=== PATIENT | male | born 1965 | race Caucasian/White ===

== ENCOUNTER 2020-06-25 09:39 | Outpatient (REF) | payer OTHER, SELFPAY | END 2020-06-25 09:40 | disposition home or self-care (01) | LOC: HO.HMGCLDS 09:39 | PROVIDERS: PCP Internal Medicine; Visit Provider Internal Medicine | DX: Z20.828 Contact with and (suspected) exposure to other viral communicable diseases (principal) | CPT/HCPCS: 36415; 87635 ==

== ENCOUNTER → 2020-08-25 09:30 | Outpatient (BNVA) | payer OTHER, SELFPAY | PROVIDERS: PCP Internal Medicine; Referring Provider Internal Medicine; Visit Provider Internal Medicine Gastroenterology | DX: Z76.89 Persons encountering health services in other specified circumstances (principal) ==

== ENCOUNTER 2020-08-31 10:31 | Outpatient (REF) | payer OTHER, SELFPAY ==
[2020-08-31 13:52] LABS: MANUAL DIFF FLAG NO
[2020-08-31 13:56] LABS: Basophils Percent Auto 0.5 % (0-2); Eosinophils Absolute Auto 0.1 X10*3/uL (0.0-0.4); Eosinophils Percent Auto 1.3 % (0-4); Hematocrit 43.2 % (42-52); Hemoglobin 14.6 g/dl (14.0-18.0); Imm Gran Abs Auto 0.02 X10*3/uL (0.00-0.03); Imm Gran Pct Auto 0.5 % (0.0-0.4); Lymphocytes Absolute Auto 1.1 X10*3/uL (1.2-4.9); Lymphocytes Percent Auto 29.8 % (20-40); Mean Corpuscular HGB Conc 33.8 g/dl (31.0-36.0); Mean Corpuscular Hemoglobin 33.7 pg (27.0-33.0); Mean Corpuscular Volume 99.8 fL (80-98); Mean Platelet Volume 10.1 fL (9.4-12.4); Monocytes Absolute Auto 0.5 X10*3/uL (0.1-1.2); Monocytes Percent Auto 13.9 % (2-11); Neutrophils Absolute Auto 2.1 X10*3/uL (2.0-8.3); Platelet Count 133 X10*3/uL (160-400); Red Blood Count 4.33 X10*6/uL (4.60-5.80); Red Cell Distribution Width 13.4 % (11.0-16.0); White Blood Count 3.8 X10*3/uL (4.8-10.8)
[2020-08-31 14:43] LABS: Alanine Aminotransferase 21 U/L (0-40); Albumin Level 3.7 g/dL (3.5-5.0); Alkaline Phosphatase 73 U/L (39-117); Anion Gap 12 (12-20); Aspartate Amino Transferase 25 U/L (5-37); Bilirubin Total 0.6 mg/dL (0.0-1.0); Blood Urea Nitrogen 12 mg/dL (9-16); Calcium 9.1 mg/dL (8.4-10.2); Carbon Dioxide 28 mmol/L (22-29); Chloride 101 mmol/L (96-108); Estimated Glomerular Filt Rate > 60; Glucose Random 55 mg/dL (60-115); Potassium 3.7 mmol/l (3.3-5.1); Sodium 137 mmol/L (135-145); Total Protein 6.4 g/dL (6.5-8.0)
[2020-08-31 14:50] LABS: Prostate Specific Antigen Scr 1.55 ng/mL (<0.05-4.0); Thyroid Stimulating Hormone 1.32 uIU/mL (0.32-4.0)
== END 2020-08-31 10:32 | disposition home or self-care (01) ==
LOC: HO.HMGCLDS 10:31
PROVIDERS: PCP Internal Medicine; Visit Provider Internal Medicine
DX: D69.6 Thrombocytopenia, unspecified (principal); B19.10 Unspecified viral hepatitis B without hepatic coma
CPT/HCPCS: 36415; 80053; 84153; 84443; 85025

== ENCOUNTER 2020-09-29 | Outpatient (REF) | payer OTHER, SELFPAY ==
[2020-09-29 11:38] LABS: Glucose Urine UA NEG (NEG); Leukocyte Esterase Urine NEG (NEG); Nitrite Urine NEG (NEG); PH 6.5 (5.0-8.0); Urine Blood 2+ (NEG); Urine Ketones NEG (NEG); Urine Protein NEG (NEG-TRACE)
[2020-09-29 11:47] LABS: Appearance Urine CLEAR; Color Urine YELLOW
[2020-09-29 11:56] LABS: Squamous Epithelial Cell Urine TRACE /LPF
== END 2020-09-29 00:01 | disposition home or self-care (01) ==
LOC: HO.HMGCLNP
PROVIDERS: Visit Provider Internal Medicine
DX: N39.0 Urinary tract infection, site not specified (principal)
CPT/HCPCS: 81001

== ENCOUNTER 2020-11-09 09:56 | Outpatient (REF) | payer OTHER, SELFPAY ==
--- NOTE | ~2020-11-09 | US_ITS ---
EXAMINATION: US ABDOMEN COMPLETE CLINICAL INFORMATION: Thrombocytopenia. COMPARISON: 07/05/2019 TECHNIQUE: Real-time imaging of the abdominal viscera. FINDINGS: PANCREAS: Pancreas is obscured by bowel gas. ABDOMINAL AORTA: Largely obscured by bowel gas. INFERIOR VENA CAVA: Visualized portions are normal. LIVER: Evaluation of the liver is obscured by bowel gas and difficulty with breath holding. The liver is normal in size. The liver contour is normal. Parenchymal echogenicity is normal. No focal hepatic lesion. There is no intrahepatic biliary duct dilatation seen. GALLBLADDER: The patient reported tenderness upon imaging of the gallbladder. The gallbladder is physiologically distended without evidence of stones, sludge, polyps, wall thickening or pericholecystic fluid. COMMON BILE DUCT: Normal in caliber measuring 0.4 cm in diameter. RIGHT KIDNEY: Normal. No hydronephrosis. No renal calculi or focal parenchymal lesions. The kidney measures 10.5 cm in maximum dimension. LEFT KIDNEY: Normal. No hydronephrosis. No renal calculi or focal parenchymal lesions. The kidney measures 10.4 cm in maximum dimension. SPLEEN: Normal. The spleen measures 8.7 cm in maximum dimension. FREE FLUID: None. US/US abdomen complete IMPRESSION: The study is limited by bowel gas and difficulty breath-holding to cooperate with the exam. The spleen is normal in size.
== END 2020-11-09 09:57 | disposition home or self-care (01) ==
LOC: HO.US 09:56
PROVIDERS: PCP Internal Medicine; Visit Provider Physician Assistant Surgical
DX: D69.6 Thrombocytopenia, unspecified (principal)
CPT/HCPCS: 76700

== ENCOUNTER → 2020-11-12 13:25 | Outpatient (BNVA) | payer OTHER, SELFPAY | PROVIDERS: PCP Internal Medicine; Visit Provider Urology ==

== ENCOUNTER → 2020-12-01 13:19 | Outpatient (BNV) | payer OTHER, SELFPAY | PROVIDERS: PCP Internal Medicine; Referring Provider Internal Medicine; Visit Provider Internal Medicine | DX: D69.6 Thrombocytopenia, unspecified (principal) | CPT/HCPCS: 99203; 99213 ==

== ENCOUNTER → 2020-12-24 12:54 | Outpatient (BNVA) | payer OTHER, SELFPAY | PROVIDERS: PCP Internal Medicine; Visit Provider Urology ==

== ENCOUNTER → 2020-12-29 11:37 | Outpatient (BNVA) | payer OTHER, SELFPAY | PROVIDERS: Visit Provider Internal Medicine Gastroenterology ==

== ENCOUNTER 2021-02-16 14:34 | Outpatient (REF) | payer OTHER, SELFPAY ==
[2021-02-18 14:59] LABS: FIT Int Ctl YES; FIT1 NEGATIVE (NEGATIVE); FIT2 NEGATIVE (NEGATIVE)
== END 2021-02-18 14:35 | disposition home or self-care (01) ==
LOC: HO.LNP 14:34
PROVIDERS: Visit Provider Internal Medicine Gastroenterology
DX: K59.04 Chronic idiopathic constipation (principal)
CPT/HCPCS: 82274

== ENCOUNTER 2021-05-11 09:04 | Outpatient (REF) | payer OTHER, SELFPAY ==
[2021-05-11 11:02] LABS: MANUAL DIFF FLAG NO
[2021-05-11 11:22] LABS: Basophils Percent Auto 0.6 % (0-2); Eosinophils Percent Auto 1.3 % (0-4); Hematocrit 40.4 % (42-52); Hemoglobin 14.2 g/dl (14.0-18.0); Imm Gran Abs Auto 0.01 X10*3/uL (0.00-0.03); Imm Gran Pct Auto 0.3 % (0.0-0.4); Lymphocytes Absolute Auto 1.3 X10*3/uL (1.2-4.9); Lymphocytes Percent Auto 42.4 % (20-40); Mean Corpuscular HGB Conc 35.1 g/dl (31.0-36.0); Mean Corpuscular Hemoglobin 33.6 pg (27.0-33.0); Mean Corpuscular Volume 95.7 fL (80-98); Mean Platelet Volume 10.1 fL (9.4-12.4); Monocytes Absolute Auto 0.4 X10*3/uL (0.1-1.2); Monocytes Percent Auto 13.2 % (2-11); Neutrophils Absolute Auto 1.3 X10*3/uL (2.0-8.3); Neutrophils Percent Auto 42.2 % (45-73); Platelet Count 147 X10*3/uL (160-400); Red Blood Count 4.22 X10*6/uL (4.60-5.80); Red Cell Distribution Width 12.9 % (11.0-16.0); White Blood Count 3.1 X10*3/uL (4.8-10.8)
[2021-05-11 11:42] LABS: Valproate 78.6 mcg/mL (50.0-100.0)
[2021-05-11 12:09] LABS: HBc Num1 10.47 S/CO (0.00-0.79); HBsAGNum1 15.94 S/CO (0.00-0.99); ~Hepatitis B Surface Antibody NONREACTIVE (Nonreactive)
[2021-05-11 12:22] LABS: Folate > 20.0 ng/mL (> or = 4.0); Vitamin B12 1167 pg/mL (200-900)
[2021-05-11 12:28] LABS: Alanine Aminotransferase 23 U/L (0-40); Albumin Level 3.8 g/dL (3.5-5.0); Alkaline Phosphatase 84 U/L (39-117); Anion Gap 12 (12-20); Aspartate Amino Transferase 23 U/L (5-37); Bilirubin Total 0.5 mg/dL (0.0-1.0); Blood Urea Nitrogen 11 mg/dL (9-16); Calcium 9.4 mg/dL (8.4-10.2); Carbon Dioxide 27 mmol/L (22-29); Chloride 99 mmol/L (96-108); Cholesterol 144 mg/dL; Estimated Glomerular Filt Rate > 60; Glucose Random 72 mg/dL (60-115); HDL Cholesterol 53 mg/dL; LDL Cholesterol Calculated 79 mg/dl; Potassium 4.4 mmol/L (3.3-5.1); Sodium 134 mmol/L (135-145); Total Protein 6.3 g/dL (6.5-8.0); Triglycerides 64 mg/dL
[2021-05-11 12:32] LABS: Free T4 (Free Thyroxine) 0.71 ng/dL (0.71-1.85); Thyroid Stimulating Hormone 1.81 uIU/mL (0.32-4.0)
[2021-05-12 07:15] LABS: HBc Num2 10.98 S/CO; HBc Num3 10.97 S/CO; HBsAGNum2 Reactive; Hepatitis B Core Antibody Reactive (Nonreactive)
[2021-05-12 07:16] LABS: HBsAGNum3 Reactive; Hepatitis B Surface Antigen Retest CNFM (Negative)
[2021-05-12 07:20] LABS: Hepatitis B Surface Antigen Rep Reactive (Negative)
[2021-05-13 17:36] LABS: Hepatitis B Viral DNA Qn - cp <1.00 DETECTED Log IU/mL (NOT DETECTED); Hepatitis B Viral DNA Qn-IU/mL <10 DETECTED IU/mL (NOT DETECTED)
[2021-05-14 19:40] LABS: TS Negative Control Passed; TS Panel A 0; TS Panel B 0; TS Positive Control Passed; TSpotTB Negative (SeeBelow)
[2021-05-17 12:31] LABS: Hepatitis BE Antibody REACTIVE (NON-REACTIVE); Hepatitis BE Antigen NON-REACTIVE (NON-REACTIVE)
== END 2021-05-11 09:05 | disposition home or self-care (01) ==
LOC: HO.HMGCLDS 09:04
PROVIDERS: Absent Provider Internal Medicine Gastroenterology; PCP Internal Medicine; Visit Provider Internal Medicine
DX: B18.1 Chronic viral hepatitis B without delta-agent (principal); F48.9 Nonpsychotic mental disorder, unspecified; F69 Unspecified disorder of adult personality and behavior; E78.00 Pure hypercholesterolemia, unspecified; Z86.69 Personal history of other diseases of the nervous system and sense organs
CPT/HCPCS: 36415; 80053; 80061; 80164; 82607; 82746; 84439; 84443; 85025; 86481; 86704; 86706; 86707; 87340; 87350; 87517

== ENCOUNTER 2021-05-18 14:25 | Outpatient (REF) | payer OTHER, SELFPAY ==
[2021-05-18 16:50] LABS: Glucose Urine UA NEG (NEG); Leukocyte Esterase Urine TRACE (NEG); Nitrite Urine NEG (NEG); Specific Gravity - Urine 1.015 (1.005-1.025); Urine Blood NEG (NEG); Urine Ketones NEG (NEG); Urine Protein NEG (NEG-TRACE)
[2021-05-18 16:52] LABS: Appearance Urine CLEAR; Color Urine YELLOW
[2021-05-18 17:06] LABS: RBC Urine 0 /HPF (0)
== END 2021-05-18 14:26 | disposition home or self-care (01) ==
LOC: HO.HMGCLNP 14:25
PROVIDERS: Visit Provider Internal Medicine
DX: N20.0 Calculus of kidney (principal); N39.0 Urinary tract infection, site not specified
CPT/HCPCS: 81001

== ENCOUNTER 2021-07-15 09:05 | Outpatient (REF) | payer OTHER, SELFPAY ==
[2021-07-15 11:38] LABS: Appearance Urine CLEAR; Color Urine YELLOW; Glucose Urine UA NEG (NEG); Leukocyte Esterase Urine NEG (NEG); Nitrite Urine NEG (NEG); PH 7.5 (5.0-8.0); Specific Gravity - Urine 1.015 (1.005-1.025); Urine Blood NEG (NEG); Urine Ketones NEG (NEG); Urine Protein NEG (NEG-TRACE)
[2021-07-15 12:03] LABS: Amorphous Sediment Urine 2+ /LPF; Calcium Oxalate Crystals Urine TRACE /LPF; RBC Urine 0 /HPF (0)
== END 2021-07-15 09:06 | disposition home or self-care (01) ==
LOC: HO.HMGCLNP 09:05
PROVIDERS: Visit Provider Internal Medicine
DX: N20.0 Calculus of kidney (principal); N39.0 Urinary tract infection, site not specified; R30.0 Dysuria
CPT/HCPCS: 81001

== ENCOUNTER 2021-11-22 12:49 | Outpatient (REF) | payer OTHER, SELFPAY ==
--- NOTE | ~2021-11-22 | MM_ITS ---
EXAMINATION: BONE DENSITOMETRY CLINICAL INDICATION: Other specified disorders of bone density and structure. COMPARISON: Baseline BD dated 03/05/2018. TECHNIQUE: Using a IQMax DXA System (software version: 13.1) manufactured by [employer], dual-energy x-ray absorptiometry was performed of the lumbar spine and left hip. The images are of good technical quality. Summary results are attached. FINDINGS: AP SPINE L1-L4: Current: BMD 1.067 g/cm2, Z-score -0.5, T-score -1.3, osteopenia, 4.5% decrease from baseline (<5% change is not significant). Baseline: BMD 1.117 g/cm2. LEFT FEMUR, NECK: Current: BMD 0.732 g/cm2, Z-score -1.5, T-score -2.6, osteoporosis. Baseline: BMD 0.905 g/cm2. LEFT FEMUR, TOTAL: Current: BMD 0.807 g/cm2, Z-score -1.3, T-score -2.0, osteopenia, 14.8% decrease from baseline (<5% change is not significant). Baseline: BMD 0.947 g/cm2. IDENTIFIED RISK FACTORS: Secondary osteoporosis, history of fracture (adult), anticonvulsants. HISTORY OF FRACTURE: Rib. MEDICATIONS: Calcium supplements or multivitamin, vitamin D. MM/XR DEXA axial skeleton IMPRESSION: 1. DIAGNOSIS: Osteoporosis based on the lowest T-score value of -2.6 in the femoral neck applying World Health Organization criteria. 2. 10-YEAR FRACTURE RISK PREDICTION, FRAX: According to the guidelines, FRAX calculation should only be performed on patients in the osteopenia bone density category. Therefore, FRAX was not performed on this patient. 3. Treatment Recommendations: NOF guidelines recommend consideration for treatment in postmenopausal women and men age 50 and older presenting with the following: -A hip or vertebral (clinical or morphometric) fracture. -T-score less than or equal to -2.5 at the femoral neck or spine after appropriate evaluation to exclude secondary causes. -Low bone mass at the hip or spine and a 10-year fracture probability by FRAX of greater than or equal to 3% for hip fracture or greater than or equal to 20% for major osteoporotic fracture based on the [place] adapted WHO algorithm. 4. Other Recommendations: All treatment decisions require clinical judgment and consideration of individual patient factors, including patient preferences, comorbidities, previous drug use, risk factors not captured in the FRAX model (e.g. frailty, falls, vitamin D deficiency, increased bone turnover, interval significant decline in bone density) and possible under or overestimation of fracture risk by FRAX. Additional medical evaluation for secondary cause of low bone mineral density may be appropriate. FUTURE SCAN RECOMMENDATION: People with diagnosed cases of osteoporosis or at high risk for fracture should have regular bone mineral density tests. For patients eligible for Medicare, routine testing is allowed once every 2 years. The testing frequency can be increased to one year for patients who have rapidly progressing disease, those who are receiving or discontinuing medical therapy to restore bone mass, or have additional risk factors.
== END 2021-11-22 12:50 | disposition home or self-care (01) ==
LOC: HO.MAMMO 12:49
PROVIDERS: PCP Internal Medicine; Visit Provider Internal Medicine
DX: Z13.820 Encounter for screening for osteoporosis (principal); M85.80 Other specified disorders of bone density and structure, unspecified site; Z79.899 Other long term (current) drug therapy
CPT/HCPCS: 77080

== ENCOUNTER → 2021-12-07 11:22 | Outpatient (BNVA) | payer OTHER, SELFPAY | PROVIDERS: PCP Internal Medicine; Referring Provider Internal Medicine; Visit Provider Physician Assistant | DX: K59.09 Other constipation (principal); B18.1 Chronic viral hepatitis B without delta-agent | CPT/HCPCS: 99212 ==

== ENCOUNTER 2022-02-08 08:28 | Outpatient (REF) | payer OTHER, SELFPAY ==
--- NOTE | ~2022-02-08 | US_ITS ---
EXAMINATION: US ABDOMEN COMPLETE CLINICAL INFORMATION: Chronic viral hepatitis B without delta agent. COMPARISON: Ultrasound abdomen complete 11/09/2020. Renal ultrasound 06/08/2020. CT abdomen and pelvis 07/05/2019. X-ray KUB 04/04/2019. Exam is limited due to patient body habitus. TECHNIQUE: Real-time imaging of the abdominal viscera. FINDINGS: PANCREAS: Not well visualized due to bowel gas ABDOMINAL AORTA: The proximal, mid, and distal segments are normal in caliber. INFERIOR VENA CAVA: Visualized portions are normal. LIVER: Normal. The liver is normal in size. The liver contour is normal. Parenchymal echogenicity is normal. No focal hepatic lesion. There is no intrahepatic biliary duct dilatation seen. GALLBLADDER: The gallbladder is contracted. No gallstones are seen. COMMON BILE DUCT: Normal in caliber measuring 0.2 cm in diameter. RIGHT KIDNEY: There is a 4 mm stone in the lower pole. No hydronephrosis or focal parenchymal lesions. The kidney measures 11.1 cm in maximum dimension. LEFT KIDNEY: There is a 3 mm stone in the midpole. No hydronephrosis or focal parenchymal lesions. The kidney measures 11.4 cm in maximum dimension. SPLEEN: Normal. The spleen measures 7.1 cm in maximum dimension. FREE FLUID: None. US/US abdomen complete IMPRESSION: Limited exam. The liver appears normal without evidence of cirrhosis. Small bilateral renal stones. Contracted gallbladder. Nonvisualization of the pancreas.
== END 2022-02-08 08:29 | disposition home or self-care (01) ==
LOC: HO.US 08:28
PROVIDERS: Visit Provider Physician Assistant
DX: B18.1 Chronic viral hepatitis B without delta-agent (principal)
CPT/HCPCS: 76700

== ENCOUNTER 2022-03-20 14:49 | Outpatient (REF) | payer OTHER, SELFPAY ==
--- NOTE | ~2022-03-20 | XR_ITS ---
EXAMINATION: XR SHOULDER, RIGHT CLINICAL INFORMATION: Right shoulder pain. COMPARISON: 07/11/2010 and chest x-ray of 12/10/2017. TECHNIQUE: Three views of the right shoulder. FINDINGS: No dislocation is evident. There is some mild spurring of the glenohumeral joint inferiorly. Patient is status post previous right clavicle fracture. There is calcific tendinitis noted. On the provided films, there is a curvilinear density about the lateral aspect of the humeral head, however, this is likely related to overlying bed sheets rather than acute fracture. XR/XR shoulder RT min 2V IMPRESSION: Calcific tendinitis of the right shoulder. Probable artifact, as described above.
== END 2022-03-20 14:50 | disposition home or self-care (01) ==
LOC: HO.XRAY 14:49
PROVIDERS: PCP Internal Medicine; Visit Provider Emergency Medicine
DX: M25.511 Pain in right shoulder (principal)
CPT/HCPCS: 73030

== ENCOUNTER 2022-03-24 10:10 | Emergency (ER) | payer OTHER, SELFPAY ==
--- NOTE | ~2022-03-24 | CT_ITS ---
EXAMINATION: CT FACIAL BONES WITHOUT CONTRAST CLINICAL INFORMATION: Fall. Trauma. COMPARISON: Previous CT March 2020 TECHNIQUE: Axial images through the facial bones without contrast. Sagittal and coronal reconstructions on the technologist workstation were performed. This CT examination was performed using dose optimization techniques as appropriate, variously including the following: *Automated exposure control *Adjustment of mA and/or kV according to patient size (this includes techniques or standardized protocols for targeted exams where dose is matched to indication/reason for exam; i.e. extremities or head) *Use of iterative reconstruction technique DLP: 343 mGy-cm FINDINGS: There is no acute fracture or dislocation. There is evidence of old trauma to the bridge of the nose and deviation of the nasal septum to the left that appears unchanged. There is mild membranous soft tissue thickening in the sphenoid sinus. Paranasal sinuses are otherwise well aerated and clear. Temporomandibular joints are normal. Middle ears and mastoid air cells are normal. Orbits are normal. CT/CT facial bones wo con IMPRESSION: No acute fracture is seen. Evidence of old trauma to the nose similar to previous exam.
--- NOTE | ~2022-03-24 | CT_ITS ---
EXAMINATION: CT CERVICAL SPINE WITHOUT CONTRAST CLINICAL INFORMATION: Trauma. Fall. COMPARISON: Previous cervical spine CT March 2020 TECHNIQUE: Axial images through the cervical spine without contrast. Sagittal and coronal reconstructions on the technologist workstation were performed. This CT examination was performed using dose optimization techniques as appropriate, variously including the following: *Automated exposure control *Adjustment of mA and/or kV according to patient size (this includes techniques or standardized protocols for targeted exams where dose is matched to indication/reason for exam; i.e. extremities or head) *Use of iterative reconstruction technique DLP: 313 mGy-cm FINDINGS: Bone alignment is normal. No fracture or dislocation is seen. There is multilevel degenerative spondylosis with bridging vertebral body bony osteophytes from C2-C3 to C7-T1. There is disc space narrowing at C3-C4. Prevertebral soft tissues are normal. Visualized lung apices are clear. There is old trauma to the bilateral clavicles. CT/CT cervical spine wo con IMPRESSION: No fracture or dislocation. Degenerative changes. Fleischner guidelines were followed.
--- NOTE | ~2022-03-24 | CT_ITS ---
EXAMINATION: CT HEAD WITHOUT CONTRAST CLINICAL INFORMATION: Fall. Hit face. Vomiting. COMPARISON: Previous head CT most recent March 2020. TECHNIQUE: Contiguous axial imaging was performed from the skull base to vertex without intravenous administration of contrast. This CT examination was performed using dose optimization techniques as appropriate, variously including the following: *Automated exposure control *Adjustment of mA and/or kV according to patient size (this includes techniques or standardized protocols for targeted exams where dose is matched to indication/reason for exam; i.e. extremities or head) *Use of iterative reconstruction technique DLP: 701 mGy-cm FINDINGS: There is no evidence of an extra-axial collection. There is no evidence of intra-axial or extra-axial hemorrhage. The ventricles and extra-axial CSF spaces are prominent suggestive of generalized atrophy. Ng-white matter differentiation is normal. No mass, mass effect or infarct is seen. No skull fracture is seen. Visualized paranasal sinuses, mastoid air cells and middle ears are clear. CT/CT head/brain wo con IMPRESSION: Table exam. No acute findings.
[2022-03-24 10:42] VITALS: BP 92/73; PULSE 55; RESP 16; TEMP 36.3; O2SAT 97; BMI 21.4
--- NOTE | 2022-03-24 12:29 | ED.FALL ---
HPI - Fall General Chief Complaint: Fall Stated Complaint: fell today and hit face abt 930am Time Seen by Provider: 03/24/22 11:05 Source: patient and other Mode of arrival: wheelchair History of Present Illness HPI Narrative: 56-year-old male with past medical history of cerebral palsy, GERD, cognitive developmental delay, thrombocytopenia, vitamin-D deficiency, presenting to the ED complaining of nasal laceration and head injury s/p mechanical trip and fall at day program [employer]. Patient's medical worker reports while at program patient was having behavioral disturbance, stood up from wheelchair and foot got caught on table and fell knee 1st then face on the ground. Denies LOC or taking anticoagulation. Patient did have 1 episode of emesis after incident. Admit patient is at baseline mental status. Patient denies neck/back pain, abdominal pain. Tetanus up-to-date Related Data Home Medications Medication Instructions Recorded Confirmed fluoride (sodium) 1.1 % dental 1 appl PO DAILY 08/25/20 12/07/21 cream clonidine HCl 0.1 mg tablet 0.1 mg PO BID 11/09/20 12/07/21 clonidine HCl 0.2 mg tablet 0.2 mg PO DAILY 11/09/20 12/07/21 divalproex 250 mg tablet,extended 750 mg PO DAILY 11/09/20 12/07/21 release 24 hr divalproex 500 mg tablet,extended 1,000 mg PO DAILY 11/09/20 12/07/21 release 24 hr gabapentin 300 mg capsule 600 mg PO BID 11/09/20 12/07/21 levetiracetam 500 mg tablet 1,000 mg PO BID 11/09/20 12/07/21 therapeutic multivitamin 1 tab PO DAILY 12/01/20 12/07/21 oxcarbazepine 300 mg tablet 600 mg PO BID 12/24/20 12/07/21 bismuth subsalicylate 262 mg/15 mL 524 mg PO Q6H PRN Diarrhea 05/09/21 12/07/21 oral suspension (Bismatrol) olanzapine 15 mg tablet 15 mg PO DAILY 05/09/21 12/07/21 Previous Rx's Medication Instructions Recorded miscellaneous medical supply 1 ea miscellaneous DAILY #1 ea 04/22/21 psyllium 1 tsp PO DAILY #300 grams 08/17/21 docusate sodium 100 mg capsule 100 mg PO BID for constipation #60 09/14/21 caps loratadine 10 mg tablet (Claritin) 10 mg PO DAILY allergy symptoms 90 09/28/21 days #90 tabs multivitamin with folic acid 400 1 tab PO QAM #30 tabs 10/05/21 mcg tablet (Thera) omeprazole 20 mg capsule,delayed 20 mg PO QAM #30 caps 10/27/21 release fluticasone propionate 50 2 spray intranasal DAILY #16 grams 11/07/21 mcg/actuation nasal spray,suspension (Flonase Allergy Relief) magnesium hydroxide 400 mg/5 mL 400 mg (5 mL) PO BEDTIME PRN 12/29/21 oral suspension (Milk of Magnesia) Diarrhea #3,000 mL acetaminophen 325 mg capsule 325 mg PO QID PRN fever or pain 01/19/22 #60 caps cholecalciferol (vitamin D3) 25 50 mcg PO DAILY #180 tabs 01/19/22 mcg (1,000 unit) tablet finasteride 5 mg tablet 5 mg PO DAILY 90 days #90 tabs 02/08/22 tamsulosin 0.4 mg capsule 0.4 mg PO BEDTIME 90 days #90 caps 02/08/22 naproxen sodium 220 mg tablet 220 mg PO BID PRN pain #30 tabs 03/21/22 Allergies Allergy/AdvReac Type Severity Reaction Status Date / Time topiramate [From TOPAMAX] Allergy Intermediate UNKNOWN Verified 03/24/22 10:47 Review of Systems Review of Systems: Constitutional: No Fever, No Chills ENT/Mouth: + nose Pain, No Nasal Congestion, No Sinus Pain, No Hoarseness, No sore throat, No Rhinorrhea, No Swallowing Difficulty Eyes: No Eye Pain, No Swelling Cardiovascular: No Chest Pain, No SOB Respiratory: No Cough, No Dyspnea Gastrointestinal: No Nausea, + Vomiting, No Abdominal pain Genitourinary: No Urinary Incontinence/retention Musculoskeletal: + joint pain, No Myalgias, No Joint Swelling Skin: + Skin Lesions, No rash Neuro: No Weakness, No Loss of Consciousness, + Headache Yes all other systems are reviewed and are negative [facility] Past Medical History Attestation statement: The following information was validated with the patient. Medical History Cerebral palsy Cholelithiasis Chronic idiopathic constipation Cognitive developmental delay GERD (gastroesophageal reflux disease) H/O nephrolithotomy with removal of calculi Hepatitis B virus infection Hx of seizure disorder Leukopenia Osteopenia Renal calculus, bilateral Ribs, multiple fractures Thrombocytopenia Vitamin D deficiency Surgical History History of cystoscopy History of extraction of renal calculus History of gastric surgery S/P cataract surgery Family History Family History Father No problems noted. Mother No problems noted. Family/Other Family history unknown Social History Social History Household Members: Other Household Members Other:: [facility] Housing: Other Housing Other:: [facility] Are you a primary critical care physician to a significant other at home: No Do you presently have visiting nurse or other home services: Yes Alcohol intake: never Patient Tobacco Use Status: Never used Tobacco e-Cigarette/Vaping Use: Never Used Second Hand Smoke Exposure: No Advance Directives: Yes Advance Directives Information Provided: Yes Advance Directives on File: No service: No Current occupational status: disabled Physical Exam Vital Signs: Vital Signs: Last Vital Signs Temp 97.3 F 03/24/22 10:42 Pulse 55 03/24/22 10:42 Resp 16 03/24/22 10:42 BP 92/73 03/24/22 10:42 Pulse Ox 97 03/24/22 10:42 O2 Del Method 03/24/22 10:42 BMI result Body Mass Index 21.4 Const: General: cooperative, no acute distress, alert and awake Limitations: no limitations, wheelchair and other limitations HEENT: Other: + superficial 1 cm laceration noted to nasal bridge with surrounding swelling. No septal hematoma. No appreciable orbital fracture/step-off. EOMs intact Head: Yes normal to inspection, Yes atraumatic and No palpable skull fracture Ears: hearing grossly normal bilaterally Face and sinus: Yes normal facial exam Mouth: Normal oral and palatal mucosa present Throat: Yes posterior oropharynx normal Eyes: General: appearance normal, both eyes and all related structures Pupils: Pupil size comments on the right 4 and on the left 2 EOM: EOMs intact bilaterally Neck: Other: No midline cervical spinous tenderness Neck: Yes normal visual inspection and Yes no meningeal signs Chest: Chest palpation & inspection: normal inspection of the chest, no crepitus and no tenderness Resp: Effort & Inspection: normal respiratory effort and no respiratory distress Auscultation: clear to auscultation bilaterally Cardio: Rate: regular rate Heart sounds: S1 normal heart sound present and S2 normal heart sound present GI: Inspection: Yes normal to inspection Palpation (GI): Soft to palpation, nontender, no guarding and not rigid Skin: Rashes: no rashes Neuro: Other: Mentation at baseline General: tone normal, moves all extremities and no meningeal signs Extrem: Other: Right knee with mild ecchymosis. ROM intact. Mildly tender. Course Course Course Narrative: CT head/brain wo con IMPRESSION: Unremarkable exam. No acute findings. CT cervical spine wo con IMPRESSION: No fracture or dislocation. Degenerative changes. ? Fleischner guidelines were followed. CT facial bones wo con IMPRESSION: No acute fracture is seen. Evidence of old trauma to the nose similar to previous exam. > results discussed with patient and staff that accompanied patient including worrisome signs and symptoms and strict return precautions Procedures Laceration Laceration 1: Site: face Size (cm): 1 Description: linear Depth: simple, single layer Pre-repair: wound explored Skin layer closed with: other (Dermabond) MDM - Fall MDM Narrative Medical decision making narrative: 56-year-old male with past medical history of cerebral palsy, GERD, cognitive developmental delay, thrombocytopenia, vitamin-D deficiency, presenting to the ED complaining of nasal laceration and head injury s/p mechanical trip and fall at day program [employer]. On exam vital signs stable, NAD/nontoxic appearing physical exam as above. Concern for ICH vs concussion vs fracture. Low suspicion for intra-abdominal hematoma/bleeding. Plan: Head/C-spine/facial bone CT, repair laceration with Dermabond Differential Diagnosis Differential diagnosis: Likely fracture and concussion without loss of consciousness Medical Records Attestation: I reviewed the patient's medical records. Lab Data Attestation: I reviewed the patient's lab results. Discharge Plan Discharge Clinical Impression: Laceration of nose, Fall, Head injury Patient Disposition: Home, Self-Care Instructions: Head Injury (ED), Facial Laceration (ED) Additional Instructions: The CT scans of your head, face, and neck were unremarkable. Suture was closed with skin glue, do not take at the area it will follow up on its own. Take Tylenol and Motrin at home for pain/headache. Patient could have mild concussion, if he has any change in mental status, increasing lethargy, persistent nausea or vomiting return to the ED immediately. If cut begins to look infected return to the ED Please follow-up with . Prescriptions: No Action miscellaneous medical supply Misc 1 ea miscellaneous DAILY Qty: 1 0RF Rx Instructions: soft foam helmet psyllium Powder 1 tsp PO DAILY Qty: 300 12RF Rx Instructions: mix into at least 4 oz water or juice before administering docusate sodium 100 mg capsule 100 mg PO BID Qty: 60 6RF loratadine [Claritin] 10 mg tablet 10 mg PO DAILY 90 Days Qty: 90 3RF multivitamin with folic acid [Thera] 400 mcg tablet 1 tab PO QAM Qty: 30 11RF omeprazole 20 mg capsule,delayed release(DR/EC) 20 mg PO QAM Qty: 30 11RF magnesium hydroxide [Milk of Magnesia] 400 mg/5 mL suspension 400 mg PO BEDTIME PRN (Reason: Diarrhea) Qty: 3000 3RF cholecalciferol (vitamin D3) 25 mcg (1,000 unit) tablet 50 mcg PO DAILY Qty: 180 3RF acetaminophen 325 mg capsule 325 mg PO QID PRN (Reason: fever or pain) Qty: 60 3RF finasteride 5 mg tablet 5 mg PO DAILY 90 Days Qty: 90 1RF tamsulosin 0.4 mg capsule 0.4 mg PO BEDTIME 90 Days Qty: 90 1RF naproxen sodium 220 mg tablet 220 mg PO BID PRN (Reason: pain) Qty: 30 0RF Rx Instructions: take with food all the time Thera Tablet 1 tab PO DAILY bismuth subsalicylate [Bismatrol] 262 mg/15 mL suspension 524 mg PO Q6H PRN (Reason: Diarrhea) fluticasone propionate [Flonase Allergy Relief] 50 mcg/actuation spray,suspension 2 spray intranasal DAILY Qty: 16 5RF Rx Instructions: administer into each nostril fluoride (sodium) 1.1 % cream 1 appl PO DAILY clonidine HCl 0.2 mg tablet 0.2 mg PO DAILY clonidine HCl 0.1 mg tablet 0.1 mg PO BID divalproex 250 mg tablet extended release 24 hr 750 mg PO DAILY divalproex 500 mg tablet extended release 24 hr 1,000 mg PO DAILY gabapentin 300 mg capsule 600 mg PO BID levetiracetam 500 mg tablet 1,000 mg PO BID oxcarbazepine 300 mg tablet 600 mg PO BID olanzapine 15 mg tablet 15 mg PO DAILY Referrals: Po,Aliza Shannon MD [Primary Care Provider] - 3 days
== END 2022-03-24 14:18 | disposition home or self-care (01) ==
PROVIDERS: Emergency Provider Emergency Medicine Emergency Medical Services; PCP Internal Medicine
DX: S01.21XA Laceration without foreign body of nose, initial encounter (principal); M54.2 Cervicalgia; R51.9 Headache, unspecified; W01.0XXA Fall on same level from slipping, tripping and stumbling without subsequent striking against object, initial encounter; Y93.9 Activity, unspecified; Y92.9 Unspecified place or not applicable; Y99.9 Unspecified external cause status; Z79.899 Other long term (current) drug therapy
CPT/HCPCS: 12011; 70450; 70486; 72125; 99283; 99284

== ENCOUNTER 2022-04-20 17:50 | Outpatient (REF) | payer OTHER, SELFPAY ==
[2022-04-20 18:05] LABS: Appearance Urine CLEAR; Color Urine YELLOW; Glucose Urine UA NEG (NEG); Leukocyte Esterase Urine TRACE (NEG); Nitrite Urine NEG (NEG); PH 6.5 (5.0-8.0); Urine Blood NEG (NEG); Urine Ketones NEG (NEG); Urine Protein NEG (NEG-TRACE)
[2022-04-20 18:20] LABS: RBC Urine 0-2 /HPF (0); Squamous Epithelial Cell Urine TRACE /LPF; WBC Urine 0-2 /HPF (0-4)
== END 2022-04-20 17:51 | disposition home or self-care (01) ==
LOC: HO.LNP 17:50
PROVIDERS: Visit Provider Urology
DX: N39.0 Urinary tract infection, site not specified (principal)
CPT/HCPCS: 81001

== ENCOUNTER 2022-05-24 08:12 | Outpatient (REF) | payer OTHER, SELFPAY ==
[2022-05-24 09:01] LABS: Basophils Percent Auto 0.6 % (0-2); Eosinophils Absolute Auto 0.1 X10*3/uL (0.0-0.4); Eosinophils Percent Auto 1.4 % (0-4); Hematocrit 45.9 % (42.0-52.0); Hemoglobin 15.9 g/dl (14.0-18.0); Imm Gran Abs Auto 0.01 X10*3/uL (0.00-0.03); Imm Gran Pct Auto 0.2 % (0.0-0.4); Lymphocytes Absolute Auto 1.3 X10*3/uL (1.2-4.9); Lymphocytes Percent Auto 27.3 % (20-40); MANUAL DIFF FLAG SCAN; Mean Corpuscular HGB Conc 34.6 g/dl (31.0-36.0); Mean Corpuscular Hemoglobin 33.1 pg (27.0-33.0); Mean Corpuscular Volume 95.6 fL (80.0-98.0); Mean Platelet Volume 11.1 fL (9.4-12.4); Monocytes Absolute Auto 0.7 X10*3/uL (0.1-1.2); Monocytes Percent Auto 13.3 % (2-11); Neutrophils Absolute Auto 2.8 x10*3/uL (2.0-8.3); Neutrophils Percent Auto 57.2 % (45-73); PLT CLUMP 1; Red Cell Distribution Width 13.2 % (11.0-16.0); Retic HGB Equivalent 39.6 pg (30.0-35.0); Reticulocyte Percent 2.2 % (0.5-1.8); Reticulocytes Absolute 0.104 X10*6/uL (0.026-0.095); SCAN SMEAR FLAG 1
[2022-05-24 09:17] LABS: Estimated Average Glucose 91 mg/dL; Hemoglobin A1c % 4.8 %
[2022-05-24 09:21] LABS: Alanine Aminotransferase 28 U/L (0-40); Albumin Level 4.1 g/dL (3.5-5.0); Alkaline Phosphatase 81 U/L (39-117); Anion Gap 16 (12-20); Aspartate Amino Transferase 36 U/L (5-37); Bilirubin Direct 0.2 mg/dL (0.0-0.5); Bilirubin Total 0.4 mg/dL (0.0-1.0); Blood Urea Nitrogen 16 mg/dL (9-16); Calcium 9.7 mg/dL (8.4-10.2); Carbon Dioxide 25 mmol/L (22-29); Chloride 105 mmol/L (96-108); Estimated Glomerular Filt Rate > 60; Glucose Random 73 mg/dL (60-115); Iron 198 mcg/dL (45-160); Percent Iron Saturation 61 % (15-50); Potassium 3.9 mmol/L (3.3-5.1); Sodium 142 mmol/L (135-145); Total Iron Binding Capacity 326 mcg/dL (228-428); Unsaturated Iron Binding 128 ug/dL
[2022-05-24 09:39] LABS: HBS Num1 0.52 mIU/mL (0-7.99); HBsAGNum1 12.72 S/CO (0.00-0.99); Valproate 79.9 mcg/mL (50.0-100.0); ~Hepatitis B Surface Antibody NONREACTIVE (Nonreactive)
[2022-05-24 09:41] LABS: Ferritin 80 ng/mL (20-250); Free T4 (Free Thyroxine) 0.78 ng/dL (0.71-1.85); Thyroid Stimulating Hormone 3.41 uIU/mL (0.32-4.0)
[2022-05-24 09:53] LABS: Platelet Count 115 X10*3/uL (160-400); White Blood Count 4.9 X10*3/uL (4.8-10.8)
[2022-05-24 09:54] LABS: SLIDE REVIEW VERIFIED
[2022-05-24 10:04] LABS: Folate > 20.0 ng/mL (> or = 4.0); Vitamin B12 1001 pg/mL (200-900)
[2022-05-24 13:06] LABS: HBsAGNum2 12.09; HBsAGNum3 12.16; Hepatitis B Surface Antigen Reactive (Negative)
[2022-05-25 17:36] LABS: Hepatitis B Viral DNA Qn - cp <1.00 NOT DETECTED Log IU/mL (NOT DETECTED); Hepatitis B Viral DNA Qn-IU/mL <10 NOT DETECTED IU/mL (NOT DETECTED)
[2022-05-26 16:07] LABS: Hepatitis BE Antibody REACTIVE (NON-REACTIVE); Hepatitis BE Antigen NON-REACTIVE (NON-REACTIVE)
[2022-05-26 23:47] LABS: TS Negative Control Passed; TS Panel A 2; TS Panel B 1; TS Positive Control Passed; TSpotTB Negative (Negative)
== END 2022-05-24 08:13 | disposition home or self-care (01) ==
LOC: HO.LAB 08:12
PROVIDERS: PCP Internal Medicine; Visit Provider Physician Assistant
DX: R10.11 Right upper quadrant pain (principal); B18.1 Chronic viral hepatitis B without delta-agent; D64.9 Anemia, unspecified; Z86.69 Personal history of other diseases of the nervous system and sense organs
CPT/HCPCS: 36415; 80053; 80076; 80164; 82248; 82607; 82728; 82746; 83036; 83540; 84439; 84443; 85025; 85045; 86481; 86706; 86707; 87340; 87350; 87517

== ENCOUNTER → 2022-06-01 10:53 | Outpatient (BNVA) | payer OTHER, SELFPAY | PROVIDERS: PCP Internal Medicine; Referring Provider Internal Medicine; Visit Provider Physician Assistant | DX: B18.1 Chronic viral hepatitis B without delta-agent (principal) | CPT/HCPCS: 99212 ==

== ENCOUNTER → 2022-06-23 10:33 | Outpatient (BNVA) | payer OTHER, SELFPAY | PROVIDERS: PCP Internal Medicine; Visit Provider Urology | DX: N20.0 Calculus of kidney (principal); N32.0 Bladder-neck obstruction | CPT/HCPCS: 51798; 99212 ==

== ENCOUNTER 2022-09-28 13:49 | Inpatient (IN) | payer OTHER, SELFPAY ==
[2022-09-28] VITALS (10 sets, daily range): BP systolic 86–123; BP diastolic 40–88; PULSE 54–100; RESP 15–20; TEMP 36.4–36.9; O2SAT 94–100; BMI 24.1
--- NOTE | ~2022-09-28 | XR_ITS ---
EXAMINATION: XR CHEST CLINICAL INFORMATION: Influenza COMPARISON: 12/10/2017 TECHNIQUE: Frontal view of the chest was obtained. FINDINGS: Mild diffuse peribronchial vascular opacities may reflect edema or atypical infection. No effusion or pneumothorax. Unchanged cardiomediastinal silhouette. XR/XR chest 1V IMPRESSION: Mild diffuse peribronchial vascular opacities may reflect edema or atypical infection.
--- NOTE | 2022-09-28 15:04 | ECG_ITS ---
Test Reason : ALTERED MENTAL Blood Pressure : / mmHG Vent. Rate : 067 BPM Atrial Rate : 067 BPM P-R Int : 170 ms QRS Dur : 086 ms QT Int : 480 ms P-R-T Axes : 064 056 063 degrees QTc Int : 507 ms Normal sinus rhythm Prolonged QT Abnormal ECG When compared with ECG of 28-DEC-2010 18:29, QT has lengthened Referred By: Frank Jackson Electronically Signed By:KHAI CRISOSTOMO
--- NOTE | 2022-09-28 15:32 | ED_ITS ---
HPI - General Adult General Chief complaint: General Medical Stated complaint: unresponsive at fdc now at [facility] Time Seen by Provider: 09/28/22 15:01 Source: RN notes reviewed and old records reviewed Mode of arrival: EMS Limitations: physical limitation History of Present Illness HPI narrative: 57-year-old with cerebral palsy and developmental delay he resides at a fdc was at daycare today and was noted to be much less alert. Patient is very somnolent and weak could not take his medications they sent here. Per the staff he did have a brief area episode where he was unresponsive he does have a history of seizures. 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 Patient is nonverbal at baseline. Related Data Home Medications Medication Instructions Recorded Confirmed fluoride (sodium) 1.1 % dental 1 appl PO DAILY 08/25/20 06/13/22 cream clonidine HCl 0.1 mg tablet 0.1 mg PO BID 11/09/20 06/13/22 clonidine HCl 0.2 mg tablet 0.2 mg PO DAILY 11/09/20 06/13/22 divalproex 250 mg tablet,extended 750 mg PO DAILY 11/09/20 06/13/22 release 24 hr divalproex 500 mg tablet,extended 1,000 mg PO DAILY 11/09/20 06/13/22 release 24 hr gabapentin 300 mg capsule 600 mg PO BID 11/09/20 06/13/22 levetiracetam 500 mg tablet 1,000 mg PO BID 11/09/20 06/13/22 therapeutic multivitamin 1 tab PO DAILY 12/01/20 06/13/22 oxcarbazepine 300 mg tablet 600 mg PO BID 12/24/20 06/13/22 olanzapine 15 mg tablet 15 mg PO DAILY 03/29/22 06/13/22 psyllium husk (with sugar) 3 PO 06/19/22 gram/7 gram oral powder (Reguloid (psyllium husk-sucrose)) Previous Rx's Medication Instructions Recorded miscellaneous medical supply 1 ea miscellaneous DAILY #1 ea 04/22/21 omeprazole 20 mg capsule,delayed 20 mg PO QAM #30 caps 10/27/21 release magnesium hydroxide 400 mg/5 mL 400 mg (5 mL) PO BEDTIME PRN 12/29/21 oral suspension (Milk of Magnesia) Diarrhea #3,000 mL acetaminophen 325 mg capsule 325 mg PO QID PRN fever or pain 01/19/22 #60 caps cholecalciferol (vitamin D3) 25 50 mcg PO DAILY #180 tabs 01/19/22 mcg (1,000 unit) tablet docusate sodium 100 mg capsule 100 mg PO BID for constipation #60 04/06/22 caps fluticasone propionate 50 2 spray intranasal DAILY #16 grams 04/28/22 mcg/actuation nasal spray,suspension (Flonase Allergy Relief) bismuth subsalicylate 262 mg/15 mL 524 mg (30 mL) PO Q6H PRN Diarrhea 07/20/22 oral suspension #1,200 mL finasteride 5 mg tablet 5 mg PO DAILY 90 days #90 tabs 07/20/22 tamsulosin 0.4 mg capsule 0.4 mg PO BEDTIME 90 days #90 caps 07/20/22 loratadine 10 mg tablet (Claritin) 10 mg PO DAILY allergy symptoms 90 09/15/22 days #90 tabs multivitamin with folic acid 400 1 tab PO QAM #30 tabs 09/15/22 mcg tablet (Thera) Allergies Allergy/AdvReac Type Severity Reaction Status Date / Time topiramate [From TOPAMAX] Allergy Intermediate UNKNOWN Verified 07/13/22 08:12 Review of Systems Review of Systems: Review of systems: General: Patient denies any fever chills recent illness or falls Musculoskeletal: Denies back pain or body aches or other injuries HEENT: denies headache, runny nose, ear pain Respiratory: denies shortness of breath, cough Cardiovascular: no chest pain or palpitations : denies dysuria, frequency Abdomen: no nausea vomiting denies abdominal pain Extremities: no swelling, no pain Skin: no diaphoresis Yes all other systems are reviewed and are negative PMFSH Past Medical History Medical History Cerebral palsy Cholelithiasis Chronic idiopathic constipation Cognitive developmental delay GERD (gastroesophageal reflux disease) H/O nephrolithotomy with removal of calculi Hepatitis B virus infection Hx of seizure disorder Leukopenia Osteopenia Renal calculus, bilateral Ribs, multiple fractures Thrombocytopenia Vitamin D deficiency Surgical History History of cystoscopy History of extraction of renal calculus History of gastric surgery S/P cataract surgery Family History Family History (Updated 07/13/22 @ 08:21 by CHAYO Nagy) Father No problems noted. Mother No problems noted. Family/Other Family history unknown Social History Social History Household Members: Other Household Members Other:: [facility] Housing: Other Housing Other:: [facility] Are you a primary care worker to a significant other at home: No Do you presently have visiting nurse or other home services: Yes Alcohol intake: never Patient Tobacco Use Status: Never used Tobacco e-Cigarette/Vaping Use: Never Used Second Hand Smoke Exposure: No Advance Directives: No Advance Directives Information Provided: No service: No Current occupational status: disabled Cognitive needs: Yes (wheelchair) Hearing needs: Yes Vision needs: Yes Physical Exam ED Vital Signs: Vital Signs - 24 hr 09/28/22 14:07 09/28/22 16:00 Temperature 98.4 F 97.5 F Pulse Rate 59 54 Respiratory Rate 16 15 Blood Pressure 107/65 92/46 L Pulse Oximetry 96 94 Oxygen Delivery Method Room Air Room Air BMI result Body Mass Index 24.1 General: Somnolent mildly arousable in mild signs of distress HEENT: Normocephalic atraumatic Neck: No signs of JVD, no masses no tenderness or lymphadenopathy Cardiovascular: Regular rate and rhythm Respiratory: Clear to auscultation bilaterally Abdomen: Soft nontender no masses Extremities: Normal pedal pulses no signs of edema Skin: Dry warm no rashes Back: No tenderness full ROM Medications Administered Generic Name Dose Route Start Last Admin Trade Name Freq PRN Reason Stop Dose Admin Sodium Chloride 1,000 mls @ 999 mls/hr 09/28/22 16:30 09/28/22 17:18 Ns IV 09/28/22 17:30 999 mls/hr .Q1H1M TAE Administration Discontinued Medications Generic Name Dose Route Start Last Admin Trade Name Freq PRN Reason Stop Dose Admin Sodium Chloride 1,000 mls @ 999 mls/hr 09/28/22 15:15 09/28/22 17:25 Ns IV 09/28/22 16:15 Infused .Q1H1M TAE Infusion Sodium Chloride 1,000 mls @ 999 mls/hr 09/28/22 15:45 09/28/22 17:25 Ns IV 09/28/22 16:45 Infused .Q1H1M TAE Infusion Piperacillin Sod/Tazobactam 100 mls @ 200 mls/hr 09/28/22 16:23 09/28/22 17:17 Sod 4.5 gm/ Sodium Chloride IV 09/28/22 16:52 200 mls/hr ONCE ONE Administration Lorazepam 1 mg 09/28/22 15:04 09/28/22 15:41 Lorazepam 2 Mg/Ml Vial IVPUSH 09/28/22 15:05 1 mg ONCE ONE Administration Medical Decision Making Medical Decision Making [facility] Narrative: Patient has low blood pressure on arrival a give patient 2 L of fluid 2 IVs I will send patient for complete septic workup the workup. Think the patient likely had a seizure as well make him altered. 1624 Patient has signs of infection with known flu exposure. I will give him vancomycin and zosyn his WBC count is very elevated. 1632 Ammonia level is also elevated I will hold the depakote and treat with some lactulose [address] Costa who saw the patient at bedside did bedside echo showing a IVC that spontaneously flattened even after 3 liters of fluid. XR is being done at this time as well XR looks like pneumonia already given vancomycin and zosyn. I will admit to [facility]. Differential Diagnosis Differential Diagnoses: The differential diagnosis associated with the presentation includes Sepsis altered mental status seizure influenza electrolyte abnormality dehydration on depakote so could have a elevated ammonia level as depakote can affect the celina cycle I will send a depakote level and ammonia level Admission/Observation Consideration of admission/observation: Escalation of care including admission/observation considered Lab Data [facility] Lab Attestation statement: I reviewed the patient's lab results. Result Diagrams: 09/28/22 15:37 09/28/22 15:37 Labs: Lab Results 09/28/22 09/28/22 09/28/22 Range/Units 15:37 15:37 15:37 WBC 4.3 L (4.8-10.8) X10*3/uL RBC 4.33 L (4.60-5.80) X10*6/uL Hgb 14.0 (14.0-18.0) g/dl Hct 39.4 L (42.0-52.0) % MCV 91.0 (80.0-98.0) fL MCH 32.3 (27.0-33.0) pg MCHC 35.5 (31.0-36.0) g/dl RDW 12.4 (11.0-16.0) % Plt Count 133 L (160-400) X10*3/uL MPV 10.1 (9.4-12.4) fL Immature Gran % (Auto) 0.7 H (0.0-0.4) % Neut % (Auto) 53.0 (45-73) % Lymph % (Auto) 27.2 (20-40) % Surry % (Auto) 17.7 H (2-11) % Eos % (Auto) 1.2 (0-4) % Baso % (Auto) 0.2 (0-2) % Lymph # (Auto) 1.2 (1.2-4.9) X10*3/uL Surry # (Auto) 0.8 (0.1-1.2) X10*3/uL Eos # (Auto) 0.1 (0.0-0.4) X10*3/uL Baso # (Auto) 0.0 (0.0-0.2) X10*3/uL Abs Immat Gran (auto) 0.03 (0.00-0.03) X10*3/uL Absolute Neuts (auto) 2.3 (2.0-8.3) x10*3/uL Absolute Nucleated RBC 0.000 (0.0-0.012) X10*3/uL Nucleated RBC % (auto) 0.0 (0.0-0.2) /100WBC Sodium 129 L (135-145) mmol/L Potassium 4.6 (3.3-5.1) mmol/L Chloride 98 (96-108) mmol/L Carbon Dioxide 24 (22-29) mmol/L Anion Gap 12 (12-20) BUN 16 (9-16) mg/dL Creatinine 0.74 (0.5-1.4) mg/dL Estim Creat Clear Calc 87.1 Estimated GFR > 60 Random Glucose 93 (60-115) mg/dL Lactic Acid (0.5-2.0) mmol/L Calcium 9.2 (8.4-10.2) mg/dL Total Bilirubin 0.3 (0.0-1.0) mg/dL Direct Bilirubin 0.2 (0.0-0.5) mg/dL AST 22 (5-37) U/L ALT 18 (0-40) U/L Alkaline Phosphatase 116 D (39-117) U/L Ammonia (13-55) umol/L Total Protein 6.0 L (6.5-8.0) g/dL Albumin 3.5 (3.5-5.0) g/dL Lipase 33 (8-78) U/L Valproic Acid 93.8 (50.0-100.0) mcg/mL 09/28/22 09/28/22 Range/Units 15:37 15:37 WBC (4.8-10.8) X10*3/uL RBC (4.60-5.80) X10*6/uL Hgb (14.0-18.0) g/dl Hct (42.0-52.0) % MCV (80.0-98.0) fL MCH (27.0-33.0) pg MCHC (31.0-36.0) g/dl RDW (11.0-16.0) % Plt Count (160-400) X10*3/uL MPV (9.4-12.4) fL Immature Gran % (Auto) (0.0-0.4) % Neut % (Auto) (45-73) % Lymph % (Auto) (20-40) % Surry % (Auto) (2-11) % Eos % (Auto) (0-4) % Baso % (Auto) (0-2) % Lymph # (Auto) (1.2-4.9) X10*3/uL Surry # (Auto) (0.1-1.2) X10*3/uL Eos # (Auto) (0.0-0.4) X10*3/uL Baso # (Auto) (0.0-0.2) X10*3/uL Abs Immat Gran (auto) (0.00-0.03) X10*3/uL Absolute Neuts (auto) (2.0-8.3) x10*3/uL Absolute Nucleated RBC (0.0-0.012) X10*3/uL Nucleated RBC % (auto) (0.0-0.2) /100WBC Sodium (135-145) mmol/L Potassium (3.3-5.1) mmol/L Chloride (96-108) mmol/L Carbon Dioxide (22-29) mmol/L Anion Gap (12-20) BUN (9-16) mg/dL Creatinine (0.5-1.4) mg/dL Estim Creat Clear Calc Estimated GFR Random Glucose (60-115) mg/dL Lactic Acid 1.3 (0.5-2.0) mmol/L Calcium (8.4-10.2) mg/dL Total Bilirubin (0.0-1.0) mg/dL Direct Bilirubin (0.0-0.5) mg/dL AST (5-37) U/L ALT (0-40) U/L Alkaline Phosphatase (39-117) U/L Ammonia 86 H (13-55) umol/L Total Protein (6.5-8.0) g/dL Albumin (3.5-5.0) g/dL Lipase (8-78) U/L Valproic Acid (50.0-100.0) mcg/mL Independent Interpretation I performed an independent interpretation of an: EKG and Plain X-Ray Interpretation: Rate 67 normal sinus rhythm normal intervals no signs of ischemia XR shows pneumonia. I did give vancomcycin and zosyn Critical Care Time Critical Care Time Critical Care Time: Yes Total Critical Care Time: 60 Attestation: Patient seen immmediately was hypotensive on arrival requiring resucitation with fluids found to septic and altered likely due to depakote leading to hyperammonemia requiring urgent treatment. Discharge Plan Discharge Clinical Impression: Acute alteration in mental status, Hyperammonemia, Pneumonia, Influenza A Patient Disposition: Admitted As Inpatient Prescriptions: No Action miscellaneous medical supply Misc 1 ea miscellaneous DAILY Qty: 1 0RF Rx Instructions: soft foam helmet omeprazole 20 mg capsule,delayed release(DR/EC) 20 mg PO QAM Qty: 30 11RF magnesium hydroxide [Milk of Magnesia] 400 mg/5 mL suspension 400 mg PO BEDTIME PRN (Reason: Diarrhea) Qty: 3000 3RF cholecalciferol (vitamin D3) 25 mcg (1,000 unit) tablet 50 mcg PO DAILY Qty: 180 3RF acetaminophen 325 mg capsule 325 mg PO QID PRN (Reason: fever or pain) Qty: 60 3RF docusate sodium 100 mg capsule 100 mg PO BID Qty: 60 6RF fluticasone propionate [Flonase Allergy Relief] 50 mcg/actuation spray,suspension 2 spray intranasal DAILY Qty: 16 12RF Rx Instructions: administer into each nostril tamsulosin 0.4 mg capsule 0.4 mg PO BEDTIME 90 Days Qty: 90 1RF finasteride 5 mg tablet 5 mg PO DAILY 90 Days Qty: 90 1RF bismuth subsalicylate 262 mg/15 mL suspension 524 mg PO Q6H PRN (Reason: Diarrhea) Qty: 1200 11RF loratadine [Claritin] 10 mg tablet 10 mg PO DAILY 90 Days Qty: 90 3RF multivitamin with folic acid [Thera] 400 mcg tablet 1 tab PO QAM Qty: 30 11RF Thera Tablet 1 tab PO DAILY fluoride (sodium) 1.1 % cream 1 appl PO DAILY clonidine HCl 0.2 mg tablet 0.2 mg PO DAILY clonidine HCl 0.1 mg tablet 0.1 mg PO BID divalproex 250 mg tablet extended release 24 hr 750 mg PO DAILY divalproex 500 mg tablet extended release 24 hr 1,000 mg PO DAILY gabapentin 300 mg capsule 600 mg PO BID levetiracetam 500 mg tablet 1,000 mg PO BID oxcarbazepine 300 mg tablet 600 mg PO BID olanzapine 15 mg tablet 15 mg PO DAILY Rx Instructions: 17.5 mg daily Reguloid (psyllium husk-sucro) 3 gram/7 gram powder PO
[2022-09-28] MEDS: 0.9 % Sodium Chloride 1,000 ML 999 ML IV ×4 (15:41→17:47)
[2022-09-28] MEDS: LORazepam 2 MG/ML VIAL 1 MG IVPUSH (15:41)
[2022-09-28 16:12] LABS: Basophils Percent Auto 0.2 % (0-2); Imm Gran Abs Auto 0.03 X10*3/uL (0.00-0.03); Imm Gran Pct Auto 0.7 % (0.0-0.4); PLT CLUMP 1; SCAN SMEAR FLAG 1
[2022-09-28 16:14] LABS: Eosinophils Absolute Auto 0.1 X10*3/uL (0.0-0.4); Eosinophils Percent Auto 1.2 % (0-4); Hematocrit 39.4 % (42.0-52.0); Lymphocytes Absolute Auto 1.2 X10*3/uL (1.2-4.9); Lymphocytes Percent Auto 27.2 % (20-40); Mean Corpuscular HGB Conc 35.5 g/dl (31.0-36.0); Mean Corpuscular Hemoglobin 32.3 pg (27.0-33.0); Mean Platelet Volume 10.1 fL (9.4-12.4); Monocytes Absolute Auto 0.8 X10*3/uL (0.1-1.2); Monocytes Percent Auto 17.7 % (2-11); Neutrophils Absolute Auto 2.3 x10*3/uL (2.0-8.3); Red Blood Count 4.33 X10*6/uL (4.60-5.80); Red Cell Distribution Width 12.4 % (11.0-16.0)
[2022-09-28 16:24] LABS: Ammonia 86 umol/L (13-55)
[2022-09-28 16:26] LABS: Lactic Acid 1.3 mmol/L (0.5-2.0)
[2022-09-28 16:29] LABS: Valproate 93.8 mcg/mL (50.0-100.0)
[2022-09-28 16:43] LABS: MANUAL DIFF FLAG NO; Platelet Count 133 X10*3/uL (160-400); White Blood Count 4.3 X10*3/uL (4.8-10.8)
[2022-09-28 16:46] LABS: Alanine Aminotransferase 18 U/L (0-40); Albumin Level 3.5 g/dL (3.5-5.0); Alkaline Phosphatase 116 U/L (39-117); Anion Gap 12 (12-20); Aspartate Amino Transferase 22 U/L (5-37); Bilirubin Direct 0.2 mg/dL (0.0-0.5); Bilirubin Total 0.3 mg/dL (0.0-1.0); Blood Urea Nitrogen 16 mg/dL (9-16); Calcium 9.2 mg/dL (8.4-10.2); Carbon Dioxide 24 mmol/L (22-29); Chloride 98 mmol/L (96-108); Creatinine Clr Calc Pharmacy 87.1; Estimated Glomerular Filt Rate > 60; Glucose Random 93 mg/dL (60-115); Lipase 33 U/L (8-78); Potassium 4.6 mmol/L (3.3-5.1); Sodium 129 mmol/L (135-145)
[2022-09-28] MEDS: Piperacillin Sodium/Tazobactam 4.5 GM in 0.9 % Sodium Chloride 100 ML IV (17:17)
--- NOTE | 2022-09-28 17:42 | PM.IMHP ---
History of Present Illness Date of Service: 09/28/22 <COLE Posey - Last Filed: 09/28/22 19:50> Attending physician on admission: Michelle Jalloh <COLE Posey - Last Filed: 09/28/22 19:50> Chief Complaint: Altered mental status <COLE Posey - Last Filed: 09/28/22 19:50> Pt is a 57-year-old male with a PMH significant for?cerebral palsy, developmental delay, history of seizures, GERD, thrombocytopenia, and vitamin-D deficiency who presents to the ED from a intermediate for altered mental status. Patient is nonverbal at baseline so HPI taken from records and caregivers. The patient was apparently noted by staff to be much less alert than normal and unable to take his medications this morning. Patient normally ?a bundle of energy but today is unable to be fully woken from sleep. Patient has a history of seizures as noted by his previous intermediate but has not had an episode of seizures in many years. Patient has been at his current intermediate for 6 months without any seizure episodes. But given his history intermediate staff were worried he might have had a seizure in his sleep which accounted for his lethargy. Of note, apparently the flu has been going around in the intermediate. Patient has been afebrile and normotensive according to the caregiver. Patient has not been noted to have any other symptoms or complaints. In the ED labs were significant for slightly low WBC of 4.3, platelets of 133 (near his baseline), hyponatremia of 129, elevated ammonia of 86, valproic acid of 93.8. CXR showed mild diffuse peribronchial vascular opacities which may reflect edema or atypical infection. Patient tested positive for EKG showed normal sinus rhythm with a prolonged QTc of 507. Tested negative for influenza A & B, RSV, COVID. Pt was treated with vanco and Zosyn, IVF, lorazepam, and lactulose. Pt will be admitted to the hospital <COLE Posey - Last Filed: 09/28/22 19:50> Review of Systems Review of Systems: Unable to obtain due to patient's mentation <COLE Posey - Last Filed: 09/28/22 19:50> [facility] Medical History: Medical History Cerebral palsy Cholelithiasis Chronic idiopathic constipation Cognitive developmental delay GERD (gastroesophageal reflux disease) H/O nephrolithotomy with removal of calculi Hepatitis B virus infection Hx of seizure disorder Leukopenia Osteopenia Renal calculus, bilateral Ribs, multiple fractures Thrombocytopenia Vitamin D deficiency <COLE Posey Last Filed: 09/28/22 19:50> Family History: Family History (Updated 07/13/22 @ 08:21 by CHAYO Nagy) Father No problems noted. Mother No problems noted. Family/Other Family history unknown <COLE Posey Last Filed: 09/28/22 19:50> Surgical History: Surgical History History of cystoscopy History of extraction of renal calculus History of gastric surgery S/P cataract surgery <COLE Posey Last Filed: 09/28/22 19:50> Social History: Social History Household Members: Other Household Members Other:: HALF-WAY Housing: Other Housing Other:: HALF-WAY Are you a primary dog day care attendant to a significant other at home: No Do you presently have visiting nurse or other home services: Yes Alcohol intake: never Patient Tobacco Use Status: Never used Tobacco e-Cigarette/Vaping Use: Never Used Second Hand Smoke Exposure: No Advance Directives: No Advance Directives Information Provided: No service: No Current occupational status: disabled Cognitive needs: Yes (wheelchair) Hearing needs: Yes Vision needs: Yes <COLE Posey Last Filed: 09/28/22 19:50> Meds Allergies/Adverse reactions: Allergies Allergy/AdvReac Type Severity Reaction Status Date / Time topiramate [From TOPAMAX] Allergy Intermediate UNKNOWN Verified 07/13/22 08:12 <COLE Posey Last Filed: 09/28/22 19:50> Active Medications: Current Medications Vancomycin HCl 1,500 mg/ (Sodium Chloride) 500 mls @ 333.333 mls/hr IV ONCE ONE Stop: 09/28/22 17:52 Sodium Chloride (Ns) 1,000 mls @ 999 mls/hr IV .Q1H1M TAE Stop: 09/28/22 17:45 Pharmacy Consult (Consult Rx Perform Med Rec) 1 each MISCELLANE ONCE PRN PRN Reason: Consult order <COLE Posey - Last Filed: 09/28/22 19:50> Home medications: Home Medications Medication Instructions Recorded Confirmed Last Taken Type fluoride (sodium) 1.1 % dental 1 appl PO BID 08/25/20 09/28/22 Unknown History cream clonidine HCl 0.1 mg tablet 0.1 mg PO BID@1200,2000 11/09/20 09/28/22 Unknown History clonidine HCl 0.2 mg tablet 0.2 mg PO DAILY@0500 11/09/20 09/28/22 Unknown History divalproex 250 mg tablet,extended 750 mg PO DAILY 11/09/20 09/28/22 Unknown History release 24 hr divalproex 500 mg tablet,extended 1,000 mg PO BEDTIME 11/09/20 09/28/22 Unknown History release 24 hr gabapentin 300 mg capsule 600 mg PO BID 11/09/20 09/28/22 Unknown History levetiracetam 500 mg tablet 1,000 mg PO BID 11/09/20 09/28/22 Unknown History therapeutic multivitamin 1 tab PO DAILY 12/01/20 09/28/22 Unknown History oxcarbazepine 300 mg tablet 600 mg PO BID 12/24/20 09/28/22 Unknown History olanzapine 15 mg tablet 15 mg PO DAILY@0500 03/29/22 09/28/22 Unknown History acetaminophen 325 mg capsule 650 mg PO Q6H PRN fever 09/28/22 09/28/22 Unknown History /pain/headache clonidine HCl 0.2 mg tablet 1 tab PO DAILY PRN agitation >10 09/28/22 09/28/22 Unknown History min docusate sodium 100 mg capsule 100 mg PO BEDTIME for constipation 09/28/22 09/28/22 Unknown History finasteride 5 mg tablet 5 mg PO BEDTIME 09/28/22 09/28/22 Unknown History loratadine 10 mg tablet (Claritin) 10 mg PO BEDTIME allergy symptoms 09/28/22 09/28/22 Unknown History magnesium hydroxide 400 mg/5 mL 30 ml PO Q48H PRN Constipation 09/28/22 09/28/22 Unknown History oral suspension (Milk of Magnesia) neomycin-bacitracn Zn-polymyxn 3.5 1 appl topical TID PRN 09/28/22 09/28/22 Unknown History mg-400 unit-5,000 unit top oint wound/cut/abrasion pkt (Triple Antibiotic) omeprazole 20 mg capsule,delayed 20 mg PO DAILY@0630 09/28/22 09/28/22 Unknown History release psyllium 1 tbsp PO DAILY 09/28/22 09/28/22 Unknown History <COLE Posey - Last Filed: 09/28/22 19:50> Physical Exam Vital Signs and Narrative: Vital Signs: Last Vital Signs Temp 97.5 F 09/28/22 16:00 Pulse 54 09/28/22 16:00 Resp 15 09/28/22 16:00 BP 92/46 L 09/28/22 16:00 Pulse Ox 94 09/28/22 16:00 O2 Del Method 09/28/22 16:00 BMI result Body Mass Index 24.1 <COLE Posey - Last Filed: 09/28/22 19:50> Constitutional: Sleeping, unarousable. In no acute distress. Mental Status: Pt unarousable. Ear, Nose, and Throat: Oropharynx clear, mucous membranes moist. Ears and nose without deformities. Trachea midline. Respiratory: Diffuse rhonchi throughout bilaterally. Cardiovascular: S1, S2 regular. No murmurs, rubs, or gallops. Gastrointestinal: Abdomen soft, non-tender, non-distended. Normal bowel sounds. Neurologic: Moves all extremities spontaneously. Skin: No rashes or lesions noted. Musculoskeletal: No cyanosis or clubbing. Extremities: No edema. <CLOE Posey - Last Filed: 09/28/22 19:50> Results Labs CBC and Chem 7: 09/29/22 06:25 09/29/22 06:25 <COLE Posey - Last Filed: 09/28/22 19:50> Labs: Laboratory Results - last 24 hr 09/28/22 09/28/22 09/28/22 15:37 15:37 15:37 MCV 91.0 MCH 32.3 MCHC 35.5 RDW 12.4 Plt Count 133 L MPV 10.1 Immature Gran % (Auto) 0.7 H Neut % (Auto) 53.0 Lymph % (Auto) 27.2 Hartley % (Auto) 17.7 H Eos % (Auto) 1.2 Baso % (Auto) 0.2 Lymph # (Auto) 1.2 Hartley # (Auto) 0.8 Eos # (Auto) 0.1 Baso # (Auto) 0.0 Abs Immat Gran (auto) 0.03 Absolute Neuts (auto) 2.3 Absolute Nucleated RBC 0.000 Nucleated RBC % (auto) 0.0 Anion Gap 12 Estim Creat Clear Calc 87.1 Estimated GFR > 60 Random Glucose 93 Lactic Acid Calcium 9.2 Total Bilirubin 0.3 Direct Bilirubin 0.2 AST 22 ALT 18 Alkaline Phosphatase 116 D Ammonia Total Protein 6.0 L Albumin 3.5 Lipase 33 Valproic Acid 93.8 09/28/22 09/28/22 15:37 15:37 MCV MCH MCHC RDW Plt Count MPV Immature Gran % (Auto) Neut % (Auto) Lymph % (Auto) Hartley % (Auto) Eos % (Auto) Baso % (Auto) Lymph # (Auto) Hartley # (Auto) Eos # (Auto) Baso # (Auto) Abs Immat Gran (auto) Absolute Neuts (auto) Absolute Nucleated RBC Nucleated RBC % (auto) Anion Gap Estim Creat Clear Calc Estimated GFR Random Glucose Lactic Acid 1.3 Calcium Total Bilirubin Direct Bilirubin AST ALT Alkaline Phosphatase Ammonia 86 H Total Protein Albumin Lipase Valproic Acid <COLE Posey - Last Filed: 09/28/22 19:50> Assessment and Plan (1) Acute alteration in mental status: Status: Acute <COLE Posey - Last Filed: 09/28/22 19:50> (2) Hyperammonemia: Status: Acute <COLE Posey - Last Filed: 09/28/22 19:50> (3) Pneumonia: Status: Acute <COLE Posey - Last Filed: 09/28/22 19:50> Pt is a 57-year-old male with a PMH significant for?cerebral palsy, developmental delay, history of seizures, GERD, thrombocytopenia, and vitamin-D deficiency who presents to the ED from a intermediate for altered mental status. Acute toxic metabolic encephalopathy Likely multifactorial: Dehydration, hyperammonemia, underlying respiratory infection IVF, lactulose, abx Monitor mentation Question of pneumonia Patient afebrile, no leukocytosis, but chest x-ray with opacities and diffuse rhonchi on physical exam Doxy 100 b.i.d. day 1/7 for possible atypical pneumonia Hyperammonemia Ammonia 86 at presentation Lactulose t.i.d. po goal of 3-4 BMs daily Check ammonia levels in the a.m. Hyponatremia Sodium of 129 Pt given 4L of NS in the ED, should improve Monitor labs History of seizure Patient not seen exhibiting seizure symptoms either at intermediate or in the hospital Continue home meds Seizure protocols Follow-up with Neurology outpatient GERD Continue home meds Chronic constipation On lactulose t.i.d. Full Code Attending:?Dr. Jalloh DVT Prophylaxis: Lovenox Pt will require a hospitalization of at least two nights for treatment of?acute toxic metabolic encephalopathy and pneumonia. <COLE Posey - Last Filed: 09/28/22 19:50> Pt is a 57-year-old male with a PMH significant for?cerebral palsy, developmental delay, history of seizures, GERD, thrombocytopenia, and vitamin-D deficiency who presents to the ED from a intermediate for altered mental status. Acute toxic metabolic encephalopathy Likely multifactorial: Dehydration, hyperammonemia, underlying respiratory infection IVF, lactulose, abx Monitor mentation Question of pneumonia Patient afebrile, no leukocytosis, but chest x-ray with opacities and diffuse rhonchi on physical exam Doxy 100 b.i.d. day 17 for possible atypical pneumonia Hyperammonemia Ammonia 86 at presentation Lactulose t.i.d. po goal of 3-4 BMs daily Check ammonia levels in the a.m. Hyponatremia Sodium of 129 Pt given 4L of NS in the ED, should improve Monitor labs History of seizure Patient not seen exhibiting seizure symptoms either at intermediate or in the hospital Continue home meds Seizure protocols Follow-up with Neurology outpatient GERD Continue home meds Chronic constipation On lactulose t.i.d. Full Code Attending:?Dr. Jalloh DVT Prophylaxis: Lovenox Pt will require a hospitalization of at least two nights for treatment of?acute toxic metabolic encephalopathy and pneumonia. Patient seen examined in the emergency room patient was brought in to [facility] from intermediate due to change in mental status patient was noted to be lethargic and not his normal self, no witnessed seizures no, no fever chills were noted On examination Patient is somnolent , minimally responsive Lungs bilateral coarse rhonchorous Extremities no edema Neuro unable to assess 57-year-old gentleman with underlying history of cerebral al see resident of intermediate was brought in due to change in mental status patient noted to be more lethargic not taking his medications intermediate concern about having a seizure worse is having infection and the ER patient noted to have elevated ammonia level, high normal Depakote level chest x-ray suggestive of atypical pneumonitis influenza a, COVID negative Will admit patient to medical floor with a diagnosis of acute toxic metabolic encephalopathy likely due to hyperammonemia due to Depakote patient will be treated with lactulose per rectum will adjust dose of Depakote, patient is on multiple anti seizure medications Hypotension improved with 2 L of IV fluids patient on clonidine follow BP closely Agree with above treatment plan as per APC. <Michelle Jalloh MD - Last Filed: 09/29/22 13:33> Time Spent With Patient Time: Total time managing care of this patient today ____ minutes. <COLE Posey - Last Filed: 09/28/22 19:50> Quality Stroke Does the patient have a stroke diagnosis?: No <COLE Posey - Last Filed: 09/28/22 19:50> VTE Prior VTE?: No <COLE Posey - Last Filed: 09/28/22 19:50> VTE Risk Level:: Medical - moderate - high <COLE Posey Last Filed: 09/28/22 19:50> VTE Device Contraindication: Treatment Not Indicated <COLE Posey - Last Filed: 09/28/22 19:50> VTE Drug Contraindication: N/A - Med Ordered <COLE Posey - Last Filed: 09/28/22 19:50>
[2022-09-28] MEDS: vancomycin HCL 1,500 MG in 0.9 % Sodium Chloride 500 ML 333.33 MG IV (17:48)
[2022-09-28 18:49] LABS: Influenza A PCR NEGATIVE (Negative); Influenza B PCR NEGATIVE (Negative); Resp Syncy Virus RNA Qual PCR NEGATIVE (Negative); SARS COV2 PCR INHOUSE NEGATIVE (Negative)
--- NOTE | 2022-09-28 18:52 | MHC.EDTECH ---
PT WAS INCONTINENT OF URINE ,CARE GIVEN LINEN CHANGE ,WARM BLANKET GIVEN ,PT ALF STAFF AT BED SIDE .
--- NOTE | 2022-09-28 18:59 | PC.NURSE ---
Pt awoke, is at baseline speaking few words, smiling, giggling. Bedside swallow passed. MD made awake to be able to switch lactulose back to PO.
[2022-09-28 19:00] LABS: Vitamin B12 1228 pg/mL (200-900)
--- NOTE | 2022-09-28 19:02 | PHA.MEDREC ---
Pharmacy Consult ? Medication Reconciliation Pharmacy has completed the medication reconciliation. pt from [facility] with med list.
[2022-09-28] MEDS: Lactulose 20 GM/30 ML SOLUTION 30 GM PO (19:10)
--- NOTE | 2022-09-28 19:20 | PC.NURSE ---
Pt alert and awake and non verbal at baseline. Tolerated pudding and lactulose and apple juice. NSR on tele. Mentation at baseline per staff at bedside from halfway. Sat 89-90% on room air, placed on 2lpm via nc sat 95% on 2lpm, breathing unlabored
[2022-09-28] MEDS: Enoxaparin Sodium 40 MG/0.4 ML SYRINGE SUBCUT (20:01)
[2022-09-28] MEDS: Doxycycline Hyclate 100 MG in 0.9 % Sodium Chloride 250 ML 166.67 MG IV (20:02)
--- NOTE | 2022-09-28 20:26 | MHC.EDTECH ---
PT WAS INCONTINENT OF URINE ,CARE GIVEN ,BEDDING CHANGE ,WARM BLANKET GIVEN .
--- NOTE | 2022-09-28 20:32 | PC.NURSE ---
Pt with increased agitation. IV's wrapped for safety. Pt noted to be incontinent of urine, cleaned and repositioned with good effect, improvement in behaviors
[2022-09-28] MEDS: LORazepam 2 MG/ML VIAL 1 MG IM (21:08)
[2022-09-28] MEDS: OXcarbazepine 300 MG TABLET 600 MG PO (21:09)
[2022-09-28] MEDS: Gabapentin 300 MG CAPSULE 600 MG PO (21:09)
[2022-09-28] MEDS: Divalproex Sodium ER 500 MG TAB.ER.24H 1000 MG PO (21:10)
[2022-09-28] MEDS: levETIRAcetam 1,000 MG TABLET 1000 MG PO (21:10)
[2022-09-28] MEDS: Finasteride 5 MG TABLET PO (21:10)
[2022-09-28] MEDS: Tamsulosin HCL 0.4 MG CAPSULE PO (21:11)
[2022-09-28] MEDS: Loratadine 10 MG TABLET PO (21:11)
--- NOTE | 2022-09-28 21:15 | PC.NURSE ---
PRN ativan given for persistent agitation. Accepted meds in pudding, no swallowing difficulty noted. Staff remains at bedside.
--- NOTE | 2022-09-28 22:08 | PC.NURSE ---
S/P Ativan pt asleep. BP soft PA Vikas aware and will monitor.
--- NOTE | 2022-09-28 22:53 | PC.NURSE ---
BP has trended back down 86/45, PA aware, Albumin to be ordered
--- NOTE | 2022-09-29 00:31 | PC.NURSE ---
Assumed care for pt. Pt is sleeping at the bedside. Breaths are even and unlabored with equal chest rises. o2 sat 100 on 2L nc. NSR on monitor with HR 73. Paul, who reports working with pt at the [facility], is at the bedside. Will continue to monitor pt.
[2022-09-29] MEDS: 0.9 % Sodium Chloride Flush 3 ML SYRINGE IVFLUSH (00:36)
--- NOTE | 2022-09-29 02:08 | MHC.EDTECH ---
0200 ROUNDING DONE ,PT ASLEEP AND ID DRY ,[employer]IPMENT FIELD MECHANIC AT BEDSIDE .
[2022-09-29 04:27] VITALS: BP 158/90; PULSE 89; RESP 12; TEMP 36.6
[2022-09-29] MEDS: OLANZapine 7.5 MG TABLET 15 MG PO (04:31)
[2022-09-29] MEDS: cloNIDine HCL 0.2 MG TABLET PO ×2 (04:31→18:00)
--- NOTE | 2022-09-29 05:04 | MHC.EDTECH ---
pt was incontinent of urine ,care given ,pt drank 120 ml apple juice .
[2022-09-29 06:31] LABS: Hematocrit 35.2 % (42.0-52.0); Hemoglobin 12.5 g/dl (14.0-18.0); Mean Corpuscular HGB Conc 35.5 g/dl (31.0-36.0); Mean Corpuscular Hemoglobin 32.7 pg (27.0-33.0); Mean Corpuscular Volume 92.1 fL (80.0-98.0); Mean Platelet Volume 9.2 fL (9.4-12.4); Platelet Count 114 X10*3/uL (160-400); Red Blood Count 3.82 X10*6/uL (4.60-5.80); White Blood Count 5.8 X10*3/uL (4.8-10.8)
[2022-09-29 06:41] LABS: Ammonia 38 umol/L (13-55)
[2022-09-29 06:51] LABS: Anion Gap 10 (12-20); Blood Urea Nitrogen 7 mg/dL (9-16); Calcium 8.1 mg/dL (8.4-10.2); Carbon Dioxide 21 mmol/L (22-29); Chloride 113 mmol/L (96-108); Creatinine Clr Calc Pharmacy 103.9; Estimated Glomerular Filt Rate > 60; Glucose Random 97 mg/dL (60-115); Potassium 4.1 mmol/L (3.3-5.1); Sodium 140 mmol/L (135-145)
[2022-09-29] MEDS: Omeprazole 20 MG CAPSULE.DR PO (07:36)
[2022-09-29] MEDS: levETIRAcetam 1,000 MG TABLET 1000 MG PO ×2 (08:37→20:48)
[2022-09-29] MEDS: Cholecalciferol (Vitamin D3) 25 MCG TABLET 50 MCG PO (08:37)
[2022-09-29] MEDS: OXcarbazepine 300 MG TABLET 600 MG PO ×2 (08:37→20:48)
[2022-09-29] MEDS: Gabapentin 300 MG CAPSULE 600 MG PO ×2 (08:38→20:48)
[2022-09-29] MEDS: Multivitamin TABLET 1 TAB PO (08:38)
[2022-09-29] MEDS: Lactulose 20 GM/30 ML SOLUTION 30 GM PO (08:41)
[2022-09-29] MEDS: Divalproex Sodium ER 250 MG TAB.ER.24H 750 MG PO ×2 (09:17→20:47)
[2022-09-29] MEDS: Doxycycline Monohydrate 100 MG CAPSULE PO ×2 (09:56→20:48)
[2022-09-29] MEDS: LORazepam 0.5 MG TABLET PO (09:56)
--- NOTE | 2022-09-29 11:22 | MHC.CM.PN ---
pt from [facility] spoke with donny [facility] machine [phone] at home pt has 1:1 for all his needs pt will be dcd today donny notifed and will let cm know if we need to set up ambn or they will transport pt has a guardian trevor [place] [phone] pt is covid vax x 4
[2022-09-29 11:30] VITALS: BP 109/63; PULSE 83; RESP 18; TEMP 36.7; O2SAT 95
--- NOTE | 2022-09-29 11:41 | PC.NURSE ---
patient awake/alert, caregivers at baseline. RN from [facility] treva sunshine at bedside, pt turned/positioned to comfort, seizure precautions/fall precautions intact, call diallo within reach, will continue to monitor.
--- NOTE | 2022-09-29 12:11 | MHC.EDTECH ---
Assisted in cleaning and changing patients gown due to patient urinating. Mitra Shannon
[2022-09-29] MEDS: cloNIDine HCL 0.1 MG TABLET PO ×2 (12:42→20:48)
--- NOTE | 2022-09-29 12:43 | PC.NURSE ---
treva the patients RN at the long-term and the aid from the long-term attempted to ambulate the patient, pt was unable to ambulate which is not his baseline, they stated that there will be an aid from the long-term at night as well.
--- NOTE | 2022-09-29 13:34 | P.PNIM_ITS ---
Subjective Subjective Date of Service: 09/29/22 Interval History: Patient awake alert care provided at bedside feels patient is at his baseline level of alertness, patient unable to express himself, does not appear to be in distress. Review of Systems Review of Systems: Yes Unobtainable due to mental status Physical Exam Vital Signs: Vital Signs: Last Vital Signs Temp 97.9 F 09/29/22 04:27 Pulse 89 09/29/22 04:27 Resp 12 09/29/22 04:27 BP 158/90 H 09/29/22 04:27 Pulse Ox 100 09/28/22 23:50 O2 Del Method 09/28/22 23:50 O2 Flow Rate 2 09/28/22 23:50 BMI result Body Mass Index 24.1 Const: Other: General awake alert, resting comfortably in no acute distress. Neck supple no JVD. CVS regular rate rhythm, Respiratory lungs clear to auscultation, no respiratory distress, no wheeze, no rhonchi. Gastrointestinal abdomen soft, bowel sounds audible, no guarding , no rigidity. Extremities no edema. Neuro moving all 4 extremity Skin no rash Objective Data Active Medications Acetaminophen (Acetaminophen 325 Mg Tablet) 650 mg PO Q6H PRN PRN Reason: Pain, Mild (Pain Scale 1-3) Bismuth Subsalicylate (Bismuth Subsalicylate Liquid 524 Mg/30 Ml Oral.Susp) 524 mg PO Q6H PRN PRN Reason: Diarrhea Clonidine HCl (Clonidine Hcl 0.1 Mg Tablet) 0.1 mg PO BID@1200,2000 [facility]; Protocol Last Admin: 09/29/22 12:42 Dose: 0.1 mg Documented By: LEE Clonidine HCl (Clonidine Hcl 0.2 Mg Tablet) 0.2 mg PO DAILY@0500 [facility]; Protocol Last Admin: 09/29/22 04:31 Dose: 0.2 mg Documented By: CHELSEA Clonidine HCl (Clonidine Hcl 0.2 Mg Tablet) 0.2 mg PO DAILY PRN; Protocol PRN Reason: agitation >10 min Albuterol Sulfate 2.5 mg/ (Ipratropium [place] 0.5 mg) 0 mg INHALE RQ4H WHILE AWAKE [facility] Last Admin: 09/29/22 12:20 Dose: Not Given Documented By: KIM Non-Admin Reason: pt unavail Divalproex Sodium (Divalproex Sodium Er 500 Mg Tab.Er.24h) 500 mg PO DAILY [facility] Divalproex Sodium (Divalproex Sodium Er 250 Mg Tab.Er.24h) 750 mg PO BEDTIME [facility] Doxycycline Monohydrate (Doxycycline Monohydrate 100 Mg Capsule) 100 mg PO Q12H [facility] Last Admin: 09/29/22 09:56 Dose: 100 mg Documented By: AKIRA Enoxaparin Sodium (Enoxaparin Sodium 40 Mg/0.4 Ml Syringe) 40 mg SUBCUT Q24H [facility] Last Admin: 09/28/22 20:01 Dose: 40 mg Documented By: AB Finasteride (Finasteride 5 Mg Tablet) 5 mg PO BEDTIME [facility] Last Admin: 09/28/22 21:10 Dose: 5 mg Documented By: AB Fluticasone Propionate (Fluticasone Propionate Nasal 16 Gm [place]) 2 spray NOSTRIL-B DAILY [facility] Last Admin: 09/29/22 10:54 Dose: Not Given Documented By: LEE Non-Admin Reason: Med Not Available Gabapentin (Gabapentin 300 Mg Capsule) 600 mg PO BID [facility] Last Admin: 09/29/22 08:38 Dose: 600 mg Documented By: AKIRA Levetiracetam (Levetiracetam 1,000 Mg Tablet) 1,000 mg PO BID [facility] Last Admin: 09/29/22 08:37 Dose: 1,000 mg Documented By: AKIRA Loratadine (Loratadine 10 Mg Tablet) 10 mg PO BEDTIME [facility] Last Admin: 09/28/22 21:11 Dose: 10 mg Documented By: AB Lorazepam (Lorazepam 0.5 Mg Tablet) 0.5 mg PO Q8H PRN PRN Reason: anxiety/restlessness Last Admin: 09/29/22 09:56 Dose: 0.5 mg Documented By: AKIRA Multivitamins/Vitamin C (Multivitamin Tablet) 1 tab PO DAILY [facility] Last Admin: 09/29/22 08:38 Dose: 1 tab Documented By: AKIRA Olanzapine (Olanzapine 7.5 Mg Tablet) 15 mg PO DAILY@0500 [facility] Last Admin: 09/29/22 04:31 Dose: 15 mg Documented By: CHELSEA Omeprazole (Omeprazole 20 Mg Capsule.) 20 mg PO DAILY@0630 [facility] Last Admin: 09/29/22 07:36 Dose: 20 mg Documented By: AKIRA Ondansetron HCl (Ondansetron Hcl 4 Mg/2 Ml Vial) 4 mg IVPUSH Q8H PRN PRN Reason: Nausea and Vomiting Oxcarbazepine (Oxcarbazepine 300 Mg Tablet) 600 mg PO BID [facility] Last Admin: 09/29/22 08:37 Dose: 600 mg Documented By: AKIRA Pharmacy Consult (Consult Rx Perform Med Rec) 1 each MISCELLANE ONCE PRN PRN Reason: Consult order Psyllium Hydrophilic Mucilloid (Psyllium Seed 3.4 Gm Powd.Pack) 3.4 gm PO DAILY [facility] Last Admin: 09/29/22 09:17 Dose: 3.4 gm Documented By: AKIRA Sodium Chloride (0.9 % Sodium Chloride Flush 3 Ml Syringe) 3 ml IVFLUSH QSHIFT [facility] Last Admin: 09/29/22 09:57 Dose: Not Given Documented By: AKIRA Non-Admin Reason: No Access Tamsulosin HCl (Tamsulosin Hcl 0.4 Mg Capsule) 0.4 mg PO BEDTIME [facility] Last Admin: 09/28/22 21:11 Dose: 0.4 mg Documented By: AB Vitamin D (Cholecalciferol (Vitamin D3) 25 Mcg Tablet) 50 mcg PO DAILY [facility] Last Admin: 09/29/22 08:37 Dose: 50 mcg Documented By: AKIRA Labs 09/29/22 06:25 09/29/22 06:25 Labs: Laboratory Results - last 24 hr 09/28/22 09/28/22 09/28/22 15:37 15:37 15:37 MCV 91.0 MCH 32.3 MCHC 35.5 RDW 12.4 Plt Count 133 L MPV 10.1 Immature Gran % (Auto) 0.7 H Neut % (Auto) 53.0 Lymph % (Auto) 27.2 Rhea % (Auto) 17.7 H Eos % (Auto) 1.2 Baso % (Auto) 0.2 Lymph # (Auto) 1.2 Rhea # (Auto) 0.8 Eos # (Auto) 0.1 Baso # (Auto) 0.0 Abs Immat Gran (auto) 0.03 Absolute Neuts (auto) 2.3 Absolute Nucleated RBC 0.000 Nucleated RBC % (auto) 0.0 Anion Gap 12 Estim Creat Clear Calc 87.1 Estimated GFR > 60 Random Glucose 93 Lactic Acid Calcium 9.2 Total Bilirubin 0.3 Direct Bilirubin 0.2 AST 22 ALT 18 Alkaline Phosphatase 116 D Ammonia Total Protein 6.0 L Albumin 3.5 Lipase 33 Vitamin B12 Valproic Acid 93.8 Influenza Type A (PCR) Influenza Type B (PCR) RSV RNA Qual (PCR) SARS-CoV-2 RNA (RT-PCR) 09/28/22 09/28/22 09/28/22 15:37 15:37 15:37 MCV MCH MCHC RDW Plt Count MPV Immature Gran % (Auto) Neut % (Auto) Lymph % (Auto) Rhea % (Auto) Eos % (Auto) Baso % (Auto) Lymph # (Auto) Rhea # (Auto) Eos # (Auto) Baso # (Auto) Abs Immat Gran (auto) Absolute Neuts (auto) Absolute Nucleated RBC Nucleated RBC % (auto) Anion Gap Estim Creat Clear Calc Estimated GFR Random Glucose Lactic Acid 1.3 Calcium Total Bilirubin Direct Bilirubin AST ALT Alkaline Phosphatase Ammonia 86 H Total Protein Albumin Lipase Vitamin B12 1228 H Valproic Acid Influenza Type A (PCR) Influenza Type B (PCR) RSV RNA Qual (PCR) SARS-CoV-2 RNA (RT-PCR) 09/28/22 09/29/22 09/29/22 17:53 06:25 06:25 MCV 92.1 MCH 32.7 MCHC 35.5 RDW 13.0 Plt Count 114 L MPV 9.2 L Immature Gran % (Auto) Neut % (Auto) Lymph % (Auto) Rhea % (Auto) Eos % (Auto) Baso % (Auto) Lymph # (Auto) Rhea # (Auto) Eos # (Auto) Baso # (Auto) Abs Immat Gran (auto) Absolute Neuts (auto) Absolute Nucleated RBC 0.000 Nucleated RBC % (auto) 0.0 Anion Gap 10 L Estim Creat Clear Calc 103.9 Estimated GFR > 60 Random Glucose 97 Lactic Acid Calcium 8.1 L D Total Bilirubin Direct Bilirubin AST ALT Alkaline Phosphatase Ammonia Total Protein Albumin Lipase Vitamin B12 Valproic Acid Influenza Type A (PCR) NEGATIVE Influenza Type B (PCR) NEGATIVE RSV RNA Qual (PCR) NEGATIVE SARS-CoV-2 RNA (RT-PCR) NEGATIVE 09/29/22 06:25 MCV MCH MCHC RDW Plt Count MPV Immature Gran % (Auto) Neut % (Auto) Lymph % (Auto) Rhea % (Auto) Eos % (Auto) Baso % (Auto) Lymph # (Auto) Rhea # (Auto) Eos # (Auto) Baso # (Auto) Abs Immat Gran (auto) Absolute Neuts (auto) Absolute Nucleated RBC Nucleated RBC % (auto) Anion Gap Estim Creat Clear Calc Estimated GFR Random Glucose Lactic Acid Calcium Total Bilirubin Direct Bilirubin AST ALT Alkaline Phosphatase Ammonia 38 Total Protein Albumin Lipase Vitamin B12 Valproic Acid Influenza Type A (PCR) Influenza Type B (PCR) RSV RNA Qual (PCR) SARS-CoV-2 RNA (RT-PCR) Assessment and Plan (1) Acute alteration in mental status: Status: Acute (2) Hyperammonemia: Status: Acute (3) Pneumonia: Status: Acute Plan 57-year-old male with a PMH significant for?cerebral palsy, developmental delay, history of seizures, GERD, thrombocytopenia, and vitamin-D deficiency who presents [facility] the ED from a [facility] for altered mental status.? Acute toxic metabolic encephalopathy Patient awake alert as per care provider at his baseline Confusion was likely related to Dehydration,and hyperammonemia,and respiratory infection Ammonia improved continue antibiotic for infection DC IV fluids Atypical pneumonia Patient afebrile, no leukocytosis, chest x-ray with opacities lungs clear today will change to by mouth doxy 100 b.i.d. since patient pulled two IV lines and able to tolerate by mouth COVID/influenza test negative Hyperammonemia Ammonia 86 at presentation, improved to normal range with lactulose, will decrease dose of Depakote, since contributing to elevated ammonia, recommend outpatient follow-up with primary care physician. Hyponatremia Sodium of 129 on admission treated with IV fluids sodium improved to 140, will DC IV fluids, elevated chloride due to IV fluids History of seizure No seizure-like activity noted patient on multiple anti seizure medications will reduce dose of Depakote ,continue Keppra, and gabapentin GERD Continue home meds Chronic constipation continue home regimen Full Code DVT Prophylaxis: Lovenox Pt will require continued hospitalization since [facility] nurse feels patient is unable to ambulate and at baseline walks without assistive device , will a mbulate patient if unable to walk will obtain a PT consult. Time Spent With Patient Time: Total time managing care of this patient today ____ minutes. Quality Stroke Does the patient have a stroke diagnosis?: No VTE Prior VTE?: No VTE Risk Level:: Medical - moderate - high VTE Device Contraindication: Treatment Not Indicated VTE Drug Contraindication: N/A - Med Ordered
--- NOTE | 2022-09-29 14:02 | PC.NURSE ---
pt is incontinent of large amounts of urine, assisted staff for the patient are requesting to use the patients own briefs, this nurse told the staff that the hospital prefers that they dont use them, staff would prefer to use them and they remove them as needed vs getting the patient upset doing full bed changes. pt does become agitated when we have to remove him from the bed to change.
--- NOTE | 2022-09-29 14:29 | PC.NURSE ---
patient currently sleeping, senior care staff at bedside, will continue to monitor
--- NOTE | 2022-09-29 15:27 | PC.NURSE ---
patient incontinent of very large amount of loose stool and urine
[2022-09-29 15:30] VITALS: BP 171/99; PULSE 90; RESP 17; TEMP 37.1; O2SAT 97
[2022-09-29 17:33] VITALS: BP 171/98; PULSE 108; RESP 16; TEMP 36.8; O2SAT 98
--- NOTE | 2022-09-29 17:56 | MHC.EDTECH ---
Full bed change at 1530, due to bowel movement, vital signs then acquired, two additional bowel movements that required bed change, around time of transport to inpatient unit. Was not capable of putting vital signs before he was brought up, due to other patients.
[2022-09-29] MEDS: LORazepam 1 MG TABLET PO (18:07)
[2022-09-29 19:28] VITALS: PULSE 98; RESP 16; O2SAT 98
[2022-09-29 19:30] VITALS: BP 171/83; PULSE 88; RESP 17; TEMP 36.7; O2SAT 100
[2022-09-29] MEDS: Finasteride 5 MG TABLET PO (20:47)
[2022-09-29] MEDS: Tamsulosin HCL 0.4 MG CAPSULE PO (20:48)
[2022-09-29] MEDS: Loratadine 10 MG TABLET PO (20:48)
[2022-09-29] MEDS: Enoxaparin Sodium 40 MG/0.4 ML SYRINGE SUBCUT (20:49)
[2022-09-30 04:00] VITALS: BP 150/99; PULSE 80; RESP 18; TEMP 36.6; O2SAT 97
[2022-09-30] MEDS: cloNIDine HCL 0.2 MG TABLET PO (05:37)
[2022-09-30] MEDS: Omeprazole 20 MG CAPSULE.DR PO (05:37)
[2022-09-30] MEDS: OLANZapine 7.5 MG TABLET 15 MG PO (05:37)
[2022-09-30 08:00] VITALS: BP 139/73; PULSE 84; RESP 18; TEMP 36.4; O2SAT 98
[2022-09-30 08:25] VITALS: PULSE 73; RESP 16; O2SAT 98
[2022-09-30] MEDS: Multivitamin TABLET 1 TAB PO (09:08)
[2022-09-30] MEDS: levETIRAcetam 1,000 MG TABLET 1000 MG PO ×2 (09:08→19:59)
[2022-09-30] MEDS: Divalproex Sodium ER 500 MG TAB.ER.24H PO ×2 (09:08→20:00)
[2022-09-30] MEDS: Cholecalciferol (Vitamin D3) 25 MCG TABLET 50 MCG PO (09:08)
[2022-09-30] MEDS: Doxycycline Monohydrate 100 MG CAPSULE PO (09:09)
[2022-09-30] MEDS: OXcarbazepine 300 MG TABLET 600 MG PO ×2 (09:09→19:59)
[2022-09-30] MEDS: Gabapentin 300 MG CAPSULE 600 MG PO ×2 (09:09→19:59)
--- NOTE | 2022-09-30 09:59 | PM.DS ---
DS: Providers Provider Date of Service: 10/03/22 <Gabo Marquez MD - Last Filed: 10/03/22 11:16> Date of admission: 09/28/22 19:05 <Michelle Jalloh MD - Last Filed: 10/11/22 17:40> Primary care physician: Aliza Childress MD <Michelle Jalloh MD - Last Filed: 10/11/22 17:40> DS: Diagnosis Discharge Diagnosis (1) Acute alteration in mental status: Status: Resolved <Michelle Jalloh MD - Last Filed: 10/11/22 17:40> (2) Hyperammonemia: Status: Resolved <Michelle Jalloh MD - Last Filed: 10/11/22 17:40> (3) Pneumonia: Status: Acute <Michelle Jalloh MD - Last Filed: 10/11/22 17:40> DS: Summary Hospital Course Hospital Course: Chief Complaint: Altered mental status? ?Pt is a 57-year-old male with a PMH significant for?cerebral palsy, developmental delay, history of seizures, GERD, thrombocytopenia, and vitamin-D deficiency who presents [facility] the ED from a [facility] for altered mental status.? Patient is nonverbal at baseline so HPI taken from records and caregivers.? The patient was apparently noted by staff to be much less alert than normal and unable to take his medications this morning.? Patient normally ?a bundle of energy but today is unable to be fully woken from sleep.? Patient has a history of seizures as noted by his previous [facility] but has not had an episode of seizures in many years.? Patient has been at his current [facility] for 6 months without any seizure episodes.? But given his history [facility] staff were worried he might have had a seizure in his sleep which accounted for his lethargy.? Of note, apparently the flu has been going around in the [facility].? Patient has been afebrile and normotensive according to the caregiver.? Patient has not been noted to have any other symptoms or complaints. In the ED labs were significant for slightly low WBC of 4.3, platelets of 133 (near his baseline), hyponatremia of 129, elevated ammonia of 86, valproic acid of 93.8. CXR showed mild diffuse peribronchial vascular opacities which may reflect edema or atypical infection.? Patient tested positive for EKG showed normal sinus rhythm with a prolonged QTc of 507.? Tested negative for influenza A & B, RSV, COVID.? Pt was treated with vanco and Zosyn, IVF, lorazepam, and lactulose. Pt will be admitted to the hospital. Hospital course 57-year-old male with a PMH significant for?cerebral palsy, developmental delay, history of seizures, GERD, thrombocytopenia, and vitamin-D deficiency who presents to the ED from a [facility] for altered mental status.? Acute toxic metabolic encephalopathy multifactorial likely due to dehydration, respiratory infection elevated ammonia level patient treated with lactulose , IV fluids, ammonia level normalized, lethargy and confusion resolved Patient awake alert as per care provider at his baseline Atypical pneumonia Patient afebrile, no leukocytosis, chest x-ray with opacities, patient initially treated with IV antibiotic since patient remained hemodynamically stable with no hypoxia therefore switched to by mouth doxycycline 100 mg twice daily patient finished 5 day course of antibiotics, COVID/influenza test negative. Hyperammonemia Ammonia 86 at presentation, likely due to Depakote, Depakote has been discontinued patient treated with lactulose Recommend to follow ammonia level in 1 week, continue lactulose ( given 1 week supply). Hyponatremia Sodium of 129 on admission treated with IV fluids sodium improved to 134. History of seizure No seizure-like activity noted patient on multiple anti seizure medications continue Keppra, and gabapentin, Depakote discontinued as above. keppra levels still panding upon discharge -follow up outpatient with pcp with keppra levels.follow up with his neurologist outpatient. GERD Continue home meds Chronic constipation continue home regimen <Michelle Jalloh MD - Last Filed: 10/11/22 17:40> Time Spent with Patient Time attestation: Total time managing care of this patient today ____ minutes. <Michelle Jalloh MD - Last Filed: 10/11/22 17:40> Discharge coordination time: Greater than 30 minutes <Gabo Marquez MD - Last Filed: 10/03/22 11:16> Quality: Safe Use of Opioids Does Pt have an Active Cancer Diagnosis on the Problem List?: No <Gabo Marquez MD - Last Filed: 10/03/22 11:16> Quality: Stroke Does the patient have a stroke diagnosis?: No <Gabo Marquez MD - Last Filed: 10/03/22 11:16> Physical Exam Vital Signs: Vital Signs: Last Vital Signs Temp 97.6 F 09/30/22 08:00 Pulse 73 09/30/22 08:25 Resp 16 09/30/22 08:25 BP 139/73 09/30/22 08:00 Pulse Ox 98 09/30/22 08:00 O2 Del Method 09/30/22 08:00 O2 Flow Rate 7 09/29/22 19:30 BMI result Body Mass Index 24.1 <Michelle Jalloh MD - Last Filed: 10/11/22 17:40> Const: Other: General awake alert, resting comfortably in no acute distress.? Neck? supple no JVD. CVS? regular rate rhythm, Respiratory lungs clear to auscultation, no respiratory distress, no wheeze, no rhonchi. Gastrointestinal abdomen soft, bowel sounds audible, no guarding , no rigidity. Extremities no? edema. Neuro moving all 4 extremity, making sounds Skin no rash <Michelle Jalloh MD - Last Filed: 10/11/22 17:40> DS: Data Data Completed and Pending Labs on day of discharge: Preliminary micro results at discharge 09/28/22 15:40 Blood Culture - Preliminary Blood - Venous No growth after 24 hours. 09/28/22 15:37 Blood Culture - Preliminary Blood - Venous No growth after 24 hours. <Michelle Jalloh MD - Last Filed: 10/11/22 17:40> Discharge Plan Discharge Anticipated Discharge Date/Time: 09/29/22 13:11 <Michelle Jalloh MD - Last Filed: 10/11/22 17:40> Patient Disposition: Home, Self-Care <Michelle Jalloh MD - Last Filed: 10/11/22 17:40> Discharge Diagnosis: Acute toxic metabolic encephalopathy Atypical pneumonia Hyperammonemia <Michelle Jalloh MD - Last Filed: 10/11/22 17:40> Acute toxic metabolic encephalopathy Atypical pneumonia Hyperammonemia <Gabo Marquez MD - Last Filed: 10/03/22 11:16> Referrals: Po,Aliza Shannon MD [Primary Care Provider] - 1 Week <Michelle Jalloh MD - Last Filed: 10/11/22 17:40> Discharge Medications: New lactulose 20 gram/30 mL solution 20 g PO DAILY MDD 20 gm Qty: 210 0RF doxycycline monohydrate 100 mg Capsule 100 mg PO Q12H Qty: 1 0RF Continued miscellaneous medical supply Misc 1 ea miscellaneous DAILY Qty: 1 0RF Rx Instructions: soft foam helmet cholecalciferol (vitamin D3) 25 mcg (1,000 unit) tablet 50 mcg PO DAILY Qty: 180 3RF fluticasone propionate [Flonase Allergy Relief] 50 mcg/actuation spray,suspension 2 spray intranasal DAILY Qty: 16 12RF Rx Instructions: administer into each nostril tamsulosin 0.4 mg capsule 0.4 mg PO BEDTIME 90 Days Qty: 90 1RF bismuth subsalicylate 262 mg/15 mL suspension 524 mg PO Q6H PRN (Reason: Diarrhea) Qty: 1200 11RF therapeutic multivitamin Tablet 1 tab PO DAILY clonidine HCl 0.2 mg tablet 1 tab PO DAILY PRN (Reason: agitation >10 min) psyllium Powder 1 tbsp PO DAILY Rx Instructions: mix into at least 8 oz of water or juice before administering Triple Antibiotic 3.5-400-5,000 [id number] Ointment In Packet 1 appl TOPICAL TID PRN (Reason: wound/cut/abrasion) magnesium hydroxide [Milk of Magnesia] 400 mg/5 mL suspension 30 ml PO Q48H PRN (Reason: Constipation) docusate sodium 100 mg capsule 100 mg PO BEDTIME omeprazole 20 mg capsule,delayed release(DR/EC) 20 mg PO DAILY@0630 finasteride 5 mg tablet 5 mg PO BEDTIME loratadine [Claritin] 10 mg tablet 10 mg PO BEDTIME acetaminophen 325 mg capsule 650 mg PO Q6H PRN (Reason: fever /pain/headache) fluoride (sodium) 1.1 % cream 1 appl PO BID clonidine HCl 0.2 mg tablet 0.2 mg PO DAILY@0500 clonidine HCl 0.1 mg tablet 0.1 mg PO BID@1200,2000 gabapentin 300 mg capsule 600 mg PO BID levetiracetam 500 mg tablet 1,000 mg PO BID oxcarbazepine 300 mg tablet 600 mg PO BID olanzapine 15 mg tablet 15 mg PO DAILY@0500 Discontinued divalproex 250 mg tablet extended release 24 hr 750 mg PO DAILY divalproex 500 mg tablet extended release 24 hr 1,000 mg PO BEDTIME <Michelle Jalloh MD - Last Filed: 10/11/22 17:40> Discharge Orders: Discharge Order (Routine); Ordered 10/03/22 Ordered By: Gabo Marquez <Michelle Jalloh MD - Last Filed: 10/11/22 17:40> Diet: Advance to usual diet <Michelle Jalloh MD - Last Filed: 10/11/22 17:40> Advance to usual diet <Gabo Marquez MD - Last Filed: 10/03/22 11:16> Activity on Discharge: As tolerated <Michelle Jalloh MD - Last Filed: 10/11/22 17:40> As tolerated <Gabo Marquez MD - Last Filed: 10/03/22 11:16> Stand Alone Forms: Patient Portal Discharge page <Michelle Jalloh MD - Last Filed: 10/11/22 17:40> Care Plan Goals: Lethargy resolved post likely due to elevated ammonia level patient treated with lactulose, ammonia level normalized, off depakote , follow up with neurology outpatient. Mild atypical pneumonia finished course of doxycycline,repeat chest imaging in 3-4 weeks outpatient to see resolution of pneumonia. <Michelle Jalloh MD - Last Filed: 10/11/22 17:40> Health Concerns: Continue all other medications as before. <Michelle Jalloh MD - Last Filed: 10/11/22 17:40> Plan of Treatment: Outpatient follow-up with primary care physician and primary neurologist <Michelle Jalloh MD - Last Filed: 10/11/22 17:40> Assessment: As above <Michelle Jalloh MD - Last Filed: 10/11/22 17:40> Discharge Date/Time: 10/03/22 14:32 <Michelle Jalloh MD - Last Filed: 10/11/22 17:40>
--- NOTE | 2022-09-30 11:40 | P.PNIM_ITS ---
Subjective Subjective Date of Service: 10/01/22 Interval History: Patient unable to provide meaningful history due to underlying cerebral palsy, care provider at bedside feels patient not at his baseline is more sleepy , and is dizzy, does not have his regular gait patient walks very fast but today's very slow in walking on requiring assistance in standing, no seizure-like activity noted Review of Systems Review of Systems: Yes Unobtainable due to mental status Physical Exam Vital Signs: Vital Signs: Last Vital Signs Temp 97.6 F 09/30/22 08:00 Pulse 73 09/30/22 08:25 Resp 16 09/30/22 08:25 BP 139/73 09/30/22 08:00 Pulse Ox 98 09/30/22 08:00 O2 Del Method 09/30/22 08:00 O2 Flow Rate 7 09/29/22 19:30 BMI result Body Mass Index 24.1 Const: Other: General awake aler t, resting comfort ably in no acute d istress.? Neck? graves pple no JVD. CVS? regular rate rhyth m, Respiratory jose juan gs clear to auscul tation, no respira tory distress, no wheeze, no rhonchi . Gastrointestinal abdomen soft, bow el sounds audible, no guarding , no rigidity. Extremit ies no? edema. Elinor ro moving all 4 ex tremity, not makin g any sounds Skin no rash Objective Data Active Medications Acetaminophen (Acetaminophen 325 Mg Tablet) 650 mg PO Q6H PRN PRN Reason: Pain, Mild (Pain Scale 1-3) Bismuth Subsalicylate (Bismuth Subsalicylate Liquid 524 Mg/30 Ml Oral.Susp) 524 mg PO Q6H PRN PRN Reason: Diarrhea Clonidine HCl (Clonidine Hcl 0.1 Mg Tablet) 0.1 mg PO BID@1200,2000 [facility]; Protocol Last Admin: 09/29/22 20:48 Dose: 0.1 mg Documented By: NURY Clonidine HCl (Clonidine Hcl 0.2 Mg Tablet) 0.2 mg PO DAILY@0500 [facility]; Protocol Last Admin: 09/30/22 05:37 Dose: 0.2 mg Documented By: NURY Clonidine HCl (Clonidine Hcl 0.2 Mg Tablet) 0.2 mg PO DAILY PRN; Protocol PRN Reason: agitation >10 min Last Admin: 09/29/22 18:00 Dose: 0.2 mg Documented By: KAVITHA Albuterol Sulfate 2.5 mg/ (Ipratropium Joanna 0.5 mg) 0 mg INHALE RQ4H WHILE AWAKE [facility] Last Admin: 09/30/22 08:25 Dose: 1 each Documented By: ASHLEY Divalproex Sodium (Divalproex Sodium Er 500 Mg Tab.Er.24h) 500 mg PO DAILY [facility] Last Admin: 09/30/22 09:08 Dose: 500 mg Documented By: KAVITHA Divalproex Sodium (Divalproex Sodium Er 250 Mg Tab.Er.24h) 750 mg PO BEDTIME [facility] Last Admin: 09/29/22 20:47 Dose: 750 mg Documented By: NURY Doxycycline Monohydrate (Doxycycline Monohydrate 100 Mg Capsule) 100 mg PO Q12H [facility] Last Admin: 09/30/22 09:09 Dose: 100 mg Documented By: KAVITHA Enoxaparin Sodium (Enoxaparin Sodium 40 Mg/0.4 Ml Syringe) 40 mg SUBCUT Q24H [facility] Last Admin: 09/29/22 20:49 Dose: 40 mg Documented By: NURY Finasteride (Finasteride 5 Mg Tablet) 5 mg PO BEDTIME [facility] Last Admin: 09/29/22 20:47 Dose: 5 mg Documented By: NURY Fluticasone Propionate (Fluticasone Propionate Nasal 16 Gm [place]) 2 spray NOSTRIL-B DAILY [facility] Last Admin: 09/30/22 09:09 Dose: Not Given Documented By: KAVITHA Non-Admin Reason: Med Not Available Gabapentin (Gabapentin 300 Mg Capsule) 600 mg PO BID [facility] Last Admin: 09/30/22 09:09 Dose: 600 mg Documented By: KAVITHA Levetiracetam (Levetiracetam 1,000 Mg Tablet) 1,000 mg PO BID [facility] Last Admin: 09/30/22 09:08 Dose: 1,000 mg Documented By: KAVITHA Loratadine (Loratadine 10 Mg Tablet) 10 mg PO BEDTIME [facility] Last Admin: 09/29/22 20:48 Dose: 10 mg Documented By: NURY Lorazepam (Lorazepam 1 Mg Tablet) 1 mg PO Q6H PRN PRN Reason: Anxiety Last Admin: 09/29/22 18:07 Dose: 1 mg Documented By: KAVITHA Multivitamins/Vitamin C (Multivitamin Tablet) 1 tab PO DAILY [facility] Last Admin: 09/30/22 09:08 Dose: 1 tab Documented By: KAVITHA Olanzapine (Olanzapine 7.5 Mg Tablet) 15 mg PO DAILY@0500 [facility] Last Admin: 09/30/22 05:37 Dose: 15 mg Documented By: NURY Omeprazole (Omeprazole 20 Mg Capsule.) 20 mg PO DAILY@0630 [facility] Last Admin: 09/30/22 05:37 Dose: 20 mg Documented By: NURY Ondansetron HCl (Ondansetron Hcl 4 Mg/2 Ml Vial) 4 mg IVPUSH Q8H PRN PRN Reason: Nausea and Vomiting Oxcarbazepine (Oxcarbazepine 300 Mg Tablet) 600 mg PO BID [facility] Last Admin: 09/30/22 09:09 Dose: 600 mg Documented By: KAVITHA Pharmacy Consult (Consult Rx Perform Med Rec) 1 each MISCELLANE ONCE PRN PRN Reason: Consult order Psyllium Hydrophilic Mucilloid (Psyllium Seed 3.4 Gm Powd.Pack) 3.4 gm PO DAILY [facility] Last Admin: 09/30/22 09:09 Dose: 3.4 gm Documented By: KAVITHA Tamsulosin HCl (Tamsulosin Hcl 0.4 Mg Capsule) 0.4 mg PO BEDTIME [facility] Last Admin: 09/29/22 20:48 Dose: 0.4 mg Documented By: NURY Vitamin D (Cholecalciferol (Vitamin D3) 25 Mcg Tablet) 50 mcg PO DAILY [facility] Last Admin: 09/30/22 09:08 Dose: 50 mcg Documented By: KAVITHA Labs 09/29/22 06:25 09/29/22 06:25 Microbiology Microbiology Results: Microbiology 09/28/22 15:40 Blood Culture - Preliminary Blood - Venous No growth after 24 hours. 09/28/22 15:37 Blood Culture - Preliminary Blood - Venous No growth after 24 hours. Assessment and Plan (1) Acute alteration in mental status: Status: Acute (2) Hyperammonemia: Status: Acute (3) Pneumonia: Status: Acute Plan 57-year-old male with a PMH significant for?cerebral palsy, developmental delay, history of seizures, GERD, thrombocytopenia, and vitamin-D deficiency who [facility] ED from a [facility] for altered mental status.? Acute toxic metabolic encephalopathy Patient awake alert as per Case provider not at his baseline since noted to be more tired sleepy with unsteady gait and dizziness Initially noted to have elevated ammonia level treated with lactulose ammonia level normalized and dose of Depakote reduced Since patient appears lethargic will repeat ammonia level, check Keppra level, check urinalysis patient is on multiple psychiatric medication that can contribute to somnolence will discuss home medications with nursing supervisor advice at [facility] question on any new medications Atypical pneumonia Patient afebrile, no leukocytosis, chest x-ray with opacities lungs clear today on by mouth doxy 100 b.i.d. since patient pulled two IV lines and able to tolerate by mouth COVID/influenza test negative Hyperammonemia Ammonia 86 at presentation, improved to normal range with lactulose, decreased dose of Depakote after discussing with Neurology, since contributing to elevated ammonia, recommend outpatient follow-up with primary care physician and Neurology. Repeat ammonia level today Hyponatremia Sodium of 129 on admission treated with IV fluids sodium improved to 140, will DC IV fluids, elevated chloride due to IV fluids History of seizure No seizure-like activity noted patient on multiple anti seizure medications will reduce dose of Depakote ,continue Keppra, and gabapentin GERD Continue home meds Chronic constipation continue home regimen Full Code DVT Prophylaxis: Lovenox Pt will require continued hospitalization since patient not at his baseline with increased lethargy and unable to ambulate requiring assistance with standing require further workup. Time Spent With Patient Time: Total time managing care of this patient today ____ minutes. Quality Stroke Does the patient have a stroke diagnosis?: No VTE Prior VTE?: No VTE Risk Level:: Medical - moderate - high VTE Device Contraindication: Treatment Not Indicated VTE Drug Contraindication: N/A - Med Ordered
[2022-09-30] MEDS: cloNIDine HCL 0.1 MG TABLET PO ×2 (12:03→19:59)
[2022-09-30 12:32] LABS: Ammonia 75 umol/L (13-55)
[2022-09-30 12:39] LABS: Anion Gap 10 (12-20); Blood Urea Nitrogen 16 mg/dL (9-16); Calcium 9.2 mg/dL (8.4-10.2); Carbon Dioxide 29 mmol/L (22-29); Chloride 105 mmol/L (96-108); Creatinine Clr Calc Pharmacy 97.6; Estimated Glomerular Filt Rate > 60; Glucose Random 81 mg/dL (60-115); Potassium 4.7 mmol/L (3.3-5.1); Sodium 139 mmol/L (135-145)
[2022-09-30 13:06] LABS: Appearance Urine Clear; Color Urine Dark Yellow; Glucose Urine UA Negative (Negative); Leukocyte Esterase Urine Small (1+) (Negative); Nitrite Urine Negative (Negative); PH 7.5 (5.0-9.0); UMIC TRIGGER UACC YES; Urine Blood Negative (Negative); Urine Ketones Negative (Negative); Urine Protein Negative (Neg-Trace)
[2022-09-30 13:08] LABS: Bacteria Urine None Seen (None Seen); Hyaline Casts Urine 0-2 /LPF (0-2); RBC Urine 0-2 /HPF (0-2); Squamous Epithelial Cell Urine 0-2 /HPF (0-2); UACC Culture Trigger YES
[2022-09-30 15:09] VITALS: BP 133/70; PULSE 62; RESP 15; TEMP 36.3; O2SAT 97
[2022-09-30] MEDS: Lactulose 20 GM/30 ML SOLUTION 30 GM PO (17:32)
[2022-09-30] MEDS: LORazepam 1 MG TABLET PO (18:29)
[2022-09-30] MEDS: OLANZapine 10 MG VIAL 5 MG IM (19:20)
[2022-09-30] MEDS: Tamsulosin HCL 0.4 MG CAPSULE PO (19:59)
[2022-09-30] MEDS: Loratadine 10 MG TABLET PO (19:59)
[2022-09-30 20:00] VITALS: BP 150/89; PULSE 68; RESP 18; TEMP 37.1; O2SAT 97
[2022-09-30] MEDS: Finasteride 5 MG TABLET PO (20:00)
[2022-09-30] MEDS: Enoxaparin Sodium 40 MG/0.4 ML SYRINGE SUBCUT (20:00)
[2022-10-01 04:00] VITALS: BP 167/85; PULSE 93; RESP 17; TEMP 36.7; O2SAT 97
--- NOTE | 2022-10-01 04:57 | PC.NURSE ---
On 09/30/22 during change of shift at 18:45, pt started to have increased agitation,impulsiveness, resistive to care, and hitting/yelling at caregiver & sitter. The AM RN notified MD about the situation. MD ordered one time dose of olanzapine 5mg IM. At 19:20, this RN administered the ordered med to pt. Afterwards, the pt's behavior improved with less agitation and impulsiveness. Pt took his bedtime meds with no problem and was able to get some rest. Will continue to monitor pt's behavior.
[2022-10-01] MEDS: OLANZapine 7.5 MG TABLET 15 MG PO (05:53)
[2022-10-01] MEDS: cloNIDine HCL 0.2 MG TABLET PO (05:53)
[2022-10-01] MEDS: Omeprazole 20 MG CAPSULE.DR PO (05:54)
[2022-10-01 07:54] LABS: Ammonia 64 umol/L (13-55)
[2022-10-01 08:00] VITALS: BP 131/80; PULSE 69; RESP 16; TEMP 36.3; O2SAT 96
[2022-10-01 08:25] VITALS: PULSE 56; RESP 16; O2SAT 95
[2022-10-01] MEDS: Cholecalciferol (Vitamin D3) 25 MCG TABLET 50 MCG PO (08:44)
[2022-10-01] MEDS: OXcarbazepine 300 MG TABLET 600 MG PO ×2 (08:45→20:05)
[2022-10-01] MEDS: Lactulose 20 GM/30 ML SOLUTION PO ×2 (08:45→20:04)
[2022-10-01] MEDS: levETIRAcetam 1,000 MG TABLET 1000 MG PO ×2 (08:45→20:04)
[2022-10-01] MEDS: Doxycycline Monohydrate 100 MG CAPSULE PO ×2 (08:45→20:06)
[2022-10-01] MEDS: Divalproex Sodium ER 500 MG TAB.ER.24H PO (08:45)
[2022-10-01] MEDS: Gabapentin 300 MG CAPSULE 600 MG PO ×2 (08:45→20:05)
[2022-10-01] MEDS: Multivitamin TABLET 1 TAB PO (08:45)
[2022-10-01] MEDS: Fluticasone Propionate Nasal 16 GM SPRAY 2 SPRAY NOSTRIL-B (12:10)
[2022-10-01] MEDS: cloNIDine HCL 0.1 MG TABLET PO ×2 (12:10→20:04)
--- NOTE | 2022-10-01 12:39 | HO.PM.IMPN ---
Subjective Subjective Date of Service: 10/01/22 Interval History: Patient awake alert ambulated with belt, very close to baseline nurse from [facility] feels he is still not is steady, tolerated diet no nausea no vomiting no seizure-like activity noted ammonia level noted to be elevated receiving lactulose Review of Systems Review of Systems: Yes Unobtainable due to mental status Physical Exam Vital Signs: Vital Signs: Last Vital Signs Temp 97.4 F 10/01/22 08:00 Pulse 56 10/01/22 08:25 Resp 16 10/01/22 08:25 BP 131/80 10/01/22 08:00 Pulse Ox 96 10/01/22 08:00 O2 Del Method 10/01/22 08:00 O2 Flow Rate 7 09/29/22 19:30 BMI result Body Mass Index 24.1 Const: Other: General awake aler t, resting comfort ably in no acute d istress.? Neck? graves pple no JVD. CVS? regular rate rhyth m, Respiratory jose juan gs clear to auscul tation, no respira tory distress, no wheeze, no rhonchi . Gastrointestinal abdomen soft, bow el sounds audible, no guarding , no rigidity. Extremit ies no? edema. Elinor ro moving all 4 ex tremity Skin no ra sh Objective Data Active Medications Acetaminophen (Acetaminophen 325 Mg Tablet) 650 mg PO Q6H PRN PRN Reason: Pain, Mild (Pain Scale 1-3) Bismuth Subsalicylate (Bismuth Subsalicylate Liquid 524 Mg/30 Ml Oral.Susp) 524 mg PO Q6H PRN PRN Reason: Diarrhea Clonidine HCl (Clonidine Hcl 0.1 Mg Tablet) 0.1 mg PO BID@1200,2000 [facility]; Protocol Last Admin: 10/01/22 12:10 Dose: 0.1 mg Documented By: KAVITHA Clonidine HCl (Clonidine Hcl 0.2 Mg Tablet) 0.2 mg PO DAILY@0500 [facility]; Protocol Last Admin: 10/01/22 05:53 Dose: 0.2 mg Documented By: CAR Clonidine HCl (Clonidine Hcl 0.2 Mg Tablet) 0.2 mg PO DAILY PRN; Protocol PRN Reason: agitation >10 min Last Admin: 09/29/22 18:00 Dose: 0.2 mg Documented By: KAVITHA Albuterol Sulfate 2.5 mg/ (Ipratropium [place] 0.5 mg) 0 mg INHALE RQ4H WHILE AWAKE [facility] Last Admin: 10/01/22 12:18 Dose: Not Given Documented By: ASHLEY Non-Admin Reason: Patient Refused Doxycycline Monohydrate (Doxycycline Monohydrate 100 Mg Capsule) 100 mg PO Q12H [facility] Last Admin: 10/01/22 08:45 Dose: 100 mg Documented By: KAVITHA Enoxaparin Sodium (Enoxaparin Sodium 40 Mg/0.4 Ml Syringe) 40 mg SUBCUT Q24H [facility] Last Admin: 09/30/22 20:00 Dose: 40 mg Documented By: CAR Finasteride (Finasteride 5 Mg Tablet) 5 mg PO BEDTIME [facility] Last Admin: 09/30/22 20:00 Dose: 5 mg Documented By: CAR Fluticasone Propionate (Fluticasone Propionate Nasal 16 Gm [place]) 2 spray NOSTRIL-B DAILY [facility] Last Admin: 10/01/22 12:10 Dose: 2 spray Documented By: KAVITHA Gabapentin (Gabapentin 300 Mg Capsule) 600 mg PO BID [facility] Last Admin: 10/01/22 08:45 Dose: 600 mg Documented By: KAVITHA Lactulose (Lactulose 20 Gm/30 Ml Solution) 20 gm PO BID [facility] Last Admin: 10/01/22 08:45 Dose: 20 gm Documented By: KAVITHA Levetiracetam (Levetiracetam 1,000 Mg Tablet) 1,000 mg PO BID [facility] Last Admin: 10/01/22 08:45 Dose: 1,000 mg Documented By: KAVITHA Loratadine (Loratadine 10 Mg Tablet) 10 mg PO BEDTIME [facility] Last Admin: 09/30/22 19:59 Dose: 10 mg Documented By: CAR Lorazepam (Lorazepam 1 Mg Tablet) 1 mg PO Q6H PRN PRN Reason: Anxiety Last Admin: 09/30/22 18:29 Dose: 1 mg Documented By: KAVITHA Multivitamins/Vitamin C (Multivitamin Tablet) 1 tab PO DAILY [facility] Last Admin: 10/01/22 08:45 Dose: 1 tab Documented By: KAVITHA Olanzapine (Olanzapine 7.5 Mg Tablet) 15 mg PO DAILY@0500 [facility] Last Admin: 10/01/22 05:53 Dose: 15 mg Documented By: CAR Omeprazole (Omeprazole 20 Mg Capsule.) 20 mg PO DAILY@0630 [facility] Last Admin: 10/01/22 05:54 Dose: 20 mg Documented By: CAR Ondansetron HCl (Ondansetron Hcl 4 Mg/2 Ml Vial) 4 mg IVPUSH Q8H PRN PRN Reason: Nausea and Vomiting Oxcarbazepine (Oxcarbazepine 300 Mg Tablet) 600 mg PO BID [facility] Last Admin: 10/01/22 08:45 Dose: 600 mg Documented By: KAVITHA Pharmacy Consult (Consult Rx Perform Med Rec) 1 each MISCELLANE ONCE PRN PRN Reason: Consult order Psyllium Hydrophilic Mucilloid (Psyllium Seed 3.4 Gm Powd.Pack) 3.4 gm PO DAILY [facility] Last Admin: 10/01/22 08:44 Dose: 3.4 gm Documented By: KAVITHA Tamsulosin HCl (Tamsulosin Hcl 0.4 Mg Capsule) 0.4 mg PO BEDTIME [facility] Last Admin: 09/30/22 19:59 Dose: 0.4 mg Documented By: CAR Vitamin D (Cholecalciferol (Vitamin D3) 25 Mcg Tablet) 50 mcg PO DAILY [facility] Last Admin: 10/01/22 08:44 Dose: 50 mcg Documented By: KAVITHA Labs 09/29/22 06:25 09/30/22 12:16 Labs: Laboratory Results - last 24 hr 09/30/22 09/30/22 10/01/22 12:16 12:54 07:31 Anion Gap 10 L Estim Creat Clear Calc 97.6 Estimated GFR > 60 Random Glucose 81 Calcium 9.2 D Ammonia 64 H Urine Color Dark Yellow Urine Appearance Clear Urine pH 7.5 Ur Specific [place] 1.020 Urine Protein Negative Urine Glucose (UA) Negative Urine Ketones Negative Urine Blood Negative Urine Nitrite Negative Ur Leukocyte Esterase Small (1+) H Urine RBC 0-2 Urine WBC 6-10 H Ur Squamous Epith Cells 0-2 Urine Bacteria None Seen Hyaline Casts 0-2 Microbiology Microbiology Results: Microbiology 09/30/22 13:09 Urine Culture - Final Urine Catheterized - Straight Catheter No growth. 09/28/22 15:40 Blood Culture - Preliminary Blood - Venous No growth after 48 hours. 09/28/22 15:37 Blood Culture - Preliminary Blood - Venous No growth after 48 hours. Assessment and Plan (1) Acute alteration in mental status: Status: Acute (2) Hyperammonemia: Status: Acute (3) Pneumonia: Status: Acute Plan 57-year-old male with a PMH significant for?cerebral palsy, developmental delay, history of seizures, GERD, thrombocytopenia, and vitamin-D deficiency who [facility] a [facility] for altered mental status.? Acute toxic metabolic encephalopathy Patient awake alert as per Case provider not at his baseline since noted to be unsteady gait noted to have elevated ammonia level, placed on lactulose 20 g twice daily , will DC Depakote Keppra level pending, urinalysis none unremarkable Spoke with [facility] nursing it service continuity supervisor and recommended to discuss polypharmacy with primary care physician and Psychiatry Atypical pneumonia Patient afebrile, no leukocytosis, chest x-ray with opacities lungs clear today on by mouth doxy 100 b.i.d.day 3, since patient pulled two IV lines and able to tolerate by mouth COVID/influenza test negative Hyperammonemia Ammonia 86 at presentation, improved to normal range with lactulose, dose of Depakote was decreased, repeat ammonia level was elevated therefore patient started on lactulose, Depakote discontinued Follow ammonia level Hyponatremia Sodium of 129 on admission treated with IV fluids sodium improved to 140 History of seizure No seizure-like activity noted patient on multiple anti seizure medications Keppra, and gabapentin GERD Continue home meds Chronic constipation continue home regimen Full Code DVT Prophylaxis: Lovenox Pt will require continued hospitalization since patient not at his baseline with unsteady gait and have elevated ammonia level requiring medication adjustment and close monitoring for seizures Time Spent With Patient Time: Total time managing care of this patient today ____ minutes. Quality Stroke Does the patient have a stroke diagnosis?: No VTE Prior VTE?: No VTE Risk Level:: Medical - moderate - high VTE Device Contraindication: Treatment Not Indicated VTE Drug Contraindication: N/A - Med Ordered
[2022-10-01 16:00] VITALS: BP 142/84; PULSE 80; RESP 18; TEMP 36.3; O2SAT 98
[2022-10-01 19:25] VITALS: BP 134/62; PULSE 90; RESP 18; TEMP 36.5; O2SAT 96
[2022-10-01] MEDS: Enoxaparin Sodium 40 MG/0.4 ML SYRINGE SUBCUT (20:04)
[2022-10-01] MEDS: Loratadine 10 MG TABLET PO (20:04)
[2022-10-01] MEDS: LORazepam 1 MG TABLET PO (20:04)
[2022-10-01] MEDS: Tamsulosin HCL 0.4 MG CAPSULE PO (20:05)
[2022-10-01] MEDS: Finasteride 5 MG TABLET PO (20:05)
[2022-10-02 03:09] VITALS: BP 122/62; PULSE 71; RESP 18; TEMP 36.4; O2SAT 97
[2022-10-02] MEDS: cloNIDine HCL 0.2 MG TABLET PO (04:28)
[2022-10-02] MEDS: Omeprazole 20 MG CAPSULE.DR PO (04:28)
[2022-10-02] MEDS: OLANZapine 7.5 MG TABLET 15 MG PO (04:28)
[2022-10-02 05:41] LABS: Ammonia 74 umol/L (13-55)
[2022-10-02 08:00] VITALS: BP 155/81; PULSE 80; RESP 18; TEMP 36; O2SAT 99
[2022-10-02] MEDS: Gabapentin 300 MG CAPSULE 600 MG PO ×2 (09:04→20:23)
[2022-10-02] MEDS: Doxycycline Monohydrate 100 MG CAPSULE PO ×2 (09:04→20:23)
[2022-10-02] MEDS: Multivitamin TABLET 1 TAB PO (09:04)
[2022-10-02] MEDS: Cholecalciferol (Vitamin D3) 25 MCG TABLET 50 MCG PO (09:04)
[2022-10-02] MEDS: OXcarbazepine 300 MG TABLET 600 MG PO ×2 (09:04→20:23)
[2022-10-02] MEDS: levETIRAcetam 1,000 MG TABLET 1000 MG PO ×2 (09:04→20:22)
[2022-10-02] MEDS: Lactulose 20 GM/30 ML SOLUTION 30 GM PO ×3 (09:05→20:24)
[2022-10-02] MEDS: cloNIDine HCL 0.1 MG TABLET PO ×2 (12:22→20:22)
--- NOTE | 2022-10-02 13:24 | MHC.CM.PN ---
EMR REVIEWED, PER HOSPITALIST IF PT'S AMMONIA LEVEL IS COMES DOWN TO ACCEPTABLE LIMIT PT WILL BE CLEARED FOR D/C. CM CONTACTED [facility] [employer] CURER EBONY AT 1:20PM AT [phone] AND HE REQUESTED CM CONTACT PT'S DDS NURSE ISIDRO AT [phone]. CM ATTEMPTED TO CONTACT ISIDRO AT 1:25PM, NO ANSWER AND MESSAGE LEFT W/CM CONTACT INFO.
[2022-10-02 13:33] LABS: Ammonia 61 umol/L (13-55)
--- NOTE | 2022-10-02 14:19 | HO.PM.IMPN ---
Subjective Subjective Date of Service: 10/02/22 Interval History: Patient awake alert at his baseline tolerated breakfast participated in his games with the care provider noted to have ammonia of 75 this morning, patient unable to provide meaningful history due to cerebral palsy, no acute issues overnight no seizure-like activity noted. Review of Systems Review of Systems: Yes Unobtainable due to mental status Physical Exam Vital Signs: Vital Signs: Last Vital Signs Temp 96.8 F 10/02/22 08:00 Pulse 80 10/02/22 08:00 Resp 18 10/02/22 08:00 BP 155/81 H 10/02/22 08:00 Pulse Ox 99 10/02/22 08:00 O2 Del Method 10/02/22 08:00 O2 Flow Rate 7 09/29/22 19:30 BMI result Body Mass Index 24.1 Const: Other: General awake aler t, resting comfort ably in no acute d istress.? Neck? graves pple no JVD. CVS? regular rate rhyth m, Respiratory jose juan gs clear to auscul tation, no respira tory distress, no wheeze, no rhonchi . Gastrointestinal abdomen soft, bow el sounds audible, no guarding , no rigidity. Extremit ies no? edema. Elinor ro moving all 4 ex tremity Skin no ra sh Objective Data Active Medications Acetaminophen (Acetaminophen 325 Mg Tablet) 650 mg PO Q6H PRN PRN Reason: Pain, Mild (Pain Scale 1-3) Bismuth Subsalicylate (Bismuth Subsalicylate Liquid 524 Mg/30 Ml Oral.Susp) 524 mg PO Q6H PRN PRN Reason: Diarrhea Clonidine HCl (Clonidine Hcl 0.1 Mg Tablet) 0.1 mg PO BID@1200,2000 TAE; Protocol Last Admin: 10/02/22 12:22 Dose: 0.1 mg Documented By: NAVIN Clonidine HCl (Clonidine Hcl 0.2 Mg Tablet) 0.2 mg PO DAILY@0500 TAE; Protocol Last Admin: 10/02/22 04:28 Dose: 0.2 mg Documented By: VONNIE Clonidine HCl (Clonidine Hcl 0.2 Mg Tablet) 0.2 mg PO DAILY PRN; Protocol PRN Reason: agitation >10 min Last Admin: 09/29/22 18:00 Dose: 0.2 mg Documented By: KAVITHA Albuterol Sulfate 2.5 mg/ (Ipratropium [place] 0.5 mg) 0 mg INHALE RQ4H WHILE AWAKE [facility] Last Admin: 10/02/22 11:23 Dose: Not Given Documented By: KIM Non-Admin Reason: Patient Refused Doxycycline Monohydrate (Doxycycline Monohydrate 100 Mg Capsule) 100 mg PO Q12H [facility] Last Admin: 10/02/22 09:04 Dose: 100 mg Documented By: DYLAN Enoxaparin Sodium (Enoxaparin Sodium 40 Mg/0.4 Ml Syringe) 40 mg SUBCUT Q24H [facility] Last Admin: 10/01/22 20:04 Dose: 40 mg Documented By: ASHLEY Finasteride (Finasteride 5 Mg Tablet) 5 mg PO BEDTIME [facility] Last Admin: 10/01/22 20:05 Dose: 5 mg Documented By: ASHLEY Fluticasone Propionate (Fluticasone Propionate Nasal 16 Gm [place]) 2 spray NOSTRIL-B DAILY [facility] Last Admin: 10/01/22 12:10 Dose: 2 spray Documented By: KAVITHA Gabapentin (Gabapentin 300 Mg Capsule) 600 mg PO BID [facility] Last Admin: 10/02/22 09:04 Dose: 600 mg Documented By: DYLAN Lactulose (Lactulose 20 Gm/30 Ml Solution) 30 gm PO TID [facility] Last Admin: 10/02/22 09:05 Dose: 30 gm Documented By: DYLAN Levetiracetam (Levetiracetam 1,000 Mg Tablet) 1,000 mg PO BID [facility] Last Admin: 10/02/22 09:04 Dose: 1,000 mg Documented By: DYLAN Loratadine (Loratadine 10 Mg Tablet) 10 mg PO BEDTIME [facility] Last Admin: 10/01/22 20:04 Dose: 10 mg Documented By: ASHLEY Lorazepam (Lorazepam 1 Mg Tablet) 1 mg PO Q6H PRN PRN Reason: Anxiety Last Admin: 10/01/22 20:04 Dose: 1 mg Documented By: ASHLEY Multivitamins/Vitamin C (Multivitamin Tablet) 1 tab PO DAILY [facility] Last Admin: 10/02/22 09:04 Dose: 1 tab Documented By: DYLAN Olanzapine (Olanzapine 7.5 Mg Tablet) 15 mg PO DAILY@0500 [facility] Last Admin: 10/02/22 04:28 Dose: 15 mg Documented By: VONNIE Omeprazole (Omeprazole 20 Mg Capsule.) 20 mg PO DAILY@0630 [facility] Last Admin: 10/02/22 04:28 Dose: 20 mg Documented By: VONNIE Ondansetron HCl (Ondansetron Hcl 4 Mg/2 Ml Vial) 4 mg IVPUSH Q8H PRN PRN Reason: Nausea and Vomiting Oxcarbazepine (Oxcarbazepine 300 Mg Tablet) 600 mg PO BID [facility] Last Admin: 10/02/22 09:04 Dose: 600 mg Documented By: DYLAN Pharmacy Consult (Consult Rx Perform Med Rec) 1 each MISCELLANE ONCE PRN PRN Reason: Consult order Psyllium Hydrophilic Mucilloid (Psyllium Seed 3.4 Gm Powd.Pack) 3.4 gm PO DAILY [facility] Last Admin: 10/02/22 09:05 Dose: 3.4 gm Documented By: DYLAN Tamsulosin HCl (Tamsulosin Hcl 0.4 Mg Capsule) 0.4 mg PO BEDTIME [facility] Last Admin: 10/01/22 20:05 Dose: 0.4 mg Documented By: ASHLEY Vitamin D (Cholecalciferol (Vitamin D3) 25 Mcg Tablet) 50 mcg PO DAILY [facility] Last Admin: 10/02/22 09:04 Dose: 50 mcg Documented By: DYLAN Labs 09/29/22 06:25 09/30/22 12:16 Labs: Laboratory Results - last 24 hr 10/02/22 10/02/22 05:28 13:13 Ammonia 74 H 61 H Assessment and Plan (1) Acute alteration in mental status: Status: Acute (2) Hyperammonemia: Status: Acute (3) Pneumonia: Status: Acute Plan 57-year-old male with a PMH significant for?cerebral palsy, developmental delay, history of seizures, GERD, thrombocytopenia, and vitamin-D deficiency who presents to the ED from a skilled nursing for altered mental status.? Acute toxic metabolic encephalopathy Resolved Was likely due to elevated ammonia level related to Depakote, Depakote discontinued. Patient awake alert seemed to be at his baseline, walking with gait belt but noted to have persistent elevated ammonia of 75 today, had no bowel movement in last 24 hours therefore will increase dose of lactulose to 30 g b.i.d. Obtained repeat ammonia level 61 at 13:00, ammonia will likely clear with stopping Depakote will not continue lactulose upon discharge. Prior abdominal ultrasound last year showed normal liver, LFTs within normal range patient does have history of hepatitis B Will continue lactulose 30 g b.i.d. repeat ammonia level at a.m. if normal will discharge patient home and recommend to check ammonia level in 1 week Keppra level pending, UA unremarkable Spoke with skilled nursing nursing supervisor heading and recommended to discuss polypharmacy with primary care physician and Psychiatry Atypical pneumonia Patient afebrile, no leukocytosis, chest x-ray with opacities lungs clear , on by mouth doxy 100 b.i.d.day / COVID/influenza test negative Hyperammonemia Ammonia 86 at presentation, improved to normal range with lactulose, dose of Depakote was decreased, repeat ammonia level was elevated therefore patient started on lactulose, Depakote discontinued Follow ammonia level in 1 week after discharge hopefully ammonia will normalize with stopping of Depakote Hyponatremia Sodium of 129 on admission treated with IV fluids sodium improved to 140 History of seizure No seizure-like activity noted patient on multiple anti seizure medications Keppra, and gabapentin , Depakote discontinued recommend outpatient follow-up with primary neurologist GERD Continue home meds Chronic constipation continue home regimen Full Code DVT Prophylaxis: Lovenox Pt will require continued hospitalization due to elevated ammonia level. Time Spent With Patient Time: Total time managing care of this patient today ____ minutes. Quality Stroke Does the patient have a stroke diagnosis?: No VTE Prior VTE?: No VTE Risk Level:: Medical - moderate - high VTE Device Contraindication: Treatment Not Indicated VTE Drug Contraindication: N/A - Med Ordered
[2022-10-02 15:38] VITALS: BP 133/73; PULSE 87; RESP 18; TEMP 36.1; O2SAT 98
[2022-10-02 19:39] VITALS: BP 143/95; PULSE 87; RESP 16; TEMP 36.4; O2SAT 95
[2022-10-02] MEDS: Loratadine 10 MG TABLET PO (20:23)
[2022-10-02] MEDS: Tamsulosin HCL 0.4 MG CAPSULE PO (20:23)
[2022-10-02] MEDS: Finasteride 5 MG TABLET PO (20:24)
[2022-10-02] MEDS: Enoxaparin Sodium 40 MG/0.4 ML SYRINGE SUBCUT (20:26)
[2022-10-02] MEDS: LORazepam 1 MG TABLET PO (21:25)
[2022-10-03 03:59] VITALS: BP 109/59; PULSE 63; RESP 17; TEMP 36.4; O2SAT 98
[2022-10-03] MEDS: Omeprazole 20 MG CAPSULE.DR PO (05:39)
[2022-10-03] MEDS: OLANZapine 7.5 MG TABLET 15 MG PO (05:39)
[2022-10-03] MEDS: cloNIDine HCL 0.2 MG TABLET PO (05:39)
[2022-10-03 06:34] LABS: Ammonia 47 umol/L (13-55)
--- NOTE | 2022-10-03 06:36 | PC.NURSE ---
PATIENT AWAKENED FOR AM CARE AND MORNING MEDICATIONS APPROX., 0520, SKIN CARE AND BRIEF CHANGED. PT VERY COOPERATIVE TO SIT UP AND TAKE MEDICATIONS IN PUDDING WITHOUT ANY DIFFICULTY. SHORTLY AFTERWARDS OF BEING ASSISTED BACK TO BED, PT BECAME RESTLESS, UNCOOPERATIVE, AND DETERMINED TO WALK. ALLOWED TO AMBULATED IN ROOM, HOWEVER, PT WANTED TO COME OUT IN HALLWAY AND NOT EASILY REDIRECTED FOR A SHORT TIME. HALF-WAYPROJECT DEVELOPMENT ENGINEER VERY NICELY HELPED US HANDLE HIM SAFELY BTB AND PT WAS TALKED WITH AND REASSURED DURING LAB DRAWS. ADDITIONAL SNACK PROVIDED AND PT FINALLY DID RELAX IN BED. NONDESTRUCTIVE TESTER WAS THANKED AND INSTRUCTED TO PRESS CALL JAMES IF STAFF NEEDED. MONITORED CLOSELY, BED ALARM AND CAMERA IN USE FOR SAFETY.
[2022-10-03 06:52] LABS: Anion Gap 14 (12-20); Blood Urea Nitrogen 10 mg/dL (9-16); Calcium 9.2 mg/dL (8.4-10.2); Carbon Dioxide 24 mmol/L (22-29); Chloride 101 mmol/L (96-108); Creatinine Clr Calc Pharmacy 96.2; Estimated Glomerular Filt Rate > 60; Glucose Random 120 mg/dL (60-115); Potassium 4.6 mmol/L (3.3-5.1); Sodium 134 mmol/L (135-145)
[2022-10-03 07:33] VITALS: PULSE 98; RESP 16; O2SAT 97
[2022-10-03 08:00] VITALS: BP 107/55; PULSE 73; RESP 12; TEMP 36.1; O2SAT 95
[2022-10-03] MEDS: levETIRAcetam 1,000 MG TABLET 1000 MG PO (08:56)
[2022-10-03] MEDS: Gabapentin 300 MG CAPSULE 600 MG PO (08:57)
[2022-10-03] MEDS: Lactulose 20 GM/30 ML SOLUTION 30 GM PO (08:57)
[2022-10-03] MEDS: OXcarbazepine 300 MG TABLET 600 MG PO (08:57)
[2022-10-03] MEDS: Doxycycline Monohydrate 100 MG CAPSULE PO (08:57)
[2022-10-03] MEDS: Cholecalciferol (Vitamin D3) 25 MCG TABLET 50 MCG PO (08:57)
[2022-10-03] MEDS: Multivitamin TABLET 1 TAB PO (08:57)
[2022-10-03] MEDS: Fluticasone Propionate Nasal 16 GM SPRAY 2 SPRAY NOSTRIL-B (08:58)
[2022-10-03 11:35] VITALS: PULSE 87; RESP 18; O2SAT 100
[2022-10-03] MEDS: cloNIDine HCL 0.1 MG TABLET PO (12:17)
--- NOTE | 2022-10-03 12:35 | MHC.CM.PN ---
Addendum entered by Nazanin Dinh RN 10/03/22 14:36: ORDERS SIGNED AND DDS RN AND 2 ADDITIONAL STAFF AT BEDSIDE AND WILL TRANSPORT PT. Original Note: PT MEDICALLY CLEARED FOR D/C BACK TO , CM SPOKE W/DDS NURSE ISIDRO WHO REPORTS SHE WILL BRING IN ORDERS TO SIGN AND WILL TRANSPORT PT.
[2022-10-03 17:03] LABS: Levetiracetam Keppra 36.4 mcg/mL (6.0-46.0)
== END 2022-10-03 14:32 | disposition home or self-care (01) | DRG 139 ==
LOC: HO.ED 17:32 → HO.EDOVER 19:20 → HO.S3 09-29 16:18
PROVIDERS: Hospitalist; Admitting Provider Student in an Organized Health Care Education/Training Program; Emergency Provider Student in an Organized Health Care Education/Training Program; PCP Internal Medicine; Visit Provider Internal Medicine
DX: J18.9 Pneumonia, unspecified organism (principal); G92.8 Other toxic encephalopathy; E72.20 Disorder of urea cycle metabolism, unspecified; G80.9 Cerebral palsy, unspecified; I95.9 Hypotension, unspecified; E87.1 Hypo-osmolality and hyponatremia; E86.0 Dehydration; T42.6X5A Adverse effect of other antiepileptic and sedative-hypnotic drugs, initial encounter; Z86.19 Personal history of other infectious and parasitic diseases; K59.09 Other constipation; Z79.51 Long term (current) use of inhaled steroids; Z79.899 Other long term (current) drug therapy
CPT/HCPCS: 0241U; 36415; 71045; 80048; 80076; 80164; 80177; 81001; 82140; 82607; 83605; 83690; 85025; 85027; 87040; 87086; 93005; 94640; 99285; J1650; J2060; J2543; J3371

== ENCOUNTER 2022-10-06 08:50 | Outpatient (REF) | payer OTHER, SELFPAY ==
[2022-10-06 09:12] LABS: MANUAL DIFF FLAG NO
[2022-10-06 09:22] LABS: Ammonia 46 umol/L (13-55)
[2022-10-06 10:22] LABS: Basophils Percent Auto 0.5 % (0-2); Eosinophils Absolute Auto 0.1 X10*3/uL (0.0-0.4); Eosinophils Percent Auto 1.4 % (0-4); Hematocrit 35.2 % (42.0-52.0); Hemoglobin 12.2 g/dl (14.0-18.0); Imm Gran Abs Auto 0.02 X10*3/uL (0.00-0.03); Imm Gran Pct Auto 0.3 % (0.0-0.4); Lymphocytes Absolute Auto 1.7 X10*3/uL (1.2-4.9); Lymphocytes Percent Auto 28.9 % (20-40); Mean Corpuscular HGB Conc 34.7 g/dl (31.0-36.0); Mean Corpuscular Hemoglobin 32.4 pg (27.0-33.0); Mean Corpuscular Volume 93.4 fL (80.0-98.0); Mean Platelet Volume 9.2 fL (9.4-12.4); Monocytes Absolute Auto 0.9 X10*3/uL (0.1-1.2); Monocytes Percent Auto 15.3 % (2-11); Neutrophils Absolute Auto 3.1 x10*3/uL (2.0-8.3); Neutrophils Percent Auto 53.6 % (45-73); Platelet Count 228 X10*3/uL (160-400); Red Blood Count 3.77 X10*6/uL (4.60-5.80); Red Cell Distribution Width 13.2 % (11.0-16.0); White Blood Count 5.7 X10*3/uL (4.8-10.8)
[2022-10-06 11:18] LABS: Alanine Aminotransferase 46 U/L (0-40); Albumin Level 3.3 g/dL (3.5-5.0); Alkaline Phosphatase 119 U/L (39-117); Aspartate Amino Transferase 40 U/L (5-37); Bilirubin Direct < 0.2 mg/dL (0.0-0.5); Bilirubin Total 0.4 mg/dL (0.0-1.0); Total Protein 5.8 g/dL (6.5-8.0)
[2022-10-06 11:41] LABS: HBS Num1 0.43 mIU/mL (0-7.99); HBsAGNum1 8.68 S/CO (0.00-0.99)
[2022-10-06 14:01] LABS: HBsAGNum2 8.14; HBsAGNum3 8.49
[2022-10-06 14:13] LABS: Hepatitis B Surface Antigen Rep Reactive (Negative)
[2022-10-06 14:27] LABS: Hepatitis B Surface Antigen Reactive (Negative); ~Hepatitis B Surface Antibody NONREACTIVE (Nonreactive)
[2022-10-10 14:18] LABS: Hepatitis B Viral DNA Qn - cp <1.00 NOT DETECTED Log IU/mL (NOT DETECTED); Hepatitis B Viral DNA Qn-IU/mL <10 NOT DETECTED IU/mL (NOT DETECTED)
== END 2022-10-06 08:51 | disposition home or self-care (01) ==
LOC: HO.LAB 08:50
PROVIDERS: Physician Assistant; PCP Internal Medicine; Referring Provider Internal Medicine; Visit Provider Internal Medicine
DX: B18.1 Chronic viral hepatitis B without delta-agent (principal); B19.10 Unspecified viral hepatitis B without hepatic coma; E72.20 Disorder of urea cycle metabolism, unspecified
CPT/HCPCS: 36415; 80076; 82140; 85025; 86706; 87340; 87517

== ENCOUNTER 2022-10-16 12:04 | Outpatient (REF) | payer OTHER, SELFPAY ==
[2022-10-16 13:37] LABS: Alanine Aminotransferase 20 U/L (0-40); Albumin Level 3.9 g/dL (3.5-5.0); Alkaline Phosphatase 114 U/L (39-117); Aspartate Amino Transferase 25 U/L (5-37); Bilirubin Direct 0.2 mg/dL (0.0-0.5); Bilirubin Total 0.5 mg/dL (0.0-1.0); Total Protein 6.4 g/dL (6.5-8.0)
[2022-10-16 13:42] LABS: Valproate < 12.5 mcg/mL (50.0-100.0)
[2022-10-18 17:44] LABS: Levetiracetam Keppra 37.1 mcg/mL (6.0-46.0)
== END 2022-10-16 12:05 | disposition home or self-care (01) ==
LOC: HO.LAB 12:04
PROVIDERS: PCP Internal Medicine; Visit Provider Nurse Practitioner Family
DX: R79.89 Other specified abnormal findings of blood chemistry (principal); Z79.899 Other long term (current) drug therapy; Z86.69 Personal history of other diseases of the nervous system and sense organs
CPT/HCPCS: 36415; 80076; 80164; 80177

== ENCOUNTER 2022-10-25 08:16 | Outpatient (REF) | payer OTHER, SELFPAY ==
--- NOTE | ~2022-10-25 | XR_ITS ---
EXAMINATION: XR CHEST CLINICAL INFORMATION: None psychotic mental disorder COMPARISON: None TECHNIQUE: 2 views of the chest were obtained. FINDINGS: No significant abnormality is noted involving the heart, lungs, mediastinum, bony thorax or soft tissues. XR/XR chest 2V IMPRESSION: Unremarkable chest examination.
[2022-10-25 08:44] LABS: Ammonia 47 umol/L (13-55)
== END 2022-10-25 08:17 | disposition home or self-care (01) ==
LOC: HO.LAB 08:16
PROVIDERS: Visit Provider Internal Medicine
DX: F48.9 Nonpsychotic mental disorder, unspecified (principal); F69 Unspecified disorder of adult personality and behavior
CPT/HCPCS: 36415; 71046; 82140

== ENCOUNTER → 2022-11-30 10:57 | Outpatient (BNVA) | payer OTHER, SELFPAY | PROVIDERS: PCP Internal Medicine; Visit Provider Physician Assistant | DX: B18.1 Chronic viral hepatitis B without delta-agent (principal); Z99.3 Dependence on wheelchair | CPT/HCPCS: 99212 ==

== ENCOUNTER 2022-12-12 10:16 | Outpatient (REF) | payer OTHER, SELFPAY | END 2022-12-12 10:17 | disposition home or self-care (01) | LOC: HO.LAB 10:16 | PROVIDERS: PCP Internal Medicine; Visit Provider Physician Assistant | DX: M13.89 Other specified arthritis, multiple sites (principal) ==

== ENCOUNTER 2022-12-20 13:00 | Outpatient (REF) | payer OTHER, SELFPAY ==
--- NOTE | 2022-12-20 13:03 | EEG_ITS ---
This is a 16-channel EEG with an EKG lead. The patient is reported awake during the tracing. Background EEG rhythm at times is low amplitude fast and at times low to medium amplitude, mixed theta, beta. Occasional right occipital sharp waves were noted. Photic stimulation did not produce any significant driving. Hyperventilation was not performed. Cardiac lead did not reveal any significant abnormality. IMPRESSION: Mildly abnormal EEG suggestive of right hemispheric irritability. MD DIANA Van/VERONICA / [phone]
== END 2022-12-20 13:01 | disposition home or self-care (01) ==
LOC: HO.NEURO 13:00
PROVIDERS: PCP Internal Medicine; Visit Provider Internal Medicine
DX: Z86.69 Personal history of other diseases of the nervous system and sense organs (principal)
CPT/HCPCS: 95816

== ENCOUNTER 2023-04-04 08:04 | Outpatient (REF) | payer OTHER, SELFPAY ==
[2023-04-04 08:23] LABS: MANUAL DIFF FLAG NO
[2023-04-04 08:50] LABS: Basophils Percent Auto 0.5 % (0-2); Eosinophils Absolute Auto 0.1 X10*3/uL (0.0-0.4); Eosinophils Percent Auto 1.1 % (0-4); Hematocrit 40.2 % (42.0-52.0); Hemoglobin 13.9 g/dl (14.0-18.0); Imm Gran Abs Auto 0.01 X10*3/uL (0.00-0.03); Imm Gran Pct Auto 0.2 % (0.0-0.4); Lymphocytes Absolute Auto 1.1 X10*3/uL (1.2-4.9); Mean Corpuscular HGB Conc 34.6 g/dl (31.0-36.0); Mean Corpuscular Hemoglobin 29.9 pg (27.0-33.0); Mean Corpuscular Volume 86.5 fL (80.0-98.0); Mean Platelet Volume 8.5 fL (9.4-12.4); Monocytes Absolute Auto 0.6 X10*3/uL (0.1-1.2); Monocytes Percent Auto 9.8 % (2-11); Neutrophils Absolute Auto 4.5 x10*3/uL (2.0-8.3); Neutrophils Percent Auto 70.4 % (45-73); Platelet Count 201 X10*3/uL (160-400); Red Blood Count 4.65 X10*6/uL (4.60-5.80); Red Cell Distribution Width 13.6 % (11.0-16.0); Retic HGB Equivalent 35.8 pg (30.0-35.0); Reticulocyte Percent 1.7 % (0.5-1.8); Reticulocytes Absolute 0.077 X10*6/uL (0.026-0.095); White Blood Count 6.3 X10*3/uL (4.8-10.8)
[2023-04-04 09:30] LABS: Alanine Aminotransferase 17 U/L (0-40); Alkaline Phosphatase 131 U/L (39-117); Anion Gap 12 (12-20); Aspartate Amino Transferase 21 U/L (5-37); Bilirubin Total 0.6 mg/dL (0.0-1.0); Blood Urea Nitrogen 13 mg/dL (9-16); Calcium 9.7 mg/dL (8.4-10.2); Carbon Dioxide 24 mmol/L (22-29); Chloride 101 mmol/L (96-108); Cholesterol 160 mg/dL; Estimated Glomerular Filt Rate > 60; Glucose Random 93 mg/dL (60-115); HDL Cholesterol 56 mg/dL; Iron 128 mcg/dL (45-160); LDL Cholesterol Calculated 95 mg/dl; Percent Iron Saturation 41 % (15-50); Potassium 4.1 mmol/L (3.3-5.1); Sodium 133 mmol/L (135-145); Total Iron Binding Capacity 314 mcg/dL (228-428); Total Protein 6.6 g/dL (6.5-8.0); Triglycerides 47 mg/dL; Unsaturated Iron Binding 186 ug/dL
[2023-04-04 09:49] LABS: Ferritin 14 ng/mL (20-250)
[2023-04-04 10:27] LABS: Folate 15.3 ng/mL (> or = 4.0); Prostate Specific Antigen Scr 0.75 ng/mL (<0.05-4.0); Vitamin B12 672 pg/mL (200-900)
== END 2023-04-04 08:05 | disposition home or self-care (01) ==
LOC: HO.LAB 08:04
PROVIDERS: PCP Internal Medicine; Visit Provider Internal Medicine
DX: Z12.5 Encounter for screening for malignant neoplasm of prostate (principal); K21.9 Gastro-esophageal reflux disease without esophagitis; E78.00 Pure hypercholesterolemia, unspecified
CPT/HCPCS: 36415; 80053; 80061; 82607; 82728; 82746; 83540; 84153; 84439; 84443; 85025; 85045

== ENCOUNTER 2023-04-12 15:00 | Outpatient (AMB) | payer OTHER, SELFPAY ==
[2023-04-12 15:01] VITALS: BP 124/72; PULSE 80; O2SAT 98; BMI 24.5
--- NOTE | 2023-04-12 15:01 | MHC.PC.OV ---
Vital Signs 04/12/23 15:01 Height 5 ft 2 in Weight 134 lb BMI 24.5 BP 124/72 Blood Pressure Location Lt brachial Position Sitting Pulse 80 Pulse Source Pulse Oximeter Pulse Oximetry (%) 98 Oxygen Delivery Method Room Air Intake Visit Reasons: seizure disorder Allergies topiramate [From TOPAMAX] Allergy (Intermediate, Verified 04/12/23 15:02) UNKNOWN Medication List - Last Reconciled 04/12/23 by Aliza Childress, acetaminophen 650 mg (2 x 325 mg) PO Q6H PRN ascorbate calcium (vitamin C) 500 mg PO DAILY bismuth subsalicylate 524 mg (30 mL) PO Q6H PRN cholecalciferol (vitamin D3) 50 mcg (2 x 25 mcg (1,000 unit)) PO DAILY clonidine HCl 1 tab PO DAILY PRN clonidine HCl 0.1 mg PO BID@1200,2000 docusate sodium 100 mg PO QAM 30 days ferrous sulfate (Feosol) 325 mg PO DAILY finasteride 5 mg PO DAILY fluoride (sodium) 1.1% 1 appl PO BID fluticasone propionate 50 mcg/actuation (Flonase Allergy Relief) 2 sprays intranasal DAILY gabapentin 600 mg PO BID levetiracetam 1,000 mg PO BID loratadine (Claritin) 10 mg PO BEDTIME magnesium hydroxide (Milk of Magnesia) 30 mL PO Q OTHER DAY PRN miscellaneous medical supply 1 ea miscellaneous DAILY [id number] 3.5-400-5,000 [id number] (Triple Antibiotic) 1 appl topical TID PRN olanzapine 15 mg PO DAILY@0500 omeprazole 20 mg PO QAM oxcarbazepine 600 mg PO BID psyllium 1 tbsp PO DAILY sennosides-docusate sodium 8.6-50 mg (Senna with Docusate Sodium) 1 tab-cap PO BEDTIME tamsulosin 0.4 mg PO BEDTIME 30 days therapeutic multivitamin 1 tab PO DAILY Tobacco use date assessed: 11/15/22 Dental Screening Dental Screen Date: 04/12/23 Did you have a dental visit in the last 12 months?: Yes Did you have a dental problem in the last 6 months where you did not have access to dental care?: No Was dental information given to patient?: Patient has dentist HPI seizure disorder HPI Details 57-year-old male with a history of seizure disorder renal calculi bilateral GERD hepatitis B infection and chronic idiopathic constipation last seen in December 2022 patient is here for follow-up. Bone density 54 osteoporosis up-to-date Cologuard test up-to-date. Patient has been going to the day program but bowel movements have not been recorded and has not been checked. Will need short note on the patient's chart that they program should be monitoring his bathroom activities to find out about bowel movements and urination. Patient does have some constipation and concerned that may need additional help to get the bowel movement and so senna was recommended. Also noted some blood work done and will put in iron and vitamin-C. [facility] Medical History (Updated 04/12/23 @ 15:16 by Aliza Childress MD) Cerebral palsy Cholelithiasis Chronic idiopathic constipation Cognitive developmental delay Colon cancer screening GERD (gastroesophageal reflux disease) H/O nephrolithotomy with removal of calculi Hepatitis B virus infection Hx of seizure disorder Leukopenia Nasal congestion Osteopenia Osteopenia Renal calculus, bilateral Ribs, multiple fractures Thrombocytopenia Vitamin D deficiency Surgical History History of cystoscopy History of extraction of renal calculus History of gastric surgery S/P cataract surgery Family History Father No problems noted. Mother No problems noted. Family/Other Family history unknown Social History Household Members: Other Household Members Other:: halfway residents/staff Housing: Other Housing Other:: [facility] halfway Are you a primary family member caretaker to a significant other at home: No Do you presently have visiting nurse or other home services: Yes Alcohol intake: never Patient Tobacco Use Status: Never used Tobacco e-Cigarette/Vaping Use: Never Used Second Hand Smoke Exposure: No service: No Current occupational status: disabled Cognitive needs: Yes (wheelchair) Hearing needs: Yes Vision needs: Yes Questionnaire PHQ-9 Over the last 2 weeks, how often have you been bothered by any of the following problems? 1. Little interest or pleasure in doing things: not at all 2. Feeling down, depressed, or hopeless: not at all 3. Trouble falling or staying asleep, or sleeping too much: not at all 4. Feeling tired or having little energy: not at all 5. Poor appetite or overeating: not at all 6. Feeling bad about yourself - or that you are a failure or have let yourself or your family down: not at all 7. Trouble concentrating on things, such as reading the newspaper or watching television: not at all 8. Moving or speaking so slowly that other people could have noticed. Or the opposite - being so fidgety or restless that you have been moving around a lot more than usual: not at all 9. Thoughts that you would be better off or of hurting yourself in some way: not at all Total score: 0 Depression Screening Interpretation: Negative Source: Developed by Drs. Lyndon James, Mahsa Sawyer, Wilfrido Osorio and colleagues, with an educational justo from [employer]. Thrive Questionnaire Date Thrive assessed: 10/16/22 AUDIT C Alcohol Use Questionnaire (AUDIT-C) 1. How often do you have a drink containing alcohol?: Never 3. How often do you have six or more drinks on one occasion?: Never Total Score: 0 Score Reviewed/Action Taken: No CLYDE-7 AMB Questionnaire CLYDE-7 Date CLYDE - 7 assessed: 10/16/22 Source: Developed by Drs. Lyndon James, Mahsa Sawyer, Wilfrido Osorio and colleagues, with an educational justo from [employer]. Physical exam (Primary Care) Vital Signs: Last Vital Signs Pulse 80 04/12/23 15:01 BP 124/72 04/12/23 15:01 Pulse Ox 98 04/12/23 15:01 Oxygen Delivery Method Room Air 04/12/23 15:01 BMI result Body Mass Index 24.5 Tobacco/Smoking Status: Tobacco use Status Tobacco use date assessed 11/15/22 04/12/23 15:08 Patient Tobacco Use Status Never used Tobacco 04/12/23 15:08 e-Cigarette/Vaping Use Never Used 04/12/23 15:08 PHQ-9: PHQ-9 Score PHQ-9: Total score 0 04/12/23 15:08 Depression Screening Interpretation: Negative Thrive Assessment: Date of Thrive Assessment Date Thrive assessed 10/16/22 04/12/23 15:08 Const General: alert; No acute distress Eyes Conjunctivae: conjunctivae normal Resp Auscultation: clear to auscultation bilaterally Cardio Rate: regular rate Rhythm: regular rhythm GI Inspection: Yes normal to inspection Extrem General: Yes normal to inspection and No edema Assessment and Plan Assessment & Plan (1) Seizure disorder: Code(s): G40.909 - Epilepsy, unspecified, not intractable, without status epilepticus Plan: Continue with seizure medication Keppra 1000 mg twice a day oxcarbazepine 600 mg twice a day (2) Osteoporosis: Comment: November 2021 Code(s): M81.0 - Age-related osteoporosis without current pathological fracture Plan: Patient is up-to-date with bone density (3) Chronic constipation: Comment: Continue bowel regimen maintain high-fiber diet-doing very well no need to change Code(s): K59.09 - Other constipation Plan: Three rules for constipation 1. Diet need to have a high fiber diet less of meat 2. Increase oral fluids 3. Exercise (4) Iron deficiency anemia: Code(s): D50.9 - Iron deficiency anemia, unspecified Plan: Was start on iron and vitamin-C Medications: New sennosides-docusate sodium 8.6-50 mg (Senna with Docusate Sodium) hold for loose stools and call if on hold > 4 days 1 tab-cap PO BEDTIME 30 tabs 5RF ferrous sulfate (Feosol) 325 mg PO DAILY 30 tabs 3RF D50.9 - Iron deficiency anemia, unspecified ascorbate calcium (vitamin C) 500 mg PO DAILY 30 tabs 4RF D50.9 - Iron deficiency anemia, unspecified Changed From docusate sodium 100 mg PO BID 60 caps 6RF for constipation 30 days To docusate sodium 100 mg PO QAM 30 caps 6RF for constipation 30 days Coding Level of Care Code Est Pt Level 4 (32368) Diagnoses Seizure disorder G40.909 Osteoporosis M81.0 Chronic constipation K59.09 Iron deficiency anemia D50.9 Additional Codes PHQ-9 - 76681 - PHQ-9 Billing: Y ([id number])
== END 2023-04-12 15:34 | disposition home or self-care (01) ==
PROVIDERS: PCP Internal Medicine; Visit Provider Internal Medicine
DX: G40.909 Epilepsy, unspecified, not intractable, without status epilepticus (principal); M81.0 Age-related osteoporosis without current pathological fracture; K59.09 Other constipation; D50.9 Iron deficiency anemia, unspecified
CPT/HCPCS: 99214

== ENCOUNTER 2023-05-17 08:56 | Outpatient (REF) | payer OTHER, SELFPAY ==
--- NOTE | ~2023-05-17 | US_ITS ---
EXAMINATION: US ABDOMEN COMPLETE CLINICAL INFORMATION: Chronic viral hepatitis B, HCC protocol. COMPARISON: Ultrasound abdomen complete 02/08/2022 and 11/09/2020. CT abdomen and pelvis 07/05/2019. X-ray abdomen KUB 04/04/2019. TECHNIQUE: Real-time imaging of the abdominal viscera. Technically difficult study secondary to body habitus. FINDINGS: PANCREAS: Largely obscured by overlapping bowel gas. ABDOMINAL AORTA: The proximal and mid segments are obscured by overlapping bowel gas. The distal segment is normal caliber. INFERIOR VENA CAVA: Visualized portions are normal. LIVER: Normal. The liver is normal in size. The liver contour is normal. Parenchymal echogenicity is normal. No focal hepatic lesion. There is no intrahepatic biliary duct dilatation seen. GALLBLADDER: Normal. The gallbladder is physiologically distended without evidence of stones, sludge, polyps, wall thickening or pericholecystic fluid. COMMON BILE DUCT: Normal in caliber measuring 0.2 cm in diameter. RIGHT KIDNEY: No hydronephrosis or focal parenchymal lesions. The kidney measures 10.7 cm in maximum dimension. At the lower pole, 3 mm and 4 mm nonobstructing calculi are seen. LEFT KIDNEY: No hydronephrosis or focal parenchymal lesions. The kidney measures 10.7 cm in maximum dimension. At the interpolar aspect, a 3 mm nonobstructing calculus is seen. SPLEEN: Normal. The spleen measures 7.8 cm in maximum dimension. FREE FLUID: None. US/US abdomen complete IMPRESSION: 1. There are nonobstructing bilateral renal calculi, as detailed. 2. Technically limited ultrasound examination pancreas and abdominal great vessels.
== END 2023-05-17 08:57 | disposition home or self-care (01) ==
LOC: HO.US 08:56
PROVIDERS: Absent Provider Urology; PCP Internal Medicine; Visit Provider Physician Assistant
DX: B18.1 Chronic viral hepatitis B without delta-agent (principal)
CPT/HCPCS: 76700

== ENCOUNTER 2023-06-04 10:40 | Outpatient (AMB) | payer OTHER, SELFPAY ==
[2023-06-04 10:41] VITALS: BP 145/82; PULSE 59; BMI 24.8
--- NOTE | 2023-06-04 10:41 | A.OFFVIS_ITS ---
Intake Vital Signs 06/04/23 10:41 Height 5 ft 2 in Weight 135 lb 12.876 oz BMI 24.8 BP 145/82 H Blood Pressure Location Lt brachial Position Sitting Pulse 59 Pulse Source Pulse Oximeter Intake Visit Reasons: 6 MONTH FOLLOW UP Intake Note: Pt presents to the office today for a 6 month follow up with his program aide group work present. Pts machine group leader states he is doing well. Worker denies any N/V/D. Allergies topiramate [From TOPAMAX] Allergy (Intermediate, Verified 06/04/23 10:48) UNKNOWN HPI HPI Comments History of Present Illness Details A 58 y/o male severly developmentally delayed- with pt advocate-for follow-up on hepatitis-B No GI or general complaints offered today Advocate very supportive-good report Eats well-just started taking iron supplements Reviewed abdominal ultrasound normal liver no lesions Reviewed blood work- No complaints of nausea, vomiting, abdominal pain fever chills PFSH Medical History Nasal congestion Osteopenia Colon cancer screening Osteopenia Ribs, multiple fractures Cholelithiasis Renal calculus, bilateral Leukopenia GERD (gastroesophageal reflux disease) Vitamin D deficiency Cerebral palsy H/O nephrolithotomy with removal of calculi Hx of seizure disorder Thrombocytopenia Cognitive developmental delay Hepatitis B virus infection Chronic idiopathic constipation Surgical History History of cystoscopy History of extraction of renal calculus S/P cataract surgery History of gastric surgery Family History Father No problems noted. Mother No problems noted. Family/Other Family history unknown Social History Household Members: Other Household Members Other:: [facility] residents/staff Housing: Other Housing Other:: [facility] Are you a primary childcare attendant to a significant other at home: No Do you presently have visiting nurse or other home services: Yes Alcohol intake: never Patient Tobacco Use Status: Never used Tobacco e-Cigarette/Vaping Use: Never Used Second Hand Smoke Exposure: No service: No Current occupational status: disabled Cognitive needs: Yes (wheelchair) Hearing needs: Yes Vision needs: Yes Physical Exam Vital Signs: Last Vital Signs Pulse 59 06/04/23 10:41 BP 145/82 H 06/04/23 10:41 BMI result Body Mass Index 24.8 Const General: healthy appearing and no acute distress Limitations: other limitations Eyes Sclerae: sclerae normal Resp Effort & Inspection: normal respiratory effort Psych Appearance: well kempt Results Reviewed Results Reviewed: US/US abdomen complete IMPRESSION: 1. There are nonobstructing bilateral renal calculi, as detailed. 2. Technically limited ultrasound examination pancreas and abdominal great vessels. Reviewed labs-iron deficiency, discussed with Dr. Murphy- Assessment & Plan Assessment & Plan (1) Hepatitis B surface antigen positive: Comment: Pleasant 58-year-old Fannie mentally delayed Gent accompanied by patient had Hepatitis B inactive carrier Sab-neg Eag-neg Eab-pos Hold off on HCC surveillance at this point given his level of developmentally delayed, however can be re evaluated at a later date Code(s): R76.8 - Other specified abnormal immunological findings in serum Plan Follow-up labs annually Patient Instructions: Follow-up labs annual labs Any other GI concerns to be reported Encourage call with questions or concerns Reviewed patient with MD Coding Level of Care Code Est Pt Level 3 (94261) Diagnoses Hepatitis B surface antigen positive R76.8 Time Spent (min) 35 Comment pt advocate present
== END 2023-06-04 12:01 | disposition home or self-care (01) ==
PROVIDERS: PCP Internal Medicine; Visit Provider Physician Assistant
DX: R76.8 Other specified abnormal immunological findings in serum (principal)
CPT/HCPCS: 99213

== ENCOUNTER → 2023-06-04 10:40 | Outpatient (BNVA) | payer OTHER, SELFPAY | PROVIDERS: PCP Internal Medicine; Visit Provider Physician Assistant | DX: R76.8 Other specified abnormal immunological findings in serum (principal) | CPT/HCPCS: 99212 ==

== ENCOUNTER 2023-06-26 10:34 | Outpatient (AMB) | payer OTHER, SELFPAY ==
--- NOTE | 2023-06-26 10:37 | MHC.OFFVIS ---
Intake Intake Visit Reasons: 1Y US(set) Intake Note: Patient is Present for Follow Up Ultrasound Urology Medication:Finasteride, Tamsulosin Antibiotic Allergies:None Blood Thinners: None [facility]acy[facility] Allergies topiramate [From TOPAMAX] Allergy (Intermediate, Verified 06/26/23 10:41) UNKNOWN Medication List - Last Reconciled 06/26/23 by Jeremias Garcia MD acetaminophen 650 mg (2 x 325 mg) PO Q6H PRN ascorbate calcium (vitamin C) 500 mg PO DAILY ascorbic acid (vitamin C) (Vitamin C) 500 mg PO DAILY bismuth subsalicylate 524 mg (30 mL) PO Q6H PRN cholecalciferol (vitamin D3) 50 mcg (2 x 25 mcg (1,000 unit)) PO DAILY clonidine HCl 1 tab PO DAILY PRN clonidine HCl 0.1 mg PO BID@1200,2000 docusate sodium 100 mg PO QAM 30 days ferrous sulfate (Feosol) 325 mg PO DAILY finasteride 5 mg PO DAILY fluoride (sodium) 1.1% 1 appl PO BID fluticasone propionate 50 mcg/actuation (Flonase Allergy Relief) 2 sprays intranasal DAILY gabapentin 600 mg PO BID levetiracetam 1,000 mg PO BID loratadine (Claritin) 10 mg PO BEDTIME magnesium hydroxide (Milk of Magnesia) 30 mL PO Q OTHER DAY PRN miscellaneous medical supply 1 ea miscellaneous DAILY multivitamin with folic acid 400 mcg (Thera) 1 tab PO DAILY aeycjsnc-fovvxyqcrYq-sbjzrjbmJ 3.5-400-5,000 sl-kqnz-ymyj (Triple Antibiotic) 1 appl topical TID PRN olanzapine 15 mg PO DAILY@0500 omeprazole 20 mg PO QAM oxcarbazepine 600 mg PO BID psyllium 1 tbsp PO DAILY sennosides-docusate sodium 8.6-50 mg (Senna with Docusate Sodium) 1 tab-cap PO BEDTIME tamsulosin 0.4 mg PO BEDTIME 30 days therapeutic multivitamin 1 tab PO DAILY HPI HPI Comments History of Present Illness Details Brooks is a pleasant male. Developmental delay. Lives in long term. He seen for the following urologic conditions - lower urinary tract symptoms - nephrolithiasis Accompanied by caregivers Has been doing well with tamsulosin and finasteride Discussed ultrasound which shows small stones bilateral Good urinary performance Twelve month follow-up Lower urinary tract symptoms Current medications include tamsulosin and finasteride Difficult to determine symptomatology but does occasionally complain of pain with burning Prior cystoscopy with cystitis on biopsy Kidney stones Have been observed Imaging - 02/12 renal ultrasound bilateral 3 mm stones - 06/16 renal ultrasound bilateral 3 mm stones This was all discussed with patient's nurse. Will review in 12 months [facility] Medical History Nasal congestion Osteopenia Colon cancer screening Osteopenia Ribs, multiple fractures Cholelithiasis Renal calculus, bilateral Leukopenia GERD (gastroesophageal reflux disease) Vitamin D deficiency Cerebral palsy H/O nephrolithotomy with removal of calculi Hx of seizure disorder Thrombocytopenia Cognitive developmental delay Hepatitis B virus infection Chronic idiopathic constipation Surgical History History of cystoscopy History of extraction of renal calculus S/P cataract surgery History of gastric surgery Family History Father No problems noted. Mother No problems noted. Family/Other Family history unknown Social History Household Members: Other Household Members Other:: long term residents/staff Housing: Other Housing Other:: [facility] long term Are you a primary pharmacy customer care specialist to a significant other at home: No Do you presently have visiting nurse or other home services: Yes Alcohol intake: never Patient Tobacco Use Status: Never used Tobacco e-Cigarette/Vaping Use: Never Used Second Hand Smoke Exposure: No service: No Current occupational status: disabled Cognitive needs: Yes (wheelchair) Hearing needs: Yes Vision needs: Yes Review of Systems Const Denies chills and Denies fever(s) Card Reports no additional complaints and Denies syncope Resp Denies cough GI Denies abdominal pain and Denies heartburn Reports as per HPI and Denies change in libido Neuro Denies syncope Psych Denies change in libido Endo Denies change in libido Physical Exam Const General: cooperative, healthy appearing, comfortable and no acute distress Orientation/consciousness: patient oriented x3 HEENT Face and sinus: Yes normal facial exam Mouth: moist mucous membranes Neck Neck: Yes normal visual inspection, Yes full ROM and Yes trachea midline Chest Chest palpation & inspection: normal inspection of the chest Resp Effort & Inspection: normal respiratory effort, able to speak in complete sentences and no respiratory distress GI Inspection: Yes normal to inspection Back/Spine/Pelvis Cervical Spine: normal cervical lordosis Thoracic/Lumbar Spine: thoracic and lumbar spine normal to inspection Skin General skin exam: no rashes or lesions noted Neuro General: patient oriented x3, gait normal, tone normal and moves all extremities Extrem General: Yes normal to inspection and Yes capillary refill normal Assessment & Plan Assessment & Plan (1) Nephrolithiasis: Code(s): N20.0 - Calculus of kidney Orders: Orders US renal BI 364 Days N20.0 - Calculus of kidney Patient Instructions: Imaging studies, laboratory and physical exam results were discussed and reviewed in detail. No major barriers to patient understanding were identified. An opportunity to ask questions regarding the treatment plan was provided. All questions were answered. The patient expressed understanding and agreement with the above treatment plan. The patient is aware they should contact our office by phone for worsening of their current condition or the appearance of new urologic symptoms. Compliance is encouraged with any medications and followup testing that is ordered. It is a privilege to participate in the urologic care of your patient. If you have any questions or concerns regarding treatment for the above conditions, or other urologic issues, please do not hesitate to contact me. The office telephone contact is [phone]. This note is constructed using voice recognition software. While every effort has been made to ensure accuracy crm consultant errors may have been included. Yours sincerely, Dr Jeremias Garcia MD, IS[facility] - Urology Providers of Expert, Compassionate Care for the Genitourinary System Coding Level of Care Code Est Pt Level 4 (38440) Diagnoses Nephrolithiasis N20.0
== END 2023-06-26 11:12 | disposition home or self-care (01) ==
PROVIDERS: PCP Internal Medicine; Visit Provider Urology
DX: N20.0 Calculus of kidney (principal)
CPT/HCPCS: 99213

== ENCOUNTER → 2023-06-26 10:34 | Outpatient (BNVA) | payer OTHER, SELFPAY | PROVIDERS: Visit Provider Urology | DX: N20.0 Calculus of kidney (principal) | CPT/HCPCS: 99212 ==

== ENCOUNTER 2023-07-18 11:24 | Outpatient (AMB) | payer OTHER, SELFPAY ==
--- NOTE | 2023-07-18 11:43 | A.OFFPC_ITS ---
Vital Signs 07/18/23 11:45 Height 5 ft 2 in Weight 135 lb BMI 24.7 BP 132/80 Blood Pressure Location Lt brachial Position Sitting Intake Visit Reasons: Physical exam Intake Note: Patient here for a physical exam Leading Firefighter Required: No Accompanied by: Staff/ nurse Allergies topiramate [From TOPAMAX] Allergy (Intermediate, Verified 07/18/23 11:48) UNKNOWN Medication List - Last Reconciled 07/18/23 by Aliza Childress MD acetaminophen 650 mg (2 x 325 mg) PO Q6H PRN ascorbic acid (vitamin C) (Vitamin C) 500 mg PO DAILY bismuth subsalicylate 524 mg (30 mL) PO Q6H PRN cholecalciferol (vitamin D3) 50 mcg (2 x 25 mcg (1,000 unit)) PO DAILY clonidine HCl 1 tab PO DAILY PRN clonidine HCl 0.1 mg PO BID@1200,2000 docusate sodium 100 mg PO QAM ferrous sulfate (Feosol) 325 mg PO DAILY finasteride 5 mg PO DAILY fluoride (sodium) 1.1% 1 appl PO BID fluticasone propionate 50 mcg/actuation (Flonase Allergy Relief) 2 sprays intranasal DAILY gabapentin 600 mg PO BID levetiracetam 1,000 mg PO BID loratadine (Claritin) 10 mg PO BEDTIME magnesium hydroxide (Milk of Magnesia) 30 mL PO Q OTHER DAY PRN miscellaneous medical supply 1 ea miscellaneous DAILY multivitamin with folic acid 400 mcg (Thera) 1 tab PO DAILY bxmzojfk-cysqzbhvmCy-aizurrivL 3.5-400-5,000 rp-xmur-ayrg (Triple Antibiotic) 1 appl topical TID PRN olanzapine 15 mg PO DAILY@0500 omeprazole 20 mg PO QAM oxcarbazepine 600 mg PO BID psyllium 1 tbsp PO DAILY sennosides-docusate sodium 8.6-50 mg (Senna with Docusate Sodium) 1 tab-cap PO BEDTIME tamsulosin 0.4 mg PO BEDTIME 30 days therapeutic multivitamin 1 tab PO DAILY Tobacco use date assessed: 11/15/22 Dental Screening Dental Screen Date: 07/18/23 Did you have a dental visit in the last 12 months?: Yes Did you have a dental problem in the last 6 months where you did not have access to dental care?: No Was dental information given to patient?: Patient has dentist HPI Physical exam HPI Details 58-year-old male with cognitive developm ental delay/mental and behavioral problem GERD, reason seizure disorder, osteoporosis nephrolithiasis coming in for physical exam. Last seen in March 2023 up-to-date with Cologuard and bone density. With the nephrolithiasis patient is seen by the urologist on tamsulosin and finasteride and follow-up being done. With the thrombocytopenia patient is being followed up by hematology oncology most [facility] from [facility] thrombocytopenia has resolved and follows up on leukopenia. As for the hepatiti s B inactive carrier and continue to be followed. telehealth with Neuro 07/24 [facility] Medical History Nasal congestion Osteopenia Colon cancer screening Osteopenia Ribs, multiple fractures Cholelithiasis Renal calculus, bilateral Leukopenia GERD (gastroesophageal reflux disease) Vitamin D deficiency Cerebral palsy H/O nephrolithotomy with removal of calculi Hx of seizure disorder Thrombocytopenia Cognitive developmental delay Hepatitis B virus infection Chronic idiopathic constipation Surgical History History of cystoscopy History of extraction of renal calculus S/P cataract surgery History of gastric surgery Family History Father No problems noted. Mother No problems noted. Family/Other Family history unknown Social History Household Members: Other Household Members Other:: [facility]staff Housing: Other Housing Other:: [facility] Are you a primary primary care coordinator to a significant other at home: No Do you presently have visiting nurse or other home services: Yes Alcohol intake: never Patient Tobacco Use Status: Never used Tobacco e-Cigarette/Vaping Use: Never Used Second Hand Smoke Exposure: No service: No Current occupational status: disabled Cognitive needs: Yes (wheelchair) Hearing needs: Yes Vision needs: Yes Questionnaire Thrive Questionnaire Date Thrive assessed: 10/16/22 CLYDE-7 AMB Questionnaire CLYDE-7 Date CLYDE - 7 assessed: 10/16/22 Source: Developed by Drs. Lyndon James, Mahsa BWilfrido Sorensen and colleagues, with an educational justo from [employer]. Review of Systems Const Denies poor appetite and Denies weakness Eyes Denies no additional complaints ENT Reports Normal hearing present, Denies dizziness, Denies nasal congestion, Denies tinnitus and Denies sore throat Card Denies chest pain, Denies syncope, Denies rapid heart rate and Denies dyspnea Resp Denies cough and Denies dyspnea GI Denies change in stool character, Reports constipation, Denies diarrhea, Denies nausea and Denies vomiting Denies dysuria and Denies urinary frequency Neuro Reports Normal hearing present, Denies confusion, Denies dizziness, Denies syncope and Denies weakness Psych Denies confusion Physical exam (Primary Care) Vital Signs: Last Vital Signs BP 132/80 07/18/23 11:45 Next steps: wears cap BMI result Body Mass Index 24.7 Tobacco/Smoking Status: Tobacco use Status Tobacco use date assessed 11/15/22 07/18/23 11:45 Patient Tobacco Use Status Never used Tobacco 07/18/23 11:45 e-Cigarette/Vaping Use Never Used 07/18/23 11:45 Thrive Assessment: Date of Thrive Assessment Date Thrive assessed 10/16/22 07/18/23 11:45 Const General: No confusion Orientation/consciousness: No confusion HENMT Head: Yes normocephalic Ears: external ears normal and TM's normal bilaterally Face and sinus: Yes normal facial exam Mouth: moist mucous membranes Throat: Yes tonsils normal Eyes Conjunctivae: conjunctivae normal Pupils: Equal, round and reactive pupils present and Pupil accommodation reflex normal Direct Ophthalmoscopy: normal light reflex Neck Neck: No lymphadenopathy Thyroid: Thyroid normal Chest Chest palpation & inspection: normal inspection of the chest Resp Effort & Inspection: normal respiratory effort and no audible wheezes Auscultation: clear to auscultation bilaterally, no crackles, no wheezes and lung sounds not diminished Cardio Rate: regular rate Rhythm: regular rhythm Peripheral pulses: radial pulses present and dorsalis pedis present GI Other: visual negative up todate with cologuard Palpation (GI): no masses Auscultation: normal bowel sounds and normoactive bowel sounds Rectal Exam - Male: Yes deferred Male General Exam: Yes normal external exam Skin General skin exam: no rashes or lesions noted Rashes: no rashes Neuro General: No confusion Cranial nerves: Yes Equal, round and reactive pupils present and Yes Normal hearing present Cognition (Neuro): normal cognition Gait exam (Neuro): Normal gait present Motor exam (neuro): 5/5 motor strength present throughout Deep tendon reflexes (DTR's): Right brachioradialis reflex intensity grade: 2+, Left brachioradialis reflex intensity grade: 2+, Right patellar reflex intensity grade: 2+ and Left patellar reflex intensity grade: 2+ Extrem General: No edema Assessment and Plan Assessment & Plan (1) Annual physical exam: Code(s): Z00.00 - Encounter for general adult medical examination without abnormal findings (2) Nephrolithiasis: Code(s): N20.0 - Calculus of kidney Plan: Patient is being followed up by Urology increase oral fluids. (3) Hepatitis B surface antigen positive: Comment: Pleasant 58-year-old Fannie mentally delayed Gent accompanied by patient had Hepatitis B inactive carrier [place] Eag-neg Eab-pos Hold off on HCC surveillance at this point given his level of developmentally delayed, however can be re evaluated at a later date Code(s): R76.8 - Other specified abnormal immunological findings in serum Plan: Patient is under surveillance from the Gastroenterology (4) Iron deficiency anemia: Code(s): D50.9 - Iron deficiency anemia, unspecified Plan: Continue with iron and vitamin-C (5) Seizure disorder: Code(s): G40.909 - Epilepsy, unspecified, not intractable, without status epilepticus Plan: Continue with neurology follow-up as well as Heriberto (6) Leukopenia: Code(s): D72.819 - Decreased white blood cell count, unspecified Plan: Patient follows up with hematology oncology (7) GERD (gastroesophageal reflux disease): Code(s): K21.9 - Gastro-esophageal reflux disease without esophagitis Qualifiers: Esophagitis presence: without esophagitis Qualified Code(s): K21.9 - Gastro-esophageal reflux disease without esophagitis Plan: Avoid the foods that causes that usually spicy foods, tomato products, juices, coffee, soda and foods that your sensitive to. After eating do not lie down, allow 3-4 hours before in lie down. And keep the head of bed above 30 degrees to avoid the acid from going up. (8) Mental and behavioral problem: Comment: Dr. Darren HANSEN Code(s): F48.9 - Nonpsychotic mental disorder, unspecified; F69 - Unspecified disorder of adult personality and behavior Plan: Continue to follow-up with psychiatric evaluation and management Orders: Orders Complete Blood Count Auto Diff 6 Months Z86.69 - Personal history of other diseases of the nervous system and sense organs Free T4 (Free Thyroxine) 6 Months Z. - Personal history of other diseases of the nervous system and sense organs Thyroid Stimulating Hormone 6 Months Z. - Personal history of other diseases of the nervous system and sense organs Vitamin B12 and Folate 6 Months Z. - Personal history of other diseases of the nervous system and sense organs Lipid Panel 6 Months E78.00 - Pure hypercholesterolemia, unspecified, Z. - Personal history of other diseases of the nervous system and sense organs Magnesium 6 Months Z. - Personal history of other diseases of the nervous system and sense organs Comprehensive Met. Panel 6 Months Z - Personal history of other diseases of the nervous system and sense organs Prostate Specific Antigen Scr 6 Months Z. - Personal history of other diseases of the nervous system and sense organs Medications: Changed From ferrous sulfate (Feosol) 325 mg PO DAILY 30 tabs 3RF D50.9 - Iron deficiency anemia, unspecified To ferrous sulfate (Feosol) In the Am for low iron 325 mg PO DAILY D50.9 - Iron deficiency anemia, unspecified From sennosides-docusate sodium 8.6-50 mg (Senna with Docusate Sodium) hold for loose stools and call if on hold > 4 days 1 tab-cap PO BEDTIME 30 tabs 5RF To sennosides-docusate sodium 8.6-50 mg (Senna with Docusate Sodium) For constipation, hold for loose stools and call if on hold > 4 days 1 tab- cap PO BEDTIME From docusate sodium 100 mg PO QAM 30 days 30 caps 6RF for constipation To docusate sodium call pcp if held for more than 4 days, for loos stools. 100 mg PO QAM for constipation Coding Level of Care Code Est Pt Prev Care 40-64y(47246) Diagnoses Annual physical exam Z00.00 Nephrolithiasis N20.0 Hepatitis B surface antigen positive R76.8 Iron deficiency anemia D50.9 Seizure disorder G40.909 Leukopenia D72.819 Gastroesophageal reflux disease without esophagitis K21.9 Esophagitis presence: without esophagitis Mental and behavioral problem F48.9; F69
[2023-07-18 11:45] VITALS: BP 132/80; BMI 24.7
== END 2023-07-18 12:51 | disposition home or self-care (01) ==
PROVIDERS: Visit Provider Internal Medicine
DX: Z00.00 Encounter for general adult medical examination without abnormal findings (principal); N20.0 Calculus of kidney; R76.8 Other specified abnormal immunological findings in serum; G40.909 Epilepsy, unspecified, not intractable, without status epilepticus; D50.9 Iron deficiency anemia, unspecified; D72.819 Decreased white blood cell count, unspecified; K21.9 Gastro-esophageal reflux disease without esophagitis; F48.9 Nonpsychotic mental disorder, unspecified; F69 Unspecified disorder of adult personality and behavior
CPT/HCPCS: 99396

== ENCOUNTER 2023-09-16 07:22 | Emergency (ER) | payer OTHER, SELFPAY ==
[2023-09-16 07:50] VITALS: BP 95/70; PULSE 67; RESP 16; O2SAT 98; BMI 24.7
[2023-09-16 07:56] VITALS: TEMP 36.5
--- NOTE | 2023-09-16 07:58 | ED.GENADULT ---
HPI - General Adult General Chief complaint: General Medical Stated complaint: Took double dose of meds Time Seen by Provider: 09/16/23 07:49 Source: patient and other ([facility] staff) Mode of arrival: wheelchair Limitations: altered mental status History of Present Illness HPI narrative: 58-year-old male history of developmental delay, seizure disorder, cerebral palsy, GERD, here after receiving a double doses of clonidine and Zyprexa. Patient was medicated twice by nursing staff at the [facility] this morning his 1st dose of 0.2 mg of clonidine and 50 mg of Zyprexa was at 05:45. His 2nd dose of clonidine 0.2 mg and Zyprexa 15 mg was at 0630. Related Data Home Medications Medication Instructions Recorded Confirmed fluoride (sodium) 1.1 % dental 1 appl PO BID 08/25/20 07/18/23 cream clonidine HCl 0.1 mg tablet 0.1 mg PO BID@1200,2000 11/09/20 07/18/23 gabapentin 300 mg capsule 600 mg PO BID 11/09/20 07/18/23 levetiracetam 500 mg tablet 1,000 mg PO BID 11/09/20 07/18/23 therapeutic multivitamin 1 tab PO DAILY 12/01/20 07/18/23 oxcarbazepine 300 mg tablet 600 mg PO BID 12/24/20 07/18/23 olanzapine 15 mg tablet 15 mg PO DAILY@0500 03/29/22 07/18/23 clonidine HCl 0.2 mg tablet 1 tab PO DAILY PRN agitation >10 09/28/22 07/18/23 min loratadine 10 mg tablet (Claritin) 10 mg PO BEDTIME allergy symptoms 09/28/22 07/18/23 multivitamin with folic acid 400 1 tab PO DAILY 06/26/23 07/18/23 mcg tablet (Thera) docusate sodium 100 mg capsule 100 mg PO QAM for constipation 07/18/23 07/18/23 sennosides 8.6 mg-docusate sodium 1 tab-cap PO BEDTIME 07/18/23 07/18/23 50 mg tablet (Senna with Docusate Sodium) Previous Rx's Medication Instructions Recorded miscellaneous medical supply 1 ea miscellaneous DAILY #1 ea 04/22/21 bismuth subsalicylate 262 mg/15 mL 524 mg (30 mL) PO Q6H PRN Diarrhea 07/20/22 oral suspension #1,200 mL neomycin-bacitracn Zn-polymyxn 3.5 1 appl topical TID PRN 10/31/22 mg-400 unit-5,000 unit top oint wound/cut/abrasion #10 ea pkt (Triple Antibiotic) cholecalciferol (vitamin D3) 25 50 mcg (2 x 25 mcg (1,000 unit)) 12/15/22 mcg (1,000 unit) tablet PO DAILY #180 tabs acetaminophen 325 mg capsule 650 mg (2 x 325 mg) PO Q6H PRN 01/11/23 fever /pain/headache #30 caps omeprazole 20 mg capsule,delayed 20 mg PO QAM #90 caps 02/16/23 release magnesium hydroxide 400 mg/5 mL 30 ml PO Q OTHER DAY PRN 03/30/23 oral suspension (Milk of Magnesia) constipation #360 mL fluticasone propionate 50 2 spray intranasal DAILY #16 grams 06/26/23 mcg/actuation nasal spray,suspension (Flonase Allergy Relief) psyllium 1 tbsp PO DAILY #300 grams 06/29/23 finasteride 5 mg tablet 5 mg PO DAILY for prostatic pain 07/25/23 #30 tabs tamsulosin 0.4 mg capsule 0.4 mg PO BEDTIME for prostatic 07/25/23 pain 30 days #30 caps ascorbic acid (vitamin C) 500 mg 500 mg PO DAILY #90 tabs 08/14/23 tablet (Vitamin C) ferrous sulfate 325 mg (65 mg 325 mg PO DAILY #90 tabs 08/14/23 iron) tablet (Feosol) Allergies Allergy/AdvReac Type Severity Reaction Status Date / Time topiramate [From TOPAMAX] Allergy Intermediate UNKNOWN Verified 07/18/23 11:48 Review of Systems Review of Systems: Yes Unobtainable due to mental status PMFSH Past Medical History Attestation statement: The following information was validated with the patient. Source: old records reviewed and nursing notes reviewed Medical History Nasal congestion Osteopenia Colon cancer screening Osteopenia Ribs, multiple fractures Cholelithiasis Renal calculus, bilateral Leukopenia GERD (gastroesophageal reflux disease) Vitamin D deficiency Cerebral palsy H/O nephrolithotomy with removal of calculi Hx of seizure disorder Thrombocytopenia Cognitive developmental delay Hepatitis B virus infection Chronic idiopathic constipation Surgical History History of cystoscopy History of extraction of renal calculus S/P cataract surgery History of gastric surgery Family History Family History Father No problems noted. Mother No problems noted. Family/Other Family history unknown Social History Social History Household Members: Other Household Members Other:: [facility] residents/staff Housing: Other Housing Other:: [facility] Are you a primary animal care technician to a significant other at home: No Do you presently have visiting nurse or other home services: Yes Unable to assess alcohol history related to: Unable to respond Alcohol intake: never Comment: 1:1 sitter Patient Tobacco Use Status: Never used Tobacco Smoked in Last 30 Days: No e-Cigarette/Vaping Use: Never Used Second Hand Smoke Exposure: No Use of substances other than those prescribed or required for medical reasons: No Advance Directives: No Advance Directives Information Provided: No service: No Current occupational status: disabled Cognitive needs: Yes (wheelchair) Hearing needs: Yes Vision needs: Yes Physical Exam ED Vital Signs: Vital Signs - 24 hr 09/16/23 07:50 09/16/23 07:56 09/16/23 08:44 Temperature 97.7 F Pulse Rate 67 53 Respiratory Rate 16 Blood Pressure 95/70 108/64 Pulse Oximetry 98 96 Oxygen Delivery Method Room Air Room Air 09/16/23 10:04 Temperature Pulse Rate 57 Respiratory Rate 18 Blood Pressure 137/79 Pulse Oximetry 98 Oxygen Delivery Method Room Air BMI result Body Mass Index 24.7 Const Other: Sleeping but arouses to verbal Limitations: altered mental status HENMT Head: Yes normal to inspection Eyes General: appearance normal, both eyes and all related structures Pupils: Equal, round and reactive pupils present Neck Neck: Yes normal visual inspection Resp Effort & Inspection: normal respiratory effort Auscultation: clear to auscultation bilaterally Cardio Rate: regular rate Rhythm: regular rhythm Peripheral pulses: Peripheral pulses 2+ throughout GI Inspection: Yes normal to inspection Palpation (GI): Soft to palpation and nontender Auscultation: normal bowel sounds Neuro Other: hypertonia at baseline Cranial nerves: Yes Equal, round and reactive pupils present Sensory Exam: Normal double simultaneous stimulation for sensation Extrem General: Yes normal to inspection Course Course Course Narrative: Patient was monitored for 3 hours with stable vital signs including blood pressure. He is alert on discharge. Plan for discharge back to [facility] with strict return precautions. Medical Decision Making Medical Decision Making [facility] Narrative: 58-year-old male history of developmental delay, seizure disorder, cerebral palsy, GERD, here after receiving a double doses of clonidine and Zyprexa.? Patient was medicated twice by nursing staff at the [facility] this morning his 1st dose of 0.2 mg of clonidine and 50 mg of Zyprexa was at 05:45.? His 2nd dose of clonidine 0.2 mg and Zyprexa 15 mg was at 0630. Sleeping in room but rouses to verbal. Initial bp 95/70. Will monitor, hourly bp checks, then anticipate discharge Differential Diagnosis Differential Diagnoses: The differential diagnosis associated with the presentation includes drug overdose Admission/Observation Consideration of admission/observation: Escalation of care including admission/observation considered Patient alert, stable blood pressure, no need for continued observation or admission Independent Historian Clinical information obtained from an independent historian. History obtained from or confirmed by: Other ([facility] staff) Discharge Plan Discharge Clinical Impression: Overdose Patient Disposition: Home, Self-Care Instructions: Adult Overdose (ED) Additional Instructions: Return for any worsening symptoms Do not give him the evening dose of clonidine. Resume this tomorrow as scheduled He may receive all his other medication Prescriptions: No Action miscellaneous medical supply Misc 1 ea miscellaneous DAILY Qty: 1 0RF Rx Instructions: soft foam helmet bismuth subsalicylate 262 mg/15 mL suspension 524 mg PO Q6H PRN (Reason: Diarrhea) Qty: 1200 11RF Triple Antibiotic 3.5-400-5,000 [id number] ointment in packet 1 appl TOPICAL TID PRN (Reason: wound/cut/abrasion) Qty: 10 0RF cholecalciferol (vitamin D3) 25 mcg (1,000 unit) tablet 50 mcg PO DAILY Qty: 180 3RF omeprazole 20 mg capsule,delayed release(DR/EC) 20 mg PO QAM Qty: 90 3RF magnesium hydroxide [Milk of Magnesia] 400 mg/5 mL suspension 30 ml PO Q OTHER DAY PRN (Reason: constipation) Qty: 360 3RF fluticasone propionate [Flonase Allergy Relief] 50 mcg/actuation spray,suspension 2 spray intranasal DAILY Qty: 16 12RF Rx Instructions: administer into each nostril psyllium Powder 1 tbsp PO DAILY Qty: 300 2RF Rx Instructions: mix into at least 8 oz of water or juice before administering tamsulosin 0.4 mg capsule 0.4 mg PO BEDTIME 30 Days Qty: 30 5RF finasteride 5 mg tablet 5 mg PO DAILY Qty: 30 5RF ascorbic acid (vitamin C) [Vitamin C] 500 mg tablet 500 mg PO DAILY Qty: 90 0RF Rx Instructions: In AM for vitamin absorbtion ferrous sulfate [Feosol] 325 mg (65 mg iron) tablet 325 mg PO DAILY Qty: 90 0RF Rx Instructions: In the Am for low iron therapeutic multivitamin Tablet 1 tab PO DAILY clonidine HCl 0.2 mg tablet 1 tab PO DAILY PRN (Reason: agitation >10 min) loratadine [Claritin] 10 mg tablet 10 mg PO BEDTIME sennosides-docusate sodium [Senna with Docusate Sodium] 8.6-50 mg tablet 1 tab-cap PO BEDTIME Rx Instructions: For constipation, hold for loose stools and call if on hold > 4 days docusate sodium 100 mg capsule 100 mg PO QAM Rx Instructions: call pcp if held for more than 4 days, for loos stools. acetaminophen 325 mg capsule 650 mg PO Q6H PRN (Reason: fever /pain/headache) Qty: 30 12RF Rx Instructions: call MD if using longer than 48 hours not ot exceed 8 tabs/24 hours fluoride (sodium) 1.1 % cream 1 appl PO BID clonidine HCl 0.1 mg tablet 0.1 mg PO BID@1200,2000 gabapentin 300 mg capsule 600 mg PO BID levetiracetam 500 mg tablet 1,000 mg PO BID oxcarbazepine 300 mg tablet 600 mg PO BID olanzapine 15 mg tablet 15 mg PO DAILY@0500 multivitamin with folic acid [Thera] 400 mcg tablet 1 tab PO DAILY Referrals: Po,Aliza Shannon MD [Primary Care Provider] - 5 days Interventions: ED Discharge Assessment Last Done: 09/16/23 10:24 Discharge Date/Time: 09/16/23 10:24
[2023-09-16 08:44] VITALS: BP 108/64; PULSE 53; O2SAT 96
[2023-09-16 10:04] VITALS: BP 137/79; PULSE 57; RESP 18; O2SAT 98
== END 2023-09-16 10:24 | disposition home or self-care (01) ==
PROVIDERS: Emergency Provider Student in an Organized Health Care Education/Training Program; PCP Internal Medicine
DX: T46.5X1A Poisoning by other antihypertensive drugs, accidental (unintentional), initial encounter (principal); T43.591A Poisoning by other antipsychotics and neuroleptics, accidental (unintentional), initial encounter; G40.909 Epilepsy, unspecified, not intractable, without status epilepticus; G80.9 Cerebral palsy, unspecified; R62.50 Unspecified lack of expected normal physiological development in childhood; Y92.199 Unspecified place in other specified residential institution as the place of occurrence of the external cause; Z79.899 Other long term (current) drug therapy
CPT/HCPCS: 99282; 99284

== ENCOUNTER 2023-09-25 08:04 | Outpatient (REF) | payer OTHER, SELFPAY ==
--- NOTE | 2023-09-25 08:07 | EEG_ITS ---
FINDINGS: Waking background activity consists of a moderate voltage 8 hertz posterior alpha frequency intermixed with some slower theta of 4 to 5 hertz with moderate voltage, most recently from the posterior quadrants. Photic stimulation is without activation. Hyperventilation was omitted. The background slowing is accentuated during periods of drowsiness. No sleep stages are identified. IMPRESSION: This EEG is considered mildly abnormal due to mild scattered background slowing seen predominantly from the posterior quadrants. This suggests either residual drowsiness or mild cerebral dysfunction. No epileptiform discharges were seen. MD HELGA Escobar/VERONICA / [phone]
== END 2023-09-25 08:05 | disposition home or self-care (01) ==
LOC: HO.NEURO 08:04
PROVIDERS: PCP Internal Medicine; Visit Provider Internal Medicine
DX: Z86.69 Personal history of other diseases of the nervous system and sense organs (principal)
CPT/HCPCS: 95816

== ENCOUNTER 2023-09-27 14:58 | Outpatient (AMB) | payer OTHER, SELFPAY ==
[2023-09-27 15:05] VITALS: BP 116/68; PULSE 57; O2SAT 100
--- NOTE | 2023-09-27 15:05 | MHC.PC.OV ---
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 Last seen in June 2023. Patient is up-to-date with Cologuard test. Review of the notes had a EEG n test September 2023 showing mildly abnormal due to mild scattered background slowing in the posterior quadrants suggesting residual drowsiness or mild cerebral dysfunction. ER visit in 09/16/2023 was given double dose of clonidine and Zyprexa given by mistake patient was monitored vital signs doing good and so was discharged. [facility] Medical History Nasal congestion Osteopenia Colon cancer screening Osteopenia Ribs, multiple fractures Cholelithiasis Renal calculus, bilateral Leukopenia GERD (gastroesophageal reflux disease) Vitamin D deficiency Cerebral palsy H/O nephrolithotomy with removal of calculi Hx of seizure disorder Thrombocytopenia Cognitive developmental delay Hepatitis B virus infection Chronic idiopathic constipation Surgical History History of cystoscopy History of extraction of renal calculus S/P cataract surgery History of gastric surgery Family History Father No problems noted. Mother No problems noted. Family/Other Family history unknown Social History Household Members: Other Household Members Other:: half-way residents/staff Housing: Other Housing Other:: [facility] half-way Are you a primary laboratory animal caretaker to a significant other at home: No Do you presently have visiting nurse or other home services: Yes Unable to assess alcohol history related to: Unable to respond Alcohol intake: never Comment: 1:1 sitter Patient Tobacco Use Status: Never used Tobacco e-Cigarette/Vaping Use: Never Used Second Hand Smoke Exposure: No service: No Current occupational status: disabled Cognitive needs: Yes (wheelchair) Hearing needs: Yes Vision needs: Yes Questionnaire Thrive Questionnaire Date Thrive assessed: 10/16/22 AUDIT C Alcohol Use Questionnaire (AUDIT-C) 1. How often do you have a drink containing alcohol?: Never 3. How often do you have six or more drinks on one occasion?: Never Total Score: 0 Score Reviewed/Action Taken: No CLYDE-7 AMB Questionnaire CLYDE-7 Date CLYDE - 7 assessed: 10/16/22 Source: Developed by Drs. Lyndon James, Mahsa Sawyer, Wilfrido Osorio and colleagues, with an educational justo from [employer]. Physical exam (Primary Care) Vital Signs: Last Vital Signs BP 116/68 09/27/23 15:05 Oxygen Delivery Method Room Air 09/27/23 15:05 Tobacco/Smoking Status: Tobacco use Status Tobacco use date assessed 11/15/22 07/18/23 11:45 Patient Tobacco Use Status Never used Tobacco 07/18/23 11:45 e-Cigarette/Vaping Use Never Used 07/18/23 11:45 Thrive Assessment: Date of Thrive Assessment Date Thrive assessed 10/16/22 07/18/23 11:45 Const General: alert; No acute distress Eyes Conjunctivae: conjunctivae normal Resp Auscultation: clear to auscultation bilaterally Cardio Rate: regular rate Rhythm: regular rhythm GI Inspection: Yes normal to inspection Extrem General: Yes normal to inspection and No edema Assessment and Plan Assessment & Plan (1) Mental and behavioral problem: Comment: Dr. Darren HANSEN Code(s): F48.9 - Nonpsychotic mental disorder, unspecified; F69 - Unspecified disorder of adult personality and behavior (2) Hx of seizure disorder: Comment: documented in my 2010 consultative visit. Code(s): Z86.69 - Personal history of other diseases of the nervous system and sense organs (3) Overdose: Comment: Clonidine and Zyprexa 09/16/2023 Code(s): T50.901A - Poisoning by unspecified drugs, medicaments and biological substances, accidental (unintentional), initial encounter Plan: Stable Coding Level of Care Code Est Pt Level 4 (42111) Diagnoses Mental and behavioral problem F48.9; F69 Hx of seizure disorder Z86.69 Overdose T50.908Z
== END 2023-09-27 15:26 | disposition home or self-care (01) ==
PROVIDERS: PCP Internal Medicine; Visit Provider Internal Medicine
DX: F48.9 Nonpsychotic mental disorder, unspecified (principal); F69 Unspecified disorder of adult personality and behavior; Z86.69 Personal history of other diseases of the nervous system and sense organs; T50.901A Poisoning by unspecified drugs, medicaments and biological substances, accidental (unintentional), initial encounter; K21.9 Gastro-esophageal reflux disease without esophagitis
CPT/HCPCS: 99214

== ENCOUNTER 2024-01-17 09:43 | Outpatient (AMB) | payer OTHER, SELFPAY ==
--- NOTE | 2024-01-17 09:50 | MHC.PC.OV ---
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 Last seen in September 2023. Cologuard tests up-to-date October 2021. Last complete blood work was in March 2023 [facility] Medical History Nasal congestion Osteopenia Colon cancer screening Osteopenia Ribs, multiple fractures Cholelithiasis Renal calculus, bilateral Leukopenia GERD (gastroesophageal reflux disease) Vitamin D deficiency Cerebral palsy H/O nephrolithotomy with removal of calculi Hx of seizure disorder Thrombocytopenia Cognitive developmental delay Hepatitis B virus infection Chronic idiopathic constipation Surgical History History of cystoscopy History of extraction of renal calculus S/P cataract surgery History of gastric surgery Family History Father No problems noted. Mother No problems noted. Family/Other Family history unknown Social History Household Members: Other Household Members Other:: halfway residents/staff Housing: Other Housing Other:: [facility] Are you a primary wild animal caretaker to a significant other at home: No Do you presently have visiting nurse or other home services: Yes Unable to assess alcohol history related to: Unable to respond Alcohol intake: never Comment: 1:1 sitter Patient Tobacco Use Status: Never used Tobacco e-Cigarette/Vaping Use: Never Used Second Hand Smoke Exposure: No service: No Current occupational status: disabled Cognitive needs: Yes (wheelchair) Hearing needs: Yes Vision needs: Yes Questionnaire Thrive Questionnaire Date Thrive assessed: 10/16/22 AUDIT C Alcohol Use Questionnaire (AUDIT-C) 1. How often do you have a drink containing alcohol?: Never 3. How often do you have six or more drinks on one occasion?: Never Total Score: 0 Score Reviewed/Action Taken: No CLYDE-7 AMB Questionnaire CLYDE-7 Date CLYDE - 7 assessed: 10/16/22 Source: Developed by Drs. Lyndon James, Mahsa Sawyer, Wilfrido Osorio and colleagues, with an educational justo from [employer]. Physical exam (Primary Care) Vital Signs: Last Vital Signs Pulse 70 01/17/24 09:56 BP 102/68 01/17/24 09:56 Pulse Ox 97 01/17/24 09:56 Oxygen Delivery Method Room Air 01/17/24 09:56 BMI result Body Mass Index 24.0 Tobacco/Smoking Status: Tobacco use Status Tobacco use date assessed 01/17/24 01/17/24 09:59 Patient Tobacco Use Status Never used Tobacco 01/17/24 09:50 e-Cigarette/Vaping Use Never Used 01/17/24 09:50 Thrive Assessment: Date of Thrive Assessment Date Thrive assessed 10/16/22 01/17/24 09:50 Const General: alert; No acute distress Eyes Conjunctivae: conjunctivae normal Resp Auscultation: clear to auscultation bilaterally Cardio Rate: regular rate Rhythm: regular rhythm GI Inspection: Yes normal to inspection Extrem General: Yes normal to inspection and No edema Assessment and Plan Assessment & Plan (1) Mental and behavioral problem: Comment: Dr. 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 After eating do not lie down, allow 3-4 hours before in lie down. And keep the head of bed above 30 degrees to avoid the acid from going up. (3) Seizure disorder: Code(s): G40.909 - Epilepsy, unspecified, not intractable, without status epilepticus Plan: Patient on gabapentin and Keppra (4) Osteoporosis: Comment: November 2021 Code(s): M81.0 - Age-related osteoporosis without current pathological fracture Plan: Calcium vitamin-D for osteoporosis and will need follow-up bone density (5) Iron deficiency anemia: Code(s): D50.9 - Iron deficiency anemia, unspecified Plan: Will request for follow-up blood work. Orders: Orders Ferritin 2 Months D50.9 - Iron deficiency anemia, unspecified IRON PROFILE 2 Months D50.9 - Iron deficiency anemia, unspecified Free T4 (Free Thyroxine) 2 Months K21.9 - Gastro-esophageal reflux disease without esophagitis Comprehensive Met. Panel 2 Months K21.9 - Gastro-esophageal reflux disease without esophagitis XR DEXA axial skeleton Today M81.0 - Age-related osteoporosis without current pathological fracture Complete Blood Count Auto Diff 2 Months D50.9 - Iron deficiency anemia, unspecified Reticulocyte Count 2 Months D50.9 - Iron deficiency anemia, unspecified Thyroid Stimulating Hormone 2 Months D50.9 - Iron deficiency anemia, unspecified Vitamin B12 and Folate 2 Months K21.9 - Gastro-esophageal reflux disease without esophagitis Prostate Specific Antigen Scr 2 Months K21.9 - Gastro-esophageal reflux disease without esophagitis Coding Level of Care Code Est Pt Level 4 (38490) Diagnoses Mental and behavioral problem F48.9; F69 Gastroesophageal reflux disease without esophagitis K21.9 Esophagitis presence: without esophagitis Seizure disorder G40.909 Osteoporosis M81.0 Iron deficiency anemia D50.9
[2024-01-17 09:56] VITALS: BP 102/68; PULSE 70; O2SAT 97; BMI 24.0
== END 2024-01-17 10:22 | disposition home or self-care (01) ==
PROVIDERS: PCP Internal Medicine; Visit Provider Internal Medicine
DX: G40.909 Epilepsy, unspecified, not intractable, without status epilepticus (principal); F48.9 Nonpsychotic mental disorder, unspecified; F69 Unspecified disorder of adult personality and behavior; K21.9 Gastro-esophageal reflux disease without esophagitis; M81.0 Age-related osteoporosis without current pathological fracture; D50.9 Iron deficiency anemia, unspecified
CPT/HCPCS: 99214

== ENCOUNTER 2024-02-04 10:30 | Outpatient (AMB) | payer OTHER, SELFPAY ==
[2024-02-04 10:45] VITALS: BP 110/72; PULSE 76; O2SAT 97
--- NOTE | 2024-02-04 10:45 | AM.OFFWIN_ITS ---
Intake Vital Signs 02/04/24 10:45 Height 5 ft 2 in BP 110/72 Blood Pressure Location Rt brachial Position Sitting Pulse 76 Pulse Source Pulse Oximeter Pulse Oximetry (%) 97 Oxygen Delivery Method Room Air Intake Visit Reasons: EP bruise on big toe right foot Intake Note: pt is here for bruise on right foot big toe Patient Tobacco Use Status: Never used Tobacco Allergies topiramate [From TOPAMAX] Allergy (Intermediate, Verified 02/04/24 11:07) UNKNOWN Medication List - Last Reconciled 02/04/24 by Stewart Miller MD acetaminophen 650 mg (2 x 325 mg) PO Q6H PRN ascorbic acid (vitamin C) (Vitamin C) 500 mg PO DAILY bismuth subsalicylate 524 mg (30 mL) PO Q6H PRN cholecalciferol (vitamin D3) 50 mcg (2 x 25 mcg (1,000 unit)) PO DAILY clonidine HCl 1 tab PO DAILY PRN clonidine HCl 0.1 mg PO BID@1200,2000 diaper,brief,adult,disposable ([employer] Plus Adult Briefs) size Medium docusate sodium 100 mg PO QAM ferrous sulfate (Feosol) 325 mg PO DAILY finasteride 5 mg PO DAILY 30 days fluoride (sodium) 1.1% 1 appl PO BID fluticasone propionate 50 mcg/actuation (Flonase Allergy Relief) 2 sprays intranasal DAILY gabapentin 600 mg PO BID levetiracetam 1,000 mg PO BID loratadine 10 mg PO DAILY magnesium hydroxide (Milk of Magnesia) 30 mL PO Q OTHER DAY PRN miscellaneous medical supply 1 ea miscellaneous DAILY multivitamin with folic acid 400 mcg (Thera) 1 tab PO DAILY [id number]-[id number] 3.5-400-5,000 rx-mkxd-risa (Triple Antibiotic) 1 appl topical TID PRN olanzapine 15 mg PO DAILY@0500 omeprazole 20 mg PO QAM oxcarbazepine 600 mg PO BID psyllium 1 tbsp PO DAILY psyllium husk (with sugar) 3 gram/7 gram (Reguloid (psyllium husk-sucrose)) 1 tsp PO DAILY 30 days sennosides-docusate sodium 8.6-50 mg (Senna with Docusate Sodium) 1 tab-cap PO BEDTIME tamsulosin 0.4 mg PO BEDTIME 30 days therapeutic multivitamin 1 tab PO DAILY Do you need a note to return to daycare/school/sports/work: Yes HPI EP bruise on big toe right foot HPI Details 58-year-old male presents to the office for a sick visit. Patient has learning and behavioral disability and is from a care home. A member from the care home is accompanying the patient. Patient's right foot, great toe is swollen and bruised. Patient can not give any history and is nonverbal. The attendant does not have much to offer in terms of history. [facility] Medical History Nasal congestion Osteopenia Colon cancer screening Osteopenia Ribs, multiple fractures Cholelithiasis Renal calculus, bilateral Leukopenia GERD (gastroesophageal reflux disease) Vitamin D deficiency Cerebral palsy H/O nephrolithotomy with removal of calculi Hx of seizure disorder Thrombocytopenia Cognitive developmental delay Hepatitis B virus infection Chronic idiopathic constipation Surgical History History of cystoscopy History of extraction of renal calculus S/P cataract surgery History of gastric surgery Family History Father No problems noted. Mother No problems noted. Family/Other Family history unknown Social History Household Members: Other Household Members Other:: care home residents/staff Housing: Other Housing Other:: [facility] Are you a primary primary care nurse practitioner to a significant other at home: No Do you presently have visiting nurse or other home services: Yes Unable to assess alcohol history related to: Unable to respond Alcohol intake: never Comment: 1:1 sitter Patient Tobacco Use Status: Never used Tobacco e-Cigarette/Vaping Use: Never Used Second Hand Smoke Exposure: No service: No Current occupational status: disabled Cognitive needs: Yes (wheelchair) Hearing needs: Yes Vision needs: Yes Physical Exam Vital Signs: Last Vital Signs Pulse 76 02/04/24 10:45 BP 110/72 02/04/24 10:45 Pulse Ox 97 02/04/24 10:45 Oxygen Delivery Method Room Air 02/04/24 10:45 Extrem Other: Right foot: Great toe: Bruising and swelling over the great toe. The nail bed appears normal. Full range of motion at the base of the MTP joint Assessment & Plan Assessment & Plan (1) Contusion of foot, right: Code(s): S90.31XA - Contusion of right foot, initial encounter Qualifiers: Encounter type: initial encounter Qualified Code(s): S90.31XA - Contusion of right foot, initial encounter Plan: X-ray images were personally reviewed by me. no fracture seen. Reassurance Orders: Orders XR foot RT min 3V Today S90.31XA - Contusion of right foot, initial encounter Coding Level of Care Code Est Pt Level 4 (78325) Diagnoses Contusion of right foot, initial encounter S90.31XA Encounter type: initial encounter
== END 2024-02-04 12:02 | disposition home or self-care (01) ==
PROVIDERS: PCP Internal Medicine; Visit Provider Internal Medicine
DX: S90.31XA Contusion of right foot, initial encounter (principal)
CPT/HCPCS: 99214

== ENCOUNTER 2024-02-04 11:05 | Outpatient (REF) | payer OTHER, SELFPAY ==
--- NOTE | ~2024-02-04 | XR_ITS ---
EXAMINATION: XR FOOT, RIGHT CLINICAL INFORMATION: Right foot contusion. Redness and swelling of the great toe. COMPARISON: None available. TECHNIQUE: AP, lateral, and oblique views of the right foot. FINDINGS: Great toe soft tissue swelling. No abnormal soft tissue calcification or radiopaque foreign body. Minimally displaced, oblique fracture through the dorsal aspect of the 1st distal phalangeal base. This appears to contact the articular surface with the dorsal surface cortical step-off measuring up to 0.1 cm. No dislocation. Joint space narrowing with marginal osteophytes at the 1st metatarsophalangeal joint and hallux sesamoids as well as at the 1st and 2nd distal interphalangeal joints. No osseous erosion. Plantar and dorsal calcaneal spurs. XR/XR foot RT min 3V IMPRESSION: 1. Minimally displaced, oblique fracture through the dorsal aspect of the 1st distal phalangeal base which contacts the articular surface. 2. Great toe soft tissue swelling. No radiopaque foreign body. 3. 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
== END 2024-02-04 11:06 | disposition home or self-care (01) ==
LOC: HO.HMGCX 11:05
PROVIDERS: PCP Internal Medicine; Visit Provider Internal Medicine
DX: S90.31XA Contusion of right foot, initial encounter (principal)
CPT/HCPCS: 73630

== ENCOUNTER 2024-02-08 09:05 | Outpatient (REF) | payer OTHER, SELFPAY ==
--- NOTE | ~2024-02-08 | MM_ITS ---
EXAMINATION: BONE DENSITOMETRY CLINICAL INDICATION: Age-related osteoporosis without current pathological fracture. COMPARISON: Previous BD dated 11/22/2021 and baseline BD dated 03/05/2018. TECHNIQUE: Using a [employer] DXA System (software version: 13.1) manufactured by [employer], dual-energy x-ray absorptiometry was performed of the lumbar spine and left hip. The images are of good technical quality. Summary results are attached. FINDINGS: LEFT FEMUR, NECK: Current: BMD 0.740 g/cm2, Z-score -1.3, T-score -2.5, osteoporosis. Prior: BMD 0.732 g/cm2. Baseline: BMD 0.905 g/cm2. LEFT FEMUR, TOTAL: Current: BMD 0.812 g/cm2, Z-score -1.2, T-score -2.0, osteopenia, 0.6% increase from previous, 14.3% decrease from baseline (<5% change is not significant). Prior: BMD 0.807 g/cm2. Baseline: BMD 0.947 g/cm2. AP SPINE L1-L4: Current: BMD 1.157 g/cm2, Z-score 0.3, T-score -0.5, normal, 8.4% increase from previous, 3.6% increase from baseline (<5% change is not significant). Prior: BMD 1.067 g/cm2. Baseline: BMD 1.117 g/cm2. IDENTIFIED RISK FACTORS: Recurrent falls, history of fracture (adult), secondary osteoporosis (chronic liver disease), anticonvulsants. HISTORY OF FRACTURE: Other. MEDICATIONS: Calcium supplements or multivitamin, vitamin D. MM/XR DEXA axial skeleton IMPRESSION: 1. DIAGNOSIS: Osteoporosis based on the lowest T-score value of -2.5 in the femoral neck applying World Health Organization criteria. 2. 10-YEAR FRACTURE RISK PREDICTION, FRAX: According to the guidelines, FRAX calculation should only be performed on patients in the osteopenia bone density category. Therefore, FRAX was not performed on this patient. 3. Treatment Recommendations: NOF guidelines recommend consideration for treatment in postmenopausal women and men age 50 and older presenting with the following: -A hip or vertebral (clinical or morphometric) fracture. -T-score less than or equal to -2.5 at the femoral neck or spine after appropriate evaluation to exclude secondary causes. -Low bone mass at the hip or spine and a 10-year fracture probability by FRAX of greater than or equal to 3% for hip fracture or greater than or equal to 20% for major osteoporotic fracture based on the [place] adapted WHO algorithm. 4. Other Recommendations: All treatment decisions require clinical judgment and consideration of individual patient factors, including patient preferences, comorbidities, previous drug use, risk factors not captured in the FRAX model (e.g. frailty, falls, vitamin D deficiency, increased bone turnover, interval significant decline in bone density) and possible under or overestimation of fracture risk by FRAX. Additional medical evaluation for secondary cause of low bone mineral density may be appropriate. FUTURE SCAN RECOMMENDATION: People with diagnosed cases of osteoporosis or at high risk for fracture should have regular bone mineral density tests. For patients eligible for Medicare, routine testing is allowed once every 2 years. The testing frequency can be increased to one year for patients who have rapidly progressing disease, those who are receiving or discontinuing medical therapy to restore bone mass, or have additional risk factors.
== END 2024-02-08 09:06 | disposition home or self-care (01) ==
LOC: HO.MAMMO 09:05
PROVIDERS: PCP Internal Medicine; Visit Provider Internal Medicine
DX: M81.0 Age-related osteoporosis without current pathological fracture (principal)
CPT/HCPCS: 77080

== ENCOUNTER 2024-03-14 11:39 | Outpatient (AMB) | payer OTHER, SELFPAY ==
[2024-03-14 11:51] VITALS: BP 110/70; PULSE 63; TEMP 36.2; O2SAT 98; BMI 24.1
--- NOTE | 2024-03-14 11:51 | AM.OFFWIN_ITS ---
Intake Vital Signs 03/14/24 11:51 Height 5 ft 2 in Weight 132 lb BMI 24.1 BP 110/70 Blood Pressure Location Lt brachial Position Sitting Pulse 63 Pulse Source Pulse Oximeter Temp 97.2 F Temp Source Temporal Artery Scan Pulse Oximetry (%) 98 Oxygen Delivery Method Room Air Intake Visit Reasons: EP-Red spot on scalp Intake Note: pt is here today for red spots on scalp started today Patient Tobacco Use Status: Never used Tobacco Allergies topiramate [From TOPAMAX] Allergy (Intermediate, Verified 03/14/24 11:54) UNKNOWN Do you need a note to return to daycare/school/sports/work: Yes HPI HPI Comments History of Present Illness Details This is a 58-year-old male with a past medical history of cerebral palsy with developmental delay, gastroesophageal reflux disease and thrombocytopenia presenting with staff from his nursing home for evaluation of lesion on the top of his head that was first noted this morning in the shower. The patient has no complaints and the nursing home staff has no concerns about his behavior or mentation. Patient is a 1:1 with staff in the nursing home and wears a soft helmet secondary to his history of seizures. His last reported seizure was approximately a year and a half ago. senior living staff does not report any injuries or trauma preceding the discovery of this lesion. [facility] Medical History Nasal congestion Osteopenia Colon cancer screening Osteopenia Ribs, multiple fractures Cholelithiasis Renal calculus, bilateral Leukopenia GERD (gastroesophageal reflux disease) Vitamin D deficiency Cerebral palsy H/O nephrolithotomy with removal of calculi Hx of seizure disorder Thrombocytopenia Cognitive developmental delay Hepatitis B virus infection Chronic idiopathic constipation Surgical History History of cystoscopy History of extraction of renal calculus S/P cataract surgery History of gastric surgery Family History Father No problems noted. Mother No problems noted. Family/Other Family history unknown Social History Household Members: Other Household Members Other:: nursing home residents/staff Housing: Other Housing Other:: [facility] Are you a primary family day care provider to a significant other at home: No Do you presently have visiting nurse or other home services: Yes Unable to assess alcohol history related to: Unable to respond Alcohol intake: never Comment: 1:1 sitter Patient Tobacco Use Status: Never used Tobacco e-Cigarette/Vaping Use: Never Used Second Hand Smoke Exposure: No service: No Current occupational status: disabled Cognitive needs: Yes (wheelchair) Hearing needs: Yes Vision needs: Yes Review of Systems Const Details: Given this patient's developmental delays it is not possible to obtain an accurate or reliable ROS. Physical Exam Vital Signs: Last Vital Signs Temp 97.2 F 03/14/24 11:51 Pulse 63 03/14/24 11:51 BP 110/70 03/14/24 11:51 Pulse Ox 98 03/14/24 11:51 Oxygen Delivery Method Room Air 03/14/24 11:51 BMI result Body Mass Index 24.1 Vital signs all within normal limits for age. Const General: cooperative, healthy appearing, comfortable and no acute distress Nutritional Appearance: average body habitus Orientation/consciousness: oriented to person Limitations: other limitations (developmental delay; unable to provide HPI.) HEENT Other: 2cm round, mildly erythematous macule with irregular borders that is not tender to examination overlying the anterior aspect of the parietal bone Head: Yes normal to inspection, Yes normocephalic, Yes atraumatic and Yes abrasion Ears: hearing grossly normal bilaterally Neuro General: oriented to person Assessment & Plan Assessment & Plan (1) Abrasion, scalp w/o infection: Comment: This lesion appears to be an abrasion that may have occurred secondary to a soft helmet coupled with diaphoresis related to the extremely hot and humid weather yesterday. There is no clinical evidence of a cellulitis or herpes zoster. Code(s): S00.01XA - Abrasion of scalp, initial encounter Plan: No further treatment is warranted at this time. Follow up with primary care provider if lesion does not resolve in the next 10-14 days. Coding Level of Care Code Est Pt Level 3 (50505) Diagnoses Abrasion, scalp w/o infection S00.01XA Time Spent (min) 20
== END 2024-03-14 12:51 | disposition home or self-care (01) ==
PROVIDERS: PCP Internal Medicine; Visit Provider Physician Assistant
DX: S00.01XA Abrasion of scalp, initial encounter (principal)
CPT/HCPCS: 99213

== ENCOUNTER 2024-04-08 08:11 | Outpatient (AMB) | payer OTHER, SELFPAY ==
--- NOTE | 2024-04-08 08:24 | AM.OFFWIN_ITS ---
Intake Vital Signs 04/08/24 08:28 Height 5 ft 2 in Weight 132 lb BMI 24.1 BP 112/74 Blood Pressure Location Lt brachial Position Sitting Pulse 64 Pulse Source Pulse Oximeter Pulse Oximetry (%) 97 Oxygen Delivery Method Room Air Intake Visit Reasons: EP [place] eye Intake Note: Pt is here today just to cleared, caregiver states theres no pink eye. Patient Tobacco Use Status: Never used Tobacco Allergies topiramate [From TOPAMAX] Allergy (Intermediate, Verified 04/08/24 08:29) UNKNOWN Do you need a note to return to daycare/school/sports/work: Yes HPI HPI Comments History of Present Illness Details Patient is a 58-year-old male who is here with his combination worker. His combination worker states that his right eye is red and a little bit swollen, he says it is not painful and he has no changes in his vision. He says the patient is able to communicate pain. He says he has not noticed anything weeping out of it or it being watery, he does not believe it was crusted shut this morning. He knows he does have a history pink eye several times. [facility] Medical History Nasal congestion Osteopenia Colon cancer screening Osteopenia Ribs, multiple fractures Cholelithiasis Renal calculus, bilateral Leukopenia GERD (gastroesophageal reflux disease) Vitamin D deficiency Cerebral palsy H/O nephrolithotomy with removal of calculi Hx of seizure disorder Thrombocytopenia Cognitive developmental delay Hepatitis B virus infection Chronic idiopathic constipation Surgical History History of cystoscopy History of extraction of renal calculus S/P cataract surgery History of gastric surgery Family History Father No problems noted. Mother No problems noted. Family/Other Family history unknown Social History Household Members: Other Household Members Other:: jail residents/staff Housing: Other [facility] Are you a primary child care education coordinator to a significant other at home: No Do you presently have visiting nurse or other home services: Yes Unable to assess alcohol history related to: Unable to respond Alcohol intake: never Comment: 1:1 sitter Patient Tobacco Use Status: Never used Tobacco e-Cigarette/Vaping Use: Never Used Second Hand Smoke Exposure: No service: No Current occupational status: disabled Cognitive needs: Yes (wheelchair) Hearing needs: Yes Vision needs: Yes Review of Systems Const All systems reviewed & are unremarkable except as noted in HPI and below Physical Exam Vital Signs: Last Vital Signs Pulse 64 04/08/24 08:28 BP 112/74 04/08/24 08:28 Pulse Ox 97 04/08/24 08:28 Oxygen Delivery Method Room Air 04/08/24 08:28 BMI result Body Mass Index 24.1 Const General: cooperative, healthy appearing, comfortable, no acute distress and well developed Orientation/consciousness: patient oriented x3 Limitations: no limitations HEENT Head: Yes normal to inspection Eyes Alignment and Position: alignment normal Periorbital: periorbital findings normal Eyelids: Yes eyelid abnormality (Right eyelids slightly swollen) Conjunctivae: conjunctival abnormal right conjunctival injection diffuse Sclerae: sclerae normal Pupils: Equal, round and reactive pupils present EOM: EOMs intact bilaterally Neck Neck: Yes normal visual inspection and Yes full ROM Resp Effort & Inspection: normal respiratory effort and able to speak in complete sentences Skin General skin exam: no rashes or lesions noted Neuro General: patient oriented x3 Cranial nerves: Yes Equal, round and reactive pupils present Extrem General: Yes normal to inspection Assessment & Plan Assessment & Plan (1) Conjunctivitis: Code(s): H10.9 - Unspecified conjunctivitis Qualifiers: Conjunctivitis type: acute Acute conjunctivitis type: bacterial Laterality: right Qualified Code(s): H10.31 - Unspecified acute conjunctivitis, right eye Plan: Filled out paperwork for patient's jail, sent prescription for erythromycin ointment Plan See above Medications: New 2 erythromycin 0.5 inches ophthalmic (eye) QID 3.5 grams 0RF Coding Level of Care Code Est Pt Level 3 (59271) Diagnoses Acute bacterial conjunctivitis of right eye H10.31 Conjunctivitis type: acute Acute conjunctivitis type: bacterial Laterality: right
[2024-04-08 08:28] VITALS: BP 112/74; PULSE 64; O2SAT 97; BMI 24.1
== END 2024-04-08 08:52 | disposition home or self-care (01) ==
PROVIDERS: PCP Internal Medicine; Visit Provider Physician Assistant
DX: H10.31 Unspecified acute conjunctivitis, right eye (principal)
CPT/HCPCS: 99213

== ENCOUNTER 2024-04-17 09:54 | Outpatient (AMB) | payer OTHER, SELFPAY ==
[2024-04-17 09:58] VITALS: BP 124/80; PULSE 83; O2SAT 95; BMI 23.8
--- NOTE | 2024-04-17 09:58 | MHC.PC.OV ---
Vital Signs 04/17/24 09:58 Height 5 ft 2 in Weight 130 lb BMI 23.8 BP 124/80 Blood Pressure Location Lt brachial Position Sitting Pulse 83 Pulse Source Pulse Oximeter Pulse Oximetry (%) 95 Oxygen Delivery Method Room Air Intake Visit Reasons: Follow up [place] eye Intake Note: Patient is here to follow up on pink eye Software Administrator Required: No Allergies topiramate [From TOPAMAX] Allergy (Intermediate, Verified 04/17/24 10:03) UNKNOWN Medication List - Last Reconciled 04/17/24 by Shahrzad Harrell PA-C acetaminophen 650 mg (2 x 325 mg) PO Q6H PRN ascorbic acid (vitamin C) (Vitamin C) 500 mg PO DAILY bismuth subsalicylate 524 mg (30 mL) PO Q6H PRN cholecalciferol (vitamin D3) 50 mcg (2 x 25 mcg (1,000 unit)) PO DAILY clonidine HCl 1 tab PO DAILY PRN clonidine HCl 0.1 mg PO BID@1200,2000 diaper,brief,adult,disposable (Wings Choice Plus Adult Briefs) size Medium docusate sodium 100 mg PO QAM erythromycin 0.5 inches ophthalmic (eye) QID ferrous sulfate (Feosol) 325 mg PO DAILY finasteride 5 mg PO DAILY 30 days fluoride (sodium) 1.1% 1 appl PO BID fluticasone propionate 50 mcg/actuation (Flonase Allergy Relief) 2 sprays intranasal DAILY gabapentin 600 mg PO BID levetiracetam 1,000 mg PO BID loratadine 10 mg PO DAILY magnesium hydroxide (Milk of Magnesia) 30 mL PO Q OTHER DAY PRN miscellaneous medical supply 1 ea miscellaneous DAILY multivitamin with folic acid 400 mcg (Thera) 1 tab PO DAILY olanzapine 15 mg PO DAILY@0500 omeprazole 20 mg PO QAM oxcarbazepine 600 mg PO BID psyllium 1 tbsp PO DAILY psyllium husk (with sugar) 3 gram/7 gram (Reguloid (psyllium husk-sucrose)) 1 tsp PO DAILY 30 days sennosides-docusate sodium 8.6-50 mg (Senna with Docusate Sodium) 1 tab-cap PO BEDTIME tamsulosin 0.4 mg PO BEDTIME 30 days therapeutic multivitamin 1 tab PO DAILY Tobacco use date assessed: 01/17/24 Dental Screening Dental Screen Date: 04/17/24 HPI Follow up [place] eye HPI Details 58-year-old male with a history of mental and behavioral problem, seizure disorder, nephrolithiasis, hepatitis-B surface antigen positive, iron deficiency anemia, and GERD last seen by Dr. Childress 12/2023 coming in for follow-up on acute problem.? In review of the notes, patient was seen in walk-in clinic 04/08/2024 for right eye redness and swelling.? Patient was treated for conjunctivitis with erythromycin ointment.? Patient was also seen in the walk-in clinic 03/14/2024 for a lesion on his head, treatment was not indicated at that time.? Bone density completed 02/08/2024 and diagnosed with osteoporosis. Caregiver reports that the patient has been doing much better and is not complaining of any further eye discharge or discomfort. He has not seen any discharge on exam in the highest no longer red or leaking. He has completed the full dose of the erythromycin ointment this time. [facility] [place] Medical History Nasal congestion Osteopenia Colon cancer screening Osteopenia Ribs, multiple fractures Cholelithiasis Renal calculus, bilateral Leukopenia GERD (gastroesophageal reflux disease) Vitamin D deficiency Cerebral palsy H/O nephrolithotomy with removal of calculi Hx of seizure disorder Thrombocytopenia Cognitive developmental delay Hepatitis B virus infection Chronic idiopathic constipation Surgical History History of cystoscopy History of extraction of renal calculus S/P cataract surgery History of gastric surgery Family History Father No problems noted. Mother No problems noted. Family/Other Family history unknown Social History Household Members: Other Household Members Other:: [facility] residents/staff Housing: Other Housing Other:: [facility] Are you a primary healthcare market consultant to a significant other at home: No Do you presently have visiting nurse or other home services: Yes Unable to assess alcohol history related to: Unable to respond Alcohol intake: never Comment: 1:1 sitter Patient Tobacco Use Status: Never used Tobacco e-Cigarette/Vaping Use: Never Used Second Hand Smoke Exposure: No service: No Current occupational status: disabled Cognitive needs: Yes (wheelchair) Hearing needs: Yes Vision needs: Yes Questionnaire Thrive Questionnaire Date Thrive assessed: 10/16/22 AUDIT C Alcohol Use Questionnaire (AUDIT-C) 1. How often do you have a drink containing alcohol?: Never 3. How often do you have six or more drinks on one occasion?: Never Total Score: 0 Score Reviewed/Action Taken: No CLYDE-7 AMB Questionnaire CLYDE-7 Date CLYDE - 7 assessed: 10/16/22 Source: Developed by Drs. Lyndon James, Mahsa Sawyer, Wilfrido Osorio and colleagues, with an educational justo from [employer]. Review of Systems Const Denies fever(s) and Denies poor appetite Eyes Denies eye discharge, Denies irritation, Denies itchy eyes and Denies eye pain ENT Reports no additional complaints Card Denies chest pain and Denies dyspnea Resp Denies cough and Denies dyspnea GI Denies abdominal pain Reports no additional complaints Musc Reports no additional complaints Skin/Breast Details: Lesion on the scalp has improved. Reports system reviewed and no additional complaints, except as documented Psych Reports no additional complaints Aller/Immun Denies itchy eyes Physical exam (Primary Care) Vital Signs: Last Vital Signs Pulse 83 04/17/24 09:58 BP 124/80 04/17/24 09:58 Pulse Ox 95 04/17/24 09:58 Oxygen Delivery Method Room Air 04/17/24 09:58 BMI result Body Mass Index 23.8 Tobacco/Smoking Status: Tobacco use Status Tobacco use date assessed 01/17/24 04/17/24 09:59 Patient Tobacco Use Status Never used Tobacco 04/17/24 09:59 e-Cigarette/Vaping Use Never Used 04/17/24 09:59 Thrive Assessment: Date of Thrive Assessment Date Thrive assessed 10/16/22 04/17/24 09:59 Const General: cooperative, healthy appearing, comfortable and no acute distress HENMT Head: Yes normocephalic (With padded helmet) Ears: hearing grossly normal bilaterally General nose exam: Normal external nose present Eyes Other: No redness, discharge, or crusting around the eyes General: appearance normal, both eyes and all related structures Eyelids: Yes eyelids normal Conjunctivae: conjunctivae normal Neck Neck: Yes full ROM and Yes no lymphadenopathy Resp Effort & Inspection: normal respiratory effort and no cough Cardio Rate: regular rate Skin General skin exam: no rashes or lesions noted Extrem General: Yes normal to inspection, Yes full ROM and No edema Psych Appearance: grossly normal Affect: normal affect Attitude: cooperative Assessment and Plan Assessment & Plan (1) Conjunctivitis: Code(s): H10.9 - Unspecified conjunctivitis Qualifiers: Conjunctivitis type: acute Acute conjunctivitis type: bacterial Laterality: right Qualified Code(s): H10.31 - Unspecified acute conjunctivitis, right eye Plan: Patient was treated at urgent care for acute bacterial conjunctivitis with erythromycin ointment. Patient has history of recurrent conjunctivitis. Infection appears to have cleared at this time and no evidence of discharge, redness, or crusting. Caregiver reports symptoms have resolved. Note for return to day program was provided at this visit. (2) Osteoporosis: Comment: November 2021 Code(s): M81.0 - Age-related osteoporosis without current pathological fracture Qualifiers: Osteoporosis type: unspecified Presence of current pathological fracture: with current pathological fracture Encounter type: subsequent encounter Plan: Patient was found to have osteoporosis on last DEXA scan 02/08/2024 recommended calcium and vitamin D3. Patient is already taking vitamin D3 calcium was sent to pharmacy. Advised caregiver this may cause constipation and to utilize laxatives as needed. Plan This note was constructed using voice recognition software. While every effort has been made to ensure accuracy and label maker, still areas may have been included sometimes these areas may affect the content or meeting of the given symptoms. Total time spent caring for the patient today was 20 minutes. This includes time spent before the visit reviewing the chart, time spent during the visit, and time spent after the visit and documentation. Medications: New calcium carbonate (Oyster Shell Calcium) 1,000 mg (2 x 500 mg calcium (1,250 mg)) PO DAILY 30 tabs 2RF calcium carbonate (Oyster Shell Calcium) 500 mg PO DAILY 30 tabs 2RF Coding Level of Care Code Est Pt Level 3 (20050) Diagnoses Acute bacterial conjunctivitis of right eye H10.31 Conjunctivitis type: acute Acute conjunctivitis type: bacterial Laterality: right Osteoporosis M81.0 Osteoporosis type: unspecified Presence of current pathological fracture: with current pathological fracture Encounter type: subsequent encounter
== END 2024-04-17 10:20 | disposition home or self-care (01) ==
PROVIDERS: PCP Internal Medicine
DX: H10.31 Unspecified acute conjunctivitis, right eye (principal); M81.0 Age-related osteoporosis without current pathological fracture
CPT/HCPCS: 99213

== ENCOUNTER 2024-06-17 08:02 | Outpatient (REF) | payer OTHER, SELFPAY ==
--- NOTE | ~2024-06-17 | US_ITS ---
EXAMINATION: US RETROPERITONEAL LIMITED (RENAL ONLY) CLINICAL INFORMATION: Calculus of kidney. COMPARISON: Ultrasound abdomen complete 05/17/2023 and 02/08/2022. CT abdomen and pelvis 07/05/2019. X-ray abdomen KUB 04/04/2019. TECHNIQUE: Real-time imaging of the kidneys. Technically difficult study secondary to patient's difficulty with breath holding. FINDINGS: RIGHT KIDNEY: 10.7 x 5.7 x 5.1 cm (SAG x AP x TRV). The kidney is normal in size, contour, and echogenicity. Renal cortical thickness is normal. There is a 5 mm echogenic focus at the lower pole, consistent with a nonobstructing calculus. No hydronephrosis. A benign 0.9 cm Bosniak class II renal cyst with some mural calcification is noted which requires no additional imaging or follow up. No solid renal masses are seen. LEFT KIDNEY: 10.8 x 5.0 x 5.4 cm (SAG x AP x TRV). The kidney is normal in size, contour, and echogenicity. Renal cortical thickness is normal. No calculi or focal parenchymal lesions. No hydronephrosis. US/US renal BI IMPRESSION: Nonobstructing 5 mm right lower pole renal calculus. Electronically signed by: Myles Topete MD 07/28/2024 12:32 AM EST
== END 2024-06-17 08:03 | disposition home or self-care (01) ==
LOC: HO.US 08:02
PROVIDERS: PCP Internal Medicine; Visit Provider Urology
DX: N20.0 Calculus of kidney (principal)
CPT/HCPCS: 76775

== ENCOUNTER 2024-06-24 09:21 | Outpatient (AMB) | payer OTHER, SELFPAY ==
--- NOTE | 2024-06-24 09:31 | MHC.OFFVIS ---
Intake Visit Reasons: 1Y Follow up-Ultrasound(set) Intake Note: Patient is Present for Follow Up Ultrasound Urology Medication:Finasteride, Tamsulosin Antibiotic Allergies: None Blood Thinners: None Last PSA: 2022- 0.75 Legal Collector Required: No Outpatient Physical Therapist Assistant: Outpatient Physical Therapist Assistant Present Accompanied by: Vamp Presser Allergies topiramate [From TOPAMAX] Allergy (Intermediate, Verified 06/24/24 09:37) UNKNOWN HPI Comments Details: Brooks is a pleasant male. Developmental delay. [facility] in [facility]. He seen for the following urologic conditions - lower urinary tract symptoms - nephrolithiasis Accompanied by caregivers Has been doing well with tamsulosin and finasteride Discussed ultrasound - plan KUB in 12 months Good urinary performance Twelve month follow-up Lower urinary tract symptoms Current medications include tamsulosin and finasteride Difficult to determine symptomatology but does occasionally complain of pain with burning Prior cystoscopy with cystitis on biopsy Kidney stones Have been observed Imaging - 02/12 renal ultrasound bilateral 3 mm stones - 06/16 renal ultrasound bilateral 3 mm stones - 06/17 renal ultrasound 5 mm right stone This was all discussed with patient's nurse. Will review in 12 months [facility] Medical History Nasal congestion Osteopenia Colon cancer screening Osteopenia Ribs, multiple fractures Cholelithiasis Renal calculus, bilateral Leukopenia GERD (gastroesophageal reflux disease) Vitamin D deficiency Cerebral palsy H/O nephrolithotomy with removal of calculi Hx of seizure disorder Thrombocytopenia Cognitive developmental delay Hepatitis B virus infection Chronic idiopathic constipation Surgical History History of cystoscopy History of extraction of renal calculus S/P cataract surgery History of gastric surgery Family History Father No problems noted. Mother No problems noted. Family/Other Family history unknown Social History Household Members: Other Household Members Other:: [facility] residents[facility]staff Housing: Other Housing Other:: [facility] Are you a primary clinical care coordinator to a significant other at home: No Do you presently have visiting nurse or other home services: Yes Unable to assess alcohol history related to: Unable to respond Alcohol intake: never Comment: 1:1 sitter Patient Tobacco Use Status: Never used Tobacco e-Cigarette/Vaping Use: Never Used Second Hand Smoke Exposure: No service: No Current occupational status: disabled Cognitive needs: Yes (wheelchair) Hearing needs: Yes Vision needs: Yes Review of Systems Const Denies chills and Denies fever(s) Card Reports no additional complaints and Denies syncope Resp Denies cough GI Denies abdominal pain and Denies heartburn Reports as per HPI and Denies change in libido Neuro Denies syncope Psych Denies change in libido Endo Denies change in libido Physical Exam Const General: cooperative, healthy appearing, comfortable and no acute distress Orientation/consciousness: patient oriented x3 HEENT Face and sinus: Yes normal facial exam Mouth: moist mucous membranes Neck Neck: Yes normal visual inspection, Yes full ROM and Yes trachea midline Chest Chest palpation & inspection: normal inspection of the chest Resp Effort & Inspection: normal respiratory effort, able to speak in complete sentences and no respiratory distress GI Inspection: Yes normal to inspection Back/Spine/Pelvis Cervical Spine: normal cervical lordosis Thoracic/Lumbar Spine: thoracic and lumbar spine normal to inspection Skin General skin exam: no rashes or lesions noted Neuro General: patient oriented x3, gait normal, tone normal and moves all extremities Extrem General: Yes normal to inspection and Yes capillary refill normal Assessment & Plan Assessment & Plan (1) Nephrolithiasis: Code(s): N20.0 - Calculus of kidney Category: Medical (2) Bladder outlet obstruction: Code(s): N32.0 - Bladder-neck obstruction Category: Medical Plan Twelve month follow-up KUB Maintain medication Orders: Orders XR KUB 1 Year N20.0 - Calculus of kidney Patient Instructions: Imaging studies, laboratory and physical exam results were discussed and reviewed in detail. No major barriers to patient understanding were identified. An opportunity to ask questions regarding the treatment plan was provided. All questions were answered. The patient expressed understanding and agreement with the above treatment plan. The patient is aware they should contact our office by phone for worsening of their current condition or the appearance of new urologic symptoms. Compliance is encouraged with any medications and followup testing that is ordered. It is a privilege to participate in the urologic care of your patient. If you have any questions or concerns regarding treatment for the above conditions, or other urologic issues, please do not hesitate to contact me. The office telephone contact is [phone]. This note is constructed using voice recognition software. While every effort has been made to ensure accuracy foreign language instructor errors may have been included. Yours sincerely, Dr Jeremias Garcia MD, [facility] Providers of Expert, Compassionate Care for the Genitourinary System Coding Level of Care Code Est Pt Level 4 (54675) Diagnoses Nephrolithiasis N20.0 Bladder outlet obstruction N32.0
== END 2024-06-24 10:00 | disposition home or self-care (01) ==
PROVIDERS: PCP Internal Medicine; Visit Provider Urology
DX: N20.0 Calculus of kidney (principal); N32.0 Bladder-neck obstruction
CPT/HCPCS: 99214

== ENCOUNTER → 2024-06-24 09:21 | Outpatient (BNVA) | payer OTHER, SELFPAY | PROVIDERS: PCP Internal Medicine; Visit Provider Urology | DX: N20.0 Calculus of kidney (principal); N32.0 Bladder-neck obstruction | CPT/HCPCS: 99212 ==

== ENCOUNTER 2024-07-09 08:08 | Outpatient (REF) | payer OTHER, SELFPAY ==
[2024-07-09 08:31] LABS: MANUAL DIFF FLAG NO
[2024-07-09 09:01] LABS: Basophils Absolute Auto 0.1 X10*3/uL (0.0-0.2); Basophils Percent Auto 0.8 % (0-2); Eosinophils Absolute Auto 0.1 X10*3/uL (0.0-0.4); Eosinophils Percent Auto 1.8 % (0-4); Hematocrit 44.2 % (42.0-52.0); Hemoglobin 15.8 g/dl (14.0-18.0); Imm Gran Abs Auto 0.02 X10*3/uL (0.00-0.03); Imm Gran Pct Auto 0.3 % (0.0-0.4); Immature Retic Fraction 10.7 % (2.3-13.4); Lymphocytes Absolute Auto 1.3 X10*3/uL (1.2-4.9); Lymphocytes Percent Auto 22.2 % (20-40); Mean Corpuscular HGB Conc 35.7 g/dl (31.0-36.0); Mean Corpuscular Hemoglobin 32.2 pg (27.0-33.0); Mean Corpuscular Volume 90.2 fL (80.0-98.0); Mean Platelet Volume 8.9 fL (9.4-12.4); Monocytes Absolute Auto 0.6 X10*3/uL (0.1-1.2); Monocytes Percent Auto 10.6 % (2-11); Neutrophils Absolute Auto 3.8 x10*3/uL (2.0-8.3); Neutrophils Percent Auto 64.3 % (45-73); Platelet Count 187 X10*3/uL (160-400); Red Cell Distribution Width 12.3 % (11.0-16.0); Retic HGB Equivalent 36.3 pg (30.0-35.0); Reticulocyte Percent 1.9 % (0.5-1.8); Reticulocytes Absolute 0.094 X10*6/uL (0.026-0.095)
[2024-07-09 09:43] LABS: Alanine Aminotransferase 25 U/L (0-40); Albumin Level 4.1 g/dL (3.5-5.0); Alkaline Phosphatase 104 U/L (39-117); Anion Gap 10 (12-20); Aspartate Amino Transferase 22 U/L (5-37); Bilirubin Total 0.4 mg/dL (0.0-1.0); Blood Urea Nitrogen 11 mg/dL (9-16); Carbon Dioxide 25 mmol/L (22-29); Chloride 109 mmol/L (96-108); Cholesterol 171 mg/dL (<200); Estimated Glomerular Filt Rate > 60; Glucose Random 99 mg/dL (60-115); HDL Cholesterol 46 mg/dL (>40); Iron 123 mcg/dL (45-160); LDL Cholesterol Calculated 112 mg/dL (<100); Magnesium 2.1 mg/dL (1.6-2.6); Percent Iron Saturation 49 % (15-50); Sodium 140 mmol/L (135-145); Total Iron Binding Capacity 251 mcg/dL (228-428); Total Protein 6.6 g/dL (6.5-8.0); Triglycerides 66 mg/dL (<150); Unsaturated Iron Binding 128 ug/dL
[2024-07-09 09:49] LABS: Ferritin 110 ng/mL (20-250); Free T4 (Free Thyroxine) 0.94 ng/dL (0.71-1.85); Thyroid Stimulating Hormone 1.28 uIU/mL (0.32-4.0)
[2024-07-09 09:59] LABS: Prostate Specific Antigen Scr 1.25 ng/mL (<0.05-4.0); Vitamin B12 661 pg/mL (200-900)
== END 2024-07-09 08:09 | disposition home or self-care (01) ==
LOC: HO.LAB 08:08
PROVIDERS: PCP Internal Medicine; Visit Provider Internal Medicine
DX: K21.9 Gastro-esophageal reflux disease without esophagitis (principal); D50.9 Iron deficiency anemia, unspecified; Z86.69 Personal history of other diseases of the nervous system and sense organs; E78.00 Pure hypercholesterolemia, unspecified
CPT/HCPCS: 36415; 80053; 80061; 82607; 82728; 82746; 83540; 83735; 84153; 84439; 84443; 85025; 85045

== ENCOUNTER 2024-07-22 11:01 | Outpatient (AMB) | payer OTHER, SELFPAY ==
--- NOTE | 2024-07-22 11:03 | MHC.PC.OV ---
Vital Signs 07/22/24 11:04 Height 5 ft 2 in Weight 144 lb BMI 26.3 Blood Pressure Location Lt brachial Position Sitting Pulse Source Pulse Oximeter Oxygen Delivery Method Room Air Comment refused Intake Visit Reasons: PE Allergies topiramate [From TOPAMAX] Allergy (Intermediate, Verified 07/22/24 11:07) UNKNOWN depakote Adverse Reaction (Intermediate, Uncoded 07/22/24 11:25) increase ammonia level Medication List - Last Reconciled 07/22/24 by Aliza Childress MD acetaminophen 650 mg (2 x 325 mg) PO Q6H PRN ascorbic acid (vitamin C) (Vitamin C) 500 mg PO DAILY bismuth subsalicylate 524 mg (30 mL) PO Q6H PRN calcium carbonate (Oyster Shell Calcium) 500 mg PO DAILY cholecalciferol (vitamin D3) 50 mcg (2 x 25 mcg (1,000 unit)) PO DAILY clonidine HCl 0.1 mg PO BID@1200,2000 clonidine HCl 0.2 mg PO DAILY PRN diaper,brief,adult,disposable (Wings Choice Plus Adult Briefs) size Medium docusate sodium 100 mg PO QAM ferrous sulfate (Feosol) 325 mg PO DAILY finasteride 5 mg PO DAILY 30 days fluoride (sodium) 1.1% 1 appl PO BID fluticasone propionate 50 mcg/actuation (Flonase Allergy Relief) 2 sprays intranasal DAILY gabapentin 600 mg PO BID levetiracetam 1,000 mg PO BID loratadine 10 mg PO DAILY miscellaneous medical supply 1 ea miscellaneous DAILY multivitamin with folic acid 400 mcg (Thera) 1 tab PO DAILY olanzapine 20 mg PO BEDTIME omeprazole 20 mg PO QAM oxcarbazepine 600 mg PO BID psyllium 1 tbsp PO DAILY psyllium husk (with sugar) 3 gram/7 gram (Reguloid (psyllium husk-sucrose)) 1 tsp PO DAILY 30 days sennosides-docusate sodium 8.6-50 mg (Senna with Docusate Sodium) 1 tab-cap PO BEDTIME tamsulosin 0.4 mg PO BEDTIME 30 days therapeutic multivitamin 1 tab PO DAILY Tobacco use date assessed: 01/17/24 Dental Screening Dental Screen Date: 07/22/24 Did you have a dental visit in the last 12 months?: Yes Did you have a dental problem in the last 6 months where you did not have access to dental care?: No Was dental information given to patient?: Patient has dentist HPI PE HPI Details 59 year old male with cognitive developmental delay with idiopathic constipation GERD nephrolithiasis history of seizures osteoporosis coming in for physical exam last seen in March 2024. Patient is up-to-date with Cologuard testing 11/13/2021. Flu shot record received. Patient follows up with urology on finasteride and tamsulosin advised KUB in 12 months.. Patient also follows up with Hematology-Oncology for chronic thrombocytopenia patient was taken off Depakote due to the increased ammonia level. Anemia and thrombocytopenia resolved after Depakote taken out. Noted 11 lb weight gain. seizure 06/2024- Dr. Yuliana Prescott [facility] Medical History Nasal congestion Osteopenia Colon cancer screening Osteopenia Ribs, multiple fractures Cholelithiasis Renal calculus, bilateral Leukopenia GERD (gastroesophageal reflux disease) Vitamin D deficiency Cerebral palsy H/O nephrolithotomy with removal of calculi Hx of seizure disorder Thrombocytopenia Cognitive developmental delay Hepatitis B virus infection Chronic idiopathic constipation Surgical History History of cystoscopy History of extraction of renal calculus S/P cataract surgery History of gastric surgery Family History Father No problems noted. Mother No problems noted. Family/Other Family history unknown Social History Household Members: Other Household Members Other:: halfway residents/staff Housing: Other Housing Other:: [facility] Are you a primary child adolescent care to a significant other at home: No Do you presently have visiting nurse or other home services: Yes Unable to assess alcohol history related to: Unable to respond Alcohol intake: never Comment: 1:1 sitter Patient Tobacco Use Status: Never used Tobacco e-Cigarette/Vaping Use: Never Used Second Hand Smoke Exposure: No service: No Current occupational status: disabled Cognitive needs: Yes (wheelchair) Hearing needs: Yes Vision needs: Yes Questionnaire PHQ-9 Over the last 2 weeks, how often have you been bothered by any of the following problems? 1. Little interest or pleasure in doing things: not at all 2. Feeling down, depressed, or hopeless: not at all 3. Trouble falling or staying asleep, or sleeping too much: not at all 4. Feeling tired or having little energy: not at all 5. Poor appetite or overeating: not at all 6. Feeling bad about yourself - or that you are a failure or have let yourself or your family down: not at all 7. Trouble concentrating on things, such as reading the newspaper or watching television: not at all 8. Moving or speaking so slowly that other people could have noticed. Or the opposite - being so fidgety or restless that you have been moving around a lot more than usual: not at all 9. Thoughts that you would be better off or of hurting yourself in some way: not at all Total score: 0 Depression Screening Interpretation: Negative Depression Screening Done: Yes 47296 - PHQ-9 Billing: Yes Source: Developed by Drs. Lyndon James, Mahsa Sawyer, Wilfrido Osorio and colleagues, with an educational justo from [employer] Thrive Questionnaire Date Thrive assessed: 10/16/22 I am a: Parent/Caregiver What is your living situation today?: I have a steady place to live Within the past 12 months, did the food you bought not last and you didn't have the money to get more?: Never true Within the past 12 months, did you worry whether your food would run out before you got money to buy more?: Never true Do you have trouble paying for medicines?: No Do you have trouble getting transportation to medical appointments?: No Do you have trouble paying your heating and electricity bill?: No Do you have trouble taking care of your child, family member or friend?: No Do you have trouble with day-to-day activities such as bathing, preparing meals, shopping, managing finances, etc.?: No Are you currently unemployed and looking for a job?: No Are you interested in more education?: No Please select the resources that you would like help with: None Currently or been in a relationship where the following occur: No concerns reported THRIVE Score: 0 AUDIT C Alcohol Use Questionnaire (AUDIT-C) 1. How often do you have a drink containing alcohol?: Never 3. How often do you have six or more drinks on one occasion?: Never Total Score: 0 CLYDE-7 AMB Questionnaire CLYDE-7 Date CLYDE - 7 assessed: 07/22/24 Feeling nervous, anxious, or on edge: 0 = Not at all Not being able to stop or control worryin = Not at all Worrying too much about different things: 0 = Not at all Trouble relaxin = Not at all Being so restless that it is hard to sit still: 0 = Not at all Becoming easily annoyed or irritable: 0 = Not at all Feeling afraid as if something awful might happen: 0 = Not at all Total CLYDE-7 score (0-4 normal; 5-9 mild; 10-14 moderate; 15-21 severe): 0 Source: Developed by Drs. Lyndon James, Mahsa Sawyer, Wilfrido Osorio and colleagues, with an educational justo from [employer] CLYDE-7 Assessment Billing CLYDE-7 Assessment Tool: CLYDE-7 Assessment 41952 Review of Systems Const Denies poor appetite and Denies weakness Eyes Denies no additional complaints ENT Reports Normal hearing present, Denies dizziness, Denies nasal congestion, Denies tinnitus and Denies sore throat Card Denies chest pain, Denies syncope, Denies rapid heart rate and Denies dyspnea Resp Denies cough and Denies dyspnea GI Denies change in stool character, Reports constipation, Denies diarrhea, Denies nausea and Denies vomiting Denies dysuria and Denies urinary frequency Neuro Reports Normal hearing present, Denies confusion, Denies dizziness, Denies syncope and Denies weakness Psych Denies confusion Physical exam (Primary Care) Vital Signs: Oxygen Delivery Method Room Air 07/22/24 11:04 BMI result Body Mass Index 26.3 Tobacco/Smoking Status: Tobacco use Status Tobacco use date assessed 01/17/24 07/22/24 11:03 Patient Tobacco Use Status Never used Tobacco 07/22/24 11:03 e-Cigarette/Vaping Use Never Used 07/22/24 11:03 PHQ-9: PHQ-9 Score PHQ-9: Total score 0 07/22/24 11:10 Depression Screening Interpretation: Negative Thrive Assessment: Date of Thrive Assessment Date Thrive assessed 10/16/22 07/22/24 11:03 Currently or been in a relationship where the following occur: No concerns reported Const General: No confusion Orientation/consciousness: No confusion HENMT Head: Yes normocephalic Ears: external ears normal and TM's normal bilaterally Face and sinus: Yes normal facial exam Mouth: moist mucous membranes Throat: Yes tonsils normal Eyes Conjunctivae: conjunctivae normal Pupils: Equal, round and reactive pupils present and Pupil accommodation reflex normal Direct Ophthalmoscopy: normal light reflex Neck Neck: No lymphadenopathy Thyroid: Thyroid normal Chest Chest palpation & inspection: normal inspection of the chest Resp Effort & Inspection: normal respiratory effort and no audible wheezes Auscultation: clear to auscultation bilaterally, no crackles, no wheezes and lung sounds not diminished Cardio Rate: regular rate Rhythm: regular rhythm Peripheral pulses: radial pulses present and dorsalis pedis present GI Other: guaiac neg, prostate N Palpation (GI): no masses Auscultation: normal bowel sounds and normoactive bowel sounds Male General Exam: Yes normal external exam Skin General skin exam: no rashes or lesions noted Rashes: no rashes Neuro General: No confusion Cranial nerves: Yes Equal, round and reactive pupils present and Yes Normal hearing present Cognition (Neuro): normal cognition Gait exam (Neuro): Normal gait present Motor exam (neuro): 5/5 motor strength present throughout Deep tendon reflexes (DTR's): Right brachioradialis reflex intensity grade: 2+, Left brachioradialis reflex intensity grade: 2+, Right patellar reflex intensity grade: 2+ and Left patellar reflex intensity grade: 2+ Extrem General: No edema Coding Level of Care Code Est Pt Prev Care 40-64y(72609) Diagnoses Annual physical exam Z00.00 Cognitive developmental delay F81.9 Hx of seizure disorder Z86.69 Renal calculus, bilateral N20.0 Gastroesophageal reflux disease without esophagitis K21.9 Esophagitis presence: without esophagitis Osteoporosis M81.0 Osteoporosis type: unspecified Presence of current pathological fracture: with current pathological fracture Encounter type: subsequent encounter Hepatitis B surface antigen positive R76.8 Additional Codes CLYDE-7 Assessment Billing - CLYDE-7 Assessment Tool: CLYDE-7 Assessment 17661 ([id number]) Assessment & Plan Assessment & Plan (1) Annual physical exam: Code(s): Z00.00 - Encounter for general adult medical examination without abnormal findings Category: Medical Plan: Patient is advised to eat healthy, keep well hydrated, keep active and have adequate sleep. (2) Cognitive developmental delay: Code(s): F81.9 - Developmental disorder of scholastic skills, unspecified Category: Medical Plan: Continuing with therapy (3) Hx of seizure disorder: Comment: documented in my 2010 consultative visit. Code(s): Z86.69 - Personal history of other diseases of the nervous system and sense organs Category: Medical Plan: Patient has been taken off Depakote with resolution of thrombocytopenia and leukopenia. Presently on Keppra a 1000 mg twice a day (4) Renal calculus, bilateral: Comment: May 2019 Code(s): N20.0 - Calculus of kidney Category: Medical Plan: Keep well hydrated and continued to be followed up by Urology (5) GERD (gastroesophageal reflux disease): Code(s): K21.9 - Gastro-esophageal reflux disease without esophagitis Category: Medical Qualifiers: Esophagitis presence: without esophagitis Qualified Code(s): K21.9 - Gastro-esophageal reflux disease without esophagitis Plan: Avoid the foods that causes that usually spicy foods, tomato products, juices, coffee, soda and foods that your sensitive to. After eating do not lie down, allow 3-4 hours before in lie down. And keep the head of bed above 30 degrees to avoid the acid from going up. (6) Osteoporosis: Comment: November 2021, 02/11/2024 Code(s): M81.0 - Age-related osteoporosis without current pathological fracture Category: Medical Qualifiers: Osteoporosis type: unspecified Presence of current pathological fracture: with current pathological fracture Encounter type: subsequent encounter Plan: Advised to get testosterone test if low will get Urology to help. If negative will refer to endocrinology (7) Hepatitis B surface antigen positive: Comment: Pleasant 58-year-old Fannie mentally delayed Gent accompanied by patient had Hepatitis B inactive carrier Sab-neg Eag-neg Eab-pos Hold off on HCC surveillance at this point given his level of developmentally delayed, however can be re evaluated at a later date Code(s): R76.8 - Other specified abnormal immunological findings in serum Category: Medical Plan: will be seeing GI Dr. Mayo 08/20/2024 Orders: Orders Testosterone, Total Today M81.0 - Age-related osteoporosis without current pathological fracture Medications: Discontinued ascorbic acid (vitamin C) (Vitamin C) In AM for vitamin absorbtion Discontinued Reason: Doctor's Order 500 mg PO DAILY 90 tabs 2RF ferrous sulfate (Feosol) In the Am for low iron Discontinued Reason: Doctor's Order 325 mg PO DAILY 90 tabs 2RF D50.9 - Iron deficiency anemia, unspecified
[2024-07-22 11:04] VITALS: BMI 26.3
== END 2024-07-22 11:56 | disposition home or self-care (01) ==
LOC: HO.HMCH 11:02
PROVIDERS: PCP Internal Medicine; Visit Provider Internal Medicine
DX: Z00.00 Encounter for general adult medical examination without abnormal findings (principal); F81.9 Developmental disorder of scholastic skills, unspecified; Z86.69 Personal history of other diseases of the nervous system and sense organs; N20.0 Calculus of kidney; K21.9 Gastro-esophageal reflux disease without esophagitis; M81.0 Age-related osteoporosis without current pathological fracture; R76.8 Other specified abnormal immunological findings in serum

== ENCOUNTER → 2024-07-22 11:01 | Outpatient (BNVA) | payer OTHER, SELFPAY | PROVIDERS: PCP Internal Medicine; Visit Provider Internal Medicine | DX: Z00.01 Encounter for general adult medical examination with abnormal findings (principal); F81.9 Developmental disorder of scholastic skills, unspecified; N20.0 Calculus of kidney; K21.9 Gastro-esophageal reflux disease without esophagitis; M81.0 Age-related osteoporosis without current pathological fracture; R76.8 Other specified abnormal immunological findings in serum; Z86.69 Personal history of other diseases of the nervous system and sense organs | CPT/HCPCS: 96127; 99396 ==

== ENCOUNTER 2024-09-29 08:47 | Outpatient (AMB) | payer OTHER, SELFPAY ==
[2024-09-29 09:00] VITALS: BP 124/74; PULSE 83; BMI 25.8
--- NOTE | 2024-09-29 09:00 | MHC.OFFVIS ---
Vital Signs 09/29/24 09:00 Height 5 ft 2 in Weight 141 lb 1.533 oz BMI 25.8 BP 124/74 Blood Pressure Location Lt brachial Position Sitting Pulse 83 Intake Visit Reasons: yearly Hep B/SOFI PT Intake Note: Brooks presents in the office as a yearly follow up for Hep C. Seen Sofi in the past. Yearly follow up she states that he has not had any updated labs. No concerns at this time. Cardiovascular Technologist Required: No Allergies topiramate [From TOPAMAX] Allergy (Intermediate, Verified 09/29/24 09:02) UNKNOWN depakote Adverse Reaction (Intermediate, Uncoded 09/29/24 09:02) increase ammonia level HPI Comments Details: 59 y.o M with intellectual disability and cerebral palsy, who is here for yearly follow up for chronic HBV. Accompanied by half-way caretakers Yousif and Sabrina. History primarily obtained from Sabrina, the RN. Pt has not been reporting any abd pain, no reduced appetite or changes in bowel habits noted. Labs and US from 2022 reviewed. [facility] Medical History Nasal congestion Osteopenia Colon cancer screening Osteopenia Ribs, multiple fractures Cholelithiasis Renal calculus, bilateral Leukopenia GERD (gastroesophageal reflux disease) Vitamin D deficiency Cerebral palsy H/O nephrolithotomy with removal of calculi Hx of seizure disorder Thrombocytopenia Cognitive developmental delay Hepatitis B virus infection Chronic idiopathic constipation Surgical History History of cystoscopy History of extraction of renal calculus S/P cataract surgery History of gastric surgery Family History Father No problems noted. Mother No problems noted. Family/Other Family history unknown Social History Household Members: Other Household Members Other:: half-way residents/staff Housing: Other Housing Other:: [facility] half-way Are you a primary intensive care unit nurse to a significant other at home: No Do you presently have visiting nurse or other home services: Yes Unable to assess alcohol history related to: Unable to respond Alcohol intake: never Comment: 1:1 sitter Patient Tobacco Use Status: Never used Tobacco e-Cigarette/Vaping Use: Never Used Second Hand Smoke Exposure: No service: No Current occupational status: disabled Cognitive needs: Yes (wheelchair) Hearing needs: Yes Vision needs: Yes Review of Systems Const All systems reviewed & are unremarkable except as noted in HPI and below Physical Exam Vital Signs: Last Vital Signs Pulse 83 09/29/24 09:00 BP 124/74 09/29/24 09:00 BMI result Body Mass Index 25.8 Appears younger than stated age NAD Nonicteric Abd soft, nondistended Able to walk without assistance Assessment & Plan Assessment & Plan (1) Hepatitis B surface antigen positive: Code(s): R76.8 - Other specified abnormal immunological findings in serum Category: Medical (2) Chronic hepatitis B: Code(s): B18.1 - Chronic viral hepatitis B without delta-agent Category: Medical (3) Encounter for colorectal cancer screening: Code(s): Z12.11 - Encounter for screening for malignant neoplasm of colon; Z12.12 - Encounter for screening for malignant neoplasm of rectum Category: Medical Plan Has inactive chronic HBV based on available serology. Does not appear to have been tested for coinfection with HCV, HIV and HDV. Ordered today. Will also obtain a baseline elastography. Plan: - Labs as below for HBV monitoring - HCV Ab, HDV Ab and HIV Ab ordered - US liver with elastography - If ALT and HBV remain negligible no tx necessary. Will cont to monitor on a yearly basis in that case. - If non-cirrhotic and NEG for HDV, does not need routine HCC screening - Counseling for transmission risk done nalini as pt lives in half-way CRC screening: Cologuard negative 2021. Will be due later this year. Follow up 1 year Orders: Orders Hepatitis B Core Antibody Today R76.8 - Other specified abnormal immunological findings in serum Hepatitis B Viral DNA Qn Today R76.8 - Other specified abnormal immunological findings in serum Hepatitis B Surface Antibody Today R76.8 - Other specified abnormal immunological findings in serum HIV Ab/Ag Today R76.8 - Other specified abnormal immunological findings in serum Hepatitis Delta Antibody Today R76.8 - Other specified abnormal immunological findings in serum US abdomen comp w elastography Today R76.8 - Other specified abnormal immunological findings in serum Hepatitis B Surface Antigen Today R76.8 - Other specified abnormal immunological findings in serum Hepatitis C Antibody Reflex Today K74.60 - Unspecified cirrhosis of liver, R76.8 - Other specified abnormal immunological findings in serum Alpha Fetoprotein Today R76.8 - Other specified abnormal immunological findings in serum Liver Panel Today R76.8 - Other specified abnormal immunological findings in serum Coding Level of Care Code Est Pt Level 4 (09973) Complex EM visit Add On G2211 Diagnoses Hepatitis B surface antigen positive R76.8 Chronic hepatitis B B18.1 Encounter for colorectal cancer screening Z12.11; Z12.12
== END 2024-09-29 09:38 | disposition home or self-care (01) ==
PROVIDERS: PCP Internal Medicine; Visit Provider Internal Medicine
DX: B18.1 Chronic viral hepatitis B without delta-agent (principal); R76.8 Other specified abnormal immunological findings in serum
CPT/HCPCS: 99214; G2211

== ENCOUNTER → 2024-09-29 08:47 | Outpatient (BNVA) | payer OTHER, SELFPAY | PROVIDERS: PCP Internal Medicine; Visit Provider Internal Medicine | DX: Z12.11 Encounter for screening for malignant neoplasm of colon (principal); Z12.12 Encounter for screening for malignant neoplasm of rectum; B18.1 Chronic viral hepatitis B without delta-agent; R76.8 Other specified abnormal immunological findings in serum | CPT/HCPCS: 99212 ==

== ENCOUNTER 2024-10-21 09:03 | Outpatient (REF) | payer OTHER, SELFPAY ==
--- NOTE | ~2024-10-21 | US_ITS ---
EXAMINATION: US ABDOMEN COMPLETE WITH LIVER ELASTOGRAPHY HISTORY: R76.8 - Other specified abnormal immunological findings in serum TECHNIQUE: Real-time grayscale ultrasound imaging of the abdomen was performed and images were reviewed. COMPARISON: Comparison is made with the prior examination dated 05/17/2023. FINDINGS: Liver: The liver is normal in size, but demonstrates increased echotexture, consistent with steatosis. No focal mass or intrahepatic biliary ductal dilatation is identified. There is normal hepatopedal flow in the portal vein. Ultrasound elastography of the liver was performed with 10 separate measurements of the liver parenchyma with the patient in the supine position. Measurements were obtained approximately 2 cm below Carlotta's capsule and perpendicular to the capsule. Images are of satisfactory quality. The median shear wave velocity is 1.18 m/s. The interquartile range/median (IQR/median) is 0.06. Gallbladder and biliary tree: The gallbladder is unremarkable, without evidence of calculi, wall thickening, or pericholecystic fluid. There is no sonographic Angulo sign. The common bile duct is normal in caliber measuring 2 mm. Kidneys: The right kidney measures 10.5 cm in length. The left kidney measures 9.6 cm in length. There are punctate echogenic foci in both kidneys which may represent tiny calculi or calcified vessels. There is no mass or hydronephrosis. Pancreas: The pancreas is of scattered by bowel gas. Spleen: The spleen is normal in size and contour, measuring 8.0 cm in length. Abdominal aorta and inferior vena cava: The visualized portions of the abdominal aorta and inferior vena cava are normal in caliber. There is no free fluid in the abdomen. US/US abdomen comp w elastography IMPRESSION: Hepatic steatosis. The median shear wave velocity is 1.18 m/s, corresponding to a median liver stiffness of 4.30 kPa. The IQR/median value is 0.06. This is indicative of a quality data set. Findings are indicative of a normal elastography value with a low likelihood of severe fibrosis or cirrhosis. REFERENCE: Society of Radiologists in Ultrasound Liver Stiffness Thresholds (2019): LIVER STIFFNESS THRESHOLDS: *Shear wave velocity less than 1.3 m/s (Liver Stiffness equal or less than 5 kPa): High probability of being normal. *Shear wave velocity less than 1.7 m/s (Liver Stiffness less than 9 kPa): In the absence of other known clinical signs, rules out compensated advanced chronic liver disease. *Shear wave velocity between 1.7-2.1 m/s (Liver Stiffness 9-13 kPa): Suggestive of compensated advanced chronic liver disease but need further test for confirmation. *Shear wave velocity between 2.1-2.4 m/s (Liver Stiffness 13-17 kPa): Rules in compensated advanced chronic liver disease. *Shear wave velocity greater than 2.4 m/s (Liver Stiffness over 17 kPa): Suggestive of clinically significant portal hypertension. QUALITY OF DATA SET: *IQR/Median value equal or less than 0.15 implies a quality data set. *IQR/Median value over 0.15 implies a poor quality data set. SIGNIFICANT CHANGE FROM PRIOR EXAM: Significant change if liver stiffness measurement is 10% or greater from prior exam. OTHER CONSIDERATIONS: The stage of liver fibrosis may be overestimated in the setting of acute hepatitis, liver inflammation, elevated liver function tests, hepatic vascular congestion, obstructive cholestasis, non-fasting state, and infiltrative diseases such as amyloidosis and lymphoma. In some patients with NAFLD, the liver stiffness thresholds for compensated advanced chronic liver disease may be lower. In causes other than viral hepatitis and NAFLD, liver stiffness thresholds are not well established. Electronically signed by: Lyndon Metz MD 10/21/2024 11:21 AM [facility]
--- OUTSIDE RECORDS SUMMARY | 2024-10-21 09:27 | XMS_ITS | Encounter Summary ---
Author Organization [facility] Address [address] [place] [address] Care Team Providers Care Extractor Loader And Unloader Name Role Phone Aliza Childress Primary Care Provider [phone] Encounter Details Date Type Department Care Team (Late st Contact Info) Description 11/27/2022 Orders Only [facility] [address] [place] [address] Kendra Choi MD [address] [place] [address] Social History Tobacco Use Types Packs/Day Years Used Date Smoking Tobacco: Never Smokeless Tobacco: Never Comments:: Alcohol Use Standard Drinks/Week Comments No 0 (1 standard drink = 0.6 oz pur e alcohol) Sex and Gender Information Value Date Recorded Sex Assigned at Not on file Legal Sex Male 5:57 AM EDT Gender Identity Not on file Sexual Orientation Not on file documented as of this encounter Plan of Treatment Upcoming Encounters Date Type Department Care Team (Late st Contact Info) Description 12/05/2024 9:00 AM EDT Telehealth [facility] [address] [place] [address] Sergei Webb NP [address] [place], [place] [id number] documented as of this encounter Procedures * Due to [place] state law, this organization might not be sharing negative HIV tests. Procedure Name Priority Date/Time Associated Diagnosis Comments AST, OUTSIDE LAB Routine 11/27/2022 LAB - SCANNED Routine 10/25/2022 documented in this encounter Results * Due to [place] state law, this organization might not be sharing negative HIV tests. * AST, Outside Lab (11/27/2022) Blood us Kendra Choi MD LAB BLOOD ORDERABLES Final Resul t * LAB - SCANNED (10/25/2022) us Unknown Provider LAB HISTORICAL RESULTS Final Result documented in this encounter Visit Diagnoses Not on filedocumented in this encounter Care Teams Extractor Loader And Unloader Relationship Specialty Start Date End Date Aliza Childress [address] [place] [address] [place] [address] PCP - General 04/12/17 documented as of this encounter
--- OUTSIDE RECORDS SUMMARY | 2024-10-21 09:27 | XMS_ITS | Encounter Summary ---
Author Organization [facility] Address [address] [place] [address] Care Team Providers Care Rubber Gasket Inspector Trimmer Name Role Phone Aliza Childress Primary Care Provider [phone] Encounter Details Date Type Department Care Team (Late st Contact Info) Description 09/15/2022 Orders Only [facility] [address] [place] [address] Provider, MD Favio [address] [place] [id number] Social History Tobacco Use Types Packs/Day Years [...] Info) Description 12/05/2024 9:00 AM EDT Telehealth [facility] [address] [place] [address] Sergei Webb NP [address] [place] [address] documented as of this encounter Procedures * Due to [place] state law, this organization might not be sharing negative HIV tests. Procedure Name Priority Date/Time Associated Diagnosis Comments EXTERNAL NUCLEAR MEDICINE - SCANNED Routine 11/23/2021 documented in this encounter Results * Due to [place] state law, this organization might not be sharing negative HIV tests. * Nuclear Medicine - Scanned (11/23/2021) Anatomical Region Laterality Modality Other us Unknown Provider MD THORNE EXTERNAL RESULT PROCEDUR ES Final Result documented in this encounter Visit Diagnoses Not on filedocumented in this encounter Care Teams Rubber Gasket Inspector Trimmer Relationship Specialty Start Date End Date Aliza Childress [address] [place] [address] [place] [address] PCP - General 04/12/17 documented as of this encounter
--- OUTSIDE RECORDS SUMMARY | 2024-10-21 09:27 | XMS_ITS | Encounter Summary ---
Author Organization [facility] Address [address] [place] [address] Care Team Providers Care Reverser Name Role Phone Aliza Childress Primary Care Provider [phone] Reason for Visit * Reason Onset Date Comments signature needed 09/15/2022 Encounter Details Date Type Department Care Team (Late st Contact Info) Description 09/15/2022 Telephone [facility] [address] [place] [address] Ann Chappell [place] signature needed Social History Tobacco Use Types Packs/Day Years [...] on file documented as of this encounter Miscellaneous Notes * Telephone Encounter - Ann Chappell MA - 09/15/2022 1:56 PM EST Rec'd Seizure protocol needing signature, placed in providers folder for signature. documented in this encounter Plan of Treatment Upcoming Encounters Date Type Department Care Team (Late st Contact Info) Description 12/05/2024 9:00 AM EDT Telehealth [facility] [address] [place] [address] Sergei Webb NP [address] [place] [address] documented as of this encounter Visit Diagnoses Not on filedocumented in this encounter Care Teams Reverser Relationship Specialty Start Date End Date Aliza Childress [address] [place] [address] dr [place], [place] [address] PCP - General 04/12/17 documented as of this encounter
--- OUTSIDE RECORDS SUMMARY | 2024-10-21 09:27 | XMS_ITS | Encounter Summary ---
Author Organization [facility] Address [address] [place] [address] Care Team Providers Care Clinical Nursing Professor Name Role Phone Aliza Childress Primary Care Provider [phone] Encounter Details Date Type Department Care Team (Late st Contact Info) Description 12/18/2022 Orders Only [facility] [address] [place] [address] Kendra Choi MD [address] [place] [address] Social History Tobacco Use Types Packs/Day Years [...] Info) Description 12/05/2024 9:00 AM EDT Telehealth [facility] [address] [place] [address] Sergei Webb NP [address] [place], [place] [phone] documented as of this encounter Procedures * Due to [place] [employer] law, this organization might not be sharing negative HIV tests. Procedure Name Priority Date/Time Associated Diagnosis Comments LAB - SCANNED Routine 12/18/2022 documented in this encounter Results * Due to [place] state law, this organization might not be sharing negative HIV tests. * LAB - SCANNED (12/18/2022) us Kendra Choi MD LAB HISTORICAL RESULTS Final Res ult documented in this encounter Visit Diagnoses Not on filedocumented in this encounter Care Teams Clinical Nursing Professor Relationship Specialty Start Date End Date Aliza Childress [address] [facility] [place] [address] PCP - General 04/12/17 documented as of this encounter
--- OUTSIDE RECORDS SUMMARY | 2024-10-21 09:27 | XMS_ITS | Encounter Summary ---
Author Organization [facility] Address [address] [place] [address] Care Team Providers Care Global Sales Executive Name Role Phone Aliza Childress Primary Care Provider [phone] Encounter Details Date Type Department Care Team (Late st Contact Info) Description 07/28/2021 Orders Only [facility] [address] [place] [address] Aliza Childress [address] [place] [address] [place] [address] Social History Tobacco Use Types Packs/Day Years [...] Info) Description 12/05/2024 9:00 AM EDT Telehealth [facility] [address] [place] [address] Sergei Webb NP [address] [place] [address] documented as of this encounter Procedures * Due to [place] [employer] law, this organization might not be sharing negative HIV tests. Procedure Name Priority Date/Time Associated Diagnosis Comments NEURODIAGNOSTIC - SCANNED Routine 06/24/2021 documented in this encounter Results * Due to [place] state law, this organization might not be sharing negative HIV tests. * NEURODIAGNOSTIC - SCANNED (06/24/2021) Aliza Childress SCANNED PROCEDURES Final Result documented in this encounter Visit Diagnoses Not on filedocumented in this encounter Care Teams Global Sales Executive Relationship Specialty Start Date End Date Aliza Childress [address] [place] [address] [place] [address] PCP - General 04/12/17 documented as of this encounter
--- OUTSIDE RECORDS SUMMARY | 2024-10-21 09:27 | XMS_ITS | Encounter Summary ---
Author Organization [facility] Address [address] [place] [address] Care Team Providers Care Conservation Worker Name Role Phone Aliza Childress Primary Care Provider [phone] Encounter Details Date Type Department Care Team (Late st Contact Info) Description 09/06/2022 Telephone [facility] [address] [place] [address] Telephone Intake, Staff Social History Tobacco Use Types Packs/Day Years [...] encounter Miscellaneous Notes * Telephone Encounter - Jimena Peterson - 09/06/2022 12:16 PM EST Sabrina from [facility] calling about PT's appt on 09/13 - telehealth with Dr. Choi. 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 Nurses will be on with him. If he does, they will make arrangements for that, but wanted to be sure before keeping him out of his program that day. Please follow up with staff there [phone]. documented in this encounter Plan of Treatment Upcoming Encounters Date Type Department Care Team (Late st Contact Info) Description 12/05/2024 9:00 AM EDT Telehealth [facility] [address] [place] [address] Sergei Webb NP [address] [place] [address] documented as of this encounter Visit Diagnoses Not on filedocumented in this encounter Care Teams Conservation Worker Relationship Specialty Start Date End Date Aliza Childress [address] [place] [address] [place] [address] PCP - General 04/12/17 documented as of this encounter
--- OUTSIDE RECORDS SUMMARY | 2024-10-21 09:27 | XMS_ITS | Encounter Summary ---
Author Organization [facility] Address [address] [place] [address] Care Team Providers Care Electrician Third Name Role Phone Aliza Childress Primary Care Provider [phone] Encounter Details Date Type Department Care Team (Late st Contact Info) Description 06/03/2021 Orders Only [facility] [address] [place] [address] Provider, MD Favio [address] [place] [address] Social History Tobacco Use Types Packs/Day [...] Info) Description 12/05/2024 9:00 AM EDT Telehealth [facility] [address] [place] [address] Sergei Webb NP [address] [place] [address] documented as of this encounter Procedures * Due to [place] state law, this organization might not be sharing negative HIV tests. Procedure Name Priority Date/Time Associated Diagnosis Comments LAB - SCANNED Routine 04/24/2021 documented in this encounter Results * Due to [place] state law, this organization might not be sharing negative HIV tests. * LAB - SCANNED (04/24/2021) us Unknown Provider MD LAB HISTORICAL RESULTS Final Result documented in this encounter Visit Diagnoses Not on filedocumented in this encounter Care Teams Electrician Third Relationship Specialty Start Date End Date Aliza Childress [address] [place] [address] [place] [address] PCP - General 04/12/17 documented as of this encounter
--- OUTSIDE RECORDS SUMMARY | 2024-10-21 09:27 | XMS_ITS | Encounter Summary ---
Author Organization [facility] Address [address] [place] [address] Care Team Providers Care Glass Sander Belt Name Role Phone Aliza Childress Primary Care Provider [phone] Reason for Visit * Reason Onset Date Comments Appointment 10/20/2024 Encounter Details Date Type Department Care Team (Late st Contact Info) Description 10/20/2024 Telephone [facility] [address] [place] [address] Leticia Mock RN Appointment Social History Tobacco Use Types Packs/Day Years [...] encounter Miscellaneous Notes * Telephone Encounter - Leticia Mock RN - 10/20/2024 3:28 PM EST Bettina from care home calling to confirm next follow up appt, 12/05 at 9 am. She asked if this couldbe telehealth but the next be in person but later in the day. Appt switched. The labs to be done for next appt appear to be . Will request new set of labs to be mailed to care home. CMP,CBC, vit D, OXC level, LEV level, and Gabapentin level, confirmed to be be done trough. Will message message provider. documented in this encounter Plan of Treatment Upcoming Encounters Date Type Department Care Team (Late st Contact Info) Description 12/05/2024 9:00 AM EDT Telehealth [facility] [address] [place] [address] Sergei Webb NP [address] [place], [place] [phone] documented as of this encounter Visit Diagnoses Not on filedocumented in this encounter Care Teams Glass Sander Belt Relationship Specialty Start Date End Date Aliza Childress [address] [place] [address] [place] [address] PCP - General 04/12/17 documented as of this encounter
--- OUTSIDE RECORDS SUMMARY | 2024-10-21 09:27 | XMS_ITS | Clinical Summary ---
Author Organization [facility] Address [address] [place] [address] Care Team Providers Care Crozer Name Role Phone Aliza Childress Primary Care Provider [phone] Allergies Active Allergy Reactions Criticality Noted Date Comments Topiramate Unknown Medications BISMUTH SUBSALICYLATE (BISMATROL ORAL) Take 30 mL by mouth every 6 hours as needed. Active docusate sodium (COLACE) 100 mg capsule Take 100 mg by mouth daily. Active multivitamin (DAILY MULTIPLE) tablet Take 1 tablet by mouth daily. Active cloNIDine (CATAPRES) 0.1 mg tablet Patient taking 1 tablet at 12 PM and at 8 PM 3 8 Active multivitamin with minerals tablet Daily Multiple Vitamins Oral Tablet TAKE 1 TABLET DAILY. Quantity: 30; Refills: 5 JOAN WHYTE MD; Active Active fluoride, sodium, (DENTA 5000 PLUS) 1.1 % cream Denta 5000 Plus 1.1 % Dental Cream Quantity: 51; Refills: 0 Started Active 1 Active famotidine (PEPCID) 20 mg tablet 11 8 Active magnesium hydroxide (magnesium hydroxide) 400 mg/5 mL suspension Milk of Magnesia SUSP 30ML PRN, Quantity: 0; Refills: 0 Started 12-Feb-2008 Active 8 Active TRIPLE ANTIBIOTIC ointment 11 8 Active OLANZapine (ZyPREXA) 20 mg tablet 3 8 Active acetaminophen (TYLENOL) 325 mg tablet Tylenol TABS 650MG PRN, Quantity: 0; Refills: 0 Started 12-Feb-2008 Active 8 Active guaiFENesin (ROBITUSSIN MUCUS-CHEST CONGEST) 100 mg/5 mL syrup Robitussin Chest Congestion SYRP 1TSP PRN, Quantity: 0; Refills: 0 Started 12-Feb-2008 Active 8 Active THERA 400 mcg tablet 11 8 Active famotidine (PEPCID) 20 mg tablet 9 Active cholecalciferol (VITAMIN D3) 2,000 unit tablet Take 1 tablet by mouth once a day. Active finasteride (PROSCAR) 5 mg tablet 4 Active fluticasone propionate (FLONASE) 50 mcg/actuation nasal spray 4 Active loratadine (CLARITIN) 10 mg tablet 4 Active ferrous sulfate 325 mg (65 mg iron) EC tablet Take 65 mg by mouth 3 times a day with meals. Active ascorbic acid 500 mg tablet 4 Active omeprazole (PriLOSEC) 20 mg capsule 4 Active Reguloid, psyllium husk-sucro, 3 gram/7 gram powder 4 Active tamsulosin (FLOMAX) 0.4 mg capsule 4 Active cloNIDine (CATAPRES) 0.2 mg tablet Patient taking 1 tablet at 5 PM and PRN 4 Active levETIRAcetam (KEPPRA) 500 mg tabletIndications :Symptomatic tonic clonic epilepsy (HCC) Take 2 tablets (1,000 mg total) by mouth 2 times a day. TAKE 2 TABLETS BY MOUTH IN THE AM AND TAKE 2 TABLETS BY MOUTH IN THE PM FOR SEIZURE DISORDER DOSE = 1,000 MG 120 tablet 11 4 Active gabapentin (NEURONTIN) 300 mg capsuleIndication s:Symptomatic tonic clonic epilepsy (HCC) TAKE 2 CAPSULES BY MOUTH TWICE DAILY FOR SEIZURE DISORDER DOSE = 600 MG 120 capsule 11 4 Active OXcarbazepine (TRILEPTAL) 300 mg tabletIndications :Symptomatic tonic clonic epilepsy (HCC) Take 2 tablets (600 mg total) by mouth 2 times a day. 120 tablet 11 4 Active Active Problems Problem Noted Date Diagnosed Date Hyperammonemia 11/29/2022 Osteopenia 05/21/2018 Intellectual disability 04/29/2009 Cerebral palsy 04/29/2009 Seizure disorder 04/03/2009 Overview (08/13/2023): History of chronic static encephalopathy and seizures. His last reported seizure was in 09/2022, and prior to that 12/2012, and sometime in 08/2012. His typical seizures are characterized by a blank stare for 20 seconds and immediate recovery. There have been no missed doses or reported side effects of medications. His behavior, which had been assaultive in nature in the past, has been recently treated by a psychiatrist with good effect using clonidine. He is now back in a day program without complication. He is reported to be walking hunched over with slight unsteady gait, which is chronic. STUDIES: In 2010, head CT without contrast read as somewhat degraded by motion artifact; however, no acute abnormalities are detected. EEG 02/2013 read as mildly abnormal due to mild degree of diffuse generalized slowing. February 2018 BMD osteopenic left femoral neck -1.3 Assessment & Plan (12/05/2023 10:30 AM EDT): - continue Keppra 1000mg BID - continue Oxcarbamazepine 600mg BID - continue Gabapentin 600mg BID - will mail lab slip to intermediate for surveillance blood work including checking CMP, CBC, ASM levels and vit D level - recommend discussing with PCP regarding diagnosis of osteoporosis in femoral neck seen on most recent BMD scan Seizure precautions were reviewed as well as side effects of the medication(s). I spent a total of 30 minutes on the date of encounter, which included: ?? Obtaining and/or reviewing separately obtained history ?? Performing a medically appropriate exam and/or evaluation ?? Counseling and educating the patient/family/caregiver ?? Ordering medications, tests, procedures ?? Documenting clinical information in the health record Assessment & Plan (08/13/2023 3:25 PM EST): - continue Keppra 1000mg BID - continue Oxcarbazepine 600mg BID - continue Gabapentin 600mg BID - obtain routine EEG to assess for level of cortical irritability now that he is off Depakote - Seizure/Fall precautions at all times - Follow up in 6 months Assessment & Plan (11/29/2022 9:35 PM EST): - continue Keppra 1000mg BID - continue Carbamazepine 600mg BID - continue Gabapentin 600mg BID - now off Depakote - obtain routine EEG to assess for level of cortical irritability now that he is off Depakote - reviewed recent blood work including November 2022 faxed labs showing normalized ammonia - will fax vitamin D level lab slip to [facility] Seizure precautions were reviewed as well as side effects of the medication(s). I spent a total of 30 minutes on the date of encounter, which included: ?? Obtaining and/or reviewing separately obtained history ?? Performing a medically appropriate exam and/or evaluation ?? Counseling and educating the patient/family/caregiver ?? Ordering medications, tests, procedures ?? Documenting clinical information in the health record Assessment & Plan (09/13/2022 12:02 PM EST): - cont Keppra 1000mg BID, Trileptal 600mg BID, Gabapentin 600mg BID, Depakote ER 750/1000 since he has only just moved to the new residence in Apr 2022 and is still acclimating - next year, will consider decreasing Keppra weaning until off - continue Vitamin d3 2000u daily, fax recent vitamin D level or get one checked nonurgently at next PCP appointment - last bone density 2017 showing osteopenia, would recommend with pcp at next schedule appointment whether a repeat bone density scan may be ordered - obtain AED levels, will fax lab slip to pcp's office, can be piggybacked on annual physical draw Seizure precautions were reviewed as well as side effects of the medication(s). The patient knows to contact me should side effects occur. I spent a total of 30 minutes on the date of encounter, which included: ?? Obtaining and/or reviewing separately obtained history ?? Performing a medically appropriate exam and/or evaluation ?? Counseling and educating the patient/family/caregiver ?? Ordering medications, tests, procedures ?? Documenting clinical information in the health record Assessment & Plan (05/18/2021 9:48 AM EDT): - cont Keppra 1000mg BID, Trileptal 600mg BID, Gabapentin 600mg BID, Depakote ER 750/1000 - continue Vitamin d3 2000u daily - obtain AED level, faxing lab order to intermediate - obtain routine EEG, last assessed in 2012 - discussed potentially consolidating AED regimen if EEG is unremarkable given seizure free since 2012. Would consider decreasing Keppra however due to thrombocytopenia work-up, will wait to make changes in case Depakote or CBZ need to be decreased - discussed adjusting seizure protocol and they will fax a new version for my review Seizure precautions were reviewed as well as side effects of the medication(s). The patient knows to contact me should side effects occur. I spent a total of 30 minutes on the date of encounter, which included: ?? Obtaining and/or reviewing separately obtained history ?? Performing a medically appropriate exam and/or evaluation ?? Counseling and educating the patient/family/caregiver ?? Ordering medications, tests, procedures ?? Documenting clinical information in the health record Assessment & Plan (05/13/2020 8:24 PM EDT): - cont Keppra 1000mg BID, Trileptal 600mg BID, Gabapentin 600mg BID, Depakote ER 750/1000 - ammonia and lipase in Apr 2019 was wnl - continue ca and vit D supplementation - seizure protocol signed Seizure precautions were reviewed as well as side effects of the medication(s). The patient knows to contact me should side effects occur. Total time of visit was 30 minutes, 20 minutes were spent in counseling and coordination of care as described above in detail. Assessment & Plan (05/06/2019 12:07 PM EDT): - cont Keppra 1000mg BID, Trileptal 600mg BID, Gabapentin 600mg BID, Depakote ER 750/1000 - recently split Zyprexa from 20mg nightly to 10mg BID in February 2019, will consider further decreasing Keppra to 750mg BID given duration of seizure freedom and uneventful decrease from 1000/1750 to 1000/1000 in 2014. - Aug 2018 blood work reviewed and will check ammonia and lipase today - continue ca and vit D supplementation - seizure protocol signed Seizure precautions were reviewed as well as side effects of the medication(s). The patient knows to contact me should side effects occur. Total time of visit was 30 minutes, 20 minutes were spent in counseling and coordination of care as described above in detail. Assessment & Plan (05/21/2018 11:58 AM EDT): - cont Keppra 1000mg BID, Trileptal 600mg BID, Gabapentin 600mg BID, Depakote 750/1000 - February 2018 blood work reviewed and sent for scanning - check vitamin D level, continue ca and vit D supplementation - seizure protocol signed Seizure precautions were reviewed as well as side effects of the medication(s). The patient knows to contact me should side effects occur. Total time of visit was 30 minutes, 20 minutes were spent in counseling and coordination of care as described above in detail. Encounters Date Type Department Care Team Description 10/21/2024 Orders Only [facility] [address] [place] [address] Sergei Webb NP Nonintractable epilepsy without status epilepticus, unspecified epilepsy type (HCC); Osteopenia of neck of left femur 10/20/2024 Telephone [facility] [address] [place] [address] Leticia Mock RN Appointment from Last 3 Months Family History Relation Name Status Comments Father Mother Alive Social History Tobacco Use Types Packs/Day Years Used Date Smoking Tobacco: Never Smokeless Tobacco: Never Tobacco Cessation:Counseling Given: Not Answered Comments:: Alcohol Use Standard Drinks/Week Comments No 0 (1 standard drink = 0.6 oz pur e alcohol) Sex and Gender Information Value Date Recorded Sex Assigned at Not on file Legal Sex Male 5:57 AM EDT Gender Identity Not on file Sexual Orientation Not on file Last Filed Vital Signs Vital Sign Reading Time Taken Comments Blood Pressure 121/82 05/11/2020 10:59 AM EDT Pulse 72 05/11/2020 10:59 AM EDT Temperature - - Respiratory Rate 20 05/11/2020 10:59 AM EDT Oxygen Saturation - - Inhaled Oxygen Concentration - - Weight 61.7 kg (136 lb) 12/05/2023 9:27 AM EDT Height 157.5 cm (5' 2 ) 05/18/2021 8:35 AM EDT Body Mass Index 24.87 05/18/2021 8:35 AM EDT Plan of Treatment Upcoming Encounters Date Type Department Care Team (Late st Contact Info) Description 12/05/2024 9:00 AM EDT Telehealth [facility] [address] [place] [address] Sergei Webb NP [address] [place] [address] Health Maintenance Due Date Last Done Comments Colonoscopy 1967 FOBT / Fit Test 1967 HIV Screening 1967 Hepatitis C Screening 1967 Sigmoidoscopy 1967 Hepatitis B Vaccines (1 of 3 - 19+ 3-dose series) 1986 DTaP,Tdap,and Td Vaccines (1 - Tdap) 1989 Zoster Vaccines (1 of 2) 2017 COVID-19 Vaccine ( - 2023-2 5 season) 2024 Influenza Vaccine (#1) 2024 Alcohol/Substance Use Screening 09/24/2024 Depression Screening and Follow-Up 09/24/2024 Social Drivers of Health Annual Screening 09/24/2024 Cologuard 11/17/2024 11/17/2021, 11/17/2021 Colon Cancer Screening 11/17/2024 RSV Vaccine (60+ years old a nd patients) (1 - 1-dose 75+ series) 2042 Pneumococcal Vaccine: Pediatric (0-5 Years) and At-Risk Patients (6-64 Years) Aged Out No longer eligible based on patient's age to complete this topic Insurance [employer] Care Teams Crozer Relationship Specialty Start Date End Date Aliza Childress [address] [place] [address] PCP - General 04/12/17
--- OUTSIDE RECORDS SUMMARY | 2024-10-21 09:27 | XMS_ITS | Encounter Summary ---
Author Organization [facility] Address [address] [place] [address] Care Team Providers Care Public Accountant Name Role Phone Aliza Childress Primary Care Provider Encounter Details Date Type Department Care Team (Late st Contact Info) Description 10/21/2024 Orders Only [facility] [address] [place] [address] Sergei Webb NP [address] [place] [address] Nonintractable epilepsy without status epilepticus, unspecified epilepsy type (HCC); Osteopenia of neck of left femur Social History Tobacco Use Types Packs/Day Years [...] Info) Description 12/05/2024 9:00 AM EDT Telehealth [facility] [address] [place] [address] Sergei Webb NP [address] [place] [address] Scheduled Orders Name Type Priority Associated Diagnoses Orde r Schedule Gabapentin Level Lab Routine Nonintractable epilepsy without status epilepticus, unspecified epilepsy type (HCC) Expected: 10/21/2024, Expires: 04/19/2025 Vitamin D, 25-Hydroxy, Total, Immunoassay Lab Routine Osteopenia of neck of left femur Expected: 10/21/2024, Expires: 04/19/2025 Oxcarbazepine (TRILEPTAL) Level Lab Routine Nonintractable epilepsy without status epilepticus, unspecified epilepsy type (HCC) Expected: 10/21/2024, Expires: 04/19/2025 levETIRAcetam (Keppra) Level Lab Routine Nonintractable epilepsy without status epilepticus, unspecified epilepsy type (HCC) Expected: 10/21/2024, Expires: 04/19/2025 CBC Auto Differential Lab Routine Nonintractable epilepsy without status epilepticus, unspecified epilepsy type (HCC) Expected: 10/21/2024, Expires: 04/19/2025 Comprehensive Metabolic Panel Lab Routine Nonintractable epilepsy without status epilepticus, unspecified epilepsy type (HCC) Expected: 10/21/2024, Expires: 04/19/2025 documented as of this encounter Visit Diagnoses Diagnosis Nonintractable epilepsy without status epilepticus, unspecified epilepsy type (HCC) Osteopenia of neck of left femur documented in this encounter Care Teams Public Accountant Relationship Specialty Start Date End Date Aliza Childress [address] [place] [address] [place] [address] PCP - General 04/12/17 documented as of this encounter
--- OUTSIDE RECORDS SUMMARY | 2024-10-21 09:27 | XMS_ITS | Referral Summary ---
Author Organization [facility] Address [address] [place] [address] Care Team Providers Care Bridge Contractor Name Role Phone Aliza Childress Primary Care Provider [phone] Encounters Date Type Department Care Team Description 10/21/2024 Orders Only [facility] [address] [place], [place] [phone] Sergei Webb NP Nonintractable epilepsy without status epilepticus, unspecified epilepsy type (HCC); Osteopenia of neck of left femur 10/20/2024 Telephone [facility] [address] [place], [place] [phone] Leticia Mock RN Appointment from Last 3 Months Allergies Active Allergy Reactions Criticality Noted Date [...] Dental Cream Quantity: 51; Refills: 0 Started 48-Lrna-2050 Active 1 Active famotidine (PEPCID) 20 mg [...] BID - will mail lab slip to senior living for surveillance blood work including checking CMP, [...] fax vitamin D level lab slip to [facility] Clinical Lab Seizure precautions were reviewed as [...] obtain AED level, faxing lab order to senior living - obtain routine EEG, last assessed in [...] Trileptal 600mg BID, Gabapentin 600mg BID, Depakote DR 750/1000 - February 2018 blood work reviewed [...] of care as described above in detail. Social History Tobacco Use Types Packs/Day Years [...] Info) Description 12/05/2024 9:00 AM EDT Telehealth [facility] [address] [place] [address] Sergei Webb NP [address] [place] [address] Insurance [facility] MEDICAID Care Teams Bridge Contractor Relationship Specialty Start Date End Date Aliza Childress [address] [place] [address] [place] [address] PCP - General 04/12/17
[2024-10-21 09:51] LABS: MANUAL DIFF FLAG NO
[2024-10-21 10:20] LABS: Basophils Absolute Auto 0.1 X10*3/uL (0.0-0.2); Basophils Percent Auto 0.9 % (0-2); Eosinophils Absolute Auto 0.1 X10*3/uL (0.0-0.4); Eosinophils Percent Auto 1.2 % (0-4); Hematocrit 42.6 % (42.0-52.0); Hemoglobin 14.6 g/dl (14.0-18.0); Imm Gran Abs Auto 0.01 X10*3/uL (0.00-0.03); Imm Gran Pct Auto 0.2 % (0.0-0.4); Lymphocytes Absolute Auto 1.2 X10*3/uL (1.2-4.9); Lymphocytes Percent Auto 21.2 % (20-40); Mean Corpuscular HGB Conc 34.3 g/dl (31.0-36.0); Mean Corpuscular Hemoglobin 31.3 pg (27.0-33.0); Mean Corpuscular Volume 91.4 fL (80.0-98.0); Mean Platelet Volume 8.6 fL (9.4-12.4); Monocytes Absolute Auto 0.5 X10*3/uL (0.1-1.2); Monocytes Percent Auto 9.5 % (2-11); Neutrophils Absolute Auto 3.8 x10*3/uL (2.0-8.3); Platelet Count 251 X10*3/uL (160-400); Red Blood Count 4.66 X10*6/uL (4.60-5.80); Red Cell Distribution Width 11.9 % (11.0-16.0); White Blood Count 5.7 X10*3/uL (4.8-10.8)
[2024-10-21 10:44] LABS: Alanine Aminotransferase 31 U/L (0-40); Albumin Level 3.9 g/dL (3.5-5.0); Alkaline Phosphatase 97 U/L (39-117); Anion Gap 7 (12-20); Aspartate Amino Transferase 26 U/L (5-37); Bilirubin Direct 0.1 mg/dL (0.0-0.5); Bilirubin Total 0.4 mg/dL (0.0-1.0); Blood Urea Nitrogen 12 mg/dL (9-16); Carbon Dioxide 30 mmol/L (22-29); Chloride 109 mmol/L (96-108); Estimated Glomerular Filt Rate > 60; Glucose Random 86 mg/dL (60-115); Potassium 4.1 mmol/L (3.3-5.1); Sodium 142 mmol/L (135-145); Total Protein 6.9 g/dL (6.5-8.0)
[2024-10-21 10:54] LABS: HBS Num1 1.06 mIU/mL (0-7.99); HBc Num1 10.92 S/CO (0.00-0.79); HBsAGNum1 0.61 S/CO (0.00-0.99); HIV AB/AG Nonreactive (Nonreactive); HIV Num 1 0.05 S/CO (0.00-0.99); Hepatitis B Surface Antigen Negative (Negative); ~HepC Num1 0.09 S/CO (0.00-0.79); ~Hepatitis B Surface Antibody NONREACTIVE (Nonreactive); ~Hepatitis C Antibody Nonreactive (Nonreactive)
[2024-10-21 11:09] LABS: Free T4 (Free Thyroxine) 0.83 ng/dL (0.71-1.85); Thyroid Stimulating Hormone 1.15 uIU/mL (0.32-4.0)
[2024-10-21 11:14] LABS: Folate > 20.0 ng/mL (> or = 4.0); Prostate Specific Antigen Scr 0.64 ng/mL (<0.05-4.0); Vitamin B12 612 pg/mL (200-900)
[2024-10-21 12:26] LABS: HBc Num2 10.58 S/CO; HBc Num3 10.49 S/CO; Hepatitis B Core Antibody Reactive (Nonreactive)
[2024-10-22 16:08] LABS: Hepatitis B Core Antibody IgM NON-REACTIVE (NON-REACTIVE)
[2024-10-22 17:04] LABS: Hepatitis B Viral DNA Qn - cp NOT DETECTED Log IU/mL (NOT DETECTED); Hepatitis B Viral DNA Qn-IU/mL NOT DETECTED (NOT DETECTED)
[2024-10-23 11:19] LABS: Alpha Fetoprotein 3.1 ng/mL (<6.1)
[2024-10-25 18:29] LABS: Hepatitis Delta Antibody NEGATIVE
[2024-10-26 14:17] LABS: Testosterone, Total 508 ng/dL (250-1100)
== END 2024-10-21 09:04 | disposition home or self-care (01) ==
LOC: HO.US 09:03
PROVIDERS: PCP Internal Medicine; Visit Provider Internal Medicine
DX: R76.8 Other specified abnormal immunological findings in serum (principal); Z86.69 Personal history of other diseases of the nervous system and sense organs; M81.0 Age-related osteoporosis without current pathological fracture; K21.9 Gastro-esophageal reflux disease without esophagitis; D50.9 Iron deficiency anemia, unspecified; K74.60 Unspecified cirrhosis of liver
CPT/HCPCS: 36415; 76700; 76981; 80053; 82105; 82248; 82607; 82746; 84153; 84403; 84439; 84443; 85025; 86692; 86704; 86705; 86706; 86803; 87340; 87389; 87517

== ENCOUNTER → 2024-10-21 09:06 | Outpatient (BNV) | payer OTHER, SELFPAY | PROVIDERS: PCP Internal Medicine; Visit Provider Radiology Diagnostic Radiology | DX: K76.0 Fatty (change of) liver, not elsewhere classified (principal) | CPT/HCPCS: 76700 ==

== ENCOUNTER 2024-11-12 10:58 | Outpatient (REF) | payer OTHER, SELFPAY ==
[2024-11-12 11:24] LABS: MANUAL DIFF FLAG NO
--- OUTSIDE RECORDS SUMMARY | 2024-11-12 11:45 | XMS_ITS | Referral Summary ---
Author Organization [facility] Address [address] [place] [address] Care Team Providers Care Geothermal Electrical Engineer Name Role Phone Aliza Childress Primary Care Provider [phone] Encounters Date Type Department Care Team Description 10/21/2024 Orders Only [facility] [address] [place], [place] [phone] Sergei Webb NP Nonintractable epilepsy without status epilepticus, unspecified epilepsy type (HCC); Osteopenia of neck of left femur 10/20/2024 Telephone [facility] [address] [place], [place] [phone] Leticia Mock RN Appointment from Last 3 [...] Dental Cream Quantity: 51; Refills: 0 Started 81-[id number]-8845 Active 1 Active famotidine (PEPCID) 20 mg [...] - will mail lab slip to senior care for surveillance blood work including checking CMP, [...] fax vitamin D level lab slip to [facility] Clinical Lab Seizure precautions were reviewed as [...] AED level, faxing lab order to senior care - obtain routine EEG, last assessed in [...] Info) Description 12/05/2024 9:00 AM EDT Telehealth [facility] [address] [place] [address] Sergei Webb NP [address] [place] [address] Insurance [facility] MEDICAID Care Teams Geothermal Electrical Engineer Relationship Specialty Start Date End Date Aliza Childress [address] [place] [address] [place] [address] PCP - General 04/12/17
--- OUTSIDE RECORDS SUMMARY | 2024-11-12 11:45 | XMS_ITS | Encounter Summary ---
Author Organization [facility] Address [address] [place] [address] Care Team Providers Care Lang Path Therapist Name Role Phone Aliza Childress Primary Care Provider [phone] Encounter Details Date Type Department Care Team (Late st Contact Info) Description 12/18/2022 Orders Only [facility] [address] [place] [address] Kendra Choi MD [address] [place] [address] Social History Tobacco Use Types Packs/Day Years [...] Info) Description 12/05/2024 9:00 AM EDT Telehealth [facility] [address] [place] [address] Sergei Webb NP [address] [place], [place] [phone] documented as of this encounter Procedures * Due to [place] Dash law, this organization might not be sharing negative HIV tests. Procedure Name Priority Date/Time Associated Diagnosis Comments LAB - SCANNED Routine 12/18/2022 documented in this encounter Results * Due to [place] state law, this organization might not be sharing negative HIV tests. * LAB - SCANNED (12/18/2022) us Kendra Choi MD LAB HISTORICAL RESULTS Final Res ult documented in this encounter Visit Diagnoses Not on filedocumented in this encounter Care Teams Lang Path Therapist Relationship Specialty Start Date End Date Aliza Childress [address] [facility] [place] [address] PCP - General 04/12/17 documented as of this encounter
--- OUTSIDE RECORDS SUMMARY | 2024-11-12 11:46 | XMS_ITS | Encounter Summary ---
Author Organization [facility] Address [address] [place] [address] Care Team Providers Care Mold Runner Name Role Phone Aliza Childress Primary Care Provider Encounter Details Date Type Department Care Team (Late st Contact Info) Description 09/06/2022 Telephone [facility] [address] [place] [address] Telephone Intake, Staff Social History Tobacco Use [...] Dr. Choi. Asking if PT needsto be contracting analyst. Nurses will be on with him. If he does, they will make arrangements for that, but wanted to be sure before keeping him out of his program that day. Please follow up with staff there [phone]. documented in this encounter Plan of Treatment Upcoming Encounters Date Type Department Care Team (Late st Contact Info) Description 12/05/2024 9:00 AM EDT Telehealth [facility] [address] [place] [address] Sergei Webb NP [address] [place] [address] documented as of this encounter Visit Diagnoses Not on filedocumented in this encounter Care Teams Mold Runner Relationship Specialty Start Date End Date Aliza Childress [address] [place] [address] [place] [address] PCP - General 04/12/17 documented as of this encounter
--- OUTSIDE RECORDS SUMMARY | 2024-11-12 11:46 | XMS_ITS | Encounter Summary ---
Author Organization [facility] Address [address] [place] [address] Care Team Providers Care Shuttle Operator Name Role Phone Aliza Childress Primary Care Provider [phone] Reason for Visit * Reason Onset Date Comments signature needed 09/15/2022 Encounter Details Date Type Department Care Team (Late st Contact Info) Description 09/15/2022 Telephone [facility] [address] [place] [address] Ann Chappell [place] signature needed Social History [...] Info) Description 12/05/2024 9:00 AM EDT Telehealth [facility] [address] [place] [address] Sergei Webb NP [address] [place] [address] documented as of this encounter Visit Diagnoses Not on filedocumented in this encounter Care Teams Shuttle Operator Relationship Specialty Start Date End Date Aliza Childress [address] [place] [address] dr Tennille [place], JARED [address] PCP - General 04/12/17 documented as of this encounter
--- OUTSIDE RECORDS SUMMARY | 2024-11-12 11:46 | XMS_ITS | Encounter Summary ---
Author Organization [facility] Address [address] [place] [address] Care Team Providers Care Supervisor Fishing Name Role Phone Aliza Childress Primary Care Provider [phone] Encounter Details Date Type Department Care Team (Late st Contact Info) Description 07/28/2021 Orders Only [facility] [address] [place] [address] Aliza Childress [address] [place] [address] [place] [address] Social History Tobacco Use Types Packs/Day Years [...] Info) Description 12/05/2024 9:00 AM EDT Telehealth [facility] [address] [place] [address] Sergei Webb NP [address] [place] [address] documented as of this encounter Procedures * Due to [place] [employer] law, this organization might not be sharing negative HIV tests. Procedure Name Priority Date/Time Associated Diagnosis Comments NEURODIAGNOSTIC - SCANNED Routine 06/24/2021 documented in this encounter Results * Due to [place] state law, this organization might not be sharing negative HIV tests. * NEURODIAGNOSTIC - SCANNED (06/24/2021) Aliza Childress SCANNED PROCEDURES Final Result documented in this encounter Visit Diagnoses Not on filedocumented in this encounter Care Teams Supervisor Fishing Relationship Specialty Start Date End Date Aliza Childress [address] [place] [address] [place] [address] PCP - General 04/12/17 documented as of this encounter
--- OUTSIDE RECORDS SUMMARY | 2024-11-12 11:46 | XMS_ITS | Clinical Summary ---
Author Organization [facility] Address [address] [place] [address] Care Team Providers Care District Sales Manager Name Role Phone Aliza Childress Primary Care Provider [phone] Allergies Active Allergy Reactions Criticality Noted Date [...] BID - will mail lab slip to care home for surveillance blood work including checking CMP, [...] fax vitamin D level lab slip to [facility] Clinical Lab Seizure precautions were reviewed [...] obtain AED level, faxing lab order to care home - obtain routine EEG, last assessed in [...] Department Care Team Description 10/21/2024 Orders Only [facility] [address] [place] [address] Sergei Webb NP Nonintractable epilepsy without status epilepticus, unspecified epilepsy type (HCC); Osteopenia of neck of left femur 10/20/2024 Telephone [facility] [address] [place] [address] Leticia Mock RN Appointment from Last 3 [...] Info) Description 12/05/2024 9:00 AM EDT Telehealth [facility] [address] [place] [address] Sergei Webb NP [address] [place] [address] Health Maintenance Due Date Last Done Comments Colonoscopy 1967 FOBT / Fit Test 1967 HIV Screening 1967 Hepatitis C Screening 1967 Sigmoidoscopy 1967 Hepatitis B Vaccines (1 of 3 - 19+ 3-dose series) 1986 DTaP,Tdap,and Td Vaccines (1 - Tdap) 1989 Pneumococcal Vaccine: 50+ Years (1 of 1 - PCV) 2017 Zoster Vaccines (1 of 2) 2017 COVID-19 Vaccine (1 - 2023-2 5 season) 2024 Influenza Vaccine (#1) 2024 Alcohol/Substance Use Screening 09/24/2024 Depression Screening and Follow-Up 09/24/2024 Social Drivers of Health Annual Screening 09/24/2024 Cologuard 11/17/2024 11/17/2021, 11/17/2021 Colon Cancer Screening 11/17/2024 RSV Vaccine (60+ years old a nd patients) (1 - 1-dose 75+ series) 2042 Pneumococcal Vaccine: Pediatric (0-5 Years) and At-Risk Patients (6-50 Years) Aged Out No longer eligible based on patient's age to complete this topic Insurance MEDICAID Care Teams District Sales Manager Relationship Specialty Start Date End Date Aliza Childress [address] [place] [address] dr Tennille Null, JARED [address] PCP - General 04/12/17
--- OUTSIDE RECORDS SUMMARY | 2024-11-12 11:46 | XMS_ITS | Encounter Summary ---
Author Organization [facility] Address [address] [place] [address] Care Team Providers Care Rn Provider Relations Name Role Phone Aliza Childress Primary Care Provider [phone] Encounter Details Date Type Department Care Team (Late st Contact Info) Description 09/15/2022 Orders Only [facility] [address] [place] [address] Provider, MD Favio [address] [place] [address] Social History Tobacco Use Types Packs/Day [...] Info) Description 12/05/2024 9:00 AM EDT Telehealth [facility] [address] [place] [address] Sergei Webb NP [address] [place] [address] documented as of this encounter Procedures * Due to [place] state law, this organization might not be sharing negative HIV tests. Procedure Name Priority Date/Time Associated Diagnosis Comments EXTERNAL NUCLEAR MEDICINE - SCANNED Routine 11/23/2021 documented in this encounter Results * Due to [place] state law, this organization might not be sharing negative HIV tests. * Nuclear Medicine - Scanned (11/23/2021) Anatomical Region Laterality Modality Other us Unknown Provider MD THORNE EXTERNAL RESULT PROCEDUR ES Final Result documented in this encounter Visit Diagnoses Not on filedocumented in this encounter Care Teams Rn Provider Relations Relationship Specialty Start Date End Date Aliza Childress [address] [place] [address] [place] [address] PCP - General 04/12/17 documented as of this encounter
--- OUTSIDE RECORDS SUMMARY | 2024-11-12 11:46 | XMS_ITS | Encounter Summary ---
Author Organization [facility] Address [address] [place] [address] Care Team Providers Care Tourist Cabin Keeper Name Role Phone Aliza Childress Primary Care Provider [phone] Encounter Details Date Type Department Care Team (Late st Contact Info) Description 06/03/2021 Orders Only [facility] [address] [place] [address] Provider, MD Favio [address] [place] [address] Social History Tobacco Use Types Packs/Day [...] Description 12/05/2024 9:00 AM EDT Telehealth [facility] [address] [place] [address] Sergei Webb NP [address] [place] [address] documented as of this encounter Procedures * Due to [place] state law, this organization might not be sharing negative HIV tests. Procedure Name Priority Date/Time Associated Diagnosis Comments LAB - SCANNED Routine 04/24/2021 documented in this encounter Results * Due to [place] state law, this organization might not be sharing negative HIV tests. * LAB - SCANNED (04/24/2021) us Unknown Provider MD LAB HISTORICAL RESULTS Final Result documented in this encounter Visit Diagnoses Not on filedocumented in this encounter Care Teams Tourist Cabin Keeper Relationship Specialty Start Date End Date Aliza Childress [address] [place] [address] [place] [address] PCP - General 04/12/17 documented as of this encounter
--- OUTSIDE RECORDS SUMMARY | 2024-11-12 11:46 | XMS_ITS | Encounter Summary ---
Author Organization [facility] Address [address] [place] [address] Care Team Providers Care Fish Icer Name Role Phone Aliza Childress Primary Care Provider [phone] Encounter Details Date Type Department Care Team (Late st Contact Info) Description 11/27/2022 Orders Only [facility] [address] [place] [address] Kendra Choi MD [address] [place] [address] Social History Tobacco Use Types Packs/Day Years [...] Info) Description 12/05/2024 9:00 AM EDT Telehealth [facility] [address] [place] [address] Sergei Webb NP [address] [place], [place] [phone] documented as of this encounter Procedures * Due to [place] state law, this organization might not be sharing negative HIV tests. Procedure Name Priority Date/Time Associated Diagnosis Comments AST, OUTSIDE LAB Routine 11/27/2022 LAB - SCANNED Routine 10/25/2022 documented in this encounter Results * Due to [place] state law, this organization might not be sharing negative HIV tests. * AST, Outside Lab (11/27/2022) Blood us Kendra Choi MD LAB BLOOD ORDERABLES Final Resul t * LAB - SCANNED (10/25/2022) us Unknown Provider LAB HISTORICAL RESULTS Final Result documented in this encounter Visit Diagnoses Not on filedocumented in this encounter Care Teams Fish Icer Relationship Specialty Start Date End Date Aliza Childress [address] [place] [address] [place] [address] PCP - General 04/12/17 documented as of this encounter
--- OUTSIDE RECORDS SUMMARY | 2024-11-12 11:46 | XMS_ITS | Encounter Summary ---
Author Organization [facility] Address [address] [place] [address] Care Team Providers Care Student Counselor Name Role Phone Aliza Childress Primary Care Provider [phone] Encounter Details Date Type Department Care Team (Late st Contact Info) Description 10/21/2024 Orders Only [facility] [address] [place] [address] Sergei Webb NP [address] [place] [address] Nonintractable epilepsy without status epilepticus, unspecified epilepsy [...] Info) Description 12/05/2024 9:00 AM EDT Telehealth [facility] [address] [place] [address] Sergei Webb NP [address] [place] [address] Scheduled Orders Name Type Priority Associated Diagnoses [...] femur documented in this encounter Care Teams Student Counselor Relationship Specialty Start Date End Date Aliza Childress [address] [place] [address] [place] [address] PCP - General 04/12/17 documented as of this encounter
--- OUTSIDE RECORDS SUMMARY | 2024-11-12 11:46 | XMS_ITS | Encounter Summary ---
Author Organization [facility] Address [address] [place] [address] Care Team Providers Care Hydrogen Power Plant Manager Name Role Phone Aliza Childress Primary Care Provider [phone] Reason for Visit * Reason Onset Date Comments Appointment 10/20/2024 Encounter Details Date Type Department Care Team (Late st Contact Info) Description 10/20/2024 Telephone [facility] [address] [place] [address] Leticia Mock RN Appointment Social History Tobacco [...] - 10/20/2024 3:28 PM EST Bettina from [facility] calling to confirm next follow up appt, 12/05 at 9 am. She asked if this couldbe telehealth but the next be in person but later in the day. Appt switched. The labs to be done for next appt appear to be . Will request new set of labs to be mailed to [facility]. CMP,CBC, vit D, OXC level, LEV level, and Gabapentin level, confirmed to be be done trough. Will message message provider. documented in this encounter Plan of Treatment Upcoming Encounters Date Type Department Care Team (Late st Contact Info) Description 12/05/2024 9:00 AM EDT Telehealth [facility] [address] [place] [address] Sergei Webb NP [address] [place], [place] [phone] documented as of this encounter Visit Diagnoses Not on filedocumented in this encounter Care Teams Hydrogen Power Plant Manager Relationship Specialty Start Date End Date Aliza Childress [address] [place] [address] [place] [address] PCP - General 04/12/17 documented as of this encounter
[2024-11-12 12:08] LABS: Basophils Percent Auto 0.7 % (0-2); Eosinophils Absolute Auto 0.2 X10*3/uL (0.0-0.4); Eosinophils Percent Auto 2.7 % (0-4); Hematocrit 45.9 % (42.0-52.0); Hemoglobin 15.7 g/dl (14.0-18.0); Imm Gran Abs Auto 0.01 X10*3/uL (0.00-0.03); Imm Gran Pct Auto 0.2 % (0.0-0.4); Lymphocytes Absolute Auto 1.4 X10*3/uL (1.2-4.9); Mean Corpuscular HGB Conc 34.2 g/dl (31.0-36.0); Mean Corpuscular Hemoglobin 31.5 pg (27.0-33.0); Mean Platelet Volume 9.2 fL (9.4-12.4); Monocytes Absolute Auto 0.7 X10*3/uL (0.1-1.2); Monocytes Percent Auto 12.1 % (2-11); Neutrophils Absolute Auto 3.4 x10*3/uL (2.0-8.3); Neutrophils Percent Auto 60.3 % (45-73); Platelet Count 196 X10*3/uL (160-400); Red Blood Count 4.99 X10*6/uL (4.60-5.80); Red Cell Distribution Width 12.6 % (11.0-16.0); White Blood Count 5.6 X10*3/uL (4.8-10.8)
[2024-11-12 12:51] LABS: Alanine Aminotransferase 35 U/L (0-40); Albumin Level 4.1 g/dL (3.5-5.0); Alkaline Phosphatase 107 U/L (39-117); Anion Gap 10 (12-20); Aspartate Amino Transferase 30 U/L (5-37); Bilirubin Total 0.5 mg/dL (0.0-1.0); Blood Urea Nitrogen 15 mg/dL (9-16); Calcium 9.4 mg/dL (8.4-10.2); Carbon Dioxide 24 mmol/L (22-29); Chloride 112 mmol/L (96-108); Estimated Glomerular Filt Rate > 60; Glucose Random 77 mg/dL (60-115); Sodium 142 mmol/L (135-145); Total Protein 7.3 g/dL (6.5-8.0)
[2024-11-12 12:57] LABS: Vitamin D 25-OH Total 69.9 ng/mL (>30)
== END 2024-11-12 10:59 | disposition home or self-care (01) ==
LOC: HO.LAB 10:58
PROVIDERS: PCP Internal Medicine; Visit Provider Nurse Practitioner
DX: G40.909 Epilepsy, unspecified, not intractable, without status epilepticus (principal)
CPT/HCPCS: 36415; 80053; 80171; 80177; 80339; 82306; 85025

== ENCOUNTER 2025-01-01 13:54 | Outpatient (REF) | payer OTHER, SELFPAY ==
--- NOTE | ~2025-01-01 | XR_ITS ---
EXAMINATION: XR HAND 3 OR MORE VIEWS RIGHT HISTORY: S60.221A - Contusion of right hand, initial encounter COMPARISON: There are no prior studies available for comparison. FINDINGS: Three views of the right hand are submitted. The examination is somewhat limited by difficulty in patient positioning. Osseous mineralization is normal. There is no fracture or dislocation. The joint spaces are preserved. The soft tissues are unremarkable. XR/XR hand RT min 3V IMPRESSION: No evidence of fracture of the right hand. Electronically signed by: Lyndon Metz MD 01/01/2025 03:18 PM EDT
--- OUTSIDE RECORDS SUMMARY | 2025-01-01 17:31 | XMS_ITS | Encounter Summary ---
Author Organization [facility] Address [address] [place] [address] Care Team Providers Care Stockkeeper Name Role Phone Aliza Childress Primary Care Provider [phone] Reason for Visit * Reason Onset Date Comments signature needed 09/15/2022 Encounter Details Date Type Department Care Team (Late st Contact Info) Description 09/15/2022 Telephone [facility] [address] [place] [address] Ann Chappell [place] signature needed Social History [...] Description 12/08/2025 11:00 AM EDT Office Visit [facility] [address] [place] [address] Kendra Choi MD [address] [place] [address] documented as of this encounter Visit Diagnoses Not on filedocumented in this encounter Care Teams Stockkeeper Relationship Specialty Start Date End Date Aliza Childress [address] [facility] [place] [address] PCP - General 04/12/17 documented as of this encounter
--- OUTSIDE RECORDS SUMMARY | 2025-01-01 17:31 | XMS_ITS | Encounter Summary ---
Author Organization [facility] Address [address] [place] [address] Care Team Providers Care Operations Agent Name Role Phone Aliza Childress Primary Care Provider [phone] Encounter Details Date Type Department Care Team (Late st Contact Info) Description 07/28/2021 Orders Only [facility] [address] [place] [address] Aliza Childress [address] [place] [address] [place] [address] Social History Tobacco Use Types Packs/Day Years [...] Description 12/08/2025 11:00 AM EDT Office Visit [facility] [address] [place], [place] [phone] Kendra Choi MD [address] [place], [place] [phone] documented as of this encounter Procedures * [...] on filedocumented in this encounter Care Teams Operations Agent Relationship Specialty Start Date End Date Aliza Childress [address] [place] [address] dr Tennille Null, JARED [address] PCP - General 04/12/17 documented as of this encounter
--- OUTSIDE RECORDS SUMMARY | 2025-01-01 17:31 | XMS_ITS | Encounter Summary ---
Author Organization [facility] Address [address] [place] [address] Care Team Providers Care Gamma Facilities Operator Name Role Phone Aliza Childress Primary Care Provider [phone] Encounter Details Date Type Department Care Team (Late st Contact Info) Description 12/18/2022 Orders Only [facility] [address] [place] [address] Kendra Choi MD [address] [place] [address] Social History Tobacco Use Types Packs/Day Years [...] Description 12/08/2025 11:00 AM EDT Office Visit [facility] [address] [place] [address] Kendra Choi MD [address] [place] [address] documented as of this encounter Procedures * Due to [place] state law, this organization might not be sharing negative HIV tests. Procedure Name Priority Date/Time Associated Diagnosis Comments LAB - SCANNED Routine 12/18/2022 documented in this encounter Results * Due to [place] state law, this organization might not be sharing negative HIV tests. * LAB - SCANNED (12/18/2022) us Kendra Choi MD LAB HISTORICAL RESULTS Final Res ult documented in this encounter Visit Diagnoses Not on filedocumented in this encounter Care Teams Gamma Facilities Operator Relationship Specialty Start Date End Date Aliza Childress [address] [place] [address] dr Tennille Null, JARED [address] PCP - General 04/12/17 documented as of this encounter
--- OUTSIDE RECORDS SUMMARY | 2025-01-01 17:31 | XMS_ITS | Encounter Summary ---
Author Organization [facility] Address [address] [place] [address] Care Team Providers Care Aquatic Director Name Role Phone Aliza Childress Primary Care Provider [phone] Encounter Details Date Type Department Care Team (Late st Contact Info) Description 11/27/2022 Orders Only [facility] [address] [place] [address] Kendra Choi MD [address] [place] [address] Social History Tobacco Use Types Packs/Day Years [...] Description 12/08/2025 11:00 AM EDT Office Visit [facility] [address] [place] [address] Kendra Choi MD [address] [place] [address] documented as of this encounter Procedures * Due to [place] state law, this organization might not be sharing negative HIV tests. Procedure Name Priority Date/Time Associated Diagnosis Comments AST, OUTSIDE LAB Routine 11/27/2022 LAB - SCANNED Routine 10/25/2022 documented in this encounter Results * Due to [place] state law, this organization might not be sharing negative HIV tests. * AST, Outside Lab (11/27/2022) Blood us Kendra Choi MD LAB BLOOD ORDERABLES Final Resul t * LAB - SCANNED (10/25/2022) us Unknown Provider LAB HISTORICAL RESULTS Final Result documented in this encounter Visit Diagnoses Not on filedocumented in this encounter Care Teams Aquatic Director Relationship Specialty Start Date End Date Aliza Childress [address] [place] [address] [place] [address] PCP - General 04/12/17 documented as of this encounter
--- OUTSIDE RECORDS SUMMARY | 2025-01-01 17:31 | XMS_ITS | Encounter Summary ---
Author Organization [facility] Address [address] [place] [address] Care Team Providers Care Last Ironer Name Role Phone Aliza Childress Primary Care Provider Encounter Details Date Type Department Care Team (Late Contact Info) Description 09/06/2022 Telephone [facility] [address] [place] [address] Telephone Intake, Staff Social History Tobacco Use [...] - 09/06/2022 12:16 PM EST Sabrina from [facility] calling about PT's appt on 09/13 - telehealth with Dr. Choi. 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 Nurses will be on with him. If he does, they will make arrangements for that, but wanted to be sure before keeping him out of his program that day. Please follow up with staff there [phone]. documented in this encounter Plan of Treatment Upcoming Encounters Date Type Department Care Team (Late Contact Info) Description 12/08/2025 11:00 AM EDT Office Visit [facility] [address] [place], [place] [phone] Kendra Choi MD [address] [place], [place] [phone] documented as of this encounter Visit Diagnoses Not on filedocumented in this encounter Care Teams Last Ironer Relationship Specialty Start Date End Date Aliza Childress [address] [place] [address] [place] [address] PCP - General 04/12/17 documented as of this encounter
--- OUTSIDE RECORDS SUMMARY | 2025-01-01 17:31 | XMS_ITS | Encounter Summary ---
Author Organization [facility] Address [address] [place] [address] Care Team Providers Care Narcotics Detective Name Role Phone Aliza Childress Primary Care Provider [phone] Reason for Visit * Reason Comments Med Refill Encounter Details Date Type Department Care Team (Late st Contact Info) Description 01/01/2025 Refill [facility] [address] [place] [address] Sergei Webb NP [address] [place] [address] Symptomatic tonic clonic epilepsy (HCC) Social History [...] Description 12/08/2025 11:00 AM EDT Office Visit [facility] [address] [place] [address] Kendra Choi MD [address] [place] [address] documented as of this encounter Visit Diagnoses Diagnosis 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
--- OUTSIDE RECORDS SUMMARY | 2025-01-01 17:31 | XMS_ITS | Clinical Summary ---
Author Organization [facility] Address [address] [place] [address] Care Team Providers Care Customer Account Technician Name Role Phone Aliza Childress Primary Care Provider [phone] Allergies Active Allergy Reactions Criticality Noted Date [...] BID - will mail lab slip to correction for surveillance blood work including checking CMP, [...] fax vitamin D level lab slip to [facility] Clinical Lab Seizure precautions were reviewed [...] obtain AED level, faxing lab order to correction - obtain routine EEG, last assessed in [...] Type Department Care Team Description 01/01/2025 Refill [facility] [address] [place] [address] Sergei Webb NP Symptomatic tonic clonic epilepsy (HCC) 12/24/2024 Refill [facility] [address] [place] [address] Sergei Webb NP Symptomatic tonic clonic epilepsy (HCC) 12/16/2024 Telephone [facility] [address] [place] [address] Leticia Mock, RN CHC Paperwork 12/08/2024 Orders Only [facility] [address] [place] [address] Provider, MD Favio 12/05/2024 9:00 AM EDT Telehealth [facility] [address] [place] [address] Sergei eWbb NP Nonintractable epilepsy without status epilepticus, unspecified epilepsy type (Primary Dx) 11/13/2024 Orders Only [facility] [address] [place] [address] Provider, MD Favio 10/21/2024 Orders Only [facility] [address] [place] [address] Sergei Webb NP Nonintractable epilepsy without status epilepticus, unspecified epilepsy type; Osteopenia of neck of left femur 10/20/2024 Telephone [facility] [address] [place] [address] Leticia Mock, MEIR Appointment from Last 3 [...] Description 12/08/2025 11:00 AM EDT Office Visit [facility] [address] [place], [place] [phone] Kendra Whyte MD [address] [place] [address] Health Maintenance Due Date Last Done Comments [...] Vaccine Completed 06/30/2024 Procedures * Due to [place] [employer] law, this organization might not be sharing negative HIV tests. Procedure Name Priority Date/Time Associated Diagnosis Comments LAB - SCANNED Routine 11/12/2024 4:17 PM EST LAB - SCANNED Routine 11/12/2024 1:13 PM EST from Last 3 Months Results * Due to [place] [employer] law, this organization might not be sharing negative HIV tests. * LAB - SCANNED (11/12/2024 4:17 PM EST) Only the most recent of2 resultswithin the time period is included. us Unknown Provider LAB HISTORICAL RESULTS Final Result from Last 3 Months Insurance [facility] MEDICAID Care Teams Customer Account Technician Relationship Specialty Start Date End Date Aliza Childress [address] [place] [address] [place] [address] PCP - General 04/12/17
--- OUTSIDE RECORDS SUMMARY | 2025-01-01 17:31 | XMS_ITS | Encounter Summary ---
Author Organization [facility] Address [address] [place] [address] Care Team Providers Care Drapery Cutter Name Role Phone Aliza Childress Primary Care Provider [phone] Encounter Details Date Type Department Care Team (Late st Contact Info) Description 09/15/2022 Orders Only [facility] [address] [place] [address] ProviderFavio MD [address] [place] [address] Social History Tobacco Use Types Packs/Day [...] Description 12/08/2025 11:00 AM EDT Office Visit [facility] [address] [place] [address] Kendra Choi MD [address] [place] [address] documented as of this encounter Procedures * [...] on filedocumented in this encounter Care Teams Drapery Cutter Relationship Specialty Start Date End Date Aliza Childress [address] [place] [address] [place] [address] PCP - General 04/12/17 documented as of this encounter
--- OUTSIDE RECORDS SUMMARY | 2025-01-01 17:31 | XMS_ITS | Encounter Summary ---
Author Organization [facility] Address [address] [place] [address] Care Team Providers Care Integrity Analyst Name Role Phone Aliza Childress Primary Care Provider [phone] Encounter Details Date Type Department Care Team (Late st Contact Info) Description 06/03/2021 Orders Only [facility] [address] [place] [address] ProviderFavio MD [address] [place] [address] Social History Tobacco Use Types Packs/Day [...] Description 12/08/2025 11:00 AM EDT Office Visit [facility] [address] [place] [address] Kendra Choi MD [address] [place] [address] documented as of this encounter Procedures * Due to [place] state law, this organization might not be sharing negative HIV tests. Procedure Name Priority Date/Time Associated Diagnosis Comments LAB - SCANNED Routine 04/24/2021 documented in this encounter Results * Due to [place] state law, this organization might not be sharing negative HIV tests. * LAB - SCANNED (04/24/2021) us Unknown Provider MD LAB HISTORICAL RESULTS Final Result documented in this encounter Visit Diagnoses Not on filedocumented in this encounter Care Teams Integrity Analyst Relationship Specialty Start Date End Date Aliza Childress [address] [place] [address] [place] [address] PCP - General 04/12/17 documented as of this encounter
--- OUTSIDE RECORDS SUMMARY | 2025-01-01 17:31 | XMS_ITS | Referral Summary ---
Author Organization [facility] Address [address] [place] [address] Care Team Providers Care Diamond Wheel Edger Name Role Phone Aliza Childress Primary Care Provider Encounters Date Type Department Care Team Description 01/01/2025 Refill [facility] [address] [place] [address] Sergei Webb NP Symptomatic tonic clonic epilepsy (HCC) 12/24/2024 Refill [facility] [address] [place] [address] Sergei Webb NP Symptomatic tonic clonic epilepsy (HCC) 12/16/2024 Telephone [facility] [address] [place] [address] Leticia Mock RN CHC Paperwork 12/08/2024 Orders Only [facility] [address] [place] [address] Provider, MD Favio 12/05/2024 9:00 AM EDT Telehealth [facility] [address] [place] [address] Sergei Webb NP Nonintractable epilepsy without status epilepticus, unspecified epilepsy type (Primary Dx) 11/13/2024 Orders Only [facility] [address] [place] [address] ProviderFavio MD 10/21/2024 Orders Only [facility] [address] [place] [address] Sergei Webb NP Nonintractable epilepsy without status epilepticus, unspecified epilepsy type; Osteopenia of neck of left femur 10/20/2024 Telephone [facility] [address] [place] [address] Leticia Mock RN Appointment from Last 3 [...] vitamin D level lab slip to [facility] Clinical Lab Seizure precautions were reviewed [...] Description 12/08/2025 11:00 AM EDT Office Visit [facility] [address] [place] [address] Joan Whyte MD [address] [place] [address] Procedures * Due to [place] [employer] law, this organization might not be sharing negative HIV tests. Procedure Name Priority Date/Time Associated Diagnosis Comments LAB - SCANNED Routine 11/12/2024 4:17 PM EST LAB - SCANNED Routine 11/12/2024 1:13 PM EST from Last 3 Months Results * Due to [facility] law, this organization might not be sharing negative HIV tests. * LAB - SCANNED (11/12/2024 4:17 PM EST) Only the most recent of2 resultswithin the time period is included. us Unknown Provider LAB HISTORICAL RESULTS Final Result from Last 3 Months Insurance MEDICAID Care Teams Diamond Wheel Edger Relationship Specialty Start Date End Date Aliza Childress [address] [place] [address] [place] [address] PCP - General 04/12/17
== END 2025-01-01 13:55 | disposition home or self-care (01) ==
LOC: HO.HMGCX 13:54
PROVIDERS: PCP Internal Medicine; Visit Provider Nurse Practitioner Family
DX: S60.221A Contusion of right hand, initial encounter (principal)
CPT/HCPCS: 73130; 99212

== ENCOUNTER 2025-01-01 13:54 | Outpatient (AMB) | payer OTHER, SELFPAY ==
--- NOTE | 2025-01-01 14:31 | AM.OFFWIN_ITS ---
Intake Vital Signs 3 01/01/25 14:34 Height 5 ft 2 in Weight 142 lb 8 oz BMI 26.1 BP 122/80 Blood Pressure Location Lt brachial Position Sitting Pulse 54 Pulse Source Pulse Oximeter Pulse Oximetry (%) 98 Oxygen Delivery Method Room Air Intake Visit Reasons: EP injured RT hand Intake Note: Patient here for right hand bruising/injury that happened yesterday after he punched the car window over and over since he does get agitated easily. Patient Tobacco Use Status: Never used Tobacco Allergies topiramate [From TOPAMAX] Allergy (Intermediate, Verified 01/01/25 14:32) UNKNOWN depakote Adverse Reaction (Intermediate, Uncoded 01/01/25 14:32) increase ammonia level Do you need a note to return to daycare/school/sports/work: No HPI HPI Comments 2 History of Present Illness0 Details 59 y/o male patient who presents to the walk in clinic with c/o Right hand Injury that happened yesterday after he punched Car window over and over due to agitation. [facility] Medical History (Updated 01/01/25 @ 14:55 by Kaye Guillaume NP) Contusion of right hand Nasal congestion Osteopenia Colon cancer screening Osteopenia Ribs, multiple fractures Cholelithiasis Renal calculus, bilateral Leukopenia GERD (gastroesophageal reflux disease) Vitamin D deficiency Cerebral palsy H/O nephrolithotomy with removal of calculi Hx of seizure disorder Thrombocytopenia Cognitive developmental delay Hepatitis B virus infection Chronic idiopathic constipation Surgical History History of cystoscopy History of extraction of renal calculus S/P cataract surgery History of gastric surgery Family History Father No problems noted. Mother No problems noted. Family/Other Family history unknown Social History Household Members: Other Household Members Other:: correction residents/staff Housing: Other Housing Other:: [facility] correction Are you a primary healthcare architect to a significant other at home: No Do you presently have visiting nurse or other home services: Yes Unable to assess alcohol history related to: Unable to respond Alcohol intake: never Comment: 1:1 sitter Patient Tobacco Use Status: Never used Tobacco e-Cigarette/Vaping Use: Never Used Second Hand Smoke Exposure: No service: No Current occupational status: disabled Cognitive needs: Yes (wheelchair) Hearing needs: Yes Vision needs: Yes Review of Systems Const All systems reviewed & are unremarkable except as noted in HPI and below Physical Exam Vital Signs: Last Vital Signs Pulse 54 01/01/25 14:34 BP 122/80 01/01/25 14:34 Pulse Ox 98 01/01/25 14:34 Oxygen Delivery Method Room Air 01/01/25 14:34 BMI result Body Mass Index 26.1 Const General: no acute distress Nutritional Appearance: well nourished Neuro General: gait normal and moves all extremities Motor exam (neuro): 5/5 motor strength present throughout Extrem Left upper extremity: hand Details: normal capillary refill, neurosensory exam normal, tenderness Location: of the dorsal hand, of the 4th digit and of the 5th digit, warmth, swelling and ecchymosis Location: of the dorsal hand Location: distally, over the ulnar aspect, over the 4th metacarpal and over the 5th metacarpal; no crepitus Hand/finger images: 2 1. Medium Size Hematoma Left Dorsal Hand. Assessment & Plan Assessment & Plan (1) Contusion of right hand: Code(s): S60.221A - Contusion of right hand, initial encounter Qualifiers: Encounter type: initial encounter Qualified Code(s): S60.221A - Contusion of right hand, initial encounter Plan: Ordered Xray Left Hand. Wrapped Hand with Arjun Bandage. Ice/Heat Rest hand and elevate. NSAIDs for pain relief. Coding Level of Care Code Est Pt Level 4 (72514) Diagnoses Contusion of right hand, initial encounter S60.221A Encounter type: initial encounter Time Spent (min) 20
[2025-01-01 14:34] VITALS: BP 122/80; PULSE 54; O2SAT 98; BMI 26.1
--- OUTSIDE RECORDS SUMMARY | 2025-01-01 16:47 | XMS_ITS | Encounter Summary ---
Author Organization [facility] Address [address] [place] [address] Care Team Providers Care Coo & Co Founder Name Role Phone Aliza Childress Primary Care Provider [phone] Encounter Details Date Type Department Care Team (Late st Contact Info) Description 07/28/2021 Orders Only [facility] [address] [place] [address] Aliza Childress [address] [place] [address] [place] [address] Social History Tobacco Use Types Packs/Day Years Used Date Smoking Tobacco: Never Smokeless Tobacco: Never Comments:: Alcohol Use Standard Drinks/Week Comments No 0 (1 standard drink = 0.6 oz pur e alcohol) Sex and Gender Information Value Date Recorded Sex Assigned at Male 12/04/2024 2:15 PM EDT Legal Sex Male 5:57 AM EDT Gender Identity Male 12/05/2024 9:02 AM EDT Sexual Orientation Don't know 12/05/2024 9: 02 AM EDT documented as of this encounter Plan of Treatment Upcoming Encounters Date Type Department Care Team (Late st Contact Info) Description 12/08/2025 11:00 AM EDT Office Visit [facility] [address] [place], [place] [phone] Kendra Choi MD [address] [place], [place] [phone] documented as of this encounter Procedures * Due to [place] state law, this organization might not be sharing negative HIV tests. Procedure Name Priority Date/Time Associated Diagnosis Comments NEURODIAGNOSTIC - SCANNED Routine 06/24/2021 documented in this encounter Results * Due to [place] state law, this organization might not be sharing negative HIV tests. * NEURODIAGNOSTIC - SCANNED (06/24/2021) Aliza Childress SCANNED PROCEDURES Final Result documented in this encounter Visit Diagnoses Not on filedocumented in this encounter Care Teams Coo & Co Founder Relationship Specialty Start Date End Date Aliza Childress [address] [place] [address] dr [place]ille [place], [place] [address] PCP - General 04/12/17 documented as of this encounter
--- OUTSIDE RECORDS SUMMARY | 2025-01-01 16:47 | XMS_ITS | Encounter Summary ---
Author Organization [facility] Address [address] [place] [address] Care Team Providers Care Food Technician Name Role Phone Aliza Childress Primary Care Provider [phone] Reason for Visit * Reason Comments Med Refill Encounter Details Date Type Department Care Team (Late st Contact Info) Description 01/01/2025 Refill [facility] [address] [place] [address] Sergei Webb NP [address] [place] [address] Symptomatic tonic clonic epilepsy (HCC) Social History Tobacco Use Types Packs/Day Years [...] Description 12/08/2025 11:00 AM EDT Office Visit [facility] [address] [place] [address] Kendra Choi MD [address] [place] [address] documented as of this encounter Visit Diagnoses Diagnosis 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
--- OUTSIDE RECORDS SUMMARY | 2025-01-01 16:47 | XMS_ITS | Encounter Summary ---
Author Organization [facility] Address [address] [place] [address] Care Team Providers Care Appraisal Analyst Name Role Phone Aliza Childress Primary Care Provider [phone] Reason for Visit * Reason Onset Date Comments signature needed 09/15/2022 Encounter Details Date Type Department Care Team (Late st Contact Info) Description 09/15/2022 Telephone [facility] [address] [place] [address] Ann Chappell MA signature needed Social History [...] AM EDT documented as of this encounter Miscellaneous Notes * Telephone Encounter - Ann Chappell MA - 09/15/2022 1:56 PM EST Rec'd Seizure protocol needing signature, placed in providers folder for signature. documented in this encounter Plan of Treatment Upcoming Encounters Date Type Department Care Team (Late st Contact Info) Description 12/08/2025 11:00 AM EDT Office Visit [facility] [address] [place] [address] Kendra Choi MD [address] [place] [address] documented as of this encounter Visit Diagnoses Not on filedocumented in this encounter Care Teams Appraisal Analyst Relationship Specialty Start Date End Date Aliza Childress [address] [facility] [place] [address] PCP - General 04/12/17 documented as of this encounter
--- OUTSIDE RECORDS SUMMARY | 2025-01-01 16:47 | XMS_ITS | Referral Summary ---
Author Organization [facility] Address [address] [place] [address] Care Team Providers Care Reducing Machine Operator Name Role Phone Aliza Childress Primary Care Provider [phone] Encounters Date Type Department Care Team Description 01/01/2025 Refill [facility] [address] [place] [address] Sergei Webb NP Symptomatic tonic clonic epilepsy (HCC) 12/24/2024 Refill [facility] [address] [place] [address] Sergei Webb NP Symptomatic tonic clonic epilepsy (HCC) 12/16/2024 Telephone [facility] [address] [place] [address] Leticia Mock RN CHC Paperwork 12/08/2024 Orders Only [facility] [address] [place] [address] Provider, MD Favio 12/05/2024 9:00 AM EDT Telehealth [facility] [address] [place] [address] Sergei Webb NP Nonintractable epilepsy without status epilepticus, unspecified epilepsy type (Primary Dx) 11/13/2024 Orders Only [facility] [address] [place] [address] ProviderFavio MD 10/21/2024 Orders Only [facility] [address] [place] [address] Sergei Webb NP Nonintractable epilepsy without status epilepticus, unspecified epilepsy type; Osteopenia of neck of left femur 10/20/2024 Telephone [facility] [address] [place] [address] Leticia Mock RN Appointment from Last 3 [...] 12 PM and at 8 PM 3 04/26/20 18 Active multivitamin with minerals tablet Daily Multiple Vitamins Oral Tablet TAKE 1 TABLET DAILY. Quantity: 30; Refills: 5 JOAN WHYTE MD; Active Active fluoride, sodium, (DENTA 5000 PLUS) 1.1 % cream Denta 5000 Plus 1.1 % Dental Cream Quantity: 51; Refills: 0 Started Active 03/11/20 11 Active famotidine (PEPCID) 20 mg tablet 11 04/19/20 18 Active magnesium hydroxide (magnesium hydroxide) 400 mg/5 mL suspension Milk of Magnesia SUSP 30ML PRN, Quantity: 0; Refills: 0 Started 12-Feb-2008 Active 02/12/20 08 Active TRIPLE ANTIBIOTIC ointment 11 05/17/20 18 Active OLANZapine (ZyPREXA) 20 mg tablet 3 05/14/20 18 Active acetaminophen (TYLENOL) 325 mg tablet Tylenol TABS 650MG PRN, Quantity: 0; Refills: 0 Started 12-Feb-2008 Active 02/12/20 08 Active guaiFENesin (ROBITUSSIN MUCUS-CHEST CONGEST) 100 mg/5 mL syrup Robitussin Chest Congestion SYRP 1TSP PRN, Quantity: 0; Refills: 0 Started 12-Feb-2008 Active 02/12/20 08 Active THERA 400 mcg tablet 11 05/03/20 18 Active famotidine (PEPCID) 20 mg tablet 08/08/20 19 Active cholecalciferol (VITAMIN D3) 2,000 unit tablet Take 1 tablet by mouth once a day. Active finasteride (PROSCAR) 5 mg tablet 11/22/19 24 Active fluticasone propionate (FLONASE) 50 mcg/actuation nasal spray 10/02/19 24 Active loratadine (CLARITIN) 10 mg tablet 11/22/19 24 Active ascorbic acid 500 mg tablet 11/05/19 24 Active omeprazole (PriLOSEC) 20 mg capsule 11/22/19 24 Active Reguloid, psyllium husk-sucro, 3 gram/7 gram powder 10/02/19 24 Active tamsulosin (FLOMAX) 0.4 mg capsule 11/22/19 24 Active cloNIDine (CATAPRES) 0.2 mg tablet Patient taking 1 tablet at 5 PM and PRN 11/22/19 24 Active OXcarbazepine (TRILEPTAL) 300 mg tabletIndication s:Symptomatic tonic clonic epilepsy (HCC) Take 2 tablets (600 mg total) by mouth 2 times a day. 120 tablet 03/19/20 24 Active levETIRAcetam (KEPPRA) 500 mg tabletIndication s:Symptomatic tonic clonic epilepsy (HCC) TAKE 2 TABLETS BY MOUTH IN THE AM AND TAKE 2 TABLETS BY MOUTH IN THE PM FOR SEIZURE DISORDER DOSE = 1,000 MG 120 tablet 2 12/26/19 25 Active gabapentin (NEURONTIN) 300 mg capsuleIndicatio ns:Symptomatic tonic clonic epilepsy (HCC) TAKE 2 CAPSULES BY MOUTH TWICE DAILY FOR SEIZURE DISORDER DOSE = 600 MG 120 capsule 11 01/02/20 25 Active ferrous sulfate 325 mg (65 mg iron) EC tablet Take 65 mg by mouth 3 times a day with meals. 2024 Discontinued(T herapy Completed or No Longer Needed) levETIRAcetam (KEPPRA) 500 mg tabletIndication s:Symptomatic tonic clonic epilepsy (HCC) Take 2 tablets (1,000 mg total) by mouth 2 times a day. TAKE 2 TABLETS BY MOUTH IN THE AM AND TAKE 2 TABLETS BY MOUTH IN THE PM FOR SEIZURE DISORDER DOSE = 1,000 MG 120 tablet 11 12/21/19 24 2024 Discontinued gabapentin (NEURONTIN) 300 mg capsuleIndicatio ns:Symptomatic tonic clonic epilepsy (HCC) TAKE 2 CAPSULES BY MOUTH TWICE DAILY FOR SEIZURE DISORDER DOSE = 600 MG 120 capsule 11 01/24/20 24 2024 Discontinued Active Problems Problem Noted Date Diagnosed Date [...] left femoral neck -1.3 Assessment & Plan (12/05/2024 9:27 AM EDT): - continue Keppra 1000mg BID - continue Oxcarbamazepine 600mg BID - continue Gabapentin 600mg BID - Recent labs reviewed. AED levels were not sent over, will request those results - recommend seizure diary - If events concerning for seizures, will consider EEG/Amb EEG if he tolerates - Seizure/Fall precautions - Follow up in 1 year or sooner as needed Assessment & Plan (12/05/2023 10:30 AM EDT): - continue Keppra 1000mg BID - continue Oxcarbamazepine 600mg BID - continue Gabapentin 600mg BID - will mail lab slip to nursing home for surveillance blood work including checking [...] fax vitamin D level lab slip to [facility] Seizure precautions were reviewed as [...] obtain AED level, faxing lab order to nursing home - obtain routine EEG, last assessed [...] Don't know 12/05/2024 9: 02 AM EDT Last Filed Vital Signs Vital Sign Reading [...] 11:00 AM EDT Office Visit [facility] [address] [place] [address] Joan Whyte MD [address] [place] [address] Procedures * Due to [place] [employer] law, this organization might not be sharing negative HIV tests. Procedure Name Priority Date/Time Associated Diagnosis Comments LAB - SCANNED Routine 11/12/2024 4:17 PM EST LAB - SCANNED Routine 11/12/2024 1:13 PM EST from Last 3 Months Results * Due to [facility] law, this organization might not be sharing negative HIV tests. * LAB - SCANNED (11/12/2024 4:17 PM EST) Only the most recent of2 resultswithin the time period is included. us Unknown Provider LAB HISTORICAL RESULTS Final Result from Last 3 Months Insurance MEDICAID Care Teams Reducing Machine Operator Relationship Specialty Start Date End Date Aliza Childress [address] [place] [address] [place] [address] PCP - General 04/12/17
--- OUTSIDE RECORDS SUMMARY | 2025-01-01 16:47 | XMS_ITS | Encounter Summary ---
Author Organization [facility] Address [address] [place] [address] Care Team Providers Care Steaming Cabinet Tender Name Role Phone Aliza Childress Primary Care Provider [phone] Encounter Details Date Type Department Care Team (Late st Contact Info) Description 09/15/2022 Orders Only [facility] [address] [place] [address] ProviderFavio MD [address] [place] [address] Social History Tobacco Use Types Packs/Day [...] Description 12/08/2025 11:00 AM EDT Office Visit [facility] [address] [place] [address] Kendra Choi MD [address] [place] [address] documented as of this encounter Procedures * Due to [place] state law, this organization might not be sharing negative HIV tests. Procedure Name Priority Date/Time Associated Diagnosis Comments EXTERNAL NUCLEAR MEDICINE - SCANNED Routine 11/23/2021 documented in this encounter Results * Due to [place] state law, this organization might not be sharing negative HIV tests. * Nuclear Medicine - Scanned (11/23/2021) Anatomical Region Laterality Modality Other us Unknown Provider MD THORNE EXTERNAL RESULT PROCEDUR ES Final Result documented in this encounter Visit Diagnoses Not on filedocumented in this encounter Care Teams Steaming Cabinet Tender Relationship Specialty Start Date End Date Aliza Childress [address] [place] [address] [place] [address] PCP - General 04/12/17 documented as of this encounter
--- OUTSIDE RECORDS SUMMARY | 2025-01-01 16:47 | XMS_ITS | Encounter Summary ---
Author Organization [facility] Address [address] [place] [address] Care Team Providers Care Narrative Writer Name Role Phone Aliza Childress Primary Care Provider [phone] Encounter Details Date Type Department Care Team (Late Contact Info) Description 09/06/2022 Telephone [facility] [address] [place] [address] Telephone Intake, Staff Social History Tobacco Use [...] - 09/06/2022 12:16 PM EST Sabrina from [facility] calling about PT's appt on 09/13 - telehealth with Dr. Choi. 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 Nurses will be on with him. If he does, they will make arrangements for that, but wanted to be sure before keeping him out of his program that day. Please follow up with staff there [phone]. documented in this encounter Plan of Treatment Upcoming Encounters Date Type Department Care Team (Late Contact Info) Description 12/08/2025 11:00 AM EDT Office Visit [facility] [address] [place], [place] [phone] Kendra Choi MD [address] [place], [place] [phone] documented as of this encounter Visit Diagnoses Not on filedocumented in this encounter Care Teams Narrative Writer Relationship Specialty Start Date End Date Aliza Childress [address] [place] [address] [place] [address] PCP - General 04/12/17 documented as of this encounter
--- OUTSIDE RECORDS SUMMARY | 2025-01-01 16:47 | XMS_ITS | Encounter Summary ---
Author Organization [facility] Address [address] [place] [address] Care Team Providers Care Pre Billing Specialist Name Role Phone Aliza Childress Primary Care Provider [phone] Encounter Details Date Type Department Care Team (Late st Contact Info) Description 11/27/2022 Orders Only [facility] [address] [place] [address] Kendra Choi MD [address] [place] [address] Social History Tobacco Use Types Packs/Day Years [...] Description 12/08/2025 11:00 AM EDT Office Visit [facility] [address] [place] [address] Kendra Choi MD [address] [place] [address] documented as of this encounter Procedures * Due to [place] state law, this organization might not be sharing negative HIV tests. Procedure Name Priority Date/Time Associated Diagnosis Comments AST, OUTSIDE LAB Routine 11/27/2022 LAB - SCANNED Routine 10/25/2022 documented in this encounter Results * Due to [place] state law, this organization might not be sharing negative HIV tests. * AST, Outside Lab (11/27/2022) Blood us Kendra Choi MD LAB BLOOD ORDERABLES Final Resul t * LAB - SCANNED (10/25/2022) us Unknown Provider LAB HISTORICAL RESULTS Final Result documented in this encounter Visit Diagnoses Not on filedocumented in this encounter Care Teams Pre Billing Specialist Relationship Specialty Start Date End Date Aliza Childress [address] [place] [address] [place] [address] PCP - General 04/12/17 documented as of this encounter
--- OUTSIDE RECORDS SUMMARY | 2025-01-01 16:47 | XMS_ITS | Clinical Summary ---
Author Organization [facility] Address [address] [place] [address] Care Team Providers Care Outside Laborer Name Role Phone Aliza Childress Primary Care Provider [phone] Allergies Active Allergy Reactions Criticality Noted Date [...] 1 TABLET DAILY. Quantity: 30; Refills: 5 KENDRA WHYTE MD; Active Active fluoride, sodium, (DENTA [...] 2 times a day. 120 tablet 11 03/19/20 24 Active levETIRAcetam (KEPPRA) 500 mg [...] BID - will mail lab slip to long-term for surveillance blood work including checking CMP, [...] fax vitamin D level lab slip to [facility] Seizure precautions were reviewed [...] next PCP appointment - last bone density 2018 showing osteopenia, would recommend with pcp at [...] obtain AED level, faxing lab order to long-term - obtain routine EEG, last assessed in 2012 - discussed potentially consolidating AED regimen if EEG is unremarkable given seizure free since 2013. Would consider decreasing Keppra however due to [...] Type Department Care Team Description 01/01/2025 Refill [facility] [address] [place] [address] Sergei Webb NP Symptomatic tonic clonic epilepsy (HCC) 12/24/2024 Refill [facility] [address] [place] [address] Sergei Webb NP Symptomatic tonic clonic epilepsy (HCC) 12/16/2024 Telephone [facility] [address] [place] [address] Leticia Mock, RN CHC Paperwork 12/08/2024 Orders Only [facility] [address] [place] [address] Provider, MD Favio 12/05/2024 9:00 AM EDT Telehealth [facility] [address] [place] [address] Sergei Webb NP Nonintractable epilepsy without status epilepticus, unspecified epilepsy type (Primary Dx) 11/13/2024 Orders Only [facility] [address] [place] [address] Provider, MD Favio 10/21/2024 Orders Only [facility] [address] [place] [address] Sergei Webb NP Nonintractable epilepsy without status epilepticus, unspecified epilepsy type; Osteopenia of neck of left femur 10/20/2024 Telephone [facility] [address] [place] [address] Leticia Mock, MEIR Appointment from Last 3 Months Family History [...] Description 12/08/2025 11:00 AM EDT Office Visit [facility] [address] [place], [place] [phone] Kendra Whyte MD [address] [place] [address] Health Maintenance Due Date Last Done Comments Colonoscopy 1967 FOBT / Fit Test 1967 HIV Screening 1967 Sigmoidoscopy 1967 Hepatitis B Vaccines (1 of 3 - 19+ 3-dose series) 1986 DTaP,Tdap,and Td Vaccines (1 - Tdap) 1989 Pneumococcal Vaccine: 50+ Ye ars (1 of 1 - PCV) 2017 Zoster Vaccines (1 of 2) 2017 Alcohol/Substance Use Screening 09/24/2024 Cologuard 11/17/2024 11/17/2021, 11/17/2021 Colon Cancer Screening 11/17/2024 RSV Vaccine (60+ years old a nd patients) (1 - 1-dose 75+ series) 2042 Influenza Vaccine Completed 06/30/2024 Procedures * Due to [place] [employer] law, this organization might not be sharing negative HIV tests. Procedure Name Priority Date/Time Associated Diagnosis Comments LAB - SCANNED Routine 11/12/2024 4:17 PM EST LAB - SCANNED Routine 11/12/2024 1:13 PM EST from Last 3 Months Results * Due to [place] [employer] law, this organization might not be sharing negative HIV tests. * LAB - SCANNED (11/12/2024 4:17 PM EST) Only the most recent of2 resultswithin the time period is included. us Unknown Provider LAB HISTORICAL RESULTS Final Result from Last [address] [facility] MEDICAID Care Teams Outside Laborer Relationship Specialty Start Date End Date Aliza Childress [address] [place] [address] [place] [address] PCP - General 04/12/17
--- OUTSIDE RECORDS SUMMARY | 2025-01-01 16:47 | XMS_ITS | Encounter Summary ---
Author Organization [facility] Address [address] [place] [address] Care Team Providers Care Hhas Name Role Phone Aliza Childress Primary Care Provider Encounter Details Date Type Department Care Team (Late st Contact Info) Description 12/18/2022 Orders Only [facility] [address] [place] [address] Kendra Choi MD [address] [place] [address] Social History Tobacco Use Types Packs/Day Years [...] Description 12/08/2025 11:00 AM EDT Office Visit [facility] [address] [place] [address] Kendra Choi MD [address] [place] [address] documented as of this encounter Procedures * Due to [place] state law, this organization might not be sharing negative HIV tests. Procedure Name Priority Date/Time Associated Diagnosis Comments LAB - SCANNED Routine 12/18/2022 documented in this encounter Results * Due to [place] state law, this organization might not be sharing negative HIV tests. * LAB - SCANNED (12/18/2022) us Kendra Choi MD LAB HISTORICAL RESULTS Final Res ult documented in this encounter Visit Diagnoses Not on filedocumented in this encounter Care Teams Hhas Relationship Specialty Start Date End Date Aliza Childress [address] [place] [address] dr Tennille Null, JARED [address] PCP - General 04/12/17 documented as of this encounter
--- OUTSIDE RECORDS SUMMARY | 2025-01-01 16:47 | XMS_ITS | Encounter Summary ---
Author Organization [facility] Address [address] [place] [address] Care Team Providers Care Reclamation Supervisor Name Role Phone Aliza Childress Primary Care Provider [phone] Encounter Details Date Type Department Care Team (Late st Contact Info) Description 06/03/2021 Orders Only [facility] [address] [place] [address] ProviderFavio MD [address] [place] [address] Social History Tobacco Use Types Packs/Day [...] Description 12/08/2025 11:00 AM EDT Office Visit [facility] [address] [place] [address] Kendra Choi MD [address] [place] [address] documented as of this encounter Procedures * Due to [place] state law, this organization might not be sharing negative HIV tests. Procedure Name Priority Date/Time Associated Diagnosis Comments LAB - SCANNED Routine 04/24/2021 documented in this encounter Results * Due to [place] state law, this organization might not be sharing negative HIV tests. * LAB - SCANNED (04/24/2021) us Unknown Provider MD LAB HISTORICAL RESULTS Final Result documented in this encounter Visit Diagnoses Not on filedocumented in this encounter Care Teams Reclamation Supervisor Relationship Specialty Start Date End Date Aliza Childress [address] [place] [address] [place] [address] PCP - General 04/12/17 documented as of this encounter
== END 2025-01-01 15:16 | disposition home or self-care (01) ==
PROVIDERS: PCP Internal Medicine; Visit Provider Nurse Practitioner Family
DX: S60.221A Contusion of right hand, initial encounter (principal)

== ENCOUNTER → 2025-01-01 14:59 | Outpatient (BNV) | payer OTHER, SELFPAY | PROVIDERS: PCP Internal Medicine; Visit Provider Radiology Diagnostic Radiology | DX: S60.221A Contusion of right hand, initial encounter (principal) | CPT/HCPCS: 73130 ==

== ENCOUNTER 2025-01-20 09:39 | Outpatient (AMB) | payer OTHER, SELFPAY ==
--- NOTE | 2025-01-20 09:46 | MHC.PC.OV ---
Vital Signs 01/20/25 09:48 Height 5 ft 2 in Weight 145 lb BMI 26.5 BP 130/60 Blood Pressure Location Lt brachial Position Sitting Pulse 67 Pulse Source Pulse Oximeter Temp 97.3 F Temp Source Temporal Artery Scan Pulse Oximetry (%) 96 Oxygen Delivery Method Room Air Intake Visit Reasons: Osteoporosis seizure disorder Intake Note: Patient is here to follow up on Osteoporosis seizure disorder. Information Systems Security Developer Required: No Group Exercise Manager: Present Accompanied by: Nurse and pipe buffer Allergies topiramate [From TOPAMAX] Allergy (Intermediate, Verified 01/20/25 09:47) UNKNOWN depakote Adverse Reaction (Intermediate, Uncoded 01/20/25 09:47) increase ammonia level Tobacco use date assessed: 01/20/25 Dental Screening Dental Screen Date: 01/20/25 Did you have a dental visit in the last 12 months?: Yes Did you have a dental problem in the last 6 months where you did not have access to dental care?: No Was dental information given to patient?: Patient has dentist HPI Osteoporosis seizure disorder HPI Details so far no seizures- seeing Dr. Choi [facility] Medical History (Updated 01/20/25 @ 10:23 by Aliza Childress MD) Colon cancer screening Contusion of right hand Nasal congestion Osteopenia Osteopenia Ribs, multiple fractures Cholelithiasis Renal calculus, bilateral Leukopenia GERD (gastroesophageal reflux disease) Vitamin D deficiency Cerebral palsy H/O nephrolithotomy with removal of calculi Hx of seizure disorder Thrombocytopenia Cognitive developmental delay Hepatitis B virus infection Chronic idiopathic constipation Surgical History History of cystoscopy History of extraction of renal calculus S/P cataract surgery History of gastric surgery Family History Father No problems noted. Mother No problems noted. Family/Other Family history unknown Social History Household Members: Other Household Members Other:: [facility]staff Housing: Other Housing Other:: [facility] Are you a primary campground caretaker to a significant other at home: No Do you presently have visiting nurse or other home services: Yes Unable to assess alcohol history related to: Unable to respond Alcohol intake: never Comment: 1:1 sitter Patient Tobacco Use Status: Never used Tobacco e-Cigarette/Vaping Use: Never Used Second Hand Smoke Exposure: No service: No Current occupational status: disabled Cognitive needs: Yes (wheelchair) Hearing needs: Yes Vision needs: Yes Questionnaire PHQ-9 Over the last 2 weeks, how often have you been bothered by any of the following problems? 1. Little interest or pleasure in doing things: not at all 2. Feeling down, depressed, or hopeless: not at all 3. Trouble falling or staying asleep, or sleeping too much: not at all 4. Feeling tired or having little energy: not at all 5. Poor appetite or overeating: not at all 6. Feeling bad about yourself - or that you are a failure or have let yourself or your family down: not at all 7. Trouble concentrating on things, such as reading the newspaper or watching television: not at all 8. Moving or speaking so slowly that other people could have noticed. Or the opposite - being so fidgety or restless that you have been moving around a lot more than usual: not at all 9. Thoughts that you would be better off or of hurting yourself in some way: not at all Total score: 0 Depression Screening Interpretation: Negative Depression Screening Done: Yes Source: Developed by Drs. Lyndon James, Mahsa Sawyer, Wilfrido Osorio and colleagues, with an educational justo from [employer]. Thrive Questionnaire Date Thrive assessed: 01/20/25 I am a: Patient What is your living situation today?: I have a steady place to live Within the past 12 months, did the food you bought not last and you didn't have the money to get more?: Never true Within the past 12 months, did you worry whether your food would run out before you got money to buy more?: Never true Do you have trouble paying for medicines?: No Do you have trouble getting transportation to medical appointments?: No Do you have trouble paying your heating and electricity bill?: No Do you have trouble taking care of your child, family member or friend?: No Do you have trouble with day-to-day activities such as bathing, preparing meals, shopping, managing finances, etc.?: No Are you currently unemployed and looking for a job?: No Are you interested in more education?: No Please select the resources that you would like help with: None Currently or been in a relationship where the following occur: I choose not to answer THRIVE Score: 0 AUDIT C Alcohol Use Questionnaire (AUDIT-C) 1. How often do you have a drink containing alcohol?: Never Total Score: 0 CLYDE-7 AMB Questionnaire CLYDE-7 Date CLYDE - 7 assessed: 01/20/25 Feeling nervous, anxious, or on edge: 0 = Not at all Not being able to stop or control worryin = Not at all Worrying too much about different things: 0 = Not at all Trouble relaxin = Not at all Being so restless that it is hard to sit still: 0 = Not at all Becoming easily annoyed or irritable: 0 = Not at all Feeling afraid as if something awful might happen: 0 = Not at all Total CLYDE-7 score (0-4 normal; 5-9 mild; 10-14 moderate; 15-21 severe): 0 Source: Developed by Drs. Lyndon James, Mahsa Sawyer, Wilfrido Osorio and colleagues, with an educational justo from [employer]. Physical exam (Primary Care) Vital Signs: Last Vital Signs Temp 97.3 F 01/20/25 09:48 Pulse 67 01/20/25 09:48 BP 130/60 01/20/25 09:48 Pulse Ox 96 01/20/25 09:48 Oxygen Delivery Method Room Air 01/20/25 09:48 BMI result Body Mass Index 26.5 Tobacco/Smoking Status: Tobacco use Status Tobacco use date assessed 01/20/25 01/20/25 09:56 Patient Tobacco Use Status Never used Tobacco 01/20/25 09:56 e-Cigarette/Vaping Use Never Used 01/20/25 09:56 PHQ-9: PHQ-9 Score PHQ-9: Total score 0 01/20/25 10:26 Depression Screening Interpretation: Negative Thrive Assessment: Date of Thrive Assessment Date Thrive assessed 01/20/25 01/20/25 09:56 Currently or been in a relationship where the following occur: I choose not to answer Const General: alert; No acute distress Eyes Conjunctivae: conjunctivae normal Resp Auscultation: clear to auscultation bilaterally Cardio Rate: regular rate Rhythm: regular rhythm GI Inspection: Yes normal to inspection Extrem General: Yes normal to inspection and No edema Coding Level of Care Code Est Pt Level 4 (63194) Diagnoses Chronic viral hepatitis B without delta agent and without coma B18.1 Hepatic coma status: without hepatic coma Hepatitis delta agent presence: without delta-agent Viral hepatitis chronicity: chronic Gastroesophageal reflux disease without esophagitis K21.9 Esophagitis presence: without esophagitis Renal calculus, bilateral N20.0 Hx of seizure disorder Z86.69 Chronic constipation K59.09 Colon cancer screening Z12.11 Assessment & Plan Assessment & Plan (1) Hepatitis B virus infection: Comment: Hep Bs Ag , and DNA-negative, however hep B surface antibody still negative has not seroconverted continue monitoring q.6 months Caretakers should be vaccinated against hepatitis-B Always use universal precautions If increased worry of spreading virus may consider tx with tenofovir- Code(s): B19.10 - Unspecified viral hepatitis B without hepatic coma Category: Medical Qualifiers: Hepatic coma status: without hepatic coma Hepatitis delta agent presence: without delta-agent Viral hepatitis chronicity: chronic Qualified Code(s): B18.1 - Chronic viral hepatitis B without delta-agent Plan: Patient has been followed up by Gastroenterology. Presently no need for treatment as it is inactive (2) GERD (gastroesophageal reflux disease): Code(s): K21.9 - Gastro-esophageal reflux disease without esophagitis Category: Medical Qualifiers: Esophagitis presence: without esophagitis Qualified Code(s): K21.9 - Gastro-esophageal reflux disease without esophagitis Plan: Avoid the foods that causes that usually spicy foods, tomato products, juices, coffee, soda and foods that your sensitive to. After eating do not lie down, allow 3-4 hours before in lie down. And keep the head of bed above 30 degrees to avoid the acid from going up. (3) Renal calculus, bilateral: Comment: May 2019 Code(s): N20.0 - Calculus of kidney Category: Medical Plan: Keep well hydrated (4) Hx of seizure disorder: Comment: documented in my 2010 consultative visit. Code(s): Z86.69 - Personal history of other diseases of the nervous system and sense organs Category: Medical Plan: Patient on clonidine Keppra a 1000 mg twice a day oxcarbazepine (5) Chronic constipation: Comment: Continue bowel regimen maintain high-fiber diet-doing very well no need to change Code(s): K59.09 - Other constipation Category: Medical Plan: Three rules for constipation 1. Diet need to have a high fiber diet less of meat 2. Increase oral fluids 3. Exercise on senna and docusate sodium (6) Colon cancer screening: Code(s): Z12.11 - Encounter for screening for malignant neoplasm of colon Category: Medical Plan History of Present Illness The patient is a 59-year-old male presenting for a follow-up visit. He has a history of cognitive developmental delay and chronic conditions including constipation, managed primarily through diet adjustments and occasional use of laxatives. Thrombocytopenia, though part of his medical history, shows no recent complications as blood work from October 2024 was normal. His GERD is well-controlled with current treatments. Nephrolithiasis and a longstanding seizure disorder are prominent in his medical profile, with medications such as clonidine and levetiracetam effectively managing his condition. Osteoporosis is an active diagnosis, with the last evaluation via bone density in January 2024. Hepatitis B has been monitored by a specialist, with recent evaluations indicating inactivity and no need for treatment as of now. The patient also experienced a bruising on the right hand due to a contusion with no fracture detected on X-ray. Mild hepatic steatosis was highlighted during a liver ultrasound assessment. Overall, the many facets of his health are followed closely with regular medical evaluations. Health Maintenance - Cologuard test completed in October 2023; stool card to be mailed to the patient for repeat testing. - Bone density tested in January 2024. - Last cholesterol test in June 2024 with LDL at 112. - Hepatitis B monitored with no treatment needed due to inactivity. - Regular monitoring of normal blood count, renal function, and electrolyte levels as of October 2024. - Continues treatment and monitoring of osteoporosis and hypertension. Social History - Requires assistance for daily activities due to cognitive developmental delay. - Fluid intake managed at 64 ounces per day to address fluid restriction and hydration needs. - Advised dietary adjustments including increased fiber to manage constipation, utilizing natural sources like black or red beans. Review of Systems - General: Reports stable condition; denies recent drop attacks. - Gastrointestinal: Reports infrequent constipation; denies significant GERD symptoms. - Neurological: Denies recent seizures; reports occasional absence-like episodes. - Musculoskeletal: Reports osteoporosis; denies recent injuries besides hand contusion. - Hematological: Denies signs of active bleeding or platelet-related issues. - Metabolic/Endocrine: Denies issues with thyroid function. Physical Exam - General- Patient is awake, alert, and cooperative. - Musculoskeletal- Bruising noted on right hand; no deformity, suggests resolution of prior contusion. Results - Labs: Blood tests in October 2024 show normal blood count, electrolytes, and renal function. - Imaging: Liver ultrasound reflects hepatic steatosis; X-ray of right hand revealed no fracture. Plan The patient's chronic conditions will be monitored with the continuation of current treatments. Constipation is managed with dietary modifications and occasional prunes or milk of magnesia. The patient's thrombocytopenia shows normal blood counts. GERD is under control with medication and hydration. Nephrolithiasis and seizure disorder continue to be treated with clonidine and levetiracetam. Hepatitis B is inactive and monitored without current intervention, while liver function tests and lifestyle adjustments address hepatic steatosis. Osteoporosis management includes diet modifications and bone density reviews. Scheduled follow-up ensures all health concerns are addressed promptly. Patient was informed and verbally consented to the use of an ambient scribe for clinic note documentation during this visit. Discussion Notes During this visit, I reviewed the patient's extensive medical history and chronic conditions, confirming the effectiveness of current management strategies. We discussed that his constipation is primarily managed by diet with lactose and fiber adjustments. Thrombocytopenia remains stable, as does the patient's GERD with ongoing medication. I reiterated the importance of continuing clonidine and levetiracetam for seizure disorder management. His Hepatitis B remains inactive, alleviating the need for treatment presently. An X-ray confirmed no fracture for his right-hand contusion, which supports our current approach to monitor and observe healing. I advised on a consistent diet and lifestyle to maintain regularity in bowel habits and the need for hydration, supporting his osteoporosis with dietary adjustments. Next steps include mailing another Cologuard test for cancer screening and routine follow-ups to monitor blood work, manage his conditions, and address any arising issues. Patient Instructions - Continue dietary management for constipation using high fiber foods. - Ensure hydration with 64 ounces of fluid daily. - Take all medications as prescribed without modification unless instructed otherwise. - Monitor for any new or worsening symptoms or issues, and report as needed. - Follow up on scheduled appointments for regular evaluations. - Expect receipt of a Cologuard test by mail for cancer screening and follow procedures as instructed. Orders: Orders Complete Blood Count Auto Diff 6 Months D50.9 - Iron deficiency anemia, unspecified Free T4 (Free Thyroxine) 6 Months D50.9 - Iron deficiency anemia, unspecified Thyroid Stimulating Hormone 6 Months D50.9 - Iron deficiency anemia, unspecified Vitamin B12 and Folate 6 Months D50.9 - Iron deficiency anemia, unspecified IRON PROFILE 6 Months D50.9 - Iron deficiency anemia, unspecified Ferritin 6 Months D50.9 - Iron deficiency anemia, unspecified Comprehensive Met. Panel 6 Months D50.9 - Iron deficiency anemia, unspecified Lipid Panel 6 Months D50.9 - Iron deficiency anemia, unspecified, E78.00 - Pure hypercholesterolemia, unspecified Prostate Specific Antigen Scr 6 Months D50.9 - Iron deficiency anemia, unspecified Reticulocyte Count 6 Months D50.9 - Iron deficiency anemia, unspecified Vitamin D 25-OH Total 6 Months D50.9 - Iron deficiency anemia, unspecified Referrals Cologuard Test Z12.11 - Encounter for screening for malignant neoplasm of colon
[2025-01-20 09:48] VITALS: BP 130/60; PULSE 67; TEMP 36.3; O2SAT 96; BMI 26.5
--- OUTSIDE RECORDS SUMMARY | 2025-01-20 10:40 | XMS_ITS | Clinical Summary ---
Author Organization [facility] Address [address] [place] [id number] Care Team Providers Care Labor Relations Worker Name Role Phone Aliza Childress Primary Care Provider [phone] Allergies Active Allergy Reactions Criticality Noted Date [...] DISORDER DOSE = 600 MG 120 capsule 01/02/20 25 Active levETIRAcetam (KEPPRA) 500 mg tabletIndication s:Symptomatic tonic clonic epilepsy (HCC) Take 2 tablets (1,000 mg total) by mouth 2 times a day. TAKE 2 TABLETS BY MOUTH IN THE AM AND TAKE 2 TABLETS BY MOUTH IN THE PM FOR SEIZURE DISORDER DOSE = 1,000 MG 120 tablet 11 03/ 025 Discontinued gabapentin (NEURONTIN) 300 mg capsuleIndicatio ns:Symptomatic tonic clonic epilepsy (HCC) TAKE 2 CAPSULES BY MOUTH TWICE DAILY FOR SEIZURE DISORDER DOSE = 600 MG 120 capsule 11 01/24/20 24 025 Discontinued Active Problems Problem Noted Date Diagnosed [...] BID - will mail lab slip to alf for surveillance blood work including checking CMP, [...] fax vitamin D level lab slip to [facility] Lab Seizure precautions were reviewed [...] obtain AED level, faxing lab order to alf - obtain routine EEG, last assessed in [...] Type Department Care Team Description 01/01/2025 Refill [facility] [address] [place] [address] Sergei Webb NP Symptomatic tonic clonic epilepsy (HCC) 12/24/2024 Refill [facility] [address] [place] [address] Sergei Webb NP Symptomatic tonic clonic epilepsy (HCC) 12/16/2024 Telephone [facility] [address] [place] [address] Leticia Mock RN [facility] Paperwork 12/08/2024 Orders Only [facility] [address] [place] [address] ProviderFavio MD 12/05/2024 9:00 AM EDT Telehealth [facility] [address] [address] Sergei Webb NP Nonintractable epilepsy without status epilepticus, unspecified epilepsy type (Primary Dx) 11/13/2024 Orders Only [facility] [address] [place] [address] ProviderFavio MD from Last 3 Months Family History Relation [...] Description 12/08/2025 11:00 AM EDT Office Visit [facility] [address] [address] Joan Whyte MD [address] [place] [address] Health Maintenance Due Date Last Done Comments [...] Vaccine Completed 06/30/2024 Procedures * Due to [place] [employer] law, this organization might not be sharing negative HIV tests. Procedure Name Priority Date/Time Associated Diagnosis Comments LAB - SCANNED Routine 11/12/2024 4:17 PM EST LAB - SCANNED Routine 11/12/2024 1:13 PM EST from Last 3 Months Results * Due to [place] [employer] law, this organization might not be sharing negative HIV tests. * LAB - SCANNED (11/12/2024 4:17 PM EST) Only the most recent of2 resultswithin the time period is included. us Unknown Provider LAB HISTORICAL RESULTS Final Result from Last 3 Months Insurance [facility] MEDICAID Care Teams Labor Relations Worker Relationship Specialty Start Date End Date Aliza Childress [address] [place] [address] dr Tennille Null, JARED [address] PCP - General 04/12/17
--- OUTSIDE RECORDS SUMMARY | 2025-01-20 10:40 | XMS_ITS | Encounter Summary ---
Author Organization [facility] Address [address] [place] [address] Care Team Providers Care Ham Marker Name Role Phone Aliza Childress Primary Care Provider [phone] Encounter Details Date Type Department Care Team (Late Contact Info) Description 09/06/2022 Telephone [facility] [address] [place] [phone] Telephone Intake, Staff Social History Tobacco Use [...] - 09/06/2022 12:16 PM EST Sabrina from [facility] calling about PT's appt on 09/13 - telehealth with Dr. Choi. Asking if PT needsto be internal control manager. Nurses will be on with him. If he does, they will make arrangements for that, but wanted to be sure before keeping him out of his program that day. Please follow up with staff there [phone]. documented in this encounter Plan of Treatment Upcoming Encounters Date Type Department Care Team (Late Contact Info) Description 12/08/2025 11:00 AM EDT Office Visit [facility] [address] [place], [place] [phone] Kendra Choi MD [address] [place], [place] [phone] documented as of this encounter Visit Diagnoses Not on filedocumented in this encounter Care Teams Ham Marker Relationship Specialty Start Date End Date Aliza Childress [address] [place] [address] [place] [address] PCP - General 04/12/17 documented as of this encounter
--- OUTSIDE RECORDS SUMMARY | 2025-01-20 10:40 | XMS_ITS | Encounter Summary ---
Author Organization [facility] Address [address] [place] [address] Care Team Providers Care Senior Energy Analyst Name Role Phone Aliza Childress Primary Care Provider [phone] Encounter Details Date Type Department Care Team (Late st Contact Info) Description 07/28/2021 Orders Only [facility] [address] [place] [address] Aliza Childress [address] [place] [address] [place] [address] Social History Tobacco Use Types Packs/Day Years [...] Description 12/08/2025 11:00 AM EDT Office Visit [facility] [address] [place], [place] [phone] Kendra Choi MD [address] [place], [place] [phone] documented as of this encounter Procedures * Due to [place] state law, this organization might not be sharing negative HIV tests. Procedure Name Priority Date/Time Associated Diagnosis Comments NEURODIAGNOSTIC - SCANNED Routine 06/24/2021 documented in this encounter Results * Due to [place] state law, this organization might not be sharing negative HIV tests. * NEURODIAGNOSTIC - SCANNED (06/24/2021) Aliza Childress SCANNED PROCEDURES Final Result documented in this encounter Visit Diagnoses Not on filedocumented in this encounter Care Teams Senior Energy Analyst Relationship Specialty Start Date End Date Aliza Childress [address] [place] [address] dr Tennille Null, JARED [address] PCP - General 04/12/17 documented as of this encounter
--- OUTSIDE RECORDS SUMMARY | 2025-01-20 10:40 | XMS_ITS | Referral Summary ---
Author Organization [facility] Address [address] [place] [address] Care Team Providers Care Missile Pad Mechanic Name Role Phone Aliza Childress Primary Care Provider [phone] Encounters Date Type Department Care Team Description 01/01/2025 Refill [facility] [address] [place] [address] Sergei Webb NP Symptomatic tonic clonic epilepsy (HCC) 12/24/2024 Refill [facility] [address] [place] [address] Sergei Webb NP Symptomatic tonic clonic epilepsy (HCC) 12/16/2024 Telephone [facility] [address] [place] [address] Leticia Mock RN [facility] Paperwork 12/08/2024 Orders Only [facility] [address] [place] [address] ProviderFavio MD 12/05/2024 9:00 AM EDT Telehealth [facility] [address] [place] [address] Sergei Webb NP Nonintractable epilepsy without status epilepticus, unspecified epilepsy type (Primary Dx) 11/13/2024 Orders Only [facility] [address] [place] [address] ProviderFavio MD from Last 3 Months Allergies Active Allergy [...] DISORDER DOSE = 1,000 MG 120 tablet 12/21/19 24 025 Discontinued gabapentin (NEURONTIN) 300 mg capsuleIndicatio ns:Symptomatic tonic clonic epilepsy (HCC) TAKE 2 CAPSULES BY MOUTH TWICE DAILY FOR SEIZURE DISORDER DOSE = 600 MG 120 capsule 01/24/20 24 025 Discontinued Active Problems Problem [...] fax vitamin D level lab slip to [facility] Clinical Lab Seizure precautions were reviewed as [...] Description 12/08/2025 11:00 AM EDT Office Visit [facility] [address] [place], [place] [phone] Joan Whyte MD [address] [place] [phone] Procedures * Due to [place] [employer] law, this organization might not be sharing negative HIV tests. Procedure Name Priority Date/Time Associated Diagnosis Comments LAB - SCANNED Routine 11/12/2024 4:17 PM EST LAB - SCANNED Routine 11/12/2024 1:13 PM EST from Last 3 Months Results * Due to [place] [employer] law, this organization might not be sharing negative HIV tests. * LAB - SCANNED (11/12/2024 4:17 PM EST) Only the most recent of2 resultswithin the time period is included. us Unknown Provider LAB HISTORICAL RESULTS Final Result from Last 3 Months Insurance [employer] MED[employer] Care Teams Missile Pad Mechanic Relationship Specialty Start Date End Date Aliza Childress [address] [place] [address] [place] [address] PCP - General 04/12/17
--- OUTSIDE RECORDS SUMMARY | 2025-01-20 10:40 | XMS_ITS | Encounter Summary ---
Author Organization [facility] Address [address] [place] [address] Care Team Providers Care Child Nurse Name Role Phone Aliza Childress Primary Care Provider [phone] Encounter Details Date Type Department Care Team (Late st Contact Info) Description 06/03/2021 Orders Only [facility] Neu[facility] [address] [place] [address] ProviderFavio MD [address] [place] [address] Social History Tobacco Use Types Packs/Day [...] Description 12/08/2025 11:00 AM EDT Office Visit [facility] [address] [place] [address] Kendra Choi MD [address] [place] [address] documented as of this encounter Procedures * [...] on filedocumented in this encounter Care Teams Child Nurse Relationship Specialty Start Date End Date Aliza Childress [address] [place] [address] [place] [address] PCP - General 04/12/17 documented as of this encounter
--- OUTSIDE RECORDS SUMMARY | 2025-01-20 10:40 | XMS_ITS | Encounter Summary ---
Author Organization [facility] Address [address] [place] [address] Care Team Providers Care Wire Communications Engineer Name Role Phone Aliza Childress Primary Care Provider [phone] Reason for Visit * Reason Onset Date Comments signature needed 09/15/2022 Encounter Details Date Type Department Care Team (Late st Contact Info) Description 09/15/2022 Telephone [facility] Neurology [facility] [address] [place] [address] Ann Chappell [place] signature needed Social History [...] Office Visit [facility] [address] [place] [address] Kendra Choi MD [address] [place] [address] documented as of this encounter Visit Diagnoses Not on filedocumented in this encounter Care Teams Wire Communications Engineer Relationship Specialty Start Date End Date Aliza Childress [address] [facility] [place] [address] PCP - General 04/12/17 documented as of this encounter
--- OUTSIDE RECORDS SUMMARY | 2025-01-20 10:40 | XMS_ITS | Encounter Summary ---
Author Organization [facility] Address [address] [place] [address] Care Team Providers Care Tip Printer Name Role Phone Aliza Childress Primary Care Provider [phone] Encounter Details Date Type Department Care Team (Late st Contact Info) Description 12/18/2022 Orders Only [facility] Neurology [facility] [address] [place] [address] Kendra Choi MD [address] [place] [address] Social History Tobacco Use Types Packs/Day Years [...] Description 12/08/2025 11:00 AM EDT Office Visit [facility]rology [facility] [address] [place] [address] Kendra Choi MD [address] [place] [address] documented as of this encounter Procedures * Due to [place] state law, this organization might not be sharing negative HIV tests. Procedure Name Priority Date/Time Associated Diagnosis Comments LAB - SCANNED Routine 12/18/2022 documented in this encounter Results * Due to [place] state law, this organization might not be sharing negative HIV tests. * LAB - SCANNED (12/18/2022) us Kendra Choi MD LAB HISTORICAL RESULTS Final Res ult documented in this encounter Visit Diagnoses Not on filedocumented in this encounter Care Teams Tip Printer Relationship Specialty Start Date End Date Aliza Childress [address] [place] [address] dr Tennille Null, JARED [address] PCP - General 04/12/17 documented as of this encounter
--- OUTSIDE RECORDS SUMMARY | 2025-01-20 10:40 | XMS_ITS | Encounter Summary ---
Author Organization [facility] Address [address] [place] [address] Care Team Providers Care Flake [employer] Name Role Phone Aliza Childress Primary Care Provider [phone] Encounter Details Date Type Department Care Team (Late st Contact Info) Description 09/15/2022 Orders Only [facility] Neurology Clinic [address] [place] [address] ProviderFavio MD [address] [place] [address] Social History Tobacco Use Types Packs/Day [...] 12/08/2025 11:00 AM EDT Office Visit [facility] Neurology Clinic [address] [place] [address] Kendra Choi MD [address] [place] [address] documented as of this encounter Procedures * Due to [place] state law, this organization might not be sharing negative HIV tests. Procedure Name Priority Date/Time Associated Diagnosis Comments EXTERNAL NUCLEAR MEDICINE - SCANNED Routine 11/23/2021 documented in this encounter Results * Due to [place] state law, this organization might not be sharing negative HIV tests. * Nuclear Medicine - Scanned (11/23/2021) Anatomical Region Laterality Modality Other us Unknown Provider MD THORNE EXTERNAL RESULT PROCEDUR ES Final Result documented in this encounter Visit Diagnoses Not on filedocumented in this encounter Care Teams Flake [employer] Relationship Specialty Start Date End Date Aliza Childress [address] [place] [address] [place] [address] PCP - General 04/12/17 documented as of this encounter
--- OUTSIDE RECORDS SUMMARY | 2025-01-20 10:41 | XMS_ITS | Encounter Summary ---
Author Organization [facility] Address [address] [place] [address] Care Team Providers Care Battery Checker Name Role Phone Aliza Childress Primary Care Provider [phone] Encounter Details Date Type Department Care Team (Late st Contact Info) Description 11/27/2022 Orders Only [facility] Neurology Clinic [address] [place] [address] Kendra Choi MD [address] [place] [address] Social History Tobacco Use Types Packs/Day Years [...] Description 12/08/2025 11:00 AM EDT Office Visit [facility] Neurology Clinic [address] [place] [address] Kendra Choi MD [address] [place] [address] documented as of this encounter Procedures * Due to [place] state law, this organization might not be sharing negative HIV tests. Procedure Name Priority Date/Time Associated Diagnosis Comments AST, OUTSIDE LAB Routine 11/27/2022 LAB - SCANNED Routine 10/25/2022 documented in this encounter Results * Due to [place] state law, this organization might not be sharing negative HIV tests. * AST, Outside Lab (11/27/2022) Blood us Kendra Choi MD LAB BLOOD ORDERABLES Final Resul t * LAB - SCANNED (10/25/2022) us Unknown Provider LAB HISTORICAL RESULTS Final Result documented in this encounter Visit Diagnoses Not on filedocumented in this encounter Care Teams Battery Checker Relationship Specialty Start Date End Date Aliza Childress [address] [place] [address] [place] [address] PCP - General 04/12/17 documented as of this encounter
== END 2025-01-20 10:51 | disposition home or self-care (01) ==
LOC: HO.HMCH 09:40
PROVIDERS: PCP Internal Medicine; Visit Provider Internal Medicine
DX: B18.1 Chronic viral hepatitis B without delta-agent (principal); K21.9 Gastro-esophageal reflux disease without esophagitis; N20.0 Calculus of kidney; Z86.69 Personal history of other diseases of the nervous system and sense organs; K59.09 Other constipation; Z12.11 Encounter for screening for malignant neoplasm of colon

== ENCOUNTER → 2025-01-20 09:39 | Outpatient (BNVA) | payer OTHER, SELFPAY | PROVIDERS: PCP Internal Medicine; Visit Provider Internal Medicine | DX: B18.1 Chronic viral hepatitis B without delta-agent (principal); K21.9 Gastro-esophageal reflux disease without esophagitis; N20.0 Calculus of kidney; K59.09 Other constipation; G40.909 Epilepsy, unspecified, not intractable, without status epilepticus; Z79.899 Other long term (current) drug therapy | CPT/HCPCS: 99212 ==

== ENCOUNTER 2025-03-26 13:00 | Outpatient (AMB) | payer OTHER, SELFPAY ==
--- NOTE | 2025-03-26 13:03 | A.OFFPC_ITS ---
Vital Signs 3 03/26/25 13:05 Height 5 ft 2 in Weight 144 lb BMI 26.3 BP 108/70 Blood Pressure Location Lt brachial Position Sitting Pulse 72 Pulse Source Pulse Oximeter Pulse Oximetry (%) 90 L Oxygen Delivery Method Room Air Intake Visit Reasons: Nadeem Dumont 03/11 fall/nancy on head [place] Operator Required: No Accompanied by: Self / Same As Patient Allergies topiramate (From TOPAMAX) Allergy (Intermediate, Verified 03/26/25 13:21) UNKNOWN depakote Adverse Reaction (Intermediate, Uncoded 03/26/25 13:21) increase ammonia level Medication List - Last Reconciled 03/26/25 by Vance Willis PA-C acetaminophen 650 mg (2 x 325 mg) PO Q6H PRN bismuth subsalicylate 524 mg (30 mL) PO Q6H PRN calcium carbonate (Oyster Shell Calcium) 500 mg PO DAILY calcium carbonate (Oyster Shell Calcium) 500 mg PO DAILY cholecalciferol (vitamin D3) 50 mcg (2 x 25 mcg (1,000 unit)) PO DAILY clonidine HCl 0.1 mg PO BID@1200,2000 clonidine HCl 0.2 mg PO DAILY PRN diaper,brief,adult,disposable (Wings Choice Plus Adult Briefs) size Medium docusate sodium 100 mg PO QAM finasteride 5 mg PO DAILY 30 days fluoride (sodium) 1.1% 1 appl PO BID fluticasone propionate 50 mcg/actuation (Flonase Allergy Relief) 2 sprays intranasal DAILY gabapentin 600 mg PO BID levetiracetam 1,000 mg PO BID loratadine 10 mg PO DAILY miscellaneous medical supply 1 ea miscellaneous DAILY multivitamin with folic acid 400 mcg (Thera) 1 tab PO DAILY olanzapine 20 mg PO BEDTIME omeprazole 20 mg PO QAM oxcarbazepine 600 mg PO BID psyllium 1 tbsp PO DAILY psyllium husk (with sugar) 3 gram/7 gram (Reguloid (psyllium husk-sucrose)) 1 tsp PO DAILY 30 days sennosides-docusate sodium 8.6-50 mg (Senna with Docusate Sodium) 1 tab-cap PO BEDTIME tamsulosin 0.4 mg PO BEDTIME 30 days therapeutic multivitamin 1 tab PO DAILY Tobacco use date assessed: 01/20/25 Dental Screening Dental Screen Date: 01/20/25 HPI Nadeem Dumont 03/11 fall/nancy on head 2 HPI0 Details Patient is a 59-year-old male here today for an ER follow-up visit after he was seen for fall from his bedside resulting in a head laceration. He received 12 nancy in his scalp on 03/11/2025. He is here today to remove his nancy. [facility] Medical History (Updated 03/26/25 @ 13:23 by Vance Willis PA-C) Colon cancer screening Contusion of right hand Nasal congestion Osteopenia Osteopenia Ribs, multiple fractures Cholelithiasis Renal calculus, bilateral Leukopenia GERD (gastroesophageal reflux disease) Vitamin D deficiency Cerebral palsy H/O nephrolithotomy with removal of calculi Hx of seizure disorder Thrombocytopenia Cognitive developmental delay Hepatitis B virus infection Chronic idiopathic constipation Surgical History History of cystoscopy History of extraction of renal calculus S/P cataract surgery History of gastric surgery Family History Father No problems noted. Mother No problems noted. Family/Other Family history unknown Social History Household Members: Other Household Members Other:: skilled nursing residents/staff Housing: Other Housing Other:: [facility] skilled nursing Are you a primary health care administrator to a significant other at home: No Do you presently have visiting nurse or other home services: Yes Unable to assess alcohol history related to: Unable to respond Alcohol intake: never Comment: 1:1 sitter Patient Tobacco Use Status: Never used Tobacco e-Cigarette/Vaping Use: Never Used Second Hand Smoke Exposure: No service: No Current occupational status: disabled Cognitive needs: Yes (wheelchair) Hearing needs: Yes Vision needs: Yes Questionnaire Thrive Questionnaire Date Thrive assessed: 03/26/25 I am a: Patient What is your living situation today?: I have a steady place to live Within the past 12 months, did the food you bought not last and you didn't have the money to get more?: Never true Within the past 12 months, did you worry whether your food would run out before you got money to buy more?: Never true Do you have trouble paying for medicines?: No Do you have trouble getting transportation to medical appointments?: No Do you have trouble paying your heating and electricity bill?: No Do you have trouble taking care of your child, family member or friend?: No Do you have trouble with day-to-day activities such as bathing, preparing meals, shopping, managing finances, etc.?: No Are you currently unemployed and looking for a job?: No Are you interested in more education?: No Please select the resources that you would like help with: None Currently or been in a relationship where the following occur: I choose not to answer THRIVE Score: 0 CLYDE-7 AMB Questionnaire CLYDE-7 Date CLYDE - 7 assessed: 03/26/25 Source: Developed by Drs. Lyndon James, Mahsa Sawyer, Wilfrido Osorio and colleagues, with an educational justo from [email or web address]. Review of Systems Const Denies headache(s) Eyes Denies loss of vision ENT Denies vertigo, Denies dizziness, Denies headache(s) and Denies sore throat Card Denies chest pain, Denies leg edema and Denies lightheadedness Resp Denies cough, Denies hemoptysis and Denies wheezing GI Denies abdominal pain, Denies melena, Denies constipation, Denies diarrhea and Denies vomiting Denies dysuria, Denies urinary frequency and Denies urinary urgency Musc Denies arthralgias, Denies joint swelling, Denies numbness and Denies tingling Neuro Denies Abnormal speech present, Denies behavioral changes, Denies vertigo, Denies dizziness, Denies headache(s), Denies loss of vision, Denies memory loss, Denies numbness and Denies tingling Psych Denies anxiety, Denies behavioral changes, Denies depression, Denies memory loss and Denies panic attacks Stefan/Lymph Denies easy bleeding and Denies easy bruising Aller/Immun Denies wheezing Physical exam (Primary Care) Vital Signs: Last Vital Signs Pulse 72 03/26/25 13:05 BP 108/70 03/26/25 13:05 Pulse Ox 90 L 03/26/25 13:05 Oxygen Delivery Method Room Air 03/26/25 13:05 BMI result Body Mass Index 26.3 Tobacco/Smoking Status: Tobacco use Status Tobacco use date assessed 01/20/25 03/26/25 13:10 Patient Tobacco Use Status Never used Tobacco 03/26/25 13:10 e-Cigarette/Vaping Use Never Used 03/26/25 13:10 Thrive Assessment: Date of Thrive Assessment Date Thrive assessed 03/26/25 03/26/25 13:10 Currently or been in a relationship where the following occur: I choose not to answer Const General: healthy appearing, no acute distress, alert and awake Nutritional Appearance: well nourished Orientation/consciousness: oriented to person, oriented to place and oriented to time [facility] Head images: 2 1. LUÍS HEAD LACERATION IN THE AREA OUTLINED Ears: TM's normal bilaterally General nose exam: Normal nasal mucous membranes and turbinates present Eyes Conjunctivae: conjunctivae normal Sclerae: sclerae normal Pupils: Equal, round and reactive pupils present Neck Neck: Yes no lymphadenopathy and Yes no JVD Thyroid: Thyroid normal Carotids: no bruits Resp Effort & Inspection: normal respiratory effort and not tachypneic Auscultation: no crackles, no rales, no rhonchi and no wheezes Cardio Rate: regular rate Rhythm: regular rhythm Heart sounds: no murmurs and normal S1 and S2 GI Palpation (GI): Soft to palpation, nontender, no hepatomegaly and no splenomegaly Auscultation: normal bowel sounds Skin General skin exam: no rashes or lesions noted and dry skin Neuro General: oriented to person, oriented to place and oriented to time Cranial nerves: Yes Equal, round and reactive pupils present Speech: No Abnormal speech present Gait exam (Neuro): Normal gait present Motor exam (neuro): no tremor noted Extrem Right upper extremity: full ROM Left upper extremity: full ROM Right lower extremity: full ROM; no edema Left lower extremity: full ROM; no edema Psych Mental Status: mental status grossly normal Speech and movement: Normal speech and movement present Affect: normal affect Attitude: cooperative Thought process: Normal thought process present Coding Level of Care Code Est Pt Level 3 (51904) Diagnoses Encounter for staple removal Z48.02 Laceration of scalp without foreign body, sequela S01.01XS Encounter type: sequela Location of open wound of head: scalp Foreign body presence: without foreign body Assessment & Plan Assessment & Plan (1) Encounter for staple removal: Code(s): Z48.02 - Encounter for removal of sutures Category: Medical Plan: #12 Nancy removed from scalp, patient tolerated procedure well. No further need for antibiotic or not adhesive pads and gauze to be placed over laceration as it is completely healed. (2) Laceration of head: Code(s): S01.91XA - Laceration without foreign body of unspecified part of head, initial encounter Category: Medical Qualifiers: Encounter type: sequela Location of open wound of head: scalp Foreign body presence: without foreign body Qualified Code(s): S01.01XS - Laceration without foreign body of scalp, sequela Plan: As per HPI patient suffered a head laceration while getting up from bed. This is a common occurrence for patient and continues to wear a soft sided helmet on a daily basis to reduce head injuries .
--- OUTSIDE RECORDS SUMMARY | 2025-03-26 13:04 | XMS_ITS | Encounter Summary ---
Author Organization [facility] Address [address] [place] [address] Care Team Providers Care Wig Comber Name Role Phone Aliza Childress Primary Care Provider [phone] Encounter Details Date Type Department Care Team (Late st Contact Info) Description 12/18/2022 Orders Only [facility] Neurology Clinic [address] [place] [address] Kendra Choi MD [address] [place] [address] Social History Tobacco Use Types Packs/Day Years [...] Description 12/08/2025 11:00 AM EDT Office Visit [facility] Neurology Clinic [address] [place] [address] Kendra Choi MD [address] [place] [address] documented as of this encounter Procedures * Due to [place] state law, this organization might not be sharing negative HIV tests. Procedure Name Priority Date/Time Associated Diagnosis Comments LAB - SCANNED Routine 12/18/2022 documented in this encounter Results * Due to [place] state law, this organization might not be sharing negative HIV tests. * LAB - SCANNED (12/18/2022) us Kendra Choi MD LAB HISTORICAL RESULTS Final Res ult documented in this encounter Visit Diagnoses Not on filedocumented in this encounter Care Teams Wig Comber Relationship Specialty Start Date End Date Aliza Childress [address] [place] [address] dr Tennille Null, JARED [address] PCP - General 04/12/17 documented as of this encounter
[2025-03-26 13:05] VITALS: BP 108/70; PULSE 72; O2SAT 90; BMI 26.3
== END 2025-03-26 13:23 | disposition home or self-care (01) ==
LOC: HO.HMCH 13:01
PROVIDERS: PCP Internal Medicine; Visit Provider Physician Assistant
DX: Z48.02 Encounter for removal of sutures (principal); S01.01XS Laceration without foreign body of scalp, sequela

== ENCOUNTER → 2025-03-26 13:00 | Outpatient (BNVA) | payer OTHER, SELFPAY | PROVIDERS: PCP Internal Medicine; Visit Provider Physician Assistant | DX: S01.01XD Laceration without foreign body of scalp, subsequent encounter (principal); W06.XXXD Fall from bed, subsequent encounter; Z48.02 Encounter for removal of sutures | CPT/HCPCS: 99212 ==

== ENCOUNTER 2025-05-01 09:58 | Outpatient (AMB) | payer OTHER, SELFPAY ==
--- OUTSIDE RECORDS SUMMARY | 2025-05-01 10:01 | XMS_ITS | Encounter Summary ---
Author Organization [facility] Address [address] [place] [address] Care Team Providers Care Handle Lathe Operator Name Role Phone Aliza Childress Primary Care Provider [phone] Encounter Details Date Type Department Care Team (Late st Contact Info) Description 12/18/2022 Orders Only [facility] Neurology Clinic [address] [place] [address] Kendra Choi MD [address] [place] [address] Social History Tobacco Use Types Packs/Day Years [...] 12/08/2025 11:00 AM EDT Office Visit [facility] Neurology Clinic [address] [place] [address] Kendra Choi MD [address] [place] [address] documented as of this encounter Procedures * Due to [place] state law, this organization might not be sharing negative HIV tests. Procedure Name Priority Date/Time Associated Diagnosis Comments LAB - SCANNED Routine 12/18/2022 documented in this encounter Results * Due to [place] state law, this organization might not be sharing negative HIV tests. * LAB - SCANNED (12/18/2022) us Kendra Chio MD LAB HISTORICAL RESULTS Final Res ult documented in this encounter Visit Diagnoses Not on filedocumented in this encounter Care Teams Handle Lathe Operator Relationship Specialty Start Date End Date Aliza Childress [address] [place] [address] dr Tennille Null, JARED [address] PCP - General 04/12/17 documented as of this encounter
[2025-05-01 10:08] VITALS: BP 122/66; PULSE 67; O2SAT 98; BMI 24.7
--- NOTE | 2025-05-01 10:08 | A.OFFPC_ITS ---
Vital Signs 05/01/25 10:08 Height 5 ft 2 in Weight 135 lb BMI 24.7 BP 122/66 Blood Pressure Location Lt brachial Position Sitting Pulse 67 Pulse Source Pulse Oximeter Pulse Oximetry (%) 98 Oxygen Delivery Method Room Air Intake Visit Reasons: [facility] 04/27 Drop Seizure Thermal Cutting Machine Operator Required: No Accompanied by: nurse/ caregiver Allergies topiramate (From TOPAMAX) Allergy (Intermediate, Verified 05/01/25 10:22) UNKNOWN depakote Adverse Reaction (Intermediate, Uncoded 05/01/25 10:22) increase ammonia level Medication List - Last Reconciled 05/01/25 by Shahrzad Harrell PA-C acetaminophen 650 mg (2 x 325 mg) PO Q6H PRN bismuth subsalicylate 524 mg (30 mL) PO Q6H PRN calcium carbonate (Oyster Shell Calcium) 500 mg PO DAILY cholecalciferol (vitamin D3) 50 mcg (2 x 25 mcg (1,000 unit)) PO DAILY clonidine HCl 0.1 mg PO BID@1200,2000 clonidine HCl 0.2 mg PO DAILY PRN diaper,brief,adult,disposable (Wings Choice Plus Adult Briefs) size Medium docusate sodium 100 mg PO QAM finasteride 5 mg PO DAILY 30 days fluoride (sodium) 1.1% 1 appl PO BID fluticasone propionate 50 mcg/actuation (Flonase Allergy Relief) 2 sprays intranasal DAILY gabapentin 600 mg PO BID levetiracetam 1,000 mg PO BID loratadine 10 mg PO DAILY miscellaneous medical supply 1 ea miscellaneous DAILY multivitamin with folic acid 400 mcg (Thera) 1 tab PO DAILY olanzapine 20 mg PO BEDTIME omeprazole 20 mg PO QAM oxcarbazepine 600 mg PO BID psyllium 1 tbsp PO DAILY psyllium husk (with sugar) 3 gram/7 gram (Reguloid (psyllium husk-sucrose)) 1 tsp PO DAILY 30 days sennosides-docusate sodium 8.6-50 mg (Senna with Docusate Sodium) 1 tab-cap PO BEDTIME tamsulosin 0.4 mg PO BEDTIME 30 days therapeutic multivitamin 1 tab PO DAILY Tobacco use date assessed: 05/01/25 Dental Screening Dental Screen Date: 05/01/25 Did you have a dental visit in the last 12 months?: Yes Did you have a dental problem in the last 6 months where you did not have access to dental care?: No Was dental information given to patient?: Patient has dentist HPI [facility] 04/27 Drop Seizure HPI Details 59-year-old male with past medical histo ry of chronic constipation, cognitive developmental delay, thrombocytopenia, mental and behavioral problem, GERD, seizure disorder, osteoporosis chronic hepatitis-B last seen by [facility] 03/26/2025 coming in for hospital follow up. In review of the notes, patient was seen in [facility] ED 04/23/2025 after a witnessed seizure from standing lasting 20-30 s econds with head strike while helmeted. EMS noted anisocoria on exam. Patient admitted to [facility] for seizure management. Per neurology Keppra remained at current dose, Oxcarbazepine was increased to 900mg BID and recommended outpatient workup for anisocoria. Presenting with a recent seizure episode. The patient experienced a drop seizure at a day program on the , leading to hospitalization. During hospitalization, the patient's oxcarbazepine dosage was increased from 600 mg to 900 mg. Follow-up with the neurologist, Dr. Bridges, is planned, and efforts are being made to find a neurologist closer to the patient's residence due to difficulties with long car rides. Pupil asymmetry was noted in the hospital records, but it has been present since the patient was transferred to the current [place] [facility]. An elevated blood alcohol level of 10 was recorded, raising concerns about potential errors or other causes such as the use of products containing alcohol. A chronic rib fracture was identified, but it is considered an old injury. [facility] Medical History Contusion of right hand Nasal congestion Osteopenia Osteopenia Ribs, multiple fractures Cholelithiasis Renal calculus, bilateral Leukopenia GERD (gastroesophageal reflux disease) Vitamin D deficiency Cerebral palsy H/O nephrolithotomy with removal of calculi Hx of seizure disorder Thrombocytopenia Cognitive developmental delay Hepatitis B virus infection Surgical History History of cystoscopy History of extraction of renal calculus S/P cataract surgery History of gastric surgery Family History Father No problems noted. Mother No problems noted. Family/Other Family history unknown Social History Household Members: Other Household Members Other:: [facility] residents/staff Housing: Other Housing Other:: [facility], [facility] [facility] Are you a primary director long term care to a significant other at home: No Do you presently have visiting nurse or other home services: Yes Unable to assess alcohol history related to: Unable to respond Alcohol intake: never Comment: 1:1 sitter Patient Tobacco Use Status: Never used Tobacco Tobacco use type: Cigarette e-Cigarette/Vaping Use: Never Used Second Hand Smoke Exposure: No service: No Current occupational status: disabled Cognitive needs: Yes (wheelchair) Hearing needs: Yes Vision needs: Yes Questionnaire Thrive Questionnaire Date Thrive assessed: 05/01/25 I am a: Patient What is your living situation today?: I have a steady place to live Within the past 12 months, did the food you bought not last and you didn't have the money to get more?: Never true Within the past 12 months, did you worry whether your food would run out before you got money to buy more?: Never true Do you have trouble paying for medicines?: No Do you have trouble getting transportation to medical appointments?: No Do you have trouble paying your heating and electricity bill?: No Do you have trouble taking care of your child, family member or friend?: No Do you have trouble with day-to-day activities such as bathing, preparing meals, shopping, managing finances, etc.?: No Are you currently unemployed and looking for a job?: No Are you interested in more education?: No Please select the resources that you would like help with: None Currently or been in a relationship where the following occur: I choose not to answer THRIVE Score: 0 CLYDE-7 AMB Questionnaire CLYDE-7 Date CLYDE - 7 assessed: 05/01/25 Source: Developed by Drs. Lyndon James, Mahsa Sawyer, Wilfrido Osorio and colleagues, with an educational justo from [employer] Review of Systems Const Details: Review of system largely obtained by accompanying staff and family members Denies body aches, Denies chills, Denies fever(s) and Denies poor appetite Eyes Reports no additional complaints ENT Denies dizziness Card Denies chest pain, Denies syncope, Denies edema, Denies lightheadedness and Denies dyspnea Resp Denies cough and Denies dyspnea GI Denies constipation, Denies diarrhea, Denies nausea and Denies vomiting Skin/Breast Reports system reviewed and no additional complaints, except as documented Neuro Denies dizziness and Denies syncope Psych Reports no additional complaints Physical exam (Primary Care) Vital Signs: Last Vital Signs Pulse 96 05/01/25 10:08 BP 122/66 05/01/25 10:08 Pulse Ox 67 L 05/01/25 10:08 Oxygen Delivery Method Room Air 05/01/25 10:08 BMI result Body Mass Index 24.7 Tobacco/Smoking Status: Tobacco use Status Tobacco use date assessed 05/01/25 05/01/25 10:14 Patient Tobacco Use Status Never used Tobacco 05/01/25 10:09 Tobacco use type Cigarette 05/01/25 10:09 e-Cigarette/Vaping Use Never Used 05/01/25 10:09 Thrive Assessment: Date of Thrive Assessment Date Thrive assessed 05/01/25 05/01/25 10:14 Currently or been in a relationship where the following occur: I choose not to answer Const General: cooperative, healthy appearing, comfortable and no acute distress HENMA Head: Yes normocephalic Ears: hearing grossly normal bilaterally General nose exam: Normal external nose present Eyes General: appearance normal, both eyes and all related structures Conjunctivae: conjunctivae normal Neck Neck: Yes full ROM and Yes no lymphadenopathy Resp Effort & Inspection: normal respiratory effort Auscultation: clear to auscultation bilaterally, no crackles, no rales, no rhonchi and no wheezes Cardio Rate: regular rate Rhythm: regular rhythm Skin General skin exam: no rashes or lesions noted Extrem General: Yes normal to inspection and No edema Psych Attitude: cooperative Coding Level of Care Code Est Pt Level 3 (31127) Diagnoses Mental and behavioral problem F48.9; F69 Seizure disorder G40.909 Fracture of fourth rib S22.39XA 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 Banks [facility] Code(s): F48.9 - Nonpsychotic mental disorder, unspecified; F69 - Unspecified disorder of adult personality and behavior Category: Medical Plan: Patient currently following [facility] provider. (2) Seizure disorder: Code(s): G40.909 - Epilepsy, unspecified, not intractable, without status epilepticus Category: Medical Plan: Recent increase in the oxcarbazepine while in [facility]. Plan to continue on gabapentin and Keppra at this time. He is currently following with [facility] Neurology but was advised by [facility] to follow up with the [facility] Neurology team. Referral was placed today (3) Fracture of fourth rib: Comment: 03/2025 [facility] indeterminate age; likely chronic Code(s): S22.39XA - Fracture of one rib, unspecified side, initial encounter for closed fracture Category: Medical Plan: Likely chronic not complaining of pain at this time. 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 (5) Hospital discharge follow-up: Code(s): Z09 - Encounter for follow-up examination after completed treatment for conditions other than malignant neoplasm Category: Medical Plan: See above plans. Patient did also have elevated blood alcohol level which is concerning as the patient has consistently monitored not consume alcohol. Plan to obtain ethanol level for documentation purposes Plan The plan includes a follow-up with the neurologist, Dr. Bridges, to assess the patient's seizure management and medication adjustments. Efforts are being made to find a neurologist closer to the patient's residence to avoid long car rides, which are challenging for the patient. A repeat blood test for alcohol level is planned to rule out any errors or confirm the previous findings. The patient is cleared to return to the day program as no new seizures have occurred since the last visit. This note was constructed using voice recognition software. While every effort has been made to ensure accuracy and veterinary assistant technician, still areas may have been included sometimes these areas may affect the content or meeting of the given symptoms. Total time spent caring for the patient today was 30 minutes. This includes time spent before the visit reviewing the chart, time spent during the visit, and time spent after the visit and documentation. Patient was informed a nd verbally consented to the use of an ambient scribe for clinic note documentation during this visit. Orders: Orders Ethanol Today R78.0 - Finding of alcohol in blood Referrals Neurology Referral G40.909 - Epilepsy, unspecified, not intractable, without status epilepticus Medications: Changed From oxcarbazepine 600 mg PO BID F48.9 - Nonpsychotic mental disorder, unspecified, F69 - Unspecified disorder of adult personality and behavior To oxcarbazepine 900 mg PO BID F48.9 - Nonpsychotic mental disorder, unspecified, F69 - Unspecified disorder of adult personality and behavior
== END 2025-05-01 10:50 | disposition home or self-care (01) ==
LOC: HO.HMCH 09:59
PROVIDERS: PCP Internal Medicine
DX: F48.9 Nonpsychotic mental disorder, unspecified (principal); F69 Unspecified disorder of adult personality and behavior; G40.909 Epilepsy, unspecified, not intractable, without status epilepticus; S22.39XA Fracture of one rib, unspecified side, initial encounter for closed fracture; H57.02 Anisocoria; Z09 Encounter for follow-up examination after completed treatment for conditions other than malignant neoplasm

== ENCOUNTER → 2025-05-01 09:58 | Outpatient (BNVA) | payer OTHER, SELFPAY | PROVIDERS: PCP Internal Medicine | DX: K21.9 Gastro-esophageal reflux disease without esophagitis (principal); K59.09 Other constipation; G40.909 Epilepsy, unspecified, not intractable, without status epilepticus; M81.0 Age-related osteoporosis without current pathological fracture; B18.1 Chronic viral hepatitis B without delta-agent; F48.9 Nonpsychotic mental disorder, unspecified; F69 Unspecified disorder of adult personality and behavior; H57.02 Anisocoria; R78.0 Finding of alcohol in blood; S22.39XA Fracture of one rib, unspecified side, initial encounter for closed fracture; X58.XXXA Exposure to other specified factors, initial encounter; Y93.9 Activity, unspecified; Y92.9 Unspecified place or not applicable; Y99.9 Unspecified external cause status; Z09 Encounter for follow-up examination after completed treatment for conditions other than malignant neoplasm | CPT/HCPCS: 99212 ==

== ENCOUNTER 2025-05-04 08:28 | Outpatient (REF) | payer OTHER, SELFPAY ==
--- OUTSIDE RECORDS SUMMARY | 2025-05-04 08:47 | XMS_ITS | Encounter Summary ---
Author Organization [facility] Address [address] [place] [address] Phone Care Team Providers Care Insole Buffer Name Role Phone Aliza Childress MD Primary Care Provider [phone] Encounter Details Date Type Department Care Team (Late st Contact Info) Description 07/01/2022 Procedure Pass [facility], Ct Scan - [address] [address] Social History Tobacco Use Types Packs/Day Years Used Date Smoking Tobacco: Never Assessed Sex and Gender Information Value Date Recorded Sex Assigned at Not on file Legal Sex Male 11:38 PM EDT Gender Identity Not on file Sexual Orientation Not on file documented as of this encounter Plan of Treatment Not on file documented as of this encounter Visit Diagnoses Not on filedocumented in this encounter Care Teams Insole Buffer Relationship Specialty Start Date End Date Aliza Childress MD [address] [place] [id number] PCP - General Internal Medicine 06/29/22 documented as of this encounter Additional Source Comments The information contained in this document represents components of the legal health record. It is not the complete legal health record.[facility]
--- OUTSIDE RECORDS SUMMARY | 2025-05-04 08:47 | XMS_ITS | Encounter Summary ---
Author Organization [facility] Address [address] [place] [address] Care Team Providers Care Qc Manager Name Role Phone Aliza Childress Primary Care Provider [phone] Encounter Details Date Type Department Care Team (Late st Contact Info) Description 12/18/2022 Orders Only [facility] [address] [place] [address] Kendra Choi MD [address] [place] [address] Social History Tobacco Use Types Packs/Day Years [...] Description 12/08/2025 11:00 AM EDT Office Visit [facility] [address] [place] [address] Kendra Choi MD [address] [place] [address] documented as of this encounter Procedures * [...] on filedocumented in this encounter Care Teams Qc Manager Relationship Specialty Start Date End Date Aliza Childress [address] [place] [address] dr Tennille Null, JARED [address] PCP - General 04/12/17 documented as of this encounter
== END 2025-05-04 08:29 | disposition home or self-care (01) ==
LOC: HO.LAB 08:28
PROVIDERS: PCP Internal Medicine; Visit Provider Internal Medicine
DX: R78.0 Finding of alcohol in blood (principal)
CPT/HCPCS: 36415; 80307

== ENCOUNTER 2025-06-16 08:24 | Outpatient (REF) | payer OTHER, SELFPAY ==
--- NOTE | ~2025-06-16 | XR_ITS ---
EXAMINATION: XR ABDOMEN KUB CLINICAL INDICATION: N20.0 - Calculus of kidney COMPARISON: April 04, 2019. Correlated to renal ultrasound dated June 17, 2024. TECHNIQUE: AP view of the abdomen. FINDINGS: No calcifications overlapping the kidney shadows. Abundant stool without intestinal dilatation. No air-fluid levels. Vascular clips in the right lower abdomen and pelvis overlapping the right iliac bone. Multilevel thoracolumbar spondylosis. Degenerative changes in the symphysis pubis. XR/XR KUB IMPRESSION: No renal calculus based upon x-ray. Electronically signed by: Andrew Duran MD 06/16/2025 08:56 AM EDT
--- OUTSIDE RECORDS SUMMARY | 2025-06-16 09:21 | XMS_ITS | Clinical Summary ---
Author Organization [facility] Address [address] [place] [address] Phone Care Team Providers Care Systems Checkout Mechanic Name Role Phone Aliza Childress MD Primary Care Provider [phone] Allergies Active Allergy Reactions Criticality Noted Date Comments Divalproex 03/11/2025 Topiramate 06/30/2022 Medications No known medications Immunizations Immunization Administration Dates Next Due Tdap 03/11/2025 Social History Tobacco Use Types Packs/Day Years Used Date Smoking Tobacco: Never Smokeless Tobacco: Never Tobacco Cessation:Counseling Given: Not Answered Alcohol Use Standard Drinks/Week Comments Never 0 (1 standard drink = 0.6 oz pur e alcohol) Education Answer Date Recorded Are you interested in more education? Not on noam e 01/20/2023 Are you concerned about learning? Not on file 01/20/2023 No 01/20/2023 No 01/20/2023 Digital Access Answer Date Recorded No 02/20/2023 No 02/20/2023 Reliable internet access at home? Not on file 02/20/2023 Device with a working camera? Not on file Intimate Partner Violence Answer Date R ecorded Are you denied basic needs s uch as food, clothing, or medical care? Patient unable to respond 03/11/2025 In the past 12 months have y ou been in a relationship with a person who hurts, threatens, or tries to control you? Patient unable to respond 03/11/2025 Are you denied basic needs s uch as food, clothing, or medical care? Patient unable to respond 03/11/2025 In the past 12 months have y ou been in a relationship with a person who hurts, threatens, or tries to control you? Patient unable to respond 03/11/2025 Sex and Gender Information Value Date Recorded Sex Assigned at Not on file Legal Sex Male 11:38 PM EDT Gender Identity Not on file Sexual Orientation Not on file Last Filed Vital Signs Vital Sign Reading Time Taken Comments Blood Pressure 133/78 03/11/2025 2:52 PM EDT Pulse 75 03/11/2025 2:52 PM EDT Temperature 36.8 C (98.2 F) 03/11/2025 2:52 PM EDT Respiratory Rate 16 03/11/2025 2:52 PM EDT Oxygen Saturation 96% 03/11/2025 2:52 PM EDT Inhaled Oxygen Concentration - - Weight 61.2 kg (135 lb) 03/11/2025 11:14 AM EDT Height 157.5 cm (5' 2 ) 03/11/2025 11:14 AM EDT Body Mass Index 24.69 03/11/2025 11:14 AM EDT Plan of Treatment Health Maintenance Due Date Last Done Comments LIPID PANEL 1967 DEPRESSION SCREENING 1979 HEPATITIS C SCREENING 1985 HIV ONE-TIME SCREENING (18-6 5 YEARS) 1985 COLONOSCOPY 2012 FIT TEST 2012 FOBT 2012 SIGMOIDOSCOPY 2012 VIRTUAL COLONOSCOPY 2012 PNEUMOCOCCAL VACCINES (50+ y ears) (1 of 1 - PCV) 2017 ZOSTER VACCINES (1 of 2) 2017 INFLUENZA VACCINE (#1) 2025 COVID-19 VACCINE (1 - 2023-2 5 season) 2025 COLOGUARD 02/14/2028 02/13/2025 COLORECTAL CANCER SCREENING 02/14/2028 Adult Td,Tdap Booster 03/11/2035 03/11/2025 SMOKING STATUS SCREENING (On ce After 26 Yrs) Completed 10/13/2022 HEPATITIS A VACCINES Aged Out No long er eligible based on patient's age to complete this topic HIB VACCINES Aged Out No longer eligi ble based on patient's age to complete this topic MENINGOCOCCAL VACCINES (ACWY) Aged Out No longer eligible based on patient's age to complete this topic MENINGOCOCCAL VACCINES (B) Aged Out N o longer eligible based on patient's age to complete this topic Medical Devices Not on file Insurance [place] [address] [place] [address] [place] [address] [place] [address] [address] [place] [address] [place] [address] [place] [address] ACO Care Teams Systems Checkout Mechanic Relationship Specialty Start Date End Date Aliza Childress MD [address] [place] [address] Drive [address] [place] [phone] PCP - General Internal Medicine 06/29/22 Additional Source Comments The information contained in this document represents components of the legal health record. It is not the complete legal health record.[facility]
--- OUTSIDE RECORDS SUMMARY | 2025-06-16 09:21 | XMS_ITS | Encounter Summary ---
Author Organization [facility] Address [address] [place] [address] Phone Care Team Providers Care Wind Operations Supervisor Name Role Phone Aliza Childress MD Primary Care Provider Encounter Details Date Type Department Care Team (Late st Contact Info) Description 07/01/2022 Procedure Pass [facility], Ct Scan - [address] [address] Social History Tobacco Use Types Packs/Day Years [...] on filedocumented in this encounter Care Teams Wind Operations Supervisor Relationship Specialty Start Date End Date Aliza Childress MD [address] [place] [phone] PCP - General Internal Medicine 06/29/22 documented as of this encounter Additional Source Comments The information contained in this document represents components of the legal health record. It is not the complete legal health record.[facility]
--- OUTSIDE RECORDS SUMMARY | 2025-06-16 09:21 | XMS_ITS | Encounter Summary ---
Author Organization [facility] Address [address] [place] [address] Care Team Providers Care Automotive Warranty Administrator Name Role Phone Aliza Childress Primary Care Provider [phone] Encounter Details Date Type Department Care Team (Late st Contact Info) Description 09/15/2022 Orders Only [facility] [address] [place] [address] ProviderFavio MD [address] [place] [address] Social History Tobacco Use Types Packs/Day [...] Care Team (Late st Contact Info) Description 01/12/2026 3:30 PM EDT Office Visit [facility] [address] [place] [address] Kendra Choi MD [address] [place] [address] documented as of this encounter Procedures * [...] on filedocumented in this encounter Care Teams Automotive Warranty Administrator Relationship Specialty Start Date End Date Aliza Childress [address] [place] [address] [place] [address] PCP - General 04/12/17 documented as of this encounter
--- OUTSIDE RECORDS SUMMARY | 2025-06-16 09:21 | XMS_ITS | Encounter Summary ---
Author Organization [facility] Address [address] [place] [address] Phone Care Team Providers Care Tool Grinder Operator External Name Role Phone Aliza Childress MD Primary Care Provider [phone] Encounter Details Date Type Department Care Team (Late st Contact Info) Description 10/13/2022 Procedure Pass [facility], Ct Scan - [facility] [address] [place] [address] Social History Tobacco Use Types Packs/Day Years Used Date Smoking Tobacco: Never Smokeless Tobacco: Never Alcohol Use Standard Drinks/Week Comments Never 0 (1 standard drink = 0.6 oz pur e alcohol) Intimate Partner Violence Answer Date R ecorded Are you denied basic needs s uch as food, clothing, or medical care? Patient unable to respond 10/13/2022 In the past 12 months have y ou been in a relationship with a person who hurts, threatens, or tries to control you? Patient unable to respond 10/13/2022 Are you denied basic needs s uch as food, clothing, or medical care? Patient unable to respond 10/13/2022 In the past 12 months have y ou been in a relationship with a person who hurts, threatens, or tries to control you? Patient unable to respond 10/13/2022 Sex and Gender Information Value Date Recorded Sex Assigned at Not on file Legal Sex Male 11:38 PM EDT Gender Identity Not on file Sexual Orientation Not on file documented as of this encounter Plan of Treatment Not on file documented as of this encounter Visit Diagnoses Not on filedocumented in this encounter Care Teams Tool Grinder Operator External Relationship Specialty Start Date End Date Aliza Childress MD [address] [place] [address] Drive [address] [place] [address] PCP - General Internal Medicine 06/29/22 documented as of this encounter Additional Source Comments The information contained in this document represents components of the legal health record. It is not the complete legal health record.[facility]
--- OUTSIDE RECORDS SUMMARY | 2025-06-16 09:21 | XMS_ITS | Encounter Summary ---
Author Organization [facility] Address [address] [place] [address] Care Team Providers Care Computer Equipment Repairer Name Role Phone Aliza Childress Primary Care Provider Encounter Details Date Type Department Care Team (Late st Contact Info) Description 12/18/2022 Orders Only [facility] [address] [place] [address] Kendra Choi MD [address] [place] [address] Social History Tobacco Use Types Packs/Day Years [...] Description 01/12/2026 3:30 PM EDT Office Visit [facility] [address] [place] [address] Kendra Choi MD [address] [place] [address] documented as of this encounter Procedures * Due to [place] state law, this organization might not be sharing negative HIV tests. Procedure Name Priority Date/Time Associated Diagnosis Comments LAB - SCANNED Routine 12/18/2022 documented in this encounter Results * Due to [place] state law, this organization might not be sharing negative HIV tests. * LAB - SCANNED (12/18/2022) us Kendra Choi MD LAB HISTORICAL RESULTS Final Res ult documented in this encounter Visit Diagnoses Not on filedocumented in this encounter Care Teams Computer Equipment Repairer Relationship Specialty Start Date End Date Aliza Childress [address] [place] [address] dr Teninlle Null, JARED [address] PCP - General 04/12/17 documented as of this encounter
--- OUTSIDE RECORDS SUMMARY | 2025-06-16 09:21 | XMS_ITS | Encounter Summary ---
Author Organization [facility] Address [address] [place] [address] Phone Care Team Providers Care Hedis Registered Nurse Rn Name Role Phone Aliza Childress MD Primary Care Provider [phone] Encounter Details Date Type Department Care Team (Late st Contact Info) Description 03/11/2025 Procedure Pass [facility], Ct Scan - [facility] [address] [place] [address] Social History Tobacco Use Types Packs/Day Years [...] on filedocumented in this encounter Care Teams Hedis Registered Nurse Rn Relationship Specialty Start Date End Date Aliza Childress MD [address] [place] [address] [place] [phone] PCP - General Internal Medicine 06/29/22 documented as of this encounter Additional Source Comments The information contained in this document represents components of the legal health record. It is not the complete legal health record.[facility]
--- OUTSIDE RECORDS SUMMARY | 2025-06-16 09:21 | XMS_ITS | Encounter Summary ---
Author Organization [facility] Address [address] [place] [address] Care Team Providers Care Farmworker Egg Producing Farm Name Role Phone Aliza Childress Primary Care Provider [phone] Encounter Details Date Type Department Care Team (Late st Contact Info) Description 07/28/2021 Orders Only [facility] [address] [place] [address] Aliza Childress [address] [place] [address] [place] [address] Social History Tobacco Use Types Packs/Day Years [...] Description 01/12/2026 3:30 PM EDT Office Visit [facility] [address] [place], [place] [phone] Kendra Choi MD [address] [place], [place] [phone] documented as of this encounter Procedures * Due to [place] state law, this organization might not be sharing negative HIV tests. Procedure Name Priority Date/Time Associated Diagnosis Comments NEURODIAGNOSTIC - SCANNED Routine 06/24/2021 documented in this encounter Results * Due to [place] state law, this organization might not be sharing negative HIV tests. * NEURODIAGNOSTIC - SCANNED (06/24/2021) Aliza Childress SCANNED PROCEDURES Final Result documented in this encounter Visit Diagnoses Not on filedocumented in this encounter Care Teams Farmworker [employer] Relationship Specialty Start Date End Date Aliza Childress [address] [place] [address] dr [place]ille [place], [place]ARED [address] PCP - General 04/12/17 documented as of this encounter
--- OUTSIDE RECORDS SUMMARY | 2025-06-16 09:21 | XMS_ITS | Encounter Summary ---
Author Organization [facility] Address [address] [place] [address] Care Team Providers Care Sanitation Manager Name Role Phone Aliza Childress Primary Care Provider [phone] Encounter Details Date Type Department Care Team (Late Contact Info) Description 09/06/2022 Telephone [facility] Patient Access [facility] [address] [place] [address] Telephone Intake, Staff Social History Tobacco Use [...] - 09/06/2022 12:16 PM EST Sabrina from [facility] calling about PT's appt on 09/13 - telehealth with Dr. Choi. 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 Nurses will be on with him. If he does, they will make arrangements for that, but wanted to be sure before keeping him out of his program that day. Please follow up with staff there [phone]. documented in this encounter Plan of Treatment Upcoming Encounters Date Type Department Care Team (Late Contact Info) Description 01/12/2026 3:30 PM EDT Office Visit [facility] [address] [place], [place] [phone] Kendra Choi MD [address] [place], [place] [phone] documented as of this encounter Visit Diagnoses Not on filedocumented in this encounter Care Teams Sanitation Manager Relationship Specialty Start Date End Date Aliza Childress [address] [place] [address] [place] [address] PCP - General 04/12/17 documented as of this encounter
--- OUTSIDE RECORDS SUMMARY | 2025-06-16 09:21 | XMS_ITS | Encounter Summary ---
Author Organization [facility] Address [address] [place] [address] Phone Care Team Providers Care Gun Perforator Name Role Phone Aliza Childress MD Primary Care Provider [phone] Encounter Details Date Type Department Care Team (Late st Contact Info) Description 03/11/2025 Procedure Pass [facility], Ct Scan - [facility] [address] [place] [address] Social History Tobacco Use Types Packs/Day Years [...] on filedocumented in this encounter Care Teams Gun Perforator Relationship Specialty Start Date End Date Aliza Childress MD [address] [place] [address] [place] [address] [phone] PCP - General Internal Medicine 06/29/22 documented as of this encounter Additional Source Comments The information contained in this document represents components of the legal health record. It is not the complete legal health record.[facility]
--- OUTSIDE RECORDS SUMMARY | 2025-06-16 09:21 | XMS_ITS | Encounter Summary ---
Author Organization [facility] Address [address] [place] [address] Phone Care Team Providers Care Scrum Coach Name Role Phone Aliza Childress MD Primary Care Provider [phone] Encounter Details Date Type Department Care Team (Late st Contact Info) Description 10/13/2022 Procedure Pass [facility], Ct Scan - [facility] [address] [place] [address] Social History Tobacco Use Types Packs/Day Years [...] on filedocumented in this encounter Care Teams Scrum Coach Relationship Specialty Start Date End Date Aliza Childress MD [address] [place] [address] Drive [address] [place] [address] PCP - General Internal Medicine 06/29/22 documented as of this encounter Additional Source Comments The information contained in this document represents components of the legal health record. It is not the complete legal health record.[facility]
--- OUTSIDE RECORDS SUMMARY | 2025-06-16 09:21 | XMS_ITS | Encounter Summary ---
Author Organization [facility] Address [address] [place] [address] Care Team Providers Care Money Room Teller Name Role Phone Aliza Childress Primary Care Provider [phone] Encounter Details Date Type Department Care Team (Late st Contact Info) Description 11/27/2022 Orders Only [facility] [address] [place] [address] Kendra Choi MD [address] [place] [address] Social History Tobacco Use Types Packs/Day Years [...] Description 01/12/2026 3:30 PM EDT Office Visit [facility] [address] [place] [address] Kendra Choi MD [address] [place] [address] documented as of this encounter Procedures * Due to [place] state law, this organization might not be sharing negative HIV tests. Procedure Name Priority Date/Time Associated Diagnosis Comments AST, OUTSIDE LAB Routine 11/27/2022 LAB - SCANNED Routine 10/25/2022 documented in this encounter Results * Due to [place] state law, this organization might not be sharing negative HIV tests. * AST, Outside Lab (11/27/2022) Blood us Kendra Choi MD LAB BLOOD ORDERABLES Final Resul t * LAB - SCANNED (10/25/2022) us Unknown Provider LAB HISTORICAL RESULTS Final Result documented in this encounter Visit Diagnoses Not on filedocumented in this encounter Care Teams Money Room Teller Relationship Specialty Start Date End Date Aliza Childress [address] [place] [address] [place] [address] PCP - General 04/12/17 documented as of this encounter
--- OUTSIDE RECORDS SUMMARY | 2025-06-16 09:21 | XMS_ITS | Encounter Summary ---
Author Organization [facility] Address [address] [place] [address] Care Team Providers Care Cellophane Bag Machine Operator Name Role Phone Aliza Childress Primary Care Provider [phone] Encounter Details Date Type Department Care Team (Late st Contact Info) Description 06/03/2021 Orders Only [facility] Neurology Clinic [address] [place] [address] ProviderFavio MD [address] [place] [address] Social History Tobacco Use Types Packs/Day [...] Description 01/12/2026 3:30 PM EDT Office Visit [facility] Neurology Clinic [address] [place] [address] Kendra Choi MD [address] [place] [address] documented as of this encounter Procedures * Due to [place] state law, this organization might not be sharing negative HIV tests. Procedure Name Priority Date/Time Associated Diagnosis Comments LAB - SCANNED Routine 04/24/2021 documented in this encounter Results * Due to [place] state law, this organization might not be sharing negative HIV tests. * LAB - SCANNED (04/24/2021) us Unknown Provider MD LAB HISTORICAL RESULTS Final Result documented in this encounter Visit Diagnoses Not on filedocumented in this encounter Care Teams Cellophane Bag Machine Operator Relationship Specialty Start Date End Date Aliza Childress [address] [place] [address] [place] [address] PCP - General 04/12/17 documented as of this encounter
--- OUTSIDE RECORDS SUMMARY | 2025-06-16 09:21 | XMS_ITS | Encounter Summary ---
Author Organization [facility] Address [address] [place] [address] Care Team Providers Care Operations General Agent Name Role Phone Aliza Childress Primary Care Provider [phone] Reason for Visit * Reason Onset Date Comments signature needed 09/15/2022 Encounter Details Date Type Department Care Team (Late st Contact Info) Description 09/15/2022 Telephone [facility] Neurology [facility] [address] [place] [address] Ann Chappell [place] signature needed Social History [...] Description 01/12/2026 3:30 PM EDT Office Visit [facility] [address] [place] [address] Kendra Choi MD [address] [place] [address] documented as of this encounter Visit Diagnoses Not on filedocumented in this encounter Care Teams Operations General Agent Relationship Specialty Start Date End Date Aliza Childress [address] [facility] [place] [address] PCP - General 04/12/17 documented as of this encounter
--- OUTSIDE RECORDS SUMMARY | 2025-06-16 09:21 | XMS_ITS | Encounter Summary ---
Author Organization [facility] Address [address] [place] [address] Phone Care Team Providers Care Call Out Clerk Name Role Phone Aliza Childress MD Primary Care Provider [phone] Encounter Details Date Type Department Care Team (Late st Contact Info) Description 10/13/2022 Procedure Pass [facility], Ct Scan - [facility] [address] [place] [address] Social History Tobacco Use Types Packs/Day Years [...] on filedocumented in this encounter Care Teams Call Out Clerk Relationship Specialty Start Date End Date Aliza Childress MD [address] [place] [address] Drive [address] [place] [address] PCP - General Internal Medicine 06/29/22 documented as of this encounter Additional Source Comments The information contained in this document represents components of the legal health record. It is not the complete legal health record.[facility]
--- OUTSIDE RECORDS SUMMARY | 2025-06-16 09:21 | XMS_ITS | Clinical Summary ---
Author Organization [facility] Address [address] [place] [address] Care Team Providers Care Central Office Technician Name Role Phone Aliza Childress Primary Care Provider [phone] Allergies Active Allergy Reactions Criticality Noted Date [...] loratadine (CLARITIN) 10 mg tablet 4 Active ascorbic acid 500 mg tablet 4 Active omeprazole (PriLOSEC) 20 mg capsule 4 Active Reguloid, psyllium husk-sucro, 3 gram/7 gram powder 4 Active tamsulosin (FLOMAX) 0.4 mg capsule 4 Active cloNIDine (CATAPRES) 0.2 mg tablet Patient taking 1 tablet at 5 PM and PRN 4 Active gabapentin (NEURONTIN) 300 mg capsuleIndication s:Symptomatic tonic clonic epilepsy (HCC) TAKE 2 CAPSULES BY MOUTH TWICE DAILY FOR SEIZURE DISORDER DOSE = 600 MG 120 capsule 11 5 Active levETIRAcetam (KEPPRA) 500 mg tabletIndications :Symptomatic tonic clonic epilepsy (HCC) TAKE 2 TABLETS BY MOUTH IN THE AM AND TAKE 2 TABLETS BY MOUTH IN THE PM FOR SEIZURE DISORDER DOSE = 1,000 MG 120 tablet 11 5 Active OXcarbazepine (TRILEPTAL) 300 mg tabletIndications :Symptomatic tonic clonic epilepsy (HCC) TAKE 2 TABLETS BY MOUTH TWICE DAILY FOR SEIZURE D/O DOSE = 600 MG 120 tablet 11 5 Active Active Problems Problem Noted Date Diagnosed [...] BID - will mail lab slip to [facility] for surveillance blood work including checking CMP, CBC, ASM levels and vit D level - recommend discussing with PCP regarding diagnosis of osteoporosis in femoral neck seen on most recent BMD scan Seizure precautions were reviewed as well as side effects of the medication(s). I spent a total of 30 minutes on the date of encounter, which included: Obtaining and/or reviewing separately obtained history Performing a medically appropriate exam and/or evaluation Counseling and educating the patient/family/caregiver Ordering medications, tests, procedures Documenting clinical information in the health record [...] fax vitamin D level lab slip to [facility] Seizure precautions were reviewed as well as side effects of the medication(s). I spent a total of 30 minutes on the date of encounter, which included: Obtaining and/or reviewing separately obtained history Performing a medically appropriate exam and/or evaluation Counseling and educating the patient/family/caregiver Ordering medications, tests, procedures Documenting clinical information in the health record [...] on the date of encounter, which included: Obtaining and/or reviewing separately obtained history Performing a medically appropriate exam and/or evaluation Counseling and educating the patient/family/caregiver Ordering medications, tests, procedures Documenting clinical information in the health record Assessment & Plan (05/18/2021 9:48 AM EDT): - cont Keppra 1000mg BID, Trileptal 600mg BID, Gabapentin 600mg BID, Depakote ER 750/1000 - continue Vitamin d3 2000u daily - obtain AED level, faxing lab order to [facility] - obtain routine EEG, last assessed in [...] on the date of encounter, which included: Obtaining and/or reviewing separately obtained history Performing a medically appropriate exam and/or evaluation Counseling and educating the patient/family/caregiver Ordering medications, tests, procedures Documenting clinical information in the health record [...] Encounters Date Type Department Care Team Description 04/29/2025 Telephone [facility] [address] [place] [address] Leticia Mock RN Seizure 03/26/2025 Refill [facility] [address] [place] [phone] Sergei Webb NP Symptomatic tonic clonic epilepsy (HCC) from Last 3 Months Family History Relation [...] Description 01/12/2026 3:30 PM EDT Office Visit [facility] [address] [place] [address] Joan Whyte MD [address] [place], [place] [phone] Health Maintenance Due Date Last Done Comments [...] 11/17/2024 11/17/2021, 11/17/2021 Colon Cancer Screening 11/17/2024 Influenza Vaccine (#1) 2025 06/30/2024 RSV Vaccine (60+ years old a nd patients) (1 - 1-dose 75+ series) [address] [place] [place] [address] MEDICAID Care Teams Central Office Technician Relationship Specialty Start Date End Date Aliza Childress NPI: [id number] [place] [address] dr [place]ille [place], [place]AR[place] [address] PCP - General 04/12/17
--- OUTSIDE RECORDS SUMMARY | 2025-06-16 09:21 | XMS_ITS | Encounter Summary ---
Author Organization [facility] Address [address] [facility] [address] [place] [address] Phone Care Team Providers Care Slurry Worker Name Role Phone Aliza Childress MD Primary Care Provider [phone] Encounter Details Date Type Department Care Team (Late st Contact Info) Description 07/01/2022 Procedure Pass [facility], Ct Scan - [address] [address] Social History Tobacco Use Types Packs/Day Years [...] on filedocumented in this encounter Care Teams Slurry Worker Relationship Specialty Start Date End Date Aliza Childress MD [address] [place] [phone] PCP - General Internal Medicine 06/29/22 documented as of this encounter Additional Source Comments The information contained in this document represents components of the legal health record. It is not the complete legal health record.[facility]
== END 2025-06-16 08:25 | disposition home or self-care (01) ==
LOC: HO.XRAY 08:24
PROVIDERS: PCP Internal Medicine; Visit Provider Urology
DX: N20.0 Calculus of kidney (principal)
CPT/HCPCS: 74018

== ENCOUNTER → 2025-06-16 08:30 | Outpatient (BNV) | payer OTHER, SELFPAY | PROVIDERS: PCP Internal Medicine; Visit Provider Radiology Diagnostic Radiology | DX: N20.0 Calculus of kidney (principal) | CPT/HCPCS: 74018 ==

== ENCOUNTER 2025-06-25 09:17 | Outpatient (AMB) | payer OTHER, SELFPAY ==
--- NOTE | 2025-06-25 09:18 | MHC.OFFVIS ---
Intake Visit Reasons: 1y/KUB Intake Note: Patient is Present for 1 yr Follow Up Urology Medication:Finasteride, Tamsulosin Antibiotic Allergies: None Blood Thinners: None Imaging: KUB Xray 06/16/25 Grain Elevator Man Required: No Parcel Contractor: Parcel Contractor Present Accompanied by: Business Process Coordinator Allergies topiramate (From TOPAMAX) Allergy (Intermediate, Verified 06/25/25 09:19) UNKNOWN depakote Adverse Reaction (Intermediate, Uncoded 05/01/25 10:22) increase ammonia level HPI Comments Details: Brooks is a pleasant male. Developmental delay - trisomy 13. Lives in longterm. He seen for the following urologic conditions - lower urinary tract symptoms - nephrolithiasis Accompanied by caregivers - they report minimal issues with bladder performance No evidence of stones on recent KUB Has been doing well with tamsulosin and finasteride Discussed ultrasound - plan KUB in 12 months Good urinary performance Lower urinary tract symptoms Current medications include tamsulosin and finasteride Difficult to determine symptomatology but does occasionally complain of pain with burning Prior cystoscopy with cystitis on biopsy Kidney stones Have been observed Imaging - 02/12 renal ultrasound bilateral 3 mm stones - 06/16 renal ultrasound bilateral 3 mm stones - 06/17 renal ultrasound 5 mm right stone - 07/18 KUB NAD This was all discussed with patient's nurse. Will review in 12 months [facility] Medical History Contusion of right hand Nasal congestion Osteopenia Osteopenia Ribs, multiple fractures Cholelithiasis Renal calculus, bilateral Leukopenia GERD (gastroesophageal reflux disease) Vitamin D deficiency Cerebral palsy H/O nephrolithotomy with removal of calculi Hx of seizure disorder Thrombocytopenia Cognitive developmental delay Hepatitis B virus infection Surgical History History of cystoscopy History of extraction of renal calculus S/P cataract surgery History of gastric surgery Family History Father No problems noted. Mother No problems noted. Family/Other Family history unknown Social History Household Members: Other Household Members Other:: longterm residents/staff Housing: Other Housing Other:: [facility] longterm Are you a primary reservoir caretaker to a significant other at home: No Do you presently have visiting nurse or other home services: Yes Unable to assess alcohol history related to: Unable to respond Alcohol intake: never Comment: 1:1 sitter Patient Tobacco Use Status: Never used Tobacco Tobacco use type: Cigarette e-Cigarette/Vaping Use: Never Used Second Hand Smoke Exposure: No service: No Current occupational status: disabled Cognitive needs: Yes (wheelchair) Hearing needs: Yes Vision needs: Yes Review of Systems Const Denies chills and Denies fever(s) Card Reports no additional complaints and Denies syncope Resp Denies cough GI Denies abdominal pain and Denies heartburn Reports as per HPI and Denies change in libido Neuro Denies syncope Psych Denies change in libido Endo Denies change in libido Physical Exam Const General: cooperative, healthy appearing, comfortable and no acute distress Orientation/consciousness: patient oriented x3 HEENT Face and sinus: Yes normal facial exam Mouth: moist mucous membranes Neck Neck: Yes normal visual inspection, Yes full ROM and Yes trachea midline Chest Chest palpation & inspection: normal inspection of the chest Resp Effort & Inspection: normal respiratory effort, able to speak in complete sentences and no respiratory distress GI Inspection: Yes normal to inspection Back/Spine/Pelvis Cervical Spine: normal cervical lordosis Thoracic/Lumbar Spine: thoracic and lumbar spine normal to inspection Skin General skin exam: no rashes or lesions noted Neuro General: patient oriented x3, gait normal, tone normal and moves all extremities Extrem General: Yes normal to inspection and Yes capillary refill normal Assessment & Plan Assessment & Plan (1) Renal calculus, bilateral: Comment: May 2019 Code(s): N20.0 - Calculus of kidney Category: Medical (2) Bladder outlet obstruction: Code(s): N32.0 - Bladder-neck obstruction Category: Medical Plan Twelve month follow-up check KUB Orders: Orders XR KUB 12 Months N20.0 - Calculus of kidney Patient Instructions: This note is constructed using voice recognition software. While every effort has been made to ensure accuracy credit charge authorizer errors may have been included. Imaging studies, laboratory and physical exam results were discussed and reviewed in detail. No major barriers to patient understanding were identified. An opportunity to ask questions regarding the treatment plan was provided. All questions were answered. The patient expressed understanding and agreement with the above treatment plan. The patient is aware they should contact our office by phone for worsening of their current condition or the appearance of new urologic symptoms. Compliance is encouraged with any medications and followup testing that is ordered. It is a privilege to participate in the urologic care of your patient. If you have any questions or concerns regarding treatment for the above conditions, or other urologic issues, please do not hesitate to contact me. The office telephone contact is [phone]. Sincerely, Dr Jeremias Garcia MD, ISABELLA [facility] - Urology Compassionate Specialist Care for the Genitourinary System Coding Level of Care Code Est Pt Level 4 (35024) Complex EM visit Add On G2211 Diagnoses Renal calculus, bilateral N20.0 Bladder outlet obstruction N32.0
--- OUTSIDE RECORDS SUMMARY | 2025-06-25 10:15 | XMS_ITS | Encounter Summary ---
Author Organization [facility] Address [address] [place] [address] Care Team Providers Care Template Reproduction Technician Name Role Phone Aliza Childress Primary Care Provider [phone] Encounter Details Date Type Department Care Team (Late st Contact Info) Description 11/27/2022 Orders Only [facility] [address] [place] [address] Kendra Choi MD [address] [place] [address] Social History Tobacco Use Types Packs/Day Years [...] Description 01/12/2026 3:30 PM EDT Office Visit [facility] [address] [place] [address] Kendra Choi MD [address] [place] [address] documented as of this encounter Procedures * [...] on filedocumented in this encounter Care Teams Template Reproduction Technician Relationship Specialty Start Date End Date Aliza Childress [address] [place] [address] [place] [address] PCP - General 04/12/17 documented as of this encounter
--- OUTSIDE RECORDS SUMMARY | 2025-06-25 10:15 | XMS_ITS | Encounter Summary ---
Author Organization [facility] Address [address] [facility] [address] [place] [address] Phone Care Team Providers Care Snack Steward Name Role Phone Aliza Childress MD Primary Care Provider [phone] Encounter Details Date Type Department Care Team (Late st Contact Info) Description 03/11/2025 Procedure Pass [facility], Ct Scan - [facility] [address] [place] [address] Social History Tobacco Use Types Packs/Day Years [...] on filedocumented in this encounter Care Teams Snack Steward Relationship Specialty Start Date End Date Aliza Childress MD [address] [place] [address] [place] [phone] PCP - General Internal Medicine 06/29/22 documented as of this encounter Additional Source Comments The information contained in this document represents components of the legal health record. It is not the complete legal health record.[facility]
--- OUTSIDE RECORDS SUMMARY | 2025-06-25 10:15 | XMS_ITS | Encounter Summary ---
Author Organization [facility] Address [address] [place] [address] Care Team Providers Care Sash Maker Name Role Phone Aliza Childress Primary Care Provider [phone] Encounter Details Date Type Department Care Team (Late Contact Info) Description 09/06/2022 Telephone [facility] [address] [place] [address] Telephone Intake, Staff Social History Tobacco Use [...] - 09/06/2022 12:16 PM EST Sabrina from [facility] calling about PT's appt on 09/13 - telehealth with Dr. Choi. Asking if PT needsto be press operator carbon blocks. Nurses will be on with him. If he does, they will make arrangements for that, but wanted to be sure before keeping him out of his program that day. Please follow up with staff there [phone]. documented in this encounter Plan of Treatment Upcoming Encounters Date Type Department Care Team (Late Contact Info) Description 01/12/2026 3:30 PM EDT Office Visit [facility] [address] [place], [place] [phone] Kendra Choi MD [address] [place], [place] [phone] documented as of this encounter Visit Diagnoses Not on filedocumented in this encounter Care Teams Sash Maker Relationship Specialty Start Date End Date Aliza Childress [address] [place] [address] [place] [address] PCP - General 04/12/17 documented as of this encounter
--- OUTSIDE RECORDS SUMMARY | 2025-06-25 10:15 | XMS_ITS | Encounter Summary ---
Author Organization [facility] Address [address] [facility] [address] [place] [address] Phone Care Team Providers Care Trolley Worker Name Role Phone Aliza Childress MD Primary Care Provider [phone] Encounter Details Date Type Department Care Team (Late st Contact Info) Description 03/11/2025 Procedure Pass [facility], Ct Scan - [facility] [address] [place] [address] Social History Tobacco Use Types Packs/Day Years [...] on filedocumented in this encounter Care Teams Trolley Worker Relationship Specialty Start Date End Date Aliza Childress MD [address] [place] [address] [place] [phone] PCP - General Internal Medicine 06/29/22 documented as of this encounter Additional Source Comments The information contained in this document represents components of the legal health record. It is not the complete legal health record.[facility]
--- OUTSIDE RECORDS SUMMARY | 2025-06-25 10:15 | XMS_ITS | Clinical Summary ---
Author Organization [facility] Address [address] [place] [address] Care Team Providers Care Soft Metals Engraver Hand Name Role Phone Aliza Childress Primary Care Provider [phone] Allergies Active Allergy Reactions Criticality Noted Date [...] 300 mg capsuleIndication s:Symptomatic tonic clonic epilepsy TAKE 2 CAPSULES BY MOUTH TWICE DAILY FOR SEIZURE DISORDER DOSE = 600 MG 120 capsule 11 5 Active levETIRAcetam (KEPPRA) 500 mg tabletIndications :Symptomatic tonic clonic epilepsy TAKE 2 TABLETS BY MOUTH IN THE AM AND TAKE 2 TABLETS BY MOUTH IN THE PM FOR SEIZURE DISORDER DOSE = 1,000 MG 120 tablet 11 5 Active OXcarbazepine (TRILEPTAL) 300 mg tabletIndications :Symptomatic tonic clonic epilepsy TAKE 2 TABLETS BY MOUTH TWICE DAILY [...] BID - will mail lab slip to half-way for surveillance blood work including checking CMP, [...] fax vitamin D level lab slip to [facility] Clinical Lab Seizure precautions were [...] obtain AED level, faxing lab order to half-way - obtain routine EEG, last assessed in [...] Type Department Care Team Description 04/29/2025 Telephone [facility] [address] [place] [address] Leticia Mock RN Seizure 03/26/2025 Refill [facility] [address] [place] [address] [phone] Sergei Webb NP Symptomatic tonic clonic epilepsy [...] Description 01/12/2026 3:30 PM EDT Office Visit [facility] [address] [place] [address] Joan Whyte MD [address] [place], [place] [phone] Health Maintenance Due Date Last Done Comments [...] (1 - 1-dose 75+ series) 2042 [place] [address] Care Teams Soft Metals Engraver Hand Relationship Specialty Start Date End Date Aliza Childress [address] [place] [address] [place] [address] [facility] - General 04/12/17
--- OUTSIDE RECORDS SUMMARY | 2025-06-25 10:15 | XMS_ITS | Encounter Summary ---
Author Organization [facility] Address [address] [place] [address] Care Team Providers Care Size Marker Name Role Phone Aliza Childress Primary Care Provider [phone] Encounter Details Date Type Department Care Team (Late st Contact Info) Description 07/28/2021 Orders Only [facility] [address] [place] [address] Aliza Childress [address] [place] [address] [place] [address] Social History Tobacco Use Types Packs/Day Years [...] Description 01/12/2026 3:30 PM EDT Office Visit [facility] [address] [place], [place] [phone] Kendra Choi MD [address] [place], [place] [phone] documented as of this encounter Procedures * Due to [place] state law, this organization might not be sharing negative HIV tests. Procedure Name Priority Date/Time Associated Diagnosis Comments NEURODIAGNOSTIC - SCANNED Routine 06/24/2021 documented in this encounter Results * Due to [place] state law, this organization might not be sharing negative HIV tests. * NEURODIAGNOSTIC - SCANNED (06/24/2021) Aliza Childress SCANNED PROCEDURES Final Result documented in this encounter Visit Diagnoses Not on filedocumented in this encounter Care Teams Size Marker Relationship Specialty Start Date End Date Aliza Childress [address] [place] [address] dr [place], [place]AR[place] [address] PCP - General 04/12/17 documented as of this encounter
--- OUTSIDE RECORDS SUMMARY | 2025-06-25 10:15 | XMS_ITS | Encounter Summary ---
Author Organization [facility] Address [address] [place] [address] Care Team Providers Care Tax Expert Name Role Phone Aliza Childress Primary Care Provider [phone] Encounter Details Date Type Department Care Team (Late st Contact Info) Description 09/15/2022 Orders Only [facility] [address] [place] [address] ProviderFavio MD [address] [place] [address] Social History Tobacco Use Types Packs/Day [...] Description 01/12/2026 3:30 PM EDT Office Visit [facility] [address] [place] [address] Kendra Choi MD [address] [place] [address] documented as of this encounter Procedures * Due to [place] state law, this [...] on filedocumented in this encounter Care Teams Tax Expert Relationship Specialty Start Date End Date Aliza Childress [address] [place] [address] [place] [address] PCP - General 04/12/17 documented as of this encounter
--- OUTSIDE RECORDS SUMMARY | 2025-06-25 10:15 | XMS_ITS | Encounter Summary ---
Author Organization [facility] Address [address] [place] [address] Care Team Providers Care Neurosurgery Spine Physician Name Role Phone Aliza Childress Primary Care Provider [phone] Reason for Visit * Reason Onset Date Comments signature needed 09/15/2022 Encounter Details Date Type Department Care Team (Late st Contact Info) Description 09/15/2022 Telephone [facility] [address] [place] [address] Ann Chappell [place] signature needed Social History [...] Description 01/12/2026 3:30 PM EDT Office Visit [facility] [address] [place] [address] Kendra Choi MD [address] [place] [address] documented as of this encounter Visit Diagnoses Not on filedocumented in this encounter Care Teams Neurosurgery Spine Physician Relationship Specialty Start Date End Date Aliza Childress [address] [facility] [place] [address] PCP - General 04/12/17 documented as of this encounter
--- OUTSIDE RECORDS SUMMARY | 2025-06-25 10:15 | XMS_ITS | Encounter Summary ---
Author Organization [facility] Address [address] [facility] [address] [place] [address] Phone Care Team Providers Care Animal Impersonator Name Role Phone Aliza Childress MD Primary Care Provider [phone] Encounter Details Date Type Department Care Team (Late st Contact Info) Description 10/13/2022 Procedure Pass [facility], Ct Scan - [facility] [address] [place] [address] Social History Tobacco Use Types Packs/Day Years [...] on filedocumented in this encounter Care Teams Animal Impersonator Relationship Specialty Start Date End Date Aliza Childress MD [address] [place] [address] Drive [address] [place] [address] PCP - General Internal Medicine 06/29/22 documented as of this encounter Additional Source Comments The information contained in this document represents components of the legal health record. It is not the complete legal health record.[facility]
--- OUTSIDE RECORDS SUMMARY | 2025-06-25 10:15 | XMS_ITS | Encounter Summary ---
Author Organization [facility] Address [address] [facility] [address] [place] [address] Phone Care Team Providers Care Ic Design Engineer Name Role Phone Aliza Childress MD Primary Care Provider [phone] Encounter Details Date Type Department Care Team (Late st Contact Info) Description 10/13/2022 Procedure Pass [facility], Ct Scan - [facility] [address] [place] [address] Social History Tobacco Use Types Packs/Day Years [...] on filedocumented in this encounter Care Teams Ic Design Engineer Relationship Specialty Start Date End Date Aliza Childress MD [address] [place] [address] Drive [address] [place] [address] PCP - General Internal Medicine 06/29/22 documented as of this encounter Additional Source Comments The information contained in this document represents components of the legal health record. It is not the complete legal health record.[facility]
--- OUTSIDE RECORDS SUMMARY | 2025-06-25 10:15 | XMS_ITS | Encounter Summary ---
Author Organization [facility] Address [address] [facility] [address] [place] [address] Phone Care Team Providers Care Stock Unloader Name Role Phone Aliza Childress MD Primary Care Provider [phone] Encounter Details Date Type Department Care Team (Late st Contact Info) Description 07/01/2022 Procedure Pass [facility], Ct Scan - [address] [address] Social History Tobacco Use Types Packs/Day Years [...] on filedocumented in this encounter Care Teams Stock Unloader Relationship Specialty Start Date End Date Aliza Childress MD [address] [place] [phone] PCP - General Internal Medicine 06/29/22 documented as of this encounter Additional Source Comments The information contained in this document represents components of the legal health record. It is not the complete legal health record.[facility]
--- OUTSIDE RECORDS SUMMARY | 2025-06-25 10:15 | XMS_ITS | Clinical Summary ---
Author Organization [facility] Address [address] [facility] [address] [place] [address] Phone Care Team Providers Care Roasterman Name Role Phone Aliza Childress MD Primary Care Provider [phone] Allergies Active Allergy Reactions Criticality Noted Date [...] Not on file Insurance [employer] [place] [address] [place] [address] [place] [address] [place] [address] [place] [address] [place] [address] [place] [address] [place] [address] ACO Care Teams Roasterman Relationship Specialty Start Date End Date Aliza Childress MD [address] [place] [address] Drive [address] [place] [phone] PCP - General Internal Medicine 06/29/22 Additional Source Comments The information contained in this document represents components of the legal health record. It is not the complete legal health record.[facility]
--- OUTSIDE RECORDS SUMMARY | 2025-06-25 10:15 | XMS_ITS | Encounter Summary ---
Author Organization [facility] Address [address] [place] [address] Care Team Providers Care Reserve Officer Name Role Phone Aliza Childress Primary Care Provider Encounter Details Date Type Department Care Team (Late st Contact Info) Description 06/03/2021 Orders Only [facility] [address] [place] [address] ProviderFavio MD [address] [place] [address] Social History Tobacco Use Types Packs/Day [...] [facility] [address] [place] [address] Kendra Choi MD [address] [place] [address] documented as of this encounter Procedures * Due to [place] state law, this organization might not be sharing negative HIV tests. Procedure Name Priority Date/Time Associated Diagnosis Comments LAB - SCANNED Routine 04/24/2021 documented in this encounter Results * Due to [place] state law, this organization might not be sharing negative HIV tests. * LAB - SCANNED (04/24/2021) us Unknown Provider MD LAB HISTORICAL RESULTS Final Result documented in this encounter Visit Diagnoses Not on filedocumented in this encounter Care Teams Reserve Officer Relationship Specialty Start Date End Date Aliza Childress [address] [place] [address] [place] [address] PCP - General 04/12/17 documented as of this encounter
--- OUTSIDE RECORDS SUMMARY | 2025-06-25 10:15 | XMS_ITS | Encounter Summary ---
Author Organization [facility] Address [address] [place] [address] Care Team Providers Care Fuel Oil Truck Driver Name Role Phone Aliza Childress Primary Care Provider [phone] Encounter Details Date Type Department Care Team (Late st Contact Info) Description 12/18/2022 Orders Only [facility] [address] [place] [address] Kendra Choi MD [address] [place] [address] Social History Tobacco Use Types Packs/Day Years [...] Description 01/12/2026 3:30 PM EDT Office Visit [facility] [address] [place] [address] Kendra Choi MD [address] [place] [address] documented as of this encounter Procedures * [...] on filedocumented in this encounter Care Teams Fuel Oil Truck Driver Relationship Specialty Start Date End Date Aliza Childress [address] [place] [address] dr [place]ille [place], [place] [address] PCP - General 04/12/17 documented as of this encounter
--- OUTSIDE RECORDS SUMMARY | 2025-06-25 10:15 | XMS_ITS | Encounter Summary ---
Author Organization [facility] Address [address] [facility] [address] [place] [address] Phone Care Team Providers Care Counter Clerk Tractor Parts Name Role Phone Aliza Childress MD Primary Care Provider [phone] Encounter Details Date Type Department Care Team (Late st Contact Info) Description 10/13/2022 Procedure Pass [facility], Ct Scan - [facility] [address] [place] [address] Social History Tobacco Use Types Packs/Day Years [...] on filedocumented in this encounter Care Teams Counter Clerk [employer] Relationship Specialty Start Date End Date Aliza Childress MD [address] [place] [address] Drive [address] [place] [address] PCP - General Internal Medicine 06/29/22 documented as of this encounter Additional Source Comments The information contained in this document represents components of the legal health record. It is not the complete legal health record.[facility]
--- OUTSIDE RECORDS SUMMARY | 2025-06-25 10:15 | XMS_ITS | Encounter Summary ---
Author Organization [facility] Address [address] [facility] [address] [place] [address] Phone Care Team Providers Care Operator Cavity Pump Name Role Phone Aliza Childress MD Primary Care Provider [phone] Encounter Details Date Type Department Care Team (Late st Contact Info) Description 07/01/2022 Procedure Pass [facility], Ct Scan - [address] [address] Social History Tobacco Use Types Packs/Day Years [...] on filedocumented in this encounter Care Teams Operator Cavity Pump Relationship Specialty Start Date End Date Aliza Childress MD [address] [facility] [address] [place] [phone] PCP - General Internal Medicine 06/29/22 documented as of this encounter Additional Source Comments The information contained in this document represents components of the legal health record. It is not the complete legal health record.[facility]
== END 2025-06-25 10:12 | disposition home or self-care (01) ==
LOC: HO.HUSH 09:18
PROVIDERS: PCP Internal Medicine; Visit Provider Urology
DX: N20.0 Calculus of kidney (principal); N32.0 Bladder-neck obstruction
CPT/HCPCS: 99214

== ENCOUNTER → 2025-06-25 09:17 | Outpatient (BNVA) | payer OTHER, SELFPAY | PROVIDERS: PCP Internal Medicine; Visit Provider Urology | DX: N20.0 Calculus of kidney (principal); N32.0 Bladder-neck obstruction | CPT/HCPCS: 99212 ==

== ENCOUNTER 2025-07-10 12:55 | Outpatient (AMB) | payer OTHER, SELFPAY ==
[2025-07-10 13:22] VITALS: BP 108/70; PULSE 73; TEMP 36.6; O2SAT 95; BMI 26.7
--- NOTE | 2025-07-10 13:22 | MHC.OFFWIV ---
Intake Vital Signs 07/10/25 13:22 Height 5 ft 2 in Weight 146 lb BMI 26.7 BP 108/70 Blood Pressure Location Lt brachial Position Sitting Pulse 73 Pulse Source Pulse Oximeter Temp 97.8 F Temp Source Oral Pulse Oximetry (%) 95 Oxygen Delivery Method Room Air Intake Visit Reasons: ep runny nose Intake Note: pt prsents sinus congestions with drainage Patient Tobacco Use Status: Never used Tobacco Allergies topiramate (From TOPAMAX) Allergy (Intermediate, Verified 06/25/25 09:19) UNKNOWN divalproex sodium (From Depakote) Adverse Reaction (Unknown, Verified 07/10/25 13:31) increased ammonia level Do you need a note to return to daycare/school/sports/work: No HPI HPI Comments History of Present Illness Details This is a 60-year-old male who presented to the walk-in clinic accompanied by a caregiver complaining of nasal congestion and rhinorrhea x 1 day. Patient is unable to express his issue due to a cognitive developmental delay; however, patient's caregiver states that he was at his day program yesterday and they noticed increased fatigue and nasal congestion/drainage. Patient returned to his [facility] and went right to bed, which was quite unusual for him. Patient's caregiver states that he seemed less fatigued today but is still having some nasal congestion, rhinorrhea, and a dry cough. Patient is unable to communicate whether he has a sore throat or ear pain. Patient is unable to communicate whether he has any shortness of breath; however, patient's caregiver has not noticed any difficulty breathing or respiratory distress. Patient's caregiver states he has not had any fevers or chills. Patient's caregiver states they are unaware of any sick contacts; however, his caregiver states it is quite possible he had a sick contact at his day program. [facility] Medical History Contusion of right hand Nasal congestion Osteopenia Osteopenia Ribs, multiple fractures Cholelithiasis Renal calculus, bilateral Leukopenia GERD (gastroesophageal reflux disease) Vitamin D deficiency Cerebral palsy H/O nephrolithotomy with removal of calculi Hx of seizure disorder Thrombocytopenia Cognitive developmental delay Hepatitis B virus infection Surgical History History of cystoscopy History of extraction of renal calculus S/P cataract surgery History of gastric surgery Family History Father No problems noted. Mother No problems noted. Family/Other Family history unknown Social History Household Members: Other Household Members Other:: [facility] residents/staff Housing: Other Housing Other:: [facility] Are you a primary career services manager to a significant other at home: No Do you presently have visiting nurse or other home services: Yes Alcohol intake: never Comment: 1:1 sitter Patient Tobacco Use Status: Never used Tobacco Tobacco use type: Cigarette e-Cigarette/Vaping Use: Never Used Second Hand Smoke Exposure: No service: No Current occupational status: disabled Cognitive needs: Yes (wheelchair) Hearing needs: Yes Vision needs: Yes Review of Systems Const All systems reviewed & are unremarkable except as noted in HPI and below Reports no additional complaints Eyes Reports no additional complaints ENT Reports no additional complaints Card Reports no additional complaints Resp Reports no additional complaints GI Reports no additional complaints Reports no additional complaints Musc Reports no additional complaints Skin/Breast Reports system reviewed and no additional complaints, except as documented Neuro Reports no additional complaints Psych Reports no additional complaints Endo Reports no additional complaints Stefan/Lymph Reports no additional complaints Aller/Immun Reports no additional complaints Physical Exam Exam Exam: Vital signs reviewed. Constitutional: Non-toxic appearing. No acute distress. Well-developed and well-nourished. HEENT: Normocephalic and atraumatic. There is a small amount of cerumen in the left external auditory canal and a moderate amount of cerumen in the right external auditory canal but the visible tympanic membranes without erythema, edema, or bulging bilaterally. Moist mucous membranes. There is a mild amount of posterior pharyngeal erythema as well as two small pinpoint areas of white exudate/lesions. Skin: Warm and dry. No rashes or lesions noted. Neck: Full and painless range of motion. No anterior cervical lymphadenopathy. Cardio: Regular rate and rhythm. No murmurs, gallops, or rubs. No lower extremity edema. No JVD. Pulmonary: No respiratory distress. No accessory muscle usage. Clear to auscultation bilaterally without wheezing, crackles, or rhonchi. Gastrointestinal: Soft, nontender, and nondistended in all 4 quadrants. Musculoskeletal: Normal range of motion in joints throughout the body. No deformity or other signs of injury. Neuro: Alert, + cognitive developmental delay. Right pupil is greater in diameter than left pupil but this is patients baseline according to his caregiver. No focal deficits appreciated. Psych: Normal mood and affect. Vital Signs: Last Vital Signs Temp 97.8 F 07/10/25 13:22 Pulse 73 07/10/25 13:22 BP 108/70 07/10/25 13:22 Pulse Ox 95 07/10/25 13:22 Oxygen Delivery Method Room Air 07/10/25 13:22 BMI result Body Mass Index 26.7 Assessment & Plan Assessment & Plan (1) Acute upper respiratory infection, unspecified: Code(s): J06.9 - Acute upper respiratory infection, unspecified Plan This is a 60-year-old male who presented to the walk-in clinic accompanied by a caregiver complaining of nasal congestion and rhinorrhea x 1 day. Patient is unable to express whether he has a sore throat; however, he appears to have a dry cough and appears to be clearing his throat indicating possible throat irritation. Upon physical examination, there is posterior pharyngeal erythema as well as two pinpoint areas of white exudate. Given this finding, a rapid strep test was obtained and was negative. His history and physical exam are most consistent with a viral acute upper respiratory tract infection. I recommended symptomatic management including rest, increased fluids, advil/tylenol for pain/fever, over the counter throat lozenges/decongestants, and humidification at bedtime if possible. COVID/FLU/RSV sent, will call patient's caregiver with results. Patient and his caregiver were advised to follow up here or go to the emergency room for worsening/persistent symptoms such as fevers/chills, shortness of breath, or worsening sputum production/purulence. Patient's caregiver verbalized their understanding and they are in agreement with the plan. Orders: Orders SARS-CoV2/FLU/RSV Today J06.9 - Acute upper respiratory infection, unspecified Coding Level of Care Code Est Pt Level 3 (02927) Diagnoses Acute upper respiratory infection, unspecified J06.9
--- OUTSIDE RECORDS SUMMARY | 2025-07-10 15:14 | XMS_ITS | Encounter Summary ---
Author Organization [facility] Address [address] [place] [address] Care Team Providers Care Pumper Gauger Name Role Phone Aliza Childress Primary Care Provider [phone] Encounter Details Date Type Department Care Team (Late st Contact Info) Description 06/03/2021 Orders Only [facility] [address] [place] [address] ProviderFavio MD [address] [place] [address] Social History Tobacco Use Types Packs/Day [...] Description 01/12/2026 3:30 PM EDT Office Visit [facility] [address] [place] [address] Kendra Choi MD [address] [place] [address] documented as of this encounter Procedures * Due to [place] state law, this [...] on filedocumented in this encounter Care Teams Pumper Gauger Relationship Specialty Start Date End Date Aliza Childress [address] [place] [address] [place] [address] PCP - General 04/12/17 documented as of this encounter
--- OUTSIDE RECORDS SUMMARY | 2025-07-10 15:14 | XMS_ITS | Clinical Summary ---
Author Organization [facility] Address [address] [place] [address] Care Team Providers Care Farm Supervisor Name Role Phone Aliza Childress Primary Care Provider [phone] Allergies Active Allergy Reactions Criticality Noted Date [...] TABLET DAILY. Quantity: 30; Refills: 5 JOAN WHYET MD; Active Active fluoride, sodium, (DENTA 5000 [...] fax vitamin D level lab slip to [facility] Seizure precautions were reviewed [...] Type Department Care Team Description 04/29/2025 Telephone [facility] [address] [place] [address] Leticia Mock RN Seizure from Last 3 Months Family History Relation [...] Description 01/12/2026 3:30 PM EDT Office Visit [facility] [address] [place] [address] Joan Whyte MD [address] [place] [address] Health Maintenance Due Date Last Done Comments [...] (1 - 1-dose 75+ series) 2042 Insurance [employer] Care Teams Farm Supervisor Relationship Specialty Start Date End Date Aliza Childress [address] [place] [address] [place] [address] PCP - General 04/12/17
--- OUTSIDE RECORDS SUMMARY | 2025-07-10 15:14 | XMS_ITS | Encounter Summary ---
Author Organization [facility] Address [address] [place] [address] Care Team Providers Care Electrical Prospecting Operator Name Role Phone Aliza Childress Primary Care Provider [phone] Encounter Details Date Type Department Care Team (Late st Contact Info) Description 09/15/2022 Orders Only [facility] [address] [place] [address] ProviderFavio MD [address] [place] [address] Social History Tobacco Use Types Packs/Day [...] 01/12/2026 3:30 PM EDT Office Visit [facility] [address] [place] [address] Kendra Choi MD [address] [place] [address] documented as of this encounter Procedures * [...] on filedocumented in this encounter Care Teams Electrical Prospecting Operator Relationship Specialty Start Date End Date Aliza Childress [address] [place] [address] [place] [address] PCP - General 04/12/17 documented as of this encounter
--- OUTSIDE RECORDS SUMMARY | 2025-07-10 15:14 | XMS_ITS | Encounter Summary ---
Author Organization [facility] Address [address] [facility] [address] [place] [address] Phone Care Team Providers Care Priming Mixture Carrier Name Role Phone Aliza Childress MD Primary Care Provider [phone] Encounter Details Date Type Department Care Team (Late st Contact Info) Description 03/11/2025 Procedure Pass [facility], Ct Scan - [facility] [address] [place] [address] Social History Tobacco Use Types Packs/Day Years [...] on filedocumented in this encounter Care Teams Priming Mixture Carrier Relationship Specialty Start Date End Date Aliza Childress MD [address] [place] [address] [place] [phone] PCP - General Internal Medicine 06/29/22 documented as of this encounter Additional Source Comments The information contained in this document represents components of the legal health record. It is not the complete legal health record.[facility]
--- OUTSIDE RECORDS SUMMARY | 2025-07-10 15:14 | XMS_ITS | Encounter Summary ---
Author Organization [facility] Address [address] [place] [address] Care Team Providers Care Maxillofacial Prosthodontist Name Role Phone Aliza Childress Primary Care Provider [phone] Reason for Visit * Reason Onset Date Comments signature needed 09/15/2022 Encounter Details Date Type Department Care Team (Late st Contact Info) Description 09/15/2022 Telephone [facility] [address] [place] [address] Ann Chappell [place] signature needed Social History [...] Description 01/12/2026 3:30 PM EDT Office Visit [facility] [address] [place] [address] Kendra Choi MD [address] [place] [address] documented as of this encounter Visit Diagnoses Not on filedocumented in this encounter Care Teams Maxillofacial Prosthodontist Relationship Specialty Start Date End Date Aliza Childress [address] [place] [address] PCP - General 04/12/17 documented as of this encounter
--- OUTSIDE RECORDS SUMMARY | 2025-07-10 15:14 | XMS_ITS | Encounter Summary ---
Author Organization [facility] Address [address] [place] [address] Care Team Providers Care Rim Roller Setter Name Role Phone Aliza Childress Primary Care Provider [phone] Encounter Details Date Type Department Care Team (Late st Contact Info) Description 07/28/2021 Orders Only [facility] [address] [place] [address] Aliza Childress [address] [place] [address] [place] [address] Social History Tobacco Use Types Packs/Day Years [...] Description 01/12/2026 3:30 PM EDT Office Visit [facility] [address] [place], [place] [phone] Kendra Choi MD [address] [place], [place] [phone] documented as of this encounter Procedures * [...] on filedocumented in this encounter Care Teams Rim Roller Setter Relationship Specialty Start Date End Date Aliza Childress [address] [place] [address] dr [place]ille [place], [place]ARED [address] PCP - General 04/12/17 documented as of this encounter
--- OUTSIDE RECORDS SUMMARY | 2025-07-10 15:14 | XMS_ITS | Encounter Summary ---
Author Organization [facility] Address [address] [place] [address] Care Team Providers Care Telemarketing Representative Name Role Phone Aliza Childress Primary Care Provider [phone] Encounter Details Date Type Department Care Team (Late Contact Info) Description 09/06/2022 Telephone [facility] [address] [place] [address] Telephone Intake, Staff Social History Tobacco Use [...] Miscellaneous Notes * Telephone Encounter - Jimena ePterson - 09/06/2022 12:16 PM EST Sabrina from [facility] calling about PT's appt on 09/13 - telehealth with Dr. Choi. 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 Nurses will be on with him. If he does, they will make arrangements for that, but wanted to be sure before keeping him out of his program that day. Please follow up with staff there [phone]. documented in this encounter Plan of Treatment Upcoming Encounters Date Type Department Care Team (Late Contact Info) Description 01/12/2026 3:30 PM EDT Office Visit [facility] [address] [place], [place] [phone] Kendra Choi MD [address] [place], [place] [phone] documented as of this encounter Visit Diagnoses Not on filedocumented in this encounter Care Teams Telemarketing Representative Relationship Specialty Start Date End Date Aliza Childress [address] [place] [address] [place] [address] PCP - General 04/12/17 documented as of this encounter
--- OUTSIDE RECORDS SUMMARY | 2025-07-10 15:14 | XMS_ITS | Encounter Summary ---
Author Organization [facility] Address [address] [facility] [address] [place] [address] Phone Care Team Providers Care Seam Steamer Name Role Phone Aliaz Childress MD Primary Care Provider [phone] Encounter Details Date Type Department Care Team (Late st Contact Info) Description 10/13/2022 Procedure Pass [facility], Ct Scan - [facility] [address] [place] [address] Social History Tobacco Use Types Packs/Day Years [...] on filedocumented in this encounter Care Teams Seam Steamer Relationship Specialty Start Date End Date Aliza Childress MD [address] [place] [address] Drive [address] [place] [address] PCP - General Internal Medicine 06/29/22 documented as of this encounter Additional Source Comments The information contained in this document represents components of the legal health record. It is not the complete legal health record.[facility]
--- OUTSIDE RECORDS SUMMARY | 2025-07-10 15:14 | XMS_ITS | Encounter Summary ---
Author Organization [facility] Address [address] [facility] [address] [place] [address] Phone Care Team Providers Care Ultrasound Applications Specialist Name Role Phone Aliza Childress MD Primary Care Provider [phone] Encounter Details Date Type Department Care Team (Late st Contact Info) Description 03/11/2025 Procedure Pass [facility], Ct Scan - [facility] [address] [place] [address] Social History Tobacco Use Types Packs/Day Years [...] on filedocumented in this encounter Care Teams Ultrasound Applications Specialist Relationship Specialty Start Date End Date Aliza Childress MD [address] [place] [address] [place] [phone] PCP - General Internal Medicine 06/29/22 documented as of this encounter Additional Source Comments The information contained in this document represents components of the legal health record. It is not the complete legal health record.[facility]
--- OUTSIDE RECORDS SUMMARY | 2025-07-10 15:14 | XMS_ITS | Encounter Summary ---
Author Organization [facility] Address [address] [facility] [address] [place] [address] Phone Care Team Providers Care Can Line Examiner Name Role Phone Aliza Childress MD Primary Care Provider [phone] Encounter Details Date Type Department Care Team (Late st Contact Info) Description 10/13/2022 Procedure Pass [facility], Ct Scan - [facility] [address] [place] [address] Social History Tobacco Use Types Packs/Day Years [...] on filedocumented in this encounter Care Teams Can Line Examiner Relationship Specialty Start Date End Date Aliza Childress MD [address] [place] [address] Drive [address] [place] [address] PCP - General Internal Medicine 06/29/22 documented as of this encounter Additional Source Comments The information contained in this document represents components of the legal health record. It is not the complete legal health record.[facility]
--- OUTSIDE RECORDS SUMMARY | 2025-07-10 15:14 | XMS_ITS | Encounter Summary ---
Author Organization [facility] Address [address] [place] [address] Care Team Providers Care Marketing Strategist Name Role Phone Aliza Childress Primary Care Provider [phone] Encounter Details Date Type Department Care Team (Late st Contact Info) Description 11/27/2022 Orders Only [facility] [address] [place] [address] Kendra Choi MD [address] [place] [address] Social History Tobacco Use Types Packs/Day Years [...] Office Visit [facility] [address] [place] [address] Kendra Choi MD [address] [place] [address] documented as of this encounter Procedures * Due to [place] state law, this organization might not be sharing negative HIV tests. Procedure Name Priority Date/Time Associated Diagnosis Comments AST, OUTSIDE LAB Routine 11/27/2022 LAB - SCANNED Routine 10/25/2022 documented in this encounter Results * Due to [place] state law, this organization might not be sharing negative HIV tests. * AST, Outside Lab (11/27/2022) Blood us Kendra Choi MD LAB BLOOD ORDERABLES Final Resul t * LAB - SCANNED (10/25/2022) us Unknown Provider LAB HISTORICAL RESULTS Final Result documented in this encounter Visit Diagnoses Not on filedocumented in this encounter Care Teams Marketing Strategist Relationship Specialty Start Date End Date Aliza Childress [address] [place] [address] [place] [address] PCP - General 04/12/17 documented as of this encounter
--- OUTSIDE RECORDS SUMMARY | 2025-07-10 15:14 | XMS_ITS | Encounter Summary ---
Author Organization [facility] Address [address] [facility] [address] [place] [address] Phone Care Team Providers Care Marine Driller Name Role Phone Aliza Childress MD Primary Care Provider [phone] Encounter Details Date Type Department Care Team (Late st Contact Info) Description 07/01/2022 Procedure Pass [facility], Ct Scan - [address] [address] Social History Tobacco Use Types Packs/Day Years [...] on filedocumented in this encounter Care Teams Marine Driller Relationship Specialty Start Date End Date Aliza Childress MD [address] [place] [phone] PCP - General Internal Medicine 06/29/22 documented as of this encounter Additional Source Comments The information contained in this document represents components of the legal health record. It is not the complete legal health record.[facility]
--- OUTSIDE RECORDS SUMMARY | 2025-07-10 15:14 | XMS_ITS | Encounter Summary ---
Author Organization [facility] Address [address] [place] [address] Care Team Providers Care Broodmare Barn Groom Name Role Phone Aliza Childress Primary Care Provider Encounter Details Date Type Department Care Team (Late st Contact Info) Description 12/18/2022 Orders Only [facility] [address] [place] [address] Kendra Choi MD [address] [place] [address] Social History Tobacco Use Types Packs/Day Years [...] Description 01/12/2026 3:30 PM EDT Office Visit [facility] [address] [place] [address] Kendra Choi MD [address] [place] [address] documented as of this encounter Procedures * Due to [place] state law, this organization might not be sharing negative HIV tests. Procedure Name Priority Date/Time Associated Diagnosis Comments LAB - SCANNED Routine 12/18/2022 documented in this encounter Results * Due to [place] state law, this organization might not be sharing negative HIV tests. * LAB - SCANNED (12/18/2022) us Kendra Choi MD LAB HISTORICAL RESULTS Final Res ult documented in this encounter Visit Diagnoses Not on filedocumented in this encounter Care Teams Broodmare Barn Groom Relationship Specialty Start Date End Date Aliza Childress [address] [place] [address] dr [place], [place] [address] PCP - General 04/12/17 documented as of this encounter
--- OUTSIDE RECORDS SUMMARY | 2025-07-10 15:14 | XMS_ITS | Encounter Summary ---
Author Organization [facility] Address [address] [facility] [address] [place] [address] Phone Care Team Providers Care Day Care Assistant Name Role Phone Aliza Childress MD Primary Care Provider [phone] Encounter Details Date Type Department Care Team (Late st Contact Info) Description 10/13/2022 Procedure Pass [facility], Ct Scan - [facility] [address] [place] [address] Social History Tobacco Use Types Packs/Day Years [...] on filedocumented in this encounter Care Teams Day Care Assistant Relationship Specialty Start Date End Date Aliza Childress MD [address] [place] [address] Drive [address] [place] [address] PCP - General Internal Medicine 06/29/22 documented as of this encounter Additional Source Comments The information contained in this document represents components of the legal health record. It is not the complete legal health record.[facility]
--- OUTSIDE RECORDS SUMMARY | 2025-07-10 15:14 | XMS_ITS | Encounter Summary ---
Author Organization [facility] Address [address] [place] [address] Phone Care Team Providers Care Battery Stacker Name Role Phone Aliza Childress MD Primary Care Provider [phone] Encounter Details Date Type Department Care Team (Late st Contact Info) Description 07/01/2022 Procedure Pass [facility], Ct Scan - [address] [address] Social History Tobacco Use Types Packs/Day Years [...] filedocumented in this encounter Care Teams Battery Stacker Relationship Specialty Start Date End Date Aliza Childress MD [address] [place] [id number] PCP - General Internal Medicine 06/29/22 documented as of this encounter Additional Source Comments The information contained in this document represents components of the legal health record. It is not the complete legal health record.[facility]
--- OUTSIDE RECORDS SUMMARY | 2025-07-10 15:14 | XMS_ITS | Clinical Summary ---
Author Organization [facility] Address [address] [place] [address] Phone Care Team Providers Care Planning Coordinator Name Role Phone Aliza Childress MD Primary Care Provider [phone] Allergies Active Allergy Reactions Criticality Noted Date [...] VACCINE (#1) 2025 COVID-19 VACCINE (1 - 2024-2 6 season) 2025 COLOGUARD 02/14/2028 02/13/2025 COLORECTAL CANCER SCREENING 02/14/2028 Adult Td,Tdap Booster 03/11/2035 03/11/2025 RSV VACCINE (1 - 1-dose 75+ series) 2042 SMOKING STATUS SCREENING (On ce After 26 [...] Not on file Insurance ACO ACO ACO ACO [employer] [place] [address] [place] [address] [place] [address] ACO Care Teams Planning Coordinator Relationship Specialty Start Date End Date Aliza Childress MD [address] [place] [id number] PCP - General Internal Medicine 06/29/22 Additional Source Comments The information contained in this document represents components of the legal health record. It is not the complete legal health record.[facility]
== END 2025-07-10 14:45 | disposition home or self-care (01) ==
PROVIDERS: PCP Internal Medicine; Visit Provider Physician Assistant Medical
DX: Z13.9 Encounter for screening, unspecified (principal); J06.9 Acute upper respiratory infection, unspecified

== ENCOUNTER 2025-07-10 12:55 | Outpatient (REF) | payer OTHER, SELFPAY ==
[2025-07-10 17:12] LABS: Resp Syncy Virus RNA Qual PCR NEGATIVE (Negative); SARS COV2 PCR INHOUSE NEGATIVE (Negative)
== END 2025-07-10 12:56 | disposition home or self-care (01) ==
LOC: HO.LNP 12:55
PROVIDERS: PCP Internal Medicine; Visit Provider Physician Assistant Medical
DX: J06.9 Acute upper respiratory infection, unspecified (principal)
CPT/HCPCS: 87637; 87880; 99212

== ENCOUNTER 2025-07-28 11:04 | Outpatient (AMB) | payer OTHER, SELFPAY ==
[2025-07-28 11:15] VITALS: BP 118/78; PULSE 55; TEMP 36.2; O2SAT 98; BMI 24.7
--- NOTE | 2025-07-28 11:15 | MHC.PC.OV ---
Vital Signs 07/28/25 11:15 Height 5 ft 2 in Weight 135 lb BMI 24.7 BP 118/78 Blood Pressure Location Lt brachial Position Sitting Pulse 55 Pulse Source Pulse Oximeter Temp 97.1 F Temp Source Temporal Artery Scan Pulse Oximetry (%) 98 Oxygen Delivery Method Room Air Intake Visit Reasons: Annual exam Accompanied by: alf staff Allergies topiramate (From TOPAMAX) Allergy (Intermediate, Verified 07/28/25 11:18) UNKNOWN divalproex sodium (From Depakote) Adverse Reaction (Unknown, Verified 07/28/25 11:18) increased ammonia level Medication List - Last Reconciled 07/28/25 by Aliza Childress MD acetaminophen 650 mg (2 x 325 mg) PO Q6H PRN bismuth subsalicylate 524 mg (30 mL) PO Q6H PRN calcium carbonate (Oyster Shell Calcium) 500 mg PO DAILY cholecalciferol (vitamin D3) 4,000 units PO DAILY clonidine HCl 0.1 mg PO TID clonidine HCl 0.1 mg PO ONCE PRN diaper,brief,adult,disposable (Wings Choice Plus Adult Briefs) size Medium docusate sodium 100 mg PO QAM finasteride 5 mg PO DAILY 30 days fluoride (sodium) 1.1% (Denta 5000 Plus) 1 appl dental BID fluticasone propionate 50 mcg/actuation (Flonase Allergy Relief) 2 sprays intranasal DAILY gabapentin 600 mg PO BID levetiracetam 1,000 mg PO BID loratadine 10 mg PO DAILY magnesium hydroxide (Milk of Magnesia) 30 mL PO .Q48 hrs PRN miscellaneous medical supply 1 ea miscellaneous DAILY multivitamin with folic acid 400 mcg (Thera) 1 tab PO DAILY olanzapine 20 mg PO BEDTIME omeprazole 20 mg PO QAM oxcarbazepine 900 mg PO BID psyllium husk (with sugar) 3 gram/7 gram (Reguloid (psyllium husk-sucrose)) 1 tsp PO DAILY 30 days sennosides-docusate sodium 8.6-50 mg (Senna with Docusate Sodium) 1 tab-cap PO BEDTIME tamsulosin 0.4 mg PO BEDTIME 30 days Tobacco use date assessed: 07/28/25 Dental Screening Dental Screen Date: 07/28/25 Did you have a dental visit in the last 12 months?: Yes Did you have a dental problem in the last 6 months where you did not have access to dental care?: No Was dental information given to patient?: Patient has dentist [facility] Medical History Contusion of right hand Nasal congestion Osteopenia Osteopenia Ribs, multiple fractures Cholelithiasis Renal calculus, bilateral Leukopenia GERD (gastroesophageal reflux disease) Vitamin D deficiency Cerebral palsy H/O nephrolithotomy with removal of calculi Hx of seizure disorder Thrombocytopenia Cognitive developmental delay Hepatitis B virus infection Surgical History History of cystoscopy History of extraction of renal calculus S/P cataract surgery History of gastric surgery Family History Father No problems noted. Mother No problems noted. Family/Other Family history unknown Social History Household Members: Other Household Members Other:: alf residents/staff Housing: Other Housing Other:: [facility] Are you a primary care aide to a significant other at home: No Do you presently have visiting nurse or other home services: Yes Alcohol intake: never Comment: 1:1 sitter Patient Tobacco Use Status: Never used Tobacco Tobacco use type: Cigarette e-Cigarette/Vaping Use: Never Used Second Hand Smoke Exposure: No service: No Current occupational status: disabled Cognitive needs: Yes (wheelchair) Hearing needs: Yes Vision needs: Yes Questionnaire PHQ-9 Over the last 2 weeks, how often have you been bothered by any of the following problems? 1. Little interest or pleasure in doing things: not at all 2. Feeling down, depressed, or hopeless: not at all 3. Trouble falling or staying asleep, or sleeping too much: not at all 4. Feeling tired or having little energy: not at all 5. Poor appetite or overeating: not at all 6. Feeling bad about yourself - or that you are a failure or have let yourself or your family down: not at all 7. Trouble concentrating on things, such as reading the newspaper or watching television: not at all 8. Moving or speaking so slowly that other people could have noticed. Or the opposite - being so fidgety or restless that you have been moving around a lot more than usual: not at all 9. Thoughts that you would be better off or of hurting yourself in some way: not at all Total score: 0 Depression Screening Interpretation: Negative Depression Screening Done: Yes Source: Developed by Drs. Lyndon James, Mahsa Sawyer, Wilfrido Osorio and colleagues, with an educational justo from [employer] Thrive Questionnaire Date Thrive assessed: 01/20/25 I am a: Patient What is your living situation today?: I have a steady place to live Within the past 12 months, did the food you bought not last and you didn't have the money to get more?: Never true Within the past 12 months, did you worry whether your food would run out before you got money to buy more?: Never true Do you have trouble paying for medicines?: No Do you have trouble getting transportation to medical appointments?: No Do you have trouble paying your heating and electricity bill?: No Do you have trouble taking care of your child, family member or friend?: No Do you have trouble with day-to-day activities such as bathing, preparing meals, shopping, managing finances, etc.?: No Are you currently unemployed and looking for a job?: No Are you interested in more education?: No Please select the resources that you would like help with: None Currently or been in a relationship where the following occur: I choose not to answer THRIVE Score: 0 AUDIT C Alcohol Use Questionnaire (AUDIT-C) 1. How often do you have a drink containing alcohol?: Never 3. How often do you have six or more drinks on one occasion?: Never Total Score: 0 CLYDE-7 AMB Questionnaire CLYDE-7 Date CLYDE - 7 assessed: 05/01/25 Feeling nervous, anxious, or on edge: 0 = Not at all Not being able to stop or control worryin = Not at all Worrying too much about different things: 0 = Not at all Trouble relaxin = Not at all Being so restless that it is hard to sit still: 0 = Not at all Becoming easily annoyed or irritable: 0 = Not at all Feeling afraid as if something awful might happen: 0 = Not at all Total CLYDE-7 score (0-4 normal; 5-9 mild; 10-14 moderate; 15-21 severe): 0 Source: Developed by Drs. Lyndon James, Mahsa Sawyer, Wilfrido Osorio and colleagues, with an educational justo from [employer] Review of Systems Const Denies poor appetite and Denies weakness Eyes Denies no additional complaints ENT Reports Normal hearing present, Denies dizziness, Denies nasal congestion, Denies tinnitus and Denies sore throat Card Denies chest pain, Denies syncope, Denies rapid heart rate and Denies dyspnea Resp Denies cough and Denies dyspnea GI Denies change in stool character, Reports constipation, Denies diarrhea, Denies nausea and Denies vomiting Denies dysuria and Denies urinary frequency Neuro Reports Normal hearing present, Denies confusion, Denies dizziness, Denies syncope and Denies weakness Psych Denies confusion Physical exam (Primary Care) Vital Signs: Last Vital Signs Temp 97.1 F 07/28/25 11:15 Pulse 55 07/28/25 11:15 BP 118/78 07/28/25 11:15 Pulse Ox 98 07/28/25 11:15 Oxygen Delivery Method Room Air 07/28/25 11:15 BMI result Body Mass Index 24.7 Tobacco/Smoking Status: Tobacco use Status Tobacco use date assessed 07/28/25 07/28/25 11:20 Patient Tobacco Use Status Never used Tobacco 07/28/25 11:20 Tobacco use type Cigarette 07/28/25 11:20 e-Cigarette/Vaping Use Never Used 07/28/25 11:20 PHQ-9: PHQ-9 Score PHQ-9: Total score 0 07/28/25 11:33 Depression Screening Interpretation: Negative Thrive Assessment: Date of Thrive Assessment Date Thrive assessed 01/20/25 07/28/25 11:20 Currently or been in a relationship where the following occur: I choose not to answer Const Other: R eye dilated pupils 3mm compared to L pupil 2 mm General: No confusion Orientation/consciousness: No confusion HENMT Other: impacted cerumen bilateral Head: Yes normocephalic Ears: external ears normal Face and sinus: Yes normal facial exam Mouth: moist mucous membranes Throat: Yes tonsils normal Eyes Conjunctivae: conjunctivae normal Pupils: Equal, round and reactive pupils present and Pupil accommodation reflex normal Direct Ophthalmoscopy: normal light reflex Neck Neck: No lymphadenopathy Thyroid: Thyroid normal Chest Chest palpation & inspection: normal inspection of the chest Resp Effort & Inspection: normal respiratory effort and no audible wheezes Auscultation: clear to auscultation bilaterally, no crackles, no wheezes and lung sounds not diminished Cardio Rate: regular rate Rhythm: regular rhythm Peripheral pulses: radial pulses present and dorsalis pedis present GI Other: guaiac negative postate N Palpation (GI): no masses Auscultation: normal bowel sounds and normoactive bowel sounds Male General Exam: Yes normal external exam Skin General skin exam: no rashes or lesions noted Rashes: no rashes Neuro General: No confusion Cranial nerves: Yes Equal, round and reactive pupils present and Yes Normal hearing present Cognition (Neuro): normal cognition Gait exam (Neuro): Normal gait present Motor exam (neuro): 5/5 motor strength present throughout Deep tendon reflexes (DTR's): Right brachioradialis reflex intensity grade: 2+, Left brachioradialis reflex intensity grade: 2+, Right patellar reflex intensity grade: 2+ and Left patellar reflex intensity grade: 2+ Extrem General: No edema Coding Level of Care Code Est Pt Prev Care 40-64y(13719) Diagnoses Annual physical exam Z00.00 Seizure disorder G40.909 Renal calculus, bilateral N20.0 Chronic hepatitis B B18.1 Gastroesophageal reflux disease without esophagitis K21.9 Esophagitis presence: without esophagitis Thrombocytopenia D69.6 Assessment & Plan Assessment & Plan (1) Annual physical exam: Code(s): Z00.00 - Encounter for general adult medical examination without abnormal findings Category: Medical Plan: Patient is advised to eat healthy, keep well hydrated, keep active and have adequate sleep. (2) Seizure disorder: Code(s): G40.909 - Epilepsy, unspecified, not intractable, without status epilepticus Category: Medical Plan: Continue to follow-up with Neurology on oxcarbazepine Keppra the 1000 mg twice a day gabapentin (3) Renal calculus, bilateral: Comment: May 2019 Code(s): N20.0 - Calculus of kidney Category: Medical Plan: Continue to follow-up with urology so far the KUB has been negative (4) Chronic hepatitis B: Code(s): B18.1 - Chronic viral hepatitis B without delta-agent Category: Medical Plan: Continue to follow up with Gastroenterology (5) GERD (gastroesophageal reflux disease): Code(s): K21.9 - Gastro-esophageal reflux disease without esophagitis Category: Medical Qualifiers: Esophagitis presence: without esophagitis Qualified Code(s): K21.9 - Gastro-esophageal reflux disease without esophagitis Plan: Avoid the foods that causes that usually spicy foods, tomato products, juices, coffee, soda and foods that your sensitive to. After eating do not lie down, allow 3-4 hours before in lie down. And keep the head of bed above 30 degrees to avoid the acid from going up. (6) Thrombocytopenia: Comment: variable values trend down [id number], --[id number] Code(s): D69.6 - Thrombocytopenia, unspecified Category: Medical Plan: This is because of the Depakote. Plan History of Present Illness The patient is a 60-year-old male with a history of cognitive developmental delay who presents for a physical and wellness visit. An 11-pound weight fluctuation was noted in his record; however, his caregiver states his weight has been stable at 135 pounds, and discrepancies are likely due to an uncalibrated scale at his residence. His last visit was in April 2025. The patient's past medical history is significant for chronic hepatitis B infection, gastroesophageal reflux disease, nephrolithiasis, and constipation. He has a history of a seizure disorder and is followed by neurology, with his last visit in April 2025. His medications were adjusted by neurology to increase oxcarbazepine and Keppra to 1000 mg twice daily. He has had no seizures or falls since April. The patient previously had thrombocytopenia and anemia, with an associated increase in ammonia levels, which were attributed to Depakote. Since discontinuing Depakote, his blood counts have normalized, and he has been discharged from hematology oncology care. For nephrolithiasis and lower urinary tract symptoms, he follows with urology and takes finasteride and tamsulosin. A KUB performed in May showed no kidney stones. The patient has chronic anisocoria, which was noted during a hospitalization in April. Neurology is aware and is reviewing previous imaging. Recent workup includes a visit to an urgent care center on July 10 for a runny nose, where viral testing and a strep test were negative. A CT scan of the brain and cervical spine in March [address] of the chest showed no acute cardiopulmonary abnormalities but did reveal old healed fractures of the right 4th, 6th, and 7th ribs, as well as bilateral clavicles. His last comprehensive blood work in October showed normal blood count, electrolytes, and renal and liver function. A cholesterol panel from June 2024 was good, and his vitamin D, thyroid, and B12 levels are normal. His Cologuard screening is up to date until January 2025. Health Maintenance - Colon Cancer Screening: Cologuard is up to date, next one due in January 2025. - Bone Density Screening: Up to date. - Vaccinations: Patient has received the flu shot, shingles vaccine, and is up to date on tetanus. - The pneumonia shot is not due until age 65. - The COVID-19 shot will be administered separately. - Lab Monitoring: Last blood count in October 2024 was normal. - Cholesterol in June 2024 was good. - Vitamin D, thyroid, and B12 levels are normal. Social History - Developmental History: Patient has a cognitive developmental delay. - Functional Status: The patient attends a day program daily. - Falls: He has a history of falls but has had none since April. Review of Systems - Constitutional: Denies fevers. - Weight is reported as stable. - Gastrointestinal: Reports good bowel movements. - Denies nausea and vomiting. - Genitourinary: Reports good urination. - Reports waking up once or twice a night to urinate. - Neurological: Denies any seizures since April. Physical Exam General: Cooperative, healthy appearing, comfortable, no acute distress and well developed Orientation: Patient oriented x3 Limitations: No limitations Head: Normal to inspection Ears: Hearing grossly normal bilaterally, some ear wax present, more in the right ear, but not totally covering Nose: Normal external nose present Face and sinus: Normal facial exam Eyes: Pupils not equal, but chronic and not affecting the patient Neck: Normal visual inspection and Yes full ROM Respiratory: Normal respiratory effort and able to speak in complete sentences. Clear to auscultation bilaterally Cardiovascular: Regular rate and rhythm. Normal S1 and S2 GI: Normal to inspection. Soft to palpation and nontender Skin: No rashes or lesions noted Neuro: Patient oriented x3 Extremities: Normal to inspection Results - Labs: Blood work in October showed a normal blood count, electrolytes, renal function, and liver function. - His last cholesterol panel from June 2024 was good. - Vitamin D, thyroid, and B12 levels are normal. - Viral testing and a strep test from July 10 were negative. - Past labs showed Depakote-induced anemia, thrombocytopenia, and an increased ammonia level, which have all since resolved. - Imaging: A KUB in May showed no kidney stones. - CT of the brain and cervical spine in March 2025 was negative. - CT of the chest showed no acute cardiopulmonary abnormality but revealed old healed fractures of the right 4th, 6th, and 7th ribs, and bilateral clavicles. Plan Patient was informed and verbally consented to the use of an ambient scribe for clinic note documentation during this visit. 1. Wellness Exam The patient is generally stable and doing well. Will order blood work to be completed in about three months, prior to his next follow-up appointment. The patient should receive his COVID-19 vaccine. Follow-up in the office in approximately six months. 2. Seizure Disorder The patient's seizure disorder is stable, with no seizures reported since April. He will continue his current medication regimen, which includes oxcarbazepine, gabapentin, and Keppra 1000 mg twice a day. Continue to follow up with neurology as scheduled. 3. Benign Prostatic Hyperplasia With Lower Urinary Tract Symptoms And Nephrolithiasis The patient's LUTS and history of nephrolithiasis are stable. A recent KUB was negative for stones. He will continue taking finasteride and tamsulosin and will continue to follow up with urology. 4. History Of Drug-Induced Thrombocytopenia The patient's thrombocytopenia and anemia have resolved since discontinuing Depakote. He has been discharged from hematology and does not require further follow-up at this time. 5. Anisocoria The patient has chronic, asymptomatic anisocoria. Neurology is aware and is reviewing prior imaging. He has a routine ophthalmology appointment scheduled for August. 6. Gastroesophageal Reflux Disease The patient's GERD is stable. Continue to follow up with gastroenterology as planned. Discussion Notes I discussed the patient's overall stable health with his caregiver. We reviewed the weight discrepancy in his chart, and I acknowledged the caregiver's belief that it was due to an inaccurate home scale, as his weight has been stable in the office. I confirmed my awareness of his chronic anisocoria and explained that while unequal pupils can sometimes indicate a brain problem, in his long-standing case, it is not an acute concern, and neurology is appropriately reviewing his history. I performed a rectal exam, which was negative for blood. We reviewed his health maintenance, confirming he is up to date on most screenings and immunizations, and discussed that he will get his COVID shot at a separate time. I placed an order for follow-up labs to be done in a few months, prior to his next visit, and we will plan for him to return in about six months for follow-up. Patient Instructions - Continue to take all your current medications as prescribed, including those for seizures. - Continue your scheduled appointments with your other doctors, including your neurologist, urologist, and inspector open die. - Go to your eye doctor appointment in August. - You have received your flu shot, but you still need to get a COVID-19 vaccine. - We have ordered blood tests for you, which should be done in a few months, before you come back to see us. - Please make an appointment to come back to this office in about 6 months. - Please contact us if you have any problems or concerns before your next appointment.
== END 2025-07-28 11:59 | disposition home or self-care (01) ==
LOC: HO.HMCH 11:04
PROVIDERS: PCP Internal Medicine; Visit Provider Internal Medicine
DX: Z00.00 Encounter for general adult medical examination without abnormal findings (principal); G40.909 Epilepsy, unspecified, not intractable, without status epilepticus; N20.0 Calculus of kidney; B18.1 Chronic viral hepatitis B without delta-agent; K21.9 Gastro-esophageal reflux disease without esophagitis; D69.6 Thrombocytopenia, unspecified

== ENCOUNTER → 2025-07-28 11:04 | Outpatient (BNVA) | payer OTHER, SELFPAY | PROVIDERS: PCP Internal Medicine; Visit Provider Internal Medicine | DX: Z00.00 Encounter for general adult medical examination without abnormal findings (principal); G40.909 Epilepsy, unspecified, not intractable, without status epilepticus; N20.0 Calculus of kidney; B18.1 Chronic viral hepatitis B without delta-agent; K21.9 Gastro-esophageal reflux disease without esophagitis; D69.6 Thrombocytopenia, unspecified; N40.1 Benign prostatic hyperplasia with lower urinary tract symptoms; Z87.442 Personal history of urinary calculi; H57.02 Anisocoria | CPT/HCPCS: 99396 ==

== ENCOUNTER 2025-09-04 09:10 | Outpatient (REF) | payer OTHER, SELFPAY ==
[2025-09-04 09:35] LABS: MANUAL DIFF FLAG NO
[2025-09-04 10:09] LABS: Hematocrit 47.4 % (42.0-52.0); Hemoglobin 15.9 g/dl (14.0-18.0); Imm Gran Abs Auto 0.02 X10*3/uL (0.00-0.03); Imm Gran Pct Auto 0.4 % (0.0-0.4); Lymphocytes Absolute Auto 0.9 X10*3/uL (1.2-4.9); Mean Corpuscular HGB Conc 33.5 g/dl (31.0-36.0); Mean Corpuscular Hemoglobin 30.9 pg (27.0-33.0); Mean Corpuscular Volume 92.0 fL (80.0-98.0); NRBC Abs Auto 0.000 X10*3/uL (0.0-0.012); NRBC Pct Auto 0.0 /100WBC (0.0-0.2); Platelet Count 210 X10*3/uL (160-400); Red Blood Count 5.15 X10*6/uL (4.60-5.80); Reticulocytes Absolute 0.085 X10*6/uL (0.026-0.095); White Blood Count 4.9 X10*3/uL (4.8-10.8)
[2025-09-04 10:48] LABS: Alanine Aminotransferase 35 U/L (0-40); Albumin Level 4.6 g/dL (3.5-5.0); Alkaline Phosphatase 114 U/L (39-117); Anion Gap 9 (12-20); Aspartate Amino Transferase 28 U/L (5-37); Blood Urea Nitrogen 11 mg/dL (9-16); Calcium 9.5 mg/dL (8.4-10.2); Carbon Dioxide 29 mmol/L (22-29); Chloride 108 mmol/L (96-108); Cholesterol 165 mg/dL (<200); Estimated Glomerular Filt Rate > 60; HDL Cholesterol 49 mg/dL (>40); Iron 110 mcg/dL (45-160); Percent Iron Saturation 40 % (15-50); Potassium 4.0 mmol/L (3.3-5.1); Sodium 142 mmol/L (135-145); Total Iron Binding Capacity 272 mcg/dL (228-428); Total Protein 7.3 g/dL (6.5-8.0); Triglycerides 77 mg/dL (<150); Unsaturated Iron Binding 162 ug/dL
[2025-09-04 10:52] LABS: Ferritin 80 ng/mL (20-250); Free T4 (Free Thyroxine) 0.83 ng/dL (0.71-1.85); Thyroid Stimulating Hormone 1.56 uIU/mL (0.32-4.0)
[2025-09-04 10:58] LABS: Folate 13.7 ng/mL (> or = 4.0); Vitamin B12 597 pg/mL (200-900)
== END 2025-09-04 09:11 | disposition home or self-care (01) ==
LOC: HO.LAB 09:10
PROVIDERS: PCP Internal Medicine; Visit Provider Internal Medicine
DX: D50.9 Iron deficiency anemia, unspecified (principal); E78.00 Pure hypercholesterolemia, unspecified
CPT/HCPCS: 36415; 80053; 80061; 82306; 82607; 82728; 82746; 83540; 84153; 84439; 84443; 85025; 85045

== ENCOUNTER 2025-09-09 10:22 | Outpatient (AMB) | payer OTHER, SELFPAY ==
--- NOTE | 2025-09-09 10:25 | A.OFFVIS_ITS ---
Vital Signs 09/09/25 10:28 Height 5 ft 2 in Weight 137 lb BMI 25.1 BP 144/89 H Blood Pressure Location Lt radial Position Sitting Pulse 74 Intake Visit Reasons: 1 YEAR F/U Intake Note: Brooks presents in the office as a 1 year follow up. CC: No concerns at this time! Hot Metal Mixer Operator Required: No Allergies topiramate (From TOPAMAX) Allergy (Intermediate, Verified 07/28/25 11:18) UNKNOWN divalproex sodium (From Depakote) Adverse Reaction (Unknown, Verified 07/28/25 11:18) increased ammonia level HPI Comments Details: 59 y.o M with intellectual disability and cerebral palsy, who is here for yearly follow up for chronic HBV. Accompanied by [facility] caretakers Yousif and Sabrina. History primarily obtained from Sabrina, the RN. Pt has not been reporting any abd pain, no reduced appetite or changes in bowel habits noted. Labs and US from 2022 reviewed. 09/09/25: Here for follow up. Accompanied by caretakers Sabrina and Anabella. Only issue is intermittent constipation may be 1-2 times a month managed with PRN MoM. Otherwise no issues. Daily meds for bowel reigmen are Senna 8.6 qnightly Colace in AM Fiberlax powder 5g - daily Labs reviewed as below. Appears to have had spontaneous loss of HbsAg which is excellent news. Pt had repeat cologuard January 2025 - NEGATIVE. [facility] Medical History Contusion of right hand Nasal congestion Osteopenia Osteopenia Ribs, multiple fractures Cholelithiasis Renal calculus, bilateral Leukopenia GERD (gastroesophageal reflux disease) Vitamin D deficiency Cerebral palsy H/O nephrolithotomy with removal of calculi Hx of seizure disorder Thrombocytopenia Cognitive developmental delay Hepatitis B virus infection Surgical History History of cystoscopy History of extraction of renal calculus S/P cataract surgery History of gastric surgery Family History Father No problems noted. Mother No problems noted. Family/Other Family history unknown Social History Household Members: Other Household Members Other:: [facility] residents/staff Housing: Other Housing Other:: [facility] Are you a primary manager intensive care unit to a significant other at home: No Do you presently have visiting nurse or other home services: Yes Alcohol intake: never Comment: 1:1 sitter Patient Tobacco Use Status: Never used Tobacco Tobacco use type: Cigarette e-Cigarette/Vaping Use: Never Used Second Hand Smoke Exposure: No service: No Current occupational status: disabled Cognitive needs: Yes (wheelchair) Hearing needs: Yes Vision needs: Yes Review of Systems Const Unobtainable due to mental condition Physical Exam Vital Signs: Last Vital Signs Pulse 74 09/09/25 10:28 BP 144/89 H 09/09/25 10:28 BMI result Body Mass Index 25.1 Appears younger than stated age Wearing a padded helmet NAD Nonicteric Abd soft, nondistended In a wheelchair though able to ambulate Results Reviewed Results Reviewed: Laboratory Tests 10/21/24 09/04/25 09:49 09:34 Iron 110 % Saturation 40 Ferritin 80 AST 28 ALT 35 Alpha Fetoprotein 3.1 Vitamin B12 612 TSH 1.15 Hep Bs Antigen Negative Hep Bs Antibody NONREACTIVE Hep B Core Total Ab Reactive Assessment & Plan Assessment & Plan (1) Hepatitis B virus infection: Code(s): B19.10 - Unspecified viral hepatitis B without hepatic coma Category: Medical Qualifiers: Hepatic coma status: without hepatic coma Hepatitis delta agent presence: without delta-agent Viral hepatitis chronicity: chronic Qualified Code(s): B18.1 - Chronic viral hepatitis B without delta-agent (2) Hepatitis B core antibody positive: Code(s): R76.89 - Other specified abnormal immunological findings in serum Category: Medical (3) Intermittent constipation: Code(s): K59.09 - Other constipation (4) Encounter for colorectal cancer screening: Code(s): Z12.11 - Encounter for screening for malignant neoplasm of colon; Z12.12 - Encounter for screening for malignant neoplasm of rectum Category: Medical Plan Functional cure HBV Appears to have had spontaneous functional cure. HBsAg neg, neg DNA and neg HBeAg. No coinfection with HIV or HDV. Elastography normal. Plan: - Will cont to monitor HBV serology on a yearly basis - orders placed. - does not need routine HCC screening - Counseling for transmission risk done nalini as pt lives in [facility] Constipation: Intermittent. Pt does not strain while passing BM. Plan: - Add prunes or kiwi a few times a week - Agree with daily bowel regimen - Use foot stool to elevate legs while passing BM CRC screening: Cologuard negative January 2025. Next due January 2028. Follow up 1 year Orders: Orders Hepatitis B Core Antibody Today B18.1 - Chronic viral hepatitis B without delta-agent Hepatitis B Surface Antibody Today B18.1 - Chronic viral hepatitis B without delta-agent Hepatitis B Surface Antigen Today B18.1 - Chronic viral hepatitis B without delta-agent Hepatitis B Viral DNA Qn Today B18.1 - Chronic viral hepatitis B without delta- agent Hepatitis BE Antibody Today B18.1 - Chronic viral hepatitis B without delta- agent Hepatitis BE Antigen Today B18.1 - Chronic viral hepatitis B without delta- agent Coding Level of Care Code Est Pt Level 4 (06547) Diagnoses Chronic viral hepatitis B without delta agent and without coma B18.1 Hepatic coma status: without hepatic coma Hepatitis delta agent presence: without delta-agent Viral hepatitis chronicity: chronic Hepatitis B core antibody positive R76.89 Intermittent constipation K59.09 Encounter for colorectal cancer screening Z12.11; Z12.12
[2025-09-09 10:28] VITALS: BP 144/89; PULSE 74; BMI 25.1
--- OUTSIDE RECORDS SUMMARY | 2025-09-09 12:46 | XMS_ITS | Clinical Summary ---
Author Organization [facility] Address [address] [place] [address] Phone Care Team Providers Care Catalogue Clerk Name Role Phone Aliza Childress MD Primary Care Provider [phone] Allergies Active Allergy Reactions Criticality Noted Date [...] ACO ACO ACO ACO ACO [place] [address] [place] [address] [place] [address] [address] ACO Care Teams Catalogue Clerk Relationship Specialty Start Date End Date Aliza Childress MD [address] [place] [phone] PCP - General Internal Medicine 06/29/22 Additional Source Comments The information contained in this document represents components of the legal health record. It is not the complete legal health record.[facility]
--- OUTSIDE RECORDS SUMMARY | 2025-09-09 12:46 | XMS_ITS | Encounter Summary ---
Author Organization [facility] Address [address] [place] [address] Care Team Providers Care Helminthology Teacher Name Role Phone Aliza Childress Primary Care Provider [phone] Encounter Details Date Type Department Care Team (Late st Contact Info) Description 06/03/2021 Orders Only [facility] [address] [place] [address] ProviderFavio MD [address] [place] [address] Social History Tobacco Use Types Packs/Day [...] 01/12/2026 3:30 PM EDT Office Visit [facility] [address] [place] [address] Kendra Choi MD [address] [place] [address] documented as of this encounter Procedures * [...] on filedocumented in this encounter Care Teams Helminthology Teacher Relationship Specialty Start Date End Date Aliza Childress [address] [place] [address] [place] [address] PCP - General 04/12/17 documented as of this encounter
--- OUTSIDE RECORDS SUMMARY | 2025-09-09 12:46 | XMS_ITS | Encounter Summary ---
Author Organization [facility] Address [address] [place] [address] Phone Care Team Providers Care Shoe Cleaner Name Role Phone Aliza Childress MD Primary Care Provider Encounter Details Date Type Department Care Team (Late st Contact Info) Description 10/13/2022 Procedure Pass [facility], Ct Scan - [facility] [address] [place] [address] Social History Tobacco Use Types Packs/Day Years [...] on filedocumented in this encounter Care Teams Shoe Cleaner Relationship Specialty Start Date End Date Aliza Childress MD [address] [place] [address] Drive [address] [place] [address] PCP - General Internal Medicine 06/29/22 documented as of this encounter Additional Source Comments The information contained in this document represents components of the legal health record. It is not the complete legal health record.[facility]
--- OUTSIDE RECORDS SUMMARY | 2025-09-09 12:46 | XMS_ITS | Encounter Summary ---
Author Organization [facility] Address [address] [place] [address] Care Team Providers Care Liquefaction Plant Operator Name Role Phone Aliza Childress Primary Care Provider [phone] Encounter Details Date Type Department Care Team (Late st Contact Info) Description 09/15/2022 Orders Only [facility] [address] [place] [address] ProviderFavio MD [address] [place] [address] Social History Tobacco Use Types Packs/Day [...] Description 01/12/2026 3:30 PM EDT Office Visit [facility] [address] [place] [address] Kendra Choi MD [address] [place] [address] documented as of this encounter Procedures * [...] on filedocumented in this encounter Care Teams Liquefaction Plant Operator Relationship Specialty Start Date End Date Aliza Childress [address] [place] [address] [place] [address] PCP - General 04/12/17 documented as of this encounter
--- OUTSIDE RECORDS SUMMARY | 2025-09-09 12:46 | XMS_ITS | Encounter Summary ---
Author Organization [facility] Address [address] [place] [address] Phone Care Team Providers Care Signaling Project Engineer Name Role Phone Aliza Childress MD Primary Care Provider [phone] Encounter Details Date Type Department Care Team (Late st Contact Info) Description 10/13/2022 Procedure Pass [facility], Ct Scan - [facility] [address] [place] [address] Social History Tobacco Use Types Packs/Day Years [...] on filedocumented in this encounter Care Teams Signaling Project Engineer Relationship Specialty Start Date End Date Aliza Childress MD [address] [place] [address] Drive [address] [place] [address] PCP - General Internal Medicine 06/29/22 documented as of this encounter Additional Source Comments The information contained in this document represents components of the legal health record. It is not the complete legal health record.[facility]
--- OUTSIDE RECORDS SUMMARY | 2025-09-09 12:46 | XMS_ITS | Encounter Summary ---
Author Organization [facility] Address [address] [place] [address] Phone Care Team Providers Care Brush Clearing Laborer Name Role Phone Aliza Childress MD Primary Care Provider [phone] Encounter Details Date Type Department Care Team (Late st Contact Info) Description 07/01/2022 Procedure Pass [facility], Ct Scan - [address] [address] Social History Tobacco Use Types Packs/Day Years [...] on filedocumented in this encounter Care Teams Brush Clearing Laborer Relationship Specialty Start Date End Date Aliza Childress MD [address] [place] [phone] PCP - General Internal Medicine 06/29/22 documented as of this encounter Additional Source Comments The information contained in this document represents components of the legal health record. It is not the complete legal health record.[facility]
--- OUTSIDE RECORDS SUMMARY | 2025-09-09 12:46 | XMS_ITS | Encounter Summary ---
Author Organization [facility] Address [address] [place] [address] Phone Care Team Providers Care Windows Application Developer Name Role Phone Aliza Childress MD Primary Care Provider [phone] Encounter Details Date Type Department Care Team (Late st Contact Info) Description 03/11/2025 Procedure Pass [facility], Ct Scan - [facility] [address] [place] [address] Social History Tobacco Use Types Packs/Day Years [...] on filedocumented in this encounter Care Teams Windows Application Developer Relationship Specialty Start Date End Date Aliza Childress MD [address] [place] [address] [place] [phone] PCP - General Internal Medicine 06/29/22 documented as of this encounter Additional Source Comments The information contained in this document represents components of the legal health record. It is not the complete legal health record.[facility]
--- OUTSIDE RECORDS SUMMARY | 2025-09-09 12:46 | XMS_ITS | Encounter Summary ---
Author Organization [facility] Address [address] [place] [address] Phone Care Team Providers Care Java Security Engineer Name Role Phone Aliza Childress MD Primary Care Provider [phone] Encounter Details Date Type Department Care Team (Late st Contact Info) Description 03/11/2025 Procedure Pass [facility], Ct Scan - [facility] [address] [place] [address] Social History Tobacco Use Types Packs/Day Years [...] on filedocumented in this encounter Care Teams Java Security Engineer Relationship Specialty Start Date End Date Aliza Childress MD [address] [place] [address] [place] [phone] PCP - General Internal Medicine 06/29/22 documented as of this encounter Additional Source Comments The information contained in this document represents components of the legal health record. It is not the complete legal health record.[facility]
--- OUTSIDE RECORDS SUMMARY | 2025-09-09 12:46 | XMS_ITS | Encounter Summary ---
Author Organization [facility] Address [address] [place] [address] Phone Care Team Providers Care Director Oracle Database Name Role Phone Aliza Childress MD Primary Care Provider [phone] Encounter Details Date Type Department Care Team (Late st Contact Info) Description 07/01/2022 Procedure Pass [facility], Ct Scan - [address] [address] Social History Tobacco Use Types Packs/Day Years [...] on filedocumented in this encounter Care Teams Director Oracle Database Relationship Specialty Start Date End Date Aliza Childress MD [address] [place] [phone] PCP - General Internal Medicine 06/29/22 documented as of this encounter Additional Source Comments The information contained in this document represents components of the legal health record. It is not the complete legal health record.[facility]
--- OUTSIDE RECORDS SUMMARY | 2025-09-09 12:46 | XMS_ITS | Encounter Summary ---
Author Organization [facility] Address [address] [place] [address] Phone Care Team Providers Care Maintenance Trainer Name Role Phone Aliza Childress MD Primary Care Provider [phone] Encounter Details Date Type Department Care Team (Late st Contact Info) Description 10/13/2022 Procedure Pass [facility], Ct Scan - [facility] [address] [place] [address] Social History Tobacco Use Types Packs/Day Years [...] on filedocumented in this encounter Care Teams Maintenance Trainer Relationship Specialty Start Date End Date Aliza Childress MD [address] [place] [address] Drive [address] [place] [address] PCP - General Internal Medicine 06/29/22 documented as of this encounter Additional Source Comments The information contained in this document represents components of the legal health record. It is not the complete legal health record.[facility]
--- OUTSIDE RECORDS SUMMARY | 2025-09-09 12:46 | XMS_ITS | Clinical Summary ---
Author Organization [facility] Address [address] [place] [address] Care Team Providers Care Mental Health Program Director Name Role Phone Aliza Childress Primary Care Provider [phone] Allergies Active Allergy Reactions Criticality Noted Date [...] 300 mg tabletIndications :Symptomatic tonic clonic epilepsy Take 3 tablets (900 mg total) by mouth 2 times a day. 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 Telephone [facility] [address] [place] [address] Telephone Intake, Staff PAC RX Refill 07/17/2025 Telephone [facility] [address] [place] [address] Leticia Mock, MEIR seizure protocol from Last 3 Months Family History Relation [...] Description 01/12/2026 3:30 PM EDT Office Visit [facility] [address] [place] [address] Joan Whyte MD [address] [place], [place] [phone] Health Maintenance Due Date Last Done Comments Colonoscopy 1967 FOBT / Fit Test 1967 HIV Screening 1967 Hepatitis C Screening 1967 Sigmoidoscopy 1967 Hepatitis B Vaccines (1 of 3 - 19+ 3-dose series) 1986 DTaP,Tdap,and Td Vaccines (1 - Tdap) 1989 Pneumococcal Vaccine: 50+ Ye ars (1 of 1 - PCV) 2017 Zoster Vaccines (1 of 2) 2017 Alcohol/Substance Use Screening 09/24/2024 Depression Screening and Follow-Up 09/24/2024 Social Drivers of Health Annual Screening 09/24/2024 Cologuard 11/17/2024 11/17/2021, 11/17/2021 Colon Cancer Screening 11/17/2024 Influenza Vaccine (#1) 2025 06/30/2024 COVID-19 Vaccine (2 - 2024- season) 2025 Insurance [employer] Care Teams Mental Health Program Director Relationship Specialty Start Date End Date Aliza Childress [address] [place] [address] [place] [address] PCP - General 04/12/17
--- OUTSIDE RECORDS SUMMARY | 2025-09-09 12:46 | XMS_ITS | Encounter Summary ---
Author Organization [facility] Address [address] [place] [address] Care Team Providers Care Clothes Drier Assembler Name Role Phone Aliza Childress Primary Care Provider [phone] Encounter Details Date Type Department Care Team (Late st Contact Info) Description 12/18/2022 Orders Only [facility] [address] [place] [address] Kendra Choi MD [address] [place] [address] Social History Tobacco Use Types Packs/Day Years [...] Description 01/12/2026 3:30 PM EDT Office Visit [facility] [address] [place] [address] Kendra Choi MD [address] [place] [address] documented as of this encounter Procedures * [...] on filedocumented in this encounter Care Teams Clothes Drier Assembler Relationship Specialty Start Date End Date Aliza Childress [address] [place] [address] dr Tennille [place], [place] [address] PCP - General 04/12/17 documented as of this encounter
--- OUTSIDE RECORDS SUMMARY | 2025-09-09 12:46 | XMS_ITS | Encounter Summary ---
Author Organization [facility] Address [address] [place] [address] Care Team Providers Care Cloud Security Architect Name Role Phone Aliza Childress Primary Care Provider [phone] Encounter Details Date Type Department Care Team (Late st Contact Info) Description 07/28/2021 Orders Only [facility] [address] [place] [address] Aliza Childress [address] [place] [address] [place] [address] Social History Tobacco Use Types Packs/Day Years [...] Description 01/12/2026 3:30 PM EDT Office Visit [facility] [address] [place] [address] [phone] Kendra Choi MD [address] [place], [place] [phone] documented as of this encounter Procedures * Due to [place] state law, this organization might not be sharing negative HIV tests. Procedure Name Priority Date/Time Associated Diagnosis Comments NEURODIAGNOSTIC - SCANNED Routine 06/24/2021 documented in this encounter Results * Due to [place] state law, this organization might not be sharing negative HIV tests. * NEURODIAGNOSTIC - SCANNED (06/24/2021) Aliza Childress SCANNED PROCEDURES Final Result documented in this encounter Visit Diagnoses Not on filedocumented in this encounter Care Teams Cloud Security Architect Relationship Specialty Start Date End Date Aliza Childress [address] [place] [address] dr Tennille [place], [place] [address] PCP - General 04/12/17 documented as of this encounter
--- OUTSIDE RECORDS SUMMARY | 2025-09-09 12:47 | XMS_ITS | Encounter Summary ---
Author Organization [facility] Address [address] [place] [address] Care Team Providers Care Room Cleaner Name Role Phone Aliza Childress Primary Care Provider [phone] Encounter Details Date Type Department Care Team (Late st Contact Info) Description 11/27/2022 Orders Only [facility] [address] [place] [address] Kendra Choi MD [address] [place] [address] Social History Tobacco Use Types Packs/Day Years [...] Description 01/12/2026 3:30 PM EDT Office Visit [facility] [address] [place] [address] Kendra Choi MD [address] [place] [address] documented as of this encounter Procedures * [...] on filedocumented in this encounter Care Teams Room Cleaner Relationship Specialty Start Date End Date Aliza Childress [address] [place] [address] [place] [address] PCP - General 04/12/17 documented as of this encounter
--- OUTSIDE RECORDS SUMMARY | 2025-09-09 12:47 | XMS_ITS | Encounter Summary ---
Author Organization [facility] Address [address] [place] [address] Care Team Providers Care Civil Engineer Land Development Name Role Phone Aliza Childress Primary Care Provider [phone] Reason for Visit * Reason Onset Date Comments signature needed 09/15/2022 Encounter Details Date Type Department Care Team (Late st Contact Info) Description 09/15/2022 Telephone [facility] [address] [place] [address] Ann Chappell [place] signature needed Social History [...] Description 01/12/2026 3:30 PM EDT Office Visit [facility] [address] [place] [address] Kendra Choi MD [address] [place] [address] documented as of this encounter Visit Diagnoses Not on filedocumented in this encounter Care Teams Civil Engineer Land Development Relationship Specialty Start Date End Date Aliza Childress [address] [place] [address] PCP - General 04/12/17 documented as of this encounter
--- OUTSIDE RECORDS SUMMARY | 2025-09-09 12:47 | XMS_ITS | Encounter Summary ---
Author Organization [facility] Address [address] [place] [address] Care Team Providers Care Jinrikisha Driver Name Role Phone Aliza Childress Primary Care Provider Encounter Details Date Type Department Care Team (Late Contact Info) Description 09/06/2022 Telephone [facility] [address] [place] [id number] Telephone Intake, Staff Social History Tobacco Use [...] - 09/06/2022 12:16 PM EST Sabrina from [facility] calling about PT's appt on 09/13 - telehealth with Dr. Choi. 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 Nurses will be on with him. If he does, they will make arrangements for that, but wanted to be sure before keeping him out of his program that day. Please follow up with staff there [phone]. documented in this encounter Plan of Treatment Upcoming Encounters Date Type Department Care Team (Late Contact Info) Description 01/12/2026 3:30 PM EDT Office Visit [facility] [address] [place], [place] [id number] Kendra Choi MD [address], [place] [id number] documented as of this encounter Visit Diagnoses Not on filedocumented in this encounter Care Teams Jinrikisha Driver Relationship Specialty Start Date End Date Aliza Childress [address] [place] [phone] [place] [id number] PCP - General 04/12/17 documented as of this encounter
== END 2025-09-09 10:55 | disposition home or self-care (01) ==
LOC: HO.HGI 10:23
PROVIDERS: PCP Internal Medicine; Visit Provider Internal Medicine
DX: B18.1 Chronic viral hepatitis B without delta-agent (principal); R76.89 Other specified abnormal immunological findings in serum; K59.09 Other constipation
CPT/HCPCS: 99214

== ENCOUNTER → 2025-09-09 10:22 | Outpatient (BNVA) | payer OTHER, SELFPAY | PROVIDERS: PCP Internal Medicine; Visit Provider Internal Medicine | DX: B18.1 Chronic viral hepatitis B without delta-agent (principal); K59.09 Other constipation; R76.89 Other specified abnormal immunological findings in serum; Z12.11 Encounter for screening for malignant neoplasm of colon; Z12.12 Encounter for screening for malignant neoplasm of rectum | CPT/HCPCS: 99212 ==